=== PATIENT | female | born 1965 | race African-American/Black ===

== ENCOUNTER 2017-07-24 15:13 | Inpatient (IN) | payer MEDICARE, MEDICAID ==
[~2017-07-24] VITALS: Ht 162.6 cm; Wt 81.6 kg
[2017-07-24] MEDS ORDERED: Sodium Chloride 500ML 500 ML IV ONE (16:11)
[2017-07-24 16:48] LABS: APPEARANCE,URINE SLIGHTLY CLOUDY; BILIRUBIN, URINE NEGATIVE (NEGATIVE); COLOR,URINE AMBER; GLUCOSE, URINE (UA) NEGATIVE (NEGATIVE); KETONES,URINE 4+ (NEGATIVE); LEUKOCYTE ESTERASE ,URINE 1+ (NEGATIVE); NITRITE,URINE NEGATIVE (NEGATIVE); PH,URINE 7 (4.5-8.0); PROTEIN,URINE 2+ (NEGATIVE); UROBILINOGEN,URINE 1 MG/DL (0.0-1.0)
[2017-07-24 16:53] LABS: EOSINOPHILS % (AUTO) 1.1 % (0.0-3.0); HEMATOCRIT 47.7 % (37.0-47.0); HEMOGLOBIN 15.3 G/DL (12.0-16.0); LYMPHOCYTES % (AUTO) 8.1 % (20.0-45.0); MEAN CORPUSCULAR VOLUME 81 FL (80-99); MONOCYTES % (AUTO) 6.5 % (1.0-10.0); NEUTROPHILS % (AUTO) 83.3 % (45.0-75.0); PLATELET COUNT 329 K/UL (150-450); RED BLOOD COUNT 5.89 M/UL (4.20-5.40); RED CELL DISTRIBUTION WIDTH 12.5 % (11.6-14.8); WHITE BLOOD COUNT 17.5 K/UL (4.8-10.8)
[2017-07-24 17:00] VITALS: BP 157/98
[2017-07-24 17:13] LABS: ALANINE AMINOTRANSFERASE 21 U/L (12-78); ALBUMIN 3.2 G/DL (3.4-5.0); ALBUMIN/GLOBULIN RATIO 0.7 (1.0-2.7); ALKALINE PHOSPHATASE 105 U/L (46-116); ANION GAP 16 mmol/L (5-15); ASPARTATE AMINO TRANSFERASE 13 U/L (15-37); BILIRUBIN,TOTAL 0.7 MG/DL (0.2-1.0); BLOOD UREA NITROGEN 8 mg/dL (7-18); CALCIUM 9.5 MG/DL (8.5-10.1); CARBON DIOXIDE 24 MMOL/L (21-32); CHLORIDE 98 MMOL/L (98-107); CKMB < 0.5 NG/ML (0.0-3.6); CREATINE KINASE 47 U/L (26-308); CREATININE 0.7 MG/DL (0.55-1.30); SODIUM 138 MMOL/L (136-145)
[2017-07-24 17:16] LABS: POTASSIUM 2.6 MMOL/L (3.5-5.1)
[2017-07-24] MEDS ORDERED: ABILIFY20 MG ORAL (17:26)
[2017-07-24] MEDS ORDERED: LISINOPRIL5 MG ORAL (17:26)
[2017-07-24] MEDS ORDERED: TOPIRAMATE100 MG ORAL (17:26)
[2017-07-24] MEDS ORDERED: VENLAFAXINE HCL25 MG ORAL (17:26)
[2017-07-24] MEDS ORDERED: Potassium Chloride 10 MEQ in NS 110 ML IVPB SCH (17:30)
[2017-07-24] MEDS ORDERED: Isovue-300 100ml vial INJ ONE (17:45)
[2017-07-24] MEDS ORDERED: cefTRIAXone 1 GM in NS 55 ML IVPB ONE (19:15)
--- NOTE | 2017-07-24 19:17 | Emergency Room Report ---
History of Present Illness General Chief Complaint: Syncope Source: Patient Present Illness HPI Patient presents with complaints of diffuse abdominal pain Reports that she has also been constipated for the past several days Patient was in the waiting room when she was reported to have a syncopal episode Denies any headache denies any chest pain or shortness of breath denies any back or flank pain abdominal pain is 7 out of 10 diffuse patient also reports several vomiting episodes Denies any neck pain Denies any recent travel Allergies: Coded Allergies: No Known Allergies (Unverified , 07/24/17) Patient History Past Medical History: see triage record Pertinent Family History: none Reviewed Nursing Documentation: PMH: Agreed; PSxH: Agreed Nursing Documentation-PMH Past Medical History: No History, Except For Hx Hypertension: Yes Review of Systems All Other Systems: negative except mentioned in HPI Physical Exam Vital Signs Date Time Temp Pulse Resp B/P (MAP) Pulse Ox O2 Delivery O2 Flow Rate FiO2 07/24/17 15:55 97.7 92 21 169/91 100 Room Air 97.7 Sp02 EP Interpretation: reviewed, normal General Appearance: mild distress - Histrionic Head: normocephalic, atraumatic Eyes: bilateral eye PERRL, bilateral eye EOMI ENT: hearing grossly normal, normal pharynx, TMs + canals normal, uvula midline Neck: full range of motion, supple, no meningismus, no bony tend Respiratory: lungs clear, normal breath sounds, no rhonchi, no respiratory distress, no retraction, no accessory muscle use Cardiovascular #1: normal peripheral pulses, regular rate, rhythm, no edema, no gallop, no JVD, no murmur Gastrointestinal: normal bowel sounds, soft, no mass, no organomegaly, non- distended, no hernia, no pulsatile mass, no rebound, other - Difficult abnormal exam patient is fairly histrionic, I cannot localize the pain, soft abdomen otherwise Genitourinary: no CVA tenderness Musculoskeletal: normal inspection Neurologic: oriented x3, responsive, geriatrician III-XII nml as tested, motor strength/ tone normal, sensory intact Psychiatric: mood/affect normal Skin: normal color, no rash, warm/dry, palpation normal Lymphatic: normal inspection, no adenopathy Medical Decision Making Diagnostic Impression: Primary Impression: Perforated diverticulum Additional Impression: UTI (urinary tract infection) ER Course Multiple differentials considered Patient presents fairly histrionic in acute discomfort IV hydration and pain medication is provided Patient is complex requiring imaging and blood work CT is showing evidence of possible diverticulitis with perforation and abscess formation Patient's white blood cell count is elevated Multi-antibiotic doses are provided Patient requiring admission for further inpt care Labs Test 07/24/17 16:00 White Blood Count 17.5 K/UL (4.8-10.8) Red Blood Count 5.89 M/UL (4.20-5.40) Hemoglobin 15.3 G/DL (12.0-16.0) Hematocrit 47.7 % (37.0-47.0) Mean Corpuscular Volume 81 FL (80-99) Mean Corpuscular Hemoglobin 25.9 PG (27.0-31.0) Mean Corpuscular Hemoglobin Concent 32.0 G/DL (32.0-36.0) Red Cell Distribution Width 12.5 % (11.6-14.8) Platelet Count 329 K/UL (150-450) Mean Platelet Volume 7.8 FL (6.5-10.1) Neutrophils (%) (Auto) 83.3 % (45.0-75.0) Lymphocytes (%) (Auto) 8.1 % (20.0-45.0) Monocytes (%) (Auto) 6.5 % (1.0-10.0) Eosinophils (%) (Auto) 1.1 % (0.0-3.0) Basophils (%) (Auto) 1.0 % (0.0-2.0) Urine Color Yany Urine Appearance Slightly cloudy Urine pH 7 (4.5-8.0) Urine Specific [place] 1.010 (1.005-1.035) Urine Protein 2+ (NEGATIVE) Urine Glucose (UA) Negative (NEGATIVE) Urine Ketones 4+ (NEGATIVE) Urine Occult Blood 2+ (NEGATIVE) Urine Nitrite Negative (NEGATIVE) Urine Bilirubin Negative (NEGATIVE) Urine Ictotest Negative Urine Urobilinogen 1 MG/DL (0.0-1.0) Urine Leukocyte Esterase 1+ (NEGATIVE) Urine RBC 2-4 /HPF (0 - 2) Urine WBC 5-10 /HPF (0 - 2) Urine Squamous Epithelial Cells Moderate /LPF (NONE/OCC) Urine Bacteria Few /HPF (NONE) Urine Hyaline Casts 0-2 /LPF (NONE) Urine Mucus Few /LPF (NONE/OCC) Sodium Level 138 MMOL/L (136-145) Potassium Level 2.6 MMOL/L (3.5-5.1) Chloride Level 98 MMOL/L (98-107) Carbon Dioxide Level 24 MMOL/L (21-32) Anion Gap 16 mmol/L (5-15) Blood Urea Nitrogen 8 mg/dL (7-18) Creatinine 0.7 MG/DL (0.55-1.30) Estimat Glomerular Filtration Rate > 60 mL/min (>60) Glucose Level 131 MG/DL (74-106) Calcium Level 9.5 MG/DL (8.5-10.1) Total Bilirubin 0.7 MG/DL (0.2-1.0) Aspartate Amino Transf (AST/SGOT) 13 U/L (15-37) Alanine Aminotransferase (ALT/SGPT) 21 U/L (12-78) Alkaline Phosphatase 105 U/L (46-116) Total Creatine Kinase 47 U/L (26-308) Creatine Kinase MB < 0.5 NG/ML (0.0-3.6) Creatine Kinase MB Relative Index 1.0 Troponin I 0.000 ng/mL (0.000-0.056) Total Protein 8.0 G/DL (6.4-8.2) Albumin 3.2 G/DL (3.4-5.0) Globulin 4.8 g/dL Albumin/Globulin Ratio 0.7 (1.0-2.7) Lipase 113 U/L (73-393) Urine Opiates Screen Negative (NEGATIVE) Urine Barbiturates Screen Negative (NEGATIVE) Phencyclidine (PCP) Screen Negative (NEGATIVE) Urine Amphetamines Screen Negative (NEGATIVE) Urine Benzodiazepines Screen Negative (NEGATIVE) Urine Cocaine Screen Positive (NEGATIVE) Urine Marijuana (THC) Screen Positive (NEGATIVE) Chest X-Ray Diagnostic Results Chest X-Ray Diagnostic Results : Chest X-Ray Ordered: Yes # of Views/Limited/Complete: 1 View Indication: Chest Pain EP Interpretation: Yes Interpretation: no consolidation, no effusion, no pneumothorax, other - Cardiomegaly Impression: No acute disease Electronically Signed by: Olga Grubbs, DO CT/MRI/US Diagnostic Results CT/MRI/US Diagnostic Results : Impression CT abdomen pelvis: Colonic diverticulitis there is area 3.6 fluid collection at the sigmoid wall concerning for abscess distended gallbladder wall Last Vital Signs Date Time Temp Pulse Resp B/P (MAP) Pulse Ox O2 Delivery O2 Flow Rate FiO2 07/24/17 15:55 97.7 92 21 169/91 100 Room Air 97.7 Status: improved Disposition: ADMITTED INPATIENT Condition: Serious Referrals: NOT CHOSEN IPA/,REFERRING (PCP) Olga Grubbs DO July 24, 2017 19:17
[2017-07-24] MEDS ORDERED: Morphine Sulfate 4mg/ml Inj IVP ONE (19:45)
[2017-07-24 20:23] VITALS: BP 169/79
[2017-07-24] MEDS ORDERED: Milk of Magnesia 30ml Ud ORAL PRN (21:00)
[2017-07-24 21:31] VITALS: BP 146/76
[2017-07-24] MEDS ORDERED: ARIPiprazole 10mg tab ORAL SCH (22:30)
[2017-07-24] MEDS ORDERED: Topiramate 100mg tab ORAL SCH (22:30)
[2017-07-24] MEDS ORDERED: Lisinopril 10mg tab ORAL SCH (22:30)
[2017-07-24] MEDS ORDERED: Acetaminophen 650 MG SUPP RECTAL PRN (22:45)
[2017-07-24] MEDS ORDERED: Venlafaxine XR 150mg cap ORAL SCH (23:00)
[2017-07-25] VITALS: BP 126/68
[2017-07-25] MEDS: Piperacillin/Tazobactam 3.375 GM in D5W 110 ML IVPB SCH ×4 (00:36→22:42)
[2017-07-25] MEDS: D5 1/2NS w/KCl 20mEq 1,000 ML IV SCH ×3 (00:36→17:54)
--- NOTE | 2017-07-25 03:15 | Consultation ---
DATE OF CONSULTATION: 07/24/2017 CONSULTING PHYSICIAN: Rachid Rodarte M.D. REQUESTING PHYSICIAN: John Trevizo M.D. REASON FOR CONSULTATION: Abdominal pain. HISTORY OF PRESENT ILLNESS: This is a 52-year-old female, who presented to emergency room complaining of abdominal pain for about four days. She stated that the pain is mainly in the lower abdomen, crampy. It might be associated with nausea, but no vomiting. She stated that she was constipated and she has used MiraLAX and Dulcolax. Today, she has been having bowel movement. Apparently, today she had a low-grade fever. She stated that she felt cold and in the hospital, she had a temperature of 101.5. She denies any previous history of similar pain. This pain gets aggravated with walking and bowel movement. She has a history of constipation. PAST MEDICAL HISTORY: She denies allergies, asthma, diabetes, cardiac, or renal diseases. She has a history of hypertension and major depression. PAST SURGICAL HISTORY: Include x1. MEDICATIONS: Please see the medicine reconciliation form. SOCIAL HISTORY: The patient is a 52-year-old female, single, mother of 5 children. Unemployed. In fact, she is on disability due to the depression. She smokes about half-a-pack per day. However, denies drinking. REVIEW OF SYSTEMS: Her other complaint is the depression. PHYSICAL EXAMINATION: GENERAL: The patient appeared to be a well-developed and well-nourished, moderately obese 52-year-old female, lying on the bed, complaining of abdominal pain. HEENT: Head is normocephalic and atraumatic. Eyes, pupils are equal, round, and reactive to light. Mouth is clear. NECK: There is no palpable thyromegaly and adenopathy. CHEST: Clear to auscultation and percussion. HEART: No gallop or murmur. S1 and S2 are within normal limits. ABDOMEN: Obese, but soft. She has severe tenderness at the suprapubic area and mild tenderness at the left lower quadrant. There is no palpable organomegaly. Bowel sounds are present. She has a scar of the transverse suprapubic incision. GENITAL: Deferred. EXTREMITIES: Within normal limits. LABORATORY AND DIAGNOSTIC DATA: CBC has shown a WBC of 17,500 with a left shift. Chemistry has shown potassium of 2.6 and creatinine of 0.7. The rest of the chemistry is within normal limits. The CAT scan of the abdomen has been interpreted as sigmoid diverticulitis with a possible small abscess. ASSESSMENT: Acute diverticulitis. PLAN: At this time, the patient requires IV antibiotic and she requires to be NPO. After the pain improves, she can be started on clear liquid diet and a GI consultation is required. I have taken the liberty of changing some of the orders. Thank you, Dr. Trevizo, for asking me to participate in the management of this patient. Rachid Rodarte M.D. DR: TRINI JOB#: [id number] CC:
[2017-07-25 04:00] VITALS: BP 146/76
[2017-07-25] MEDS ORDERED: Morphine Sulfate 4mg/ml Inj IVP PRN (06:00)
[2017-07-25] MEDS: Morphine Sulfate 4mg/ml Inj IVP PRN ×3 (06:26→17:54)
[2017-07-25 07:31] LABS: BASOPHILS % (AUTO) 0.6 % (0.0-2.0); EOSINOPHILS % (AUTO) 2.5 % (0.0-3.0); HEMATOCRIT 41.9 % (37.0-47.0); HEMOGLOBIN 13.7 G/DL (12.0-16.0); LYMPHOCYTES % (AUTO) 10.8 % (20.0-45.0); MEAN CORPUSCULAR VOLUME 82 FL (80-99); NEUTROPHILS % (AUTO) 77.1 % (45.0-75.0); PLATELET COUNT 300 K/UL (150-450); RED BLOOD COUNT 5.13 M/UL (4.20-5.40); RED CELL DISTRIBUTION WIDTH 12.5 % (11.6-14.8); WHITE BLOOD COUNT 11.3 K/UL (4.8-10.8)
[2017-07-25 07:44] LABS: ANION GAP 10 mmol/L (5-15); BLOOD UREA NITROGEN 7 mg/dL (7-18); CALCIUM 8.4 MG/DL (8.5-10.1); CARBON DIOXIDE 28 MMOL/L (21-32); CHLORIDE 102 MMOL/L (98-107); CREATININE 0.7 MG/DL (0.55-1.30); SODIUM 140 MMOL/L (136-145)
[2017-07-25 07:50] LABS: CHOLESTEROL 145 MG/DL (< 200); HDL CHOLESTEROL 38 MG/DL (40-60); TRIGLYCERIDES 65 MG/DL (30-150)
[2017-07-25 08:00] VITALS: BP 134/76
[2017-07-25 08:06] LABS: POTASSIUM 2.7 MMOL/L (3.5-5.1)
[2017-07-25] MEDS ORDERED: Aspirin Baby 81mg ORAL SCH (09:00)
[2017-07-25] MEDS: Lisinopril 10mg tab ORAL SCH (10:29)
--- NOTE | 2017-07-25 11:20 | Cardiology Report ---
APPROVED REPORT EXAM: Two-dimensional and M-mode echocardiogram with Doppler and color Doppler. INDICATION Syncope M-Mode DIMENSIONS IVSd1.1 (0.7-1.1cm)Left Atrium (MM)3.3 (1.6-4.0cm) LVDd4.6 (3.5-5.6cm)Aortic Root2.9 (2.0-3.7cm) PWd1.1 (0.7-1.1cm)Aortic Cusp Exc.2.0 (1.5-2.0cm) LVDs2.9 (2.5-4.0cm) PWs1.7 cm Normal left ventricular chamber size, systolic function and wall motion. Left ventricular ejection fraction estimated to be 60-65 %. Borderline left ventricular hypertrophy. No evidence of pericardial effusion. Mild left atrial enlargement. Right cardiac chamber sizes are within normal limits. Focal aortic valve sclerosis with adequate cusp excursion. Thickened mitral valve leaflets with normal excursion. Mitral annulus and aortic root calcification. Normal pulmonic valve structure. Normal tricuspid valve structure. IVC dilated at 2.1 with physiological collapse. A color flow and spectral Doppler study was performed and revealed: No aortic insufficiency. No mitral regurgitation. Mitral diastolic velocities suggest mild left ventricular diastolic dysfunction (Grade I). Trace tricuspid regurgitation. Tricuspid systolic velocities suggests peak right ventricular systolic pressure of 18 mmHg. Trace pulmonic regurgitation present.
--- NOTE | 2017-07-25 11:39 | Cardiology Report ---
APPROVED REPORT EKG Measurement Heart [id number] Normal sinus rhythm Possible Left atrial enlargement T wave abnormality, consider lateral ischemia Prolonged QT Abnormal ECG
--- NOTE | 2017-07-25 11:42 | History & Physical ---
History and Physical History & Physicial HP dictated # [id number] VALENTE HAYWARD July 25, 2017 11:42
[2017-07-25 12:00] VITALS: BP 131/76
--- NOTE | 2017-07-25 13:07 | Cardiac Electrophysiology PN ---
Subjective Subjective [id number] Objective Last 24 Hour Vital Signs Date Time Temp Pulse Resp B/P (MAP) Pulse Ox O2 Delivery O2 Flow Rate FiO2 07/25/17 12:00 76 07/25/17 12:00 98.0 69 18 131/76 96 Room Air 98.0 84 07/25/17 10:29 134/76 07/25/17 08:00 98.2 84 18 134/76 94 Room Air 98.2 84 07/25/17 08:00 75 07/25/17 06:56 98.2 07/25/17 06:26 98.2 07/25/17 04:00 98.2 77 20 146/76 96 Room Air 98.2 77 07/25/17 04:00 82 07/25/17 00:00 80 07/25/17 00:00 98.4 86 20 126/68 96 Room Air 98.4 86 07/24/17 22:26 154/87 07/24/17 21:45 101.5 91 23 146/76 98 Room Air 214.7 91 07/24/17 21:33 101.5 07/24/17 21:31 101.5 91 23 146/76 98 Room Air 101.5 91 07/24/17 20:23 98.8 88 21 169/79 96 Room Air 98.8 07/24/17 19:48 97.7 07/24/17 17:00 97.7 94 21 157/98 98 Room Air 97.7 07/24/17 15:55 97.7 92 21 169/91 100 Room Air 97.7 Intake and Output 07/24/17 07/25/17 19:00 07:00 Intake Total 650 ml Balance 650 ml Intake Oral 100 ml Other 550 ml # Voids 3 Laboratory Tests Test 07/24/17 16:00 07/25/17 07:00 White Blood Count 17.5 K/UL (4.8-10.8) H 11.3 K/UL (4.8-10.8) H Red Blood Count 5.89 M/UL (4.20-5.40) H 5.13 M/UL (4.20-5.40) Hemoglobin 15.3 G/DL (12.0-16.0) 13.7 G/DL (12.0-16.0) Hematocrit 47.7 % (37.0-47.0) H 41.9 % (37.0-47.0) Mean Corpuscular Volume 81 FL (80-99) 82 FL (80-99) Mean Corpuscular Hemoglobin 25.9 PG (27.0-31.0) L 26.8 PG (27.0-31.0) L Mean Corpuscular Hemoglobin Concent 32.0 G/DL (32.0-36.0) 32.7 G/DL (32.0-36.0) Red Cell Distribution Width 12.5 % (11.6-14.8) 12.5 % (11.6-14.8) Platelet Count 329 K/UL (150-450) 300 K/UL (150-450) Mean Platelet Volume 7.8 FL (6.5-10.1) 7.9 FL (6.5-10.1) Neutrophils (%) (Auto) 83.3 % (45.0-75.0) H 77.1 % (45.0-75.0) H Lymphocytes (%) (Auto) 8.1 % (20.0-45.0) L 10.8 % (20.0-45.0) L Monocytes (%) (Auto) 6.5 % (1.0-10.0) 9.0 % (1.0-10.0) Eosinophils (%) (Auto) 1.1 % (0.0-3.0) 2.5 % (0.0-3.0) Basophils (%) (Auto) 1.0 % (0.0-2.0) 0.6 % (0.0-2.0) Urine Color Yany Urine Appearance Slightly cloudy Urine pH 7 (4.5-8.0) Urine Specific [place] 1.010 (1.005-1.035) Urine Protein 2+ (NEGATIVE) H Urine Glucose (UA) Negative (NEGATIVE) Urine Ketones 4+ (NEGATIVE) H Urine Occult Blood 2+ (NEGATIVE) H Urine Nitrite Negative (NEGATIVE) Urine Bilirubin Negative (NEGATIVE) Urine Ictotest Negative Urine Urobilinogen 1 MG/DL (0.0-1.0) H Urine Leukocyte Esterase 1+ (NEGATIVE) H Urine RBC 2-4 /HPF (0 - 2) H Urine WBC 5-10 /HPF (0 - 2) H Urine Squamous Epithelial Cells Moderate /LPF (NONE/OCC) H Urine Bacteria Few /HPF (NONE) Urine Hyaline Casts 0-2 /LPF (NONE) H Urine Mucus Few /LPF (NONE/OCC) H Sodium Level 138 MMOL/L (136-145) 140 MMOL/L (136-145) Potassium Level 2.6 MMOL/L (3.5-5.1) *L 2.7 MMOL/L (3.5-5.1) *L Chloride Level 98 MMOL/L (98-107) 102 MMOL/L (98-107) Carbon Dioxide Level 24 MMOL/L (21-32) 28 MMOL/L (21-32) Anion Gap 16 mmol/L (5-15) H 10 mmol/L (5-15) Blood Urea Nitrogen 8 mg/dL (7-18) 7 mg/dL (7-18) Creatinine 0.7 MG/DL (0.55-1.30) 0.7 MG/DL (0.55-1.30) Estimat Glomerular Filtration Rate > 60 mL/min (>60) > 60 mL/min (>60) Glucose Level 131 MG/DL (74-106) H 133 MG/DL (74-106) H Calcium Level 9.5 MG/DL (8.5-10.1) 8.4 MG/DL (8.5-10.1) L Total Bilirubin 0.7 MG/DL (0.2-1.0) Aspartate Amino Transf (AST/SGOT) 13 U/L (15-37) L Alanine Aminotransferase (ALT/SGPT) 21 U/L (12-78) Alkaline Phosphatase 105 U/L (46-116) Total Creatine Kinase 47 U/L (26-308) Creatine Kinase MB < 0.5 NG/ML (0.0-3.6) Creatine Kinase MB Relative Index 1.0 Troponin I 0.000 ng/mL (0.000-0.056) 0.000 ng/mL (0.000-0.056) Total Protein 8.0 G/DL (6.4-8.2) Albumin 3.2 G/DL (3.4-5.0) L Globulin 4.8 g/dL Albumin/Globulin Ratio 0.7 (1.0-2.7) L Lipase 113 U/L (73-393) Urine Opiates Screen Negative (NEGATIVE) Urine Barbiturates Screen Negative (NEGATIVE) Phencyclidine (PCP) Screen Negative (NEGATIVE) Urine Amphetamines Screen Negative (NEGATIVE) Urine Benzodiazepines Screen Negative (NEGATIVE) Urine Cocaine Screen Positive (NEGATIVE) H Urine Marijuana (THC) Screen Positive (NEGATIVE) H Hemoglobin A1c 6.1 % (4.3-6.0) H Triglycerides Level 65 MG/DL (30-150) Cholesterol Level 145 MG/DL (< 200) LDL Cholesterol 95 mg/dL (<100) HDL Cholesterol 38 MG/DL (40-60) L Cholesterol/HDL Ratio 3.8 (3.3-4.4) Ha Thompson MD July 25, 2017 13:07
--- NOTE | 2017-07-25 15:56 | General Surgery Progress Note ---
General Surgery-Progress Note Subjective Symptoms: improved Objective Last 24 Hour Vital Signs Date Time Temp Pulse Resp B/P (MAP) Pulse Ox O2 Delivery O2 Flow Rate FiO2 07/25/17 12:00 76 07/25/17 12:00 98.0 69 18 131/76 96 Room Air 98.0 84 07/25/17 10:29 134/76 07/25/17 08:00 98.2 84 18 134/76 94 Room Air 98.2 84 07/25/17 08:00 75 07/25/17 06:56 98.2 07/25/17 06:26 98.2 07/25/17 04:00 98.2 77 20 146/76 96 Room Air 98.2 77 07/25/17 04:00 82 07/25/17 00:00 80 07/25/17 00:00 98.4 86 20 126/68 96 Room Air 98.4 86 07/24/17 22:26 154/87 07/24/17 21:45 101.5 91 23 146/76 98 Room Air 214.7 91 07/24/17 21:33 101.5 07/24/17 21:31 101.5 91 23 146/76 98 Room Air 101.5 91 07/24/17 20:23 98.8 88 21 169/79 96 Room Air 98.8 07/24/17 19:48 97.7 07/24/17 17:00 97.7 94 21 157/98 98 Room Air 97.7 I&O Intake and Output 07/24/17 07/25/17 19:00 07:00 Intake Total 650 ml Balance 650 ml Intake Oral 100 ml Other 550 ml # Voids 3 Respiratory: clear Abdomen: soft, tenderness, present bowel sounds Extremities: no tenderness Laboratory Tests Test 07/24/17 16:00 07/25/17 07:00 White Blood Count 17.5 K/UL (4.8-10.8) H 11.3 K/UL (4.8-10.8) H Red Blood Count 5.89 M/UL (4.20-5.40) H 5.13 M/UL (4.20-5.40) Hemoglobin 15.3 G/DL (12.0-16.0) 13.7 G/DL (12.0-16.0) Hematocrit 47.7 % (37.0-47.0) H 41.9 % (37.0-47.0) Mean Corpuscular Volume 81 FL (80-99) 82 FL (80-99) Mean Corpuscular Hemoglobin 25.9 PG (27.0-31.0) L 26.8 PG (27.0-31.0) L Mean Corpuscular Hemoglobin Concent 32.0 G/DL (32.0-36.0) 32.7 G/DL (32.0-36.0) Red Cell Distribution Width 12.5 % (11.6-14.8) 12.5 % (11.6-14.8) Platelet Count 329 K/UL (150-450) 300 K/UL (150-450) Mean Platelet Volume 7.8 FL (6.5-10.1) 7.9 FL (6.5-10.1) Neutrophils (%) (Auto) 83.3 % (45.0-75.0) H 77.1 % (45.0-75.0) H Lymphocytes (%) (Auto) 8.1 % (20.0-45.0) L 10.8 % (20.0-45.0) L Monocytes (%) (Auto) 6.5 % (1.0-10.0) 9.0 % (1.0-10.0) Eosinophils (%) (Auto) 1.1 % (0.0-3.0) 2.5 % (0.0-3.0) Basophils (%) (Auto) 1.0 % (0.0-2.0) 0.6 % (0.0-2.0) Urine Color Yany Urine Appearance Slightly cloudy Urine pH 7 (4.5-8.0) Urine Specific [place] 1.010 (1.005-1.035) Urine Protein 2+ (NEGATIVE) H Urine Glucose (UA) Negative (NEGATIVE) Urine Ketones 4+ (NEGATIVE) H Urine Occult Blood 2+ (NEGATIVE) H Urine Nitrite Negative (NEGATIVE) Urine Bilirubin Negative (NEGATIVE) Urine Ictotest Negative Urine Urobilinogen 1 MG/DL (0.0-1.0) H Urine Leukocyte Esterase 1+ (NEGATIVE) H Urine RBC 2-4 /HPF (0 - 2) H Urine WBC 5-10 /HPF (0 - 2) H Urine Squamous Epithelial Cells Moderate /LPF (NONE/OCC) H Urine Bacteria Few /HPF (NONE) Urine Hyaline Casts 0-2 /LPF (NONE) H Urine Mucus Few /LPF (NONE/OCC) H Sodium Level 138 MMOL/L (136-145) 140 MMOL/L (136-145) Potassium Level 2.6 MMOL/L (3.5-5.1) *L 2.7 MMOL/L (3.5-5.1) *L Chloride Level 98 MMOL/L (98-107) 102 MMOL/L (98-107) Carbon Dioxide Level 24 MMOL/L (21-32) 28 MMOL/L (21-32) Anion Gap 16 mmol/L (5-15) H 10 mmol/L (5-15) Blood Urea Nitrogen 8 mg/dL (7-18) 7 mg/dL (7-18) Creatinine 0.7 MG/DL (0.55-1.30) 0.7 MG/DL (0.55-1.30) Estimat Glomerular Filtration Rate > 60 mL/min (>60) > 60 mL/min (>60) Glucose Level 131 MG/DL (74-106) H 133 MG/DL (74-106) H Calcium Level 9.5 MG/DL (8.5-10.1) 8.4 MG/DL (8.5-10.1) L Total Bilirubin 0.7 MG/DL (0.2-1.0) Aspartate Amino Transf (AST/SGOT) 13 U/L (15-37) L Alanine Aminotransferase (ALT/SGPT) 21 U/L (12-78) Alkaline Phosphatase 105 U/L (46-116) Total Creatine Kinase 47 U/L (26-308) Creatine Kinase MB < 0.5 NG/ML (0.0-3.6) Creatine Kinase MB Relative Index 1.0 Troponin I 0.000 ng/mL (0.000-0.056) 0.000 ng/mL (0.000-0.056) Total Protein 8.0 G/DL (6.4-8.2) Albumin 3.2 G/DL (3.4-5.0) L Globulin 4.8 g/dL Albumin/Globulin Ratio 0.7 (1.0-2.7) L Lipase 113 U/L (73-393) Urine Opiates Screen Negative (NEGATIVE) Urine Barbiturates Screen Negative (NEGATIVE) Phencyclidine (PCP) Screen Negative (NEGATIVE) Urine Amphetamines Screen Negative (NEGATIVE) Urine Benzodiazepines Screen Negative (NEGATIVE) Urine Cocaine Screen Positive (NEGATIVE) H Urine Marijuana (THC) Screen Positive (NEGATIVE) H Hemoglobin A1c 6.1 % (4.3-6.0) H Triglycerides Level 65 MG/DL (30-150) Cholesterol Level 145 MG/DL (< 200) LDL Cholesterol 95 mg/dL (<100) HDL Cholesterol 38 MG/DL (40-60) L Cholesterol/HDL Ratio 3.8 (3.3-4.4) Assessment Additional Comments Acute Diverticulitis Plan Additional Comments Continue present treatment RONALD ARZOLA July 25, 2017 15:56
[2017-07-25 16:00] VITALS: BP 133/68
[2017-07-25 20:00] VITALS: BP 131/71
--- NOTE | 2017-07-25 20:00 | History and Physical Report ---
DATE OF ADMISSION: 07/24/2017 CHIEF COMPLAINT: Abdominal pain. HISTORY OF PRESENT ILLNESS: This is a 52-year-old female, who came to the emergency room because of abdominal pain. While waiting in the waiting room, she had also a syncopal episode. The patient said that she was feeling dizzy in the emergency room. The patient was reporting abdominal pain 7/10 with several vomiting episodes. Currently, the patient is feeling better and does not have much pain. The patient was also seen by Dr. Rodarte for surgery and the CT scan also was done. CT of the abdomen showing sigmoid diverticulitis with possible small abscess. PAST MEDICAL HISTORY: History of major depression and hypertension. MEDICATIONS: Reviewed in the EMR. ALLERGIES: No known drug allergies. REVIEW OF SYSTEMS: As above. PHYSICAL EXAMINATION: GENERAL: The patient is a 52-year-old female, in no acute distress. VITAL SIGNS: Blood pressure 146/76, pulse 77, temperature 98.2 degrees, and respiratory rate is 20. HEENT: [place] conjunctivae. Anicteric sclerae. NECK: Supple. LUNGS: Clear to auscultation. HEART: S1 and S2 without murmurs or rubs. ABDOMEN: Soft. There is some mild tenderness in the lower abdomen. EXTREMITIES: No cyanosis or edema. LABORATORY AND DIAGNOSTIC DATA: The CBC shows a WBC of 17.5 on admission and today it is 11.3, hematocrit of 47.7, hemoglobin is 15.3, and platelets 329,000. Chemistry panel shows serum sodium of 140, potassium 2.7, chloride 102, CO2 28, BUN 7, creatinine 0.7, blood sugar is 133, and calcium is 8.4. UA shows 5 to 10 wbcs per high-power field and 2 to 4 rbcs. ASSESSMENT: This is a 52-year-old female, who was admitted with diagnosis of diverticulitis. The patient has also urinary tract infection. She has significant hypokalemia and also an episode of syncope. PLAN: The patient's potassium will be repleted. She was started on IV antibiotics and IV fluids. The patient will be seen by the ID wardrobe image consultant and further based on hospital course and findings, adjustment will be made in the patient's regimen. John Trevizo M.D. DR: DEVANTE JOB#: [id number] CC:
--- NOTE | 2017-07-25 20:45 | Consultation ---
DATE OF CONSULTATION: 07/25/2017 CARDIOLOGY CONSULTATION CONSULTING PHYSICIAN: Ha Thompson M.D. REFERRING PHYSICIAN: John Trevizo M.D. REASON FOR CONSULTATION: Syncope and the patient with hypertension and abnormal electrocardiogram. HISTORY OF PRESENT ILLNESS: The patient is a 52-year-old lady with history of hypertension and major depression, presented to the emergency room with abdominal pain of four days duration. The pain was primarily in the lower abdomen and associated with nausea, but no vomiting. The patient also has been having low-grade fever and went to an emergency room with temperature of 101.5. The patient underwent a CT of the abdomen that showed sigmoid diverticulitis, possible small abscess. The patient was made NPO after was evaluated by Dr. Rodarte from surgical perspective and started on IV antibiotics. Her EKG however showed lateral ischemia, but the patient does not currently have chest pain. Cardiology clearance was requested for further evaluation. REVIEW OF SYSTEMS: Review of systems was performed and was negative other than what was mentioned in the history of present illness. PAST MEDICAL HISTORY: Includes: 1. Hypertension. 2. Major depression. SOCIAL HISTORY: She lives at home. Does not smoke or drink alcohol. FAMILY HISTORY: Noncontributory. PHYSICAL EXAMINATION: VITAL SIGNS: Show blood pressure of 131/76, pulse 84, respirations 18, and she is afebrile. HEAD AND NECK: Shows no JVD or carotid bruits. LUNGS: Clear. CARDIOVASCULAR: Shows regular S1 and S2 with no gallop or murmur. ABDOMEN: Soft. EXTREMITIES: No pitting edema. LABORATORY AND DIAGNOSTIC DATA: Her EKG shows sinus rhythm with left atrial enlargement and T-wave abnormalities suggestive of lateral ischemia. Her labs show white count of 11.2, hemoglobin of 13.7, hematocrit of 41.9, and platelet count of 300. Sodium 140, potassium is 2.7, BUN of 7, creatinine of 0.7, and glucose of 132. Troponin negative x2. ASSESSMENT AND PLAN: 1. Syncope. Etiology is not clear, could be secondary to severe pain, currently remained in sinus rhythm. She will be ruled out for myocardial infarction. She underwent an echocardiogram that showed ejection fraction of 60% to 65% with no pericardial effusion and no aortic stenosis. 2. Lateral ischemia on the EKG. The patient will be ruled out for myocardial infarction. Currently denies any chest pain. At some point, she would need a stress test for further evaluation. 3. Severe hypokalemia. Potassium 2.7, was replaced. 4. Hypertension. The patient is on Zestril 10 mg daily. I will add p.r.n. hydralazine to her medical regimen. 5. Major depression, on Abilify and Effexor. 6. Acute diverticulitis with possible abscess, antibiotic under management of Dr. Rodarte. Thank you very much, Dr. Trevizo, for allowing me to participate in the care of this patient. Please do not hesitate to contact me if you have any questions regarding my evaluation. Ha Thompson M.D. DR: Krishna JOB#: [id number] CC:
[2017-07-25] MEDS: Topiramate 100mg tab ORAL SCH (21:14)
[2017-07-25] MEDS: ARIPiprazole 10mg tab ORAL SCH (21:14)
[2017-07-25] MEDS: Venlafaxine XR 150mg cap ORAL SCH (21:14)
--- NOTE | 2017-07-25 21:30 | Consultation ---
DATE OF CONSULTATION: 07/25/2017 GASTROENTEROLOGY CONSULTATION CONSULTING PHYSICIAN: Román St M.D. CHIEF COMPLAINT: I was asked to see this patient by Dr. John Trevizo for evaluation of diverticulitis. HISTORY OF PRESENT ILLNESS: The patient is a pleasant 52-year-old woman with a four-day history of abdominal pain, which was more in the left lower quadrant. The patient stated there was some nausea, but no vomiting. She tried her laxatives without significant improvement. She came to the hospital where she was found to have diverticulitis and therefore she has been admitted to the hospital. She still complains of some left-sided abdominal pain. She has been kept NPO and she is on broad-spectrum antibiotics. She states she has never had an endoscopy or colonoscopy in the past. Her white count on admission was 17, but this is reduced today to 11. Her hypokalemia is being addressed separately. PAST MEDICAL HISTORY: History of hypertension and history of depression. PAST SURGICAL HISTORY: Status post . ALLERGIES: None. FAMILY HISTORY: Positive for breast cancer in a great aunt. SOCIAL HISTORY: The patient drinks and smokes occasionally. REVIEW OF SYSTEMS: Otherwise negative. PHYSICAL EXAMINATION: GENERAL: Pleasant woman, seen in her room. HEENT: Normocephalic and atraumatic. Sclerae anicteric. Oropharynx clear. NECK: Supple. CHEST: Clear to auscultation. CARDIOVASCULAR: Regular rate. ABDOMEN: Soft and obese with good bowel sounds. There was some left lower quadrant abdominal tenderness with no guarding or rebound. EXTREMITIES: No edema. LABORATORY AND DIAGNOSTIC DATA: Laboratory data were noted. The imaging study final reading is pending at this time. ASSESSMENT: This patient has been admitted with diverticulitis, which has resulted in the left lower quadrant pain and leukocytosis. Her clinical symptoms are improving and her white count is reduced. Her antibiotics will be continued for now. Surgical consultation has been noted and we will follow the patient. In the meantime, the patient should be kept NPO until abdominal exam is significantly improved and then diet can be restarted and gradually advanced. The patient was advised to return to my office at about 6 to 8 weeks for the colonoscopy to evaluate the colonic area, which has been effective during this admission, this is to rule out any other pathology such as malignancy. RECOMMENDATIONS: 1. NPO except medications. 2. IV fluids. 3. Broad-spectrum antibiotics. 4. Follow laboratory parameters and exam. 5. Colonoscopy at a later date. Thank you for asking me to participate in the care of this patient. Román St M.D. DR: ZIA JOB#: [id number] CC:
[2017-07-26] VITALS: BP_SYST 128; BP_SYST 155; BP_DIAS 76; BP_DIAS 88
[2017-07-26] MEDS: Morphine Sulfate 4mg/ml Inj IVP PRN ×2 (03:26→16:43)
[2017-07-26 04:00] VITALS: BP 109/58
[2017-07-26] MEDS: D5 1/2NS w/KCl 20mEq 1,000 ML IV SCH ×2 (05:00→14:45)
[2017-07-26] MEDS: Piperacillin/Tazobactam 3.375 GM in D5W 110 ML IVPB SCH ×3 (06:11→22:52)
[2017-07-26 08:00] VITALS: BP 133/72
[2017-07-26] MEDS: Lisinopril 10mg tab ORAL SCH (09:07)
[2017-07-26 09:52] LABS: EOSINOPHILS % (AUTO) 5.8 % (0.0-3.0); HEMATOCRIT 42.6 % (37.0-47.0); HEMOGLOBIN 13.8 G/DL (12.0-16.0); LYMPHOCYTES % (AUTO) 19.5 % (20.0-45.0); MEAN CORPUSCULAR VOLUME 83 FL (80-99); NEUTROPHILS % (AUTO) 66.7 % (45.0-75.0); PLATELET COUNT 312 K/UL (150-450); RED BLOOD COUNT 5.12 M/UL (4.20-5.40); RED CELL DISTRIBUTION WIDTH 12.8 % (11.6-14.8); WHITE BLOOD COUNT 7.9 K/UL (4.8-10.8)
--- NOTE | 2017-07-26 09:55 | General Surgery Progress Note ---
General Surgery-Progress Note Subjective Symptoms: improved, BM Objective Last 24 Hour Vital Signs Date Time Temp Pulse Resp B/P (MAP) Pulse Ox O2 Delivery O2 Flow Rate FiO2 07/26/17 09:07 133/72 07/26/17 04:00 98.2 71 19 109/58 99 Room Air 98.2 07/26/17 04:00 69 07/26/17 03:56 97.0 07/26/17 03:26 97.0 07/26/17 00:00 98.6 80 16 128/76 98 Room Air 98.6 07/26/17 00:00 76 07/26/17 00:00 97.0 99 16 155/88 97 Room Air 97.0 07/25/17 20:00 74 07/25/17 20:00 97.7 71 21 131/71 93 Room Air 97.7 07/25/17 16:00 76 07/25/17 16:00 98.2 76 18 133/68 97 Room Air 98.2 76 07/25/17 12:00 76 07/25/17 12:00 98.0 69 18 131/76 96 Room Air 98.0 84 07/25/17 10:29 134/76 I&O Intake and Output 07/25/17 07/26/17 19:00 07:00 # Voids 2 3 # Bowel Movements 1 Respiratory: clear Abdomen: soft, tenderness, present bowel sounds Extremities: no tenderness Laboratory Tests Test 07/26/17 08:00 White Blood Count Pending Red Blood Count Pending Hemoglobin Pending Hematocrit Pending Mean Corpuscular Volume Pending Mean Corpuscular Hemoglobin Pending Mean Corpuscular Hemoglobin Concent Pending Red Cell Distribution Width Pending Platelet Count Pending Mean Platelet Volume Pending Neutrophils (%) (Auto) Pending Lymphocytes (%) (Auto) Pending Monocytes (%) (Auto) Pending Eosinophils (%) (Auto) Pending Basophils (%) (Auto) Pending Sodium Level Pending Potassium Level Pending Chloride Level Pending Carbon Dioxide Level Pending Blood Urea Nitrogen Pending Creatinine Pending Estimat Glomerular Filtration Rate Pending Glucose Level Pending Calcium Level Pending Magnesium Level Pending Assessment Additional Comments Acute diverticulitis Plan Additional Comments continue current treatment RONALD ARZOLA July 26, 2017 09:54
[2017-07-26 10:23] LABS: ANION GAP 9 mmol/L (5-15); BLOOD UREA NITROGEN 9 mg/dL (7-18); CALCIUM 9.1 MG/DL (8.5-10.1); CARBON DIOXIDE 24 MMOL/L (21-32); CHLORIDE 106 MMOL/L (98-107); CREATININE 0.9 MG/DL (0.55-1.30); POTASSIUM 3.6 MMOL/L (3.5-5.1); SODIUM 139 MMOL/L (136-145)
--- NOTE | 2017-07-26 14:27 | General Progress Note ---
Assessment/Plan Problem List: (1) Diverticulitis ICD Codes: K57.92 - Diverticulitis of intestine, part unspecified, without perforation or abscess without bleeding SNOMED: 534818563 (2) Syncope and collapse ICD Codes: R55 - Syncope and collapse SNOMED: 033880438 (3) UTI (urinary tract infection) ICD Codes: N39.0 - Urinary tract infection, site not specified SNOMED: 58800607 Assessment/Plan abxs IVF will discuss with Dr Thompson follow labs Subjective Allergies: Coded Allergies: No Known Allergies (Unverified , 07/24/17) Subjective better Objective Last 24 Hour Vital Signs Date Time Temp Pulse Resp B/P (MAP) Pulse Ox O2 Delivery O2 Flow Rate FiO2 07/26/17 09:07 133/72 07/26/17 08:00 79 07/26/17 08:00 98.0 73 20 133/72 93 Room Air 98.0 73 07/26/17 04:00 98.2 71 19 109/58 99 Room Air 98.2 07/26/17 04:00 69 07/26/17 03:56 97.0 07/26/17 03:26 97.0 07/26/17 00:00 98.6 80 16 128/76 98 Room Air 98.6 07/26/17 00:00 76 07/26/17 00:00 97.0 99 16 155/88 97 Room Air 97.0 07/25/17 20:00 74 07/25/17 20:00 97.7 71 21 131/71 93 Room Air 97.7 07/25/17 16:00 76 07/25/17 16:00 98.2 76 18 133/68 97 Room Air 98.2 76 Intake and Output 07/25/17 07/26/17 19:00 07:00 # Voids 2 3 # Bowel Movements 1 Laboratory Tests 07/26/17 08:00: White Blood Count 7.9, Red Blood Count 5.12, Hemoglobin 13.8, Hematocrit 42.6, Mean Corpuscular Volume 83, Mean Corpuscular Hemoglobin 26.9L, Mean Corpuscular Hemoglobin Concent 32.3, Red Cell Distribution Width 12.8, Platelet Count 312, Mean Platelet Volume 7.5, Neutrophils (%) (Auto) 66.7, Lymphocytes (%) (Auto) 19.5L, Monocytes (%) (Auto) 7.0, Eosinophils (%) (Auto) 5.8H, Basophils (%) ( Auto) 1.0, Sodium Level 139, Potassium Level 3.6, Chloride Level 106, Carbon Dioxide Level 24, Anion Gap 9, Blood Urea Nitrogen 9, Creatinine 0.9, Estimat Glomerular Filtration Rate > 60, Glucose Level 159H, Calcium Level 9.1, Magnesium Level 2.1 Height (Feet): 5 Height (Inches): 4.00 Weight (Pounds): 180 Cardiovascular: normal rate Respiratory/Chest: lungs clear Abdomen: soft VALENTE HAYWARD July 26, 2017 14:27
[2017-07-26 16:00] VITALS: BP 168/98
--- NOTE | 2017-07-26 16:24 | Cardiac Electrophysiology PN ---
Assessment/Plan Assessment/Plan 1. Syncope. Etiology is not clear, could be secondary to severe pain, currently remained in sinus rhythm. Ruled out for myocardial infarction. Echocardiogram that showed EF 60% to 65% with no pericardial effusion and no aortic stenosis. 2. Lateral ischemia on the EKG. Ruled out for myocardial infarction. Currently denies any chest pain. Stress test for further evaluation after GI issue resolved. 3. Severe hypokalemia. Potassium 2.7, was replaced. 4. Hypertension. On Zestril 10 mg daily. 5. Major depression, on Abilify and Effexor. 6. Acute diverticulitis with possible abscess, NPO on antibiotic under management of Dr. Rodarte. EDWARD RN Subjective Subjective Comfortable in NAD in SR. No CP or SOB but still has abd pain Objective Last 24 Hour Vital Signs Date Time Temp Pulse Resp B/P (MAP) Pulse Ox O2 Delivery O2 Flow Rate FiO2 07/26/17 12:00 73 07/26/17 09:07 133/72 07/26/17 08:00 79 07/26/17 08:00 98.0 73 20 133/72 93 Room Air 98.0 73 07/26/17 04:00 98.2 71 19 109/58 99 Room Air 98.2 07/26/17 04:00 69 07/26/17 03:56 97.0 07/26/17 03:26 97.0 07/26/17 00:00 98.6 80 16 128/76 98 Room Air 98.6 07/26/17 00:00 76 07/26/17 00:00 97.0 99 16 155/88 97 Room Air 97.0 07/25/17 20:00 74 07/25/17 20:00 97.7 71 21 131/71 93 Room Air 97.7 Intake and Output 07/25/17 07/26/17 19:00 07:00 # Voids 2 3 # Bowel Movements 1 Laboratory Tests Test 07/26/17 08:00 White Blood Count 7.9 K/UL (4.8-10.8) Red Blood Count 5.12 M/UL (4.20-5.40) Hemoglobin 13.8 G/DL (12.0-16.0) Hematocrit 42.6 % (37.0-47.0) Mean Corpuscular Volume 83 FL (80-99) Mean Corpuscular Hemoglobin 26.9 PG (27.0-31.0) L Mean Corpuscular Hemoglobin Concent 32.3 G/DL (32.0-36.0) Red Cell Distribution Width 12.8 % (11.6-14.8) Platelet Count 312 K/UL (150-450) Mean Platelet Volume 7.5 FL (6.5-10.1) Neutrophils (%) (Auto) 66.7 % (45.0-75.0) Lymphocytes (%) (Auto) 19.5 % (20.0-45.0) L Monocytes (%) (Auto) 7.0 % (1.0-10.0) Eosinophils (%) (Auto) 5.8 % (0.0-3.0) H Basophils (%) (Auto) 1.0 % (0.0-2.0) Sodium Level 139 MMOL/L (136-145) Potassium Level 3.6 MMOL/L (3.5-5.1) Chloride Level 106 MMOL/L (98-107) Carbon Dioxide Level 24 MMOL/L (21-32) Anion Gap 9 mmol/L (5-15) Blood Urea Nitrogen 9 mg/dL (7-18) Creatinine 0.9 MG/DL (0.55-1.30) Estimat Glomerular Filtration Rate > 60 mL/min (>60) Glucose Level 159 MG/DL (74-106) H Calcium Level 9.1 MG/DL (8.5-10.1) Magnesium Level 2.1 MG/DL (1.5-2.4) Objective HEAD AND NECK: Shows no JVD or carotid bruits. LUNGS: Clear. CARDIOVASCULAR: Shows regular S1 and S2 with no gallop or murmur. ABDOMEN: Soft. EXTREMITIES: No pitting edema. Ha Thompson MD July 26, 2017 16:24
--- NOTE | 2017-07-26 19:54 | General Progress Note ---
Assessment/Plan Assessment/Plan Assessment - HTN - Depression - Obesity - Diverticulitis - resolved hypkalemia Recommendations - abx - diet per surgery - await CT reading - OOB - outpatient colonoscopy in 6-8 weeks Subjective Allergies: Coded Allergies: No Known Allergies (Unverified , 07/24/17) Subjective Patient feels better Less pain No CT results in the computer called radiology front end loader operator and asked them to upload CT results Objective Last 24 Hour Vital Signs Date Time Temp Pulse Resp B/P (MAP) Pulse Ox O2 Delivery O2 Flow Rate FiO2 07/26/17 16:00 98.9 77 20 168/98 97 Room Air 98.9 07/26/17 16:00 81 07/26/17 12:00 73 07/26/17 09:07 133/72 07/26/17 08:00 79 07/26/17 08:00 98.0 73 20 133/72 93 Room Air 98.0 73 07/26/17 04:00 98.2 71 19 109/58 99 Room Air 98.2 07/26/17 04:00 69 07/26/17 03:56 97.0 07/26/17 03:26 97.0 07/26/17 00:00 98.6 80 16 128/76 98 Room Air 98.6 07/26/17 00:00 76 07/26/17 00:00 97.0 99 16 155/88 97 Room Air 97.0 07/25/17 20:00 74 07/25/17 20:00 97.7 71 21 131/71 93 Room Air 97.7 Intake and Output 07/25/17 07/26/17 19:00 07:00 # Voids 2 3 # Bowel Movements 1 Laboratory Tests 07/26/17 08:00: White Blood Count 7.9, Red Blood Count 5.12, Hemoglobin 13.8, Hematocrit 42.6, Mean Corpuscular Volume 83, Mean Corpuscular Hemoglobin 26.9L, Mean Corpuscular Hemoglobin Concent 32.3, Red Cell Distribution Width 12.8, Platelet Count 312, Mean Platelet Volume 7.5, Neutrophils (%) (Auto) 66.7, Lymphocytes (%) (Auto) 19.5L, Monocytes (%) (Auto) 7.0, Eosinophils (%) (Auto) 5.8H, Basophils (%) ( Auto) 1.0, Sodium Level 139, Potassium Level 3.6, Chloride Level 106, Carbon Dioxide Level 24, Anion Gap 9, Blood Urea Nitrogen 9, Creatinine 0.9, Estimat Glomerular Filtration Rate > 60, Glucose Level 159H, Calcium Level 9.1, Magnesium Level 2.1 Height (Feet): 5 Height (Inches): 4.00 Weight (Pounds): 180 LINCOLN MATA July 26, 2017 19:54
[2017-07-26 20:00] VITALS: BP 127/75
[2017-07-26] MEDS: Venlafaxine XR 150mg cap ORAL SCH (20:50)
[2017-07-26] MEDS: Topiramate 100mg tab ORAL SCH (20:50)
[2017-07-26] MEDS: ARIPiprazole 10mg tab ORAL SCH (20:52)
--- NOTE | 2017-07-26 22:15 | Consultation ---
DATE OF CONSULTATION: 07/26/2017 INFECTIOUS DISEASE CONSULTATION CONSULTING PHYSICIAN: Donte Trevizo M.D. PRIMARY ATTENDING: John Trevizo M.D. REASON FOR CONSULT: Diverticulitis with intra-abdominal abscess. HISTORY OF PRESENT ILLNESS: This is a 52-year-old female admitted on 07/24/2017 complaining of lower abdominal pain. The patient has decreased appetite and abdominal pain for 4 days, fever for 2 days, and constipation, who had vomiting on the day of admission. The patient's temperature on the day of admission was 101.5. During visit in the ER, the patient had a syncopal episode. CT scan of the abdomen and pelvis showed diverticulitis with likely small abscess. PAST MEDICAL HISTORY: Significant for hypertension and depression. MEDICATIONS: Abilify, Topamax, Effexor XR, hydralazine is increased, metronidazole, morphine, Zosyn, Tylenol, and milk of magnesia. ALLERGIES: No known drug allergies. SOCIAL HISTORY: , has 5 children, lives with a boyfriend. Occasional smoking. Social drinking. Denies drug abuse. REVIEW OF SYSTEMS: Doing better today. No fever. No chills. No nausea. No vomiting. Pain is controlled. The patient does not have any difficulty in urination. PHYSICAL EXAMINATION: VITAL SIGNS: Temperature 98.2, pulse 71, and blood pressure 133/72. GENERAL APPEARANCE: Seems to be obese. No acute distress. HEAD AND NECK: Terrell conjunctivae. No oral lesion. HEART: Regular. Normal rate. LUNGS: Clear. ABDOMEN: Obese, soft, and nontender. EXTREMITIES: No edema. LABORATORY AND DIAGNOSTIC DATA: WBC 11.3, coming down from 17.5 at the time of admission, hemoglobin 13.7, hematocrit 41.9, and platelets are 300. Sodium 140, potassium 2.7, chloride 102, bicarb 28, BUN 7, creatinine 0.7, and glucose 133. Hemoglobin A1c is 6.1. Echocardiogram showed ejection fraction of 60 to 65%. UA showed wbc of 5 to 10 and rbc of 2 to 4. Urine toxicology was positive for cocaine and marijuana. IMPRESSION: 1. Acute large intestine diverticulitis, likely with abscess. 2. Syncope. 3. Hypokalemia. 4. Hypertension. 5. Depression. 6. Drug abuse including cocaine and marijuana. 7. Fatty liver on CT scan. RECOMMENDATION: Continue with Zosyn and Flagyl. We will follow up the clinical course. At the end of my exam, I thank Dr. John Trevizo for involving me in the care of this patient. Donte Trevizo M.D. DR: VICTORIANO JOB#: [id number] CC:
[2017-07-27] VITALS (8 sets, daily range): BP systolic 122–200; BP diastolic 67–111
[2017-07-27] MEDS: Morphine Sulfate 4mg/ml Inj IVP PRN (04:05)
[2017-07-27] MEDS: D5 1/2NS w/KCl 20mEq 1,000 ML IV SCH ×3 (04:07→21:24)
[2017-07-27 06:07] LABS: BASOPHILS % (AUTO) 0.8 % (0.0-2.0); EOSINOPHILS % (AUTO) 4.4 % (0.0-3.0); HEMATOCRIT 41.3 % (37.0-47.0); HEMOGLOBIN 14.3 G/DL (12.0-16.0); LYMPHOCYTES % (AUTO) 16.4 % (20.0-45.0); MEAN CORPUSCULAR VOLUME 81 FL (80-99); MONOCYTES % (AUTO) 7.1 % (1.0-10.0); NEUTROPHILS % (AUTO) 71.2 % (45.0-75.0); PLATELET COUNT 365 K/UL (150-450); RED BLOOD COUNT 5.08 M/UL (4.20-5.40); RED CELL DISTRIBUTION WIDTH 12.6 % (11.6-14.8); WHITE BLOOD COUNT 8.5 K/UL (4.8-10.8)
[2017-07-27] MEDS ORDERED: NovoLOG Insulin Flexpen SUBQ SCH (06:30)
[2017-07-27 06:47] LABS: ALANINE AMINOTRANSFERASE 23 U/L (12-78); ALBUMIN 2.9 G/DL (3.4-5.0); ALBUMIN/GLOBULIN RATIO 0.6 (1.0-2.7); ALKALINE PHOSPHATASE 90 U/L (46-116); ANION GAP 13 mmol/L (5-15); ASPARTATE AMINO TRANSFERASE 18 U/L (15-37); BILIRUBIN,TOTAL 0.4 MG/DL (0.2-1.0); BLOOD UREA NITROGEN 6 mg/dL (7-18); CARBON DIOXIDE 22 MMOL/L (21-32); CHLORIDE 103 MMOL/L (98-107); CREATININE 0.7 MG/DL (0.55-1.30); POTASSIUM 3.1 MMOL/L (3.5-5.1); SODIUM 138 MMOL/L (136-145)
[2017-07-27] MEDS: Piperacillin/Tazobactam 3.375 GM in D5W 110 ML IVPB SCH ×3 (07:49→22:46)
[2017-07-27] MEDS: Lisinopril 10mg tab ORAL SCH (09:11)
--- NOTE | 2017-07-27 11:32 | Infectious Diseases Prog Note ---
Assessment/Plan Assessment/Plan A: Diverticulitis with abscess Syncope Hypokalemia HPN Depression Substance abuse P: Continue Zosyn Discontinue Flagyl Subjective ROS Limited/Unobtainable: Yes Allergies: Coded Allergies: No Known Allergies (Unverified , 07/24/17) Objective Vital Signs Last 24 Hour Vital Signs Date Time Temp Pulse Resp B/P (MAP) Pulse Ox O2 Delivery O2 Flow Rate FiO2 07/27/17 09:11 160/93 07/27/17 08:00 98.2 78 20 160/93 97 Room Air 98.2 07/27/17 04:35 97.9 07/27/17 04:03 200/111 07/27/17 04:00 74 07/27/17 04:00 97.9 78 19 154/87 97 Room Air 97.9 07/27/17 01:25 97.8 71 21 165/101 98 Room Air 97.8 07/27/17 00:00 72 07/27/17 00:00 97.8 70 20 200/111 98 Room Air 97.8 07/26/17 20:00 81 07/26/17 20:00 99.0 75 20 127/75 98 Room Air 99.0 07/26/17 16:00 98.9 77 20 168/98 97 Room Air 98.9 07/26/17 16:00 81 07/26/17 12:00 73 Height (Feet): 5 Height (Inches): 4.00 Weight (Pounds): 180 General Appearance: no acute distress HEENT: mucous membranes moist Respiratory/Chest: lungs clear Cardiovascular: normal rate Abdomen: soft, non tender Skin: no rash, no lesions Neurologic/Psychiatric: other - sleeping Laboratory Tests Test 07/27/17 05:20 White Blood Count 8.5 K/UL (4.8-10.8) Red Blood Count 5.08 M/UL (4.20-5.40) Hemoglobin 14.3 G/DL (12.0-16.0) Hematocrit 41.3 % (37.0-47.0) Mean Corpuscular Volume 81 FL (80-99) Mean Corpuscular Hemoglobin 28.2 PG (27.0-31.0) Mean Corpuscular Hemoglobin Concent 34.7 G/DL (32.0-36.0) Red Cell Distribution Width 12.6 % (11.6-14.8) Platelet Count 365 K/UL (150-450) Mean Platelet Volume 7.1 FL (6.5-10.1) Neutrophils (%) (Auto) 71.2 % (45.0-75.0) Lymphocytes (%) (Auto) 16.4 % (20.0-45.0) L Monocytes (%) (Auto) 7.1 % (1.0-10.0) Eosinophils (%) (Auto) 4.4 % (0.0-3.0) H Basophils (%) (Auto) 0.8 % (0.0-2.0) Sodium Level 138 MMOL/L (136-145) Potassium Level 3.1 MMOL/L (3.5-5.1) L Chloride Level 103 MMOL/L (98-107) Carbon Dioxide Level 22 MMOL/L (21-32) Anion Gap 13 mmol/L (5-15) Blood Urea Nitrogen 6 mg/dL (7-18) L Creatinine 0.7 MG/DL (0.55-1.30) Estimat Glomerular Filtration Rate > 60 mL/min (>60) Glucose Level 106 MG/DL (74-106) Calcium Level 9.0 MG/DL (8.5-10.1) Total Bilirubin 0.4 MG/DL (0.2-1.0) Aspartate Amino Transf (AST/SGOT) 18 U/L (15-37) Alanine Aminotransferase (ALT/SGPT) 23 U/L (12-78) Alkaline Phosphatase 90 U/L (46-116) Total Protein 7.4 G/DL (6.4-8.2) Albumin 2.9 G/DL (3.4-5.0) L Globulin 4.5 g/dL Albumin/Globulin Ratio 0.6 (1.0-2.7) L Current Medications Medications (Trade) Dose Ordered Sig/Alfredo Route PRN Reason Start Time Stop Time Status Last Admin Dose Admin Acetaminophen (Tylenol) 650 mg Q4H PRN RECTAL Mild Pain (Pain Scale 1-3) 07/24/17 22:45 08/23/17 22:44 Aripiprazole (Abilify) 20 mg DAILY@2100 ORAL 07/25/17 21:00 08/24/17 20:59 07/26/17 20:52 Dextrose/ Electrolytes 1,000 ml @ 100 mls/hr Q10H IV 07/24/17 22:45 08/23/17 22:44 07/27/17 11:21 Hydralazine HCl (Apresoline) 10 mg Q2H PRN IV SBP > 170mmHg 07/25/17 13:15 08/24/17 13:14 07/27/17 04:03 Lisinopril (Zestril) 10 mg DAILY ORAL 07/25/17 09:00 08/24/17 08:59 07/27/17 09:11 Magnesium Hydroxide (Mom) 30 ml HSPRN PRN ORAL Constipation 07/24/17 21:00 08/23/17 20:59 Metronidazole 100 ml @ 100 mls/hr Q8HR IVPB 07/25/17 06:00 08/01/17 05:59 07/27/17 06:55 Morphine Sulfate (Morphine Sulfate) 4 mg Q4H PRN IVP Moderate Pain (Pain Scale 4-6) 07/25/17 06:00 08/01/17 05:59 07/27/17 04:05 Morphine Sulfate (Morphine Sulfate) 6 mg Q4H PRN IVP Severe Pain (Pain Scale 7-10) 07/25/17 06:00 08/01/17 05:59 Piperacillin Sod/ Tazobactam Sod 3.375 gm/Dextrose 110 ml @ 220 mls/hr Q8H IVPB 07/24/17 23:00 07/31/17 22:59 07/27/17 07:49 Topiramate (Topamax) 100 mg DAILY@2100 ORAL 07/25/17 21:00 08/24/17 20:59 07/26/17 20:50 Venlafaxine HCl (Effexor-XR) 150 mg DAILY@2100 ORAL 07/25/17 21:00 08/24/17 20:59 07/26/17 20:50 TABBY HAYWARD July 27, 2017 11:32
--- NOTE | 2017-07-27 14:36 | General Progress Note ---
Assessment/Plan Problem List: (1) Diverticulitis ICD Codes: K57.92 - Diverticulitis of intestine, part unspecified, without perforation or abscess without bleeding SNOMED: 906415606 (2) Syncope and collapse ICD Codes: R55 - Syncope and collapse SNOMED: 973742796 (3) UTI (urinary tract infection) ICD Codes: N39.0 - Urinary tract infection, site not specified SNOMED: 34293628 Assessment/Plan abxs IVF follow labs Subjective Allergies: Coded Allergies: No Known Allergies (Unverified , 07/24/17) Subjective better Objective Last 24 Hour Vital Signs Date Time Temp Pulse Resp B/P (MAP) Pulse Ox O2 Delivery O2 Flow Rate FiO2 07/27/17 12:00 85 07/27/17 12:00 98.1 97 20 157/98 100 Room Air 98.1 07/27/17 09:11 160/93 07/27/17 08:00 98.2 78 20 160/93 97 Room Air 98.2 07/27/17 08:00 85 07/27/17 04:35 97.9 07/27/17 04:03 200/111 07/27/17 04:00 74 07/27/17 04:00 97.9 78 19 154/87 97 Room Air 97.9 07/27/17 01:25 97.8 71 21 165/101 98 Room Air 97.8 07/27/17 00:00 72 07/27/17 00:00 97.8 70 20 200/111 98 Room Air 97.8 07/26/17 20:00 81 07/26/17 20:00 99.0 75 20 127/75 98 Room Air 99.0 07/26/17 16:00 98.9 77 20 168/98 97 Room Air 98.9 07/26/17 16:00 81 Intake and Output 07/26/17 07/27/17 19:00 07:00 Intake Total 100 ml 710 ml Balance 100 ml 710 ml IV Total 100 ml 710 ml # Voids 2 6 # Bowel Movements 1 3 Laboratory Tests 07/27/17 05:20: White Blood Count 8.5, Red Blood Count 5.08, Hemoglobin 14.3, Hematocrit 41.3, Mean Corpuscular Volume 81, Mean Corpuscular Hemoglobin 28.2, Mean Corpuscular Hemoglobin Concent 34.7, Red Cell Distribution Width 12.6, Platelet Count 365, Mean Platelet Volume 7.1, Neutrophils (%) (Auto) 71.2, Lymphocytes (%) (Auto) 16.4L, Monocytes (%) (Auto) 7.1, Eosinophils (%) (Auto) 4.4H, Basophils (%) ( Auto) 0.8, Sodium Level 138, Potassium Level 3.1L, Chloride Level 103, Carbon Dioxide Level 22, Anion Gap 13, Blood Urea Nitrogen 6L, Creatinine 0.7, Estimat Glomerular Filtration Rate > 60, Glucose Level 106, Calcium Level 9.0, Total Bilirubin 0.4, Aspartate Amino Transf (AST/SGOT) 18, Alanine Aminotransferase ( ALT/SGPT) 23, Alkaline Phosphatase 90, Total Protein 7.4, Albumin 2.9L, Globulin 4.5, Albumin/Globulin Ratio 0.6L Height (Feet): 5 Height (Inches): 4.00 Weight (Pounds): 180 Cardiovascular: normal rate Respiratory/Chest: lungs clear Abdomen: soft VALENTE HAYWARD July 27, 2017 14:36
--- NOTE | 2017-07-27 15:05 | General Progress Note ---
Assessment/Plan Problem List: (1) Diverticulitis ICD Codes: K57.92 - Diverticulitis of intestine, part unspecified, without perforation or abscess without bleeding SNOMED: 420039979 (2) Syncope and collapse ICD Codes: R55 - Syncope and collapse SNOMED: 434349704 (3) UTI (urinary tract infection) ICD Codes: N39.0 - Urinary tract infection, site not specified SNOMED: 00211333 (4) Sepsis ICD Codes: A41.9 - Sepsis, unspecified organism SNOMED: 74762617 Assessment/Plan abxs IVF follow labs Subjective Allergies: Coded Allergies: No Known Allergies (Unverified , 07/24/17) Subjective better Objective Last 24 Hour Vital Signs Date Time Temp Pulse Resp B/P (MAP) Pulse Ox O2 Delivery O2 Flow Rate FiO2 07/27/17 12:00 85 07/27/17 12:00 98.1 97 20 157/98 100 Room Air 98.1 07/27/17 09:11 160/93 07/27/17 08:00 98.2 78 20 160/93 97 Room Air 98.2 07/27/17 08:00 85 07/27/17 04:35 97.9 07/27/17 04:03 200/111 07/27/17 04:00 74 07/27/17 04:00 97.9 78 19 154/87 97 Room Air 97.9 07/27/17 01:25 97.8 71 21 165/101 98 Room Air 97.8 07/27/17 00:00 72 07/27/17 00:00 97.8 70 20 200/111 98 Room Air 97.8 07/26/17 20:00 81 07/26/17 20:00 99.0 75 20 127/75 98 Room Air 99.0 07/26/17 16:00 98.9 77 20 168/98 97 Room Air 98.9 07/26/17 16:00 81 Intake and Output 07/26/17 07/27/17 19:00 07:00 Intake Total 100 ml 710 ml Balance 100 ml 710 ml IV Total 100 ml 710 ml # Voids 2 6 # Bowel Movements 1 3 Laboratory Tests 07/27/17 05:20: White Blood Count 8.5, Red Blood Count 5.08, Hemoglobin 14.3, Hematocrit 41.3, Mean Corpuscular Volume 81, Mean Corpuscular Hemoglobin 28.2, Mean Corpuscular Hemoglobin Concent 34.7, Red Cell Distribution Width 12.6, Platelet Count 365, Mean Platelet Volume 7.1, Neutrophils (%) (Auto) 71.2, Lymphocytes (%) (Auto) 16.4L, Monocytes (%) (Auto) 7.1, Eosinophils (%) (Auto) 4.4H, Basophils (%) ( Auto) 0.8, Sodium Level 138, Potassium Level 3.1L, Chloride Level 103, Carbon Dioxide Level 22, Anion Gap 13, Blood Urea Nitrogen 6L, Creatinine 0.7, Estimat Glomerular Filtration Rate > 60, Glucose Level 106, Calcium Level 9.0, Total Bilirubin 0.4, Aspartate Amino Transf (AST/SGOT) 18, Alanine Aminotransferase ( ALT/SGPT) 23, Alkaline Phosphatase 90, Total Protein 7.4, Albumin 2.9L, Globulin 4.5, Albumin/Globulin Ratio 0.6L Height (Feet): 5 Height (Inches): 4.00 Weight (Pounds): 180 VALENTE HAYWARD July 27, 2017 15:05
--- NOTE | 2017-07-27 16:30 | General Surgery Progress Note ---
General Surgery-Progress Note Subjective Symptoms: improved, BM Objective Last 24 Hour Vital Signs Date Time Temp Pulse Resp B/P (MAP) Pulse Ox O2 Delivery O2 Flow Rate FiO2 07/27/17 12:00 85 07/27/17 12:00 98.1 97 20 157/98 100 Room Air 98.1 07/27/17 09:11 160/93 07/27/17 08:00 98.2 78 20 160/93 97 Room Air 98.2 07/27/17 08:00 85 07/27/17 04:35 97.9 07/27/17 04:03 200/111 07/27/17 04:00 74 07/27/17 04:00 97.9 78 19 154/87 97 Room Air 97.9 07/27/17 01:25 97.8 71 21 165/101 98 Room Air 97.8 07/27/17 00:00 72 07/27/17 00:00 97.8 70 20 200/111 98 Room Air 97.8 07/26/17 20:00 81 07/26/17 20:00 99.0 75 20 127/75 98 Room Air 99.0 I&O Intake and Output 07/26/17 07/27/17 19:00 07:00 Intake Total 100 ml 710 ml Balance 100 ml 710 ml IV Total 100 ml 710 ml # Voids 2 6 # Bowel Movements 1 3 Respiratory: clear Abdomen: soft, flat, non-tender, present bowel sounds Extremities: no edema, no tenderness Laboratory Tests Test 07/27/17 05:20 White Blood Count 8.5 K/UL (4.8-10.8) Red Blood Count 5.08 M/UL (4.20-5.40) Hemoglobin 14.3 G/DL (12.0-16.0) Hematocrit 41.3 % (37.0-47.0) Mean Corpuscular Volume 81 FL (80-99) Mean Corpuscular Hemoglobin 28.2 PG (27.0-31.0) Mean Corpuscular Hemoglobin Concent 34.7 G/DL (32.0-36.0) Red Cell Distribution Width 12.6 % (11.6-14.8) Platelet Count 365 K/UL (150-450) Mean Platelet Volume 7.1 FL (6.5-10.1) Neutrophils (%) (Auto) 71.2 % (45.0-75.0) Lymphocytes (%) (Auto) 16.4 % (20.0-45.0) L Monocytes (%) (Auto) 7.1 % (1.0-10.0) Eosinophils (%) (Auto) 4.4 % (0.0-3.0) H Basophils (%) (Auto) 0.8 % (0.0-2.0) Sodium Level 138 MMOL/L (136-145) Potassium Level 3.1 MMOL/L (3.5-5.1) L Chloride Level 103 MMOL/L (98-107) Carbon Dioxide Level 22 MMOL/L (21-32) Anion Gap 13 mmol/L (5-15) Blood Urea Nitrogen 6 mg/dL (7-18) L Creatinine 0.7 MG/DL (0.55-1.30) Estimat Glomerular Filtration Rate > 60 mL/min (>60) Glucose Level 106 MG/DL (74-106) Calcium Level 9.0 MG/DL (8.5-10.1) Total Bilirubin 0.4 MG/DL (0.2-1.0) Aspartate Amino Transf (AST/SGOT) 18 U/L (15-37) Alanine Aminotransferase (ALT/SGPT) 23 U/L (12-78) Alkaline Phosphatase 90 U/L (46-116) Total Protein 7.4 G/DL (6.4-8.2) Albumin 2.9 G/DL (3.4-5.0) L Globulin 4.5 g/dL Albumin/Globulin Ratio 0.6 (1.0-2.7) L Assessment Additional Comments Acute diverticulitis Plan Additional Comments continue IV Antibiotics, clear liquid diet RONALD ARZOLA July 27, 2017 16:30
--- NOTE | 2017-07-27 18:37 | General Progress Note ---
Assessment/Plan Assessment/Plan Assessment - HTN - Depression - Obesity - Diverticulitis Recommendations - abx - diet per surgery - await CT reading - RN lathing supervisor to expedite - OOB - outpatient colonoscopy in 6-8 weeks Subjective Allergies: Coded Allergies: No Known Allergies (Unverified , 07/24/17) Subjective Patient feels better Less pain on clears now No CT results in the computer Discussed with RN lathing supervisor, Rebeca, to investigate Objective Last 24 Hour Vital Signs Date Time Temp Pulse Resp B/P (MAP) Pulse Ox O2 Delivery O2 Flow Rate FiO2 07/27/17 17:39 98.3 104 20 136/92 94 Room Air 98.3 07/27/17 16:51 175/108 07/27/17 16:00 98.6 102 20 175/108 95 Room Air 98.6 07/27/17 16:00 83 07/27/17 12:00 85 07/27/17 12:00 98.1 97 20 157/98 100 Room Air 98.1 07/27/17 09:11 160/93 07/27/17 08:00 98.2 78 20 160/93 97 Room Air 98.2 07/27/17 08:00 85 07/27/17 04:35 97.9 07/27/17 04:03 200/111 07/27/17 04:00 74 07/27/17 04:00 97.9 78 19 154/87 97 Room Air 97.9 07/27/17 01:25 97.8 71 21 165/101 98 Room Air 97.8 07/27/17 00:00 72 07/27/17 00:00 97.8 70 20 200/111 98 Room Air 97.8 07/26/17 20:00 81 07/26/17 20:00 99.0 75 20 127/75 98 Room Air 99.0 Intake and Output 07/26/17 07/27/17 19:00 07:00 Intake Total 100 ml 710 ml Balance 100 ml 710 ml IV Total 100 ml 710 ml # Voids 2 6 # Bowel Movements 1 3 Laboratory Tests 07/27/17 05:20: White Blood Count 8.5, Red Blood Count 5.08, Hemoglobin 14.3, Hematocrit 41.3, Mean Corpuscular Volume 81, Mean Corpuscular Hemoglobin 28.2, Mean Corpuscular Hemoglobin Concent 34.7, Red Cell Distribution Width 12.6, Platelet Count 365, Mean Platelet Volume 7.1, Neutrophils (%) (Auto) 71.2, Lymphocytes (%) (Auto) 16.4L, Monocytes (%) (Auto) 7.1, Eosinophils (%) (Auto) 4.4H, Basophils (%) ( Auto) 0.8, Sodium Level 138, Potassium Level 3.1L, Chloride Level 103, Carbon Dioxide Level 22, Anion Gap 13, Blood Urea Nitrogen 6L, Creatinine 0.7, Estimat Glomerular Filtration Rate > 60, Glucose Level 106, Calcium Level 9.0, Total Bilirubin 0.4, Aspartate Amino Transf (AST/SGOT) 18, Alanine Aminotransferase ( ALT/SGPT) 23, Alkaline Phosphatase 90, Total Protein 7.4, Albumin 2.9L, Globulin 4.5, Albumin/Globulin Ratio 0.6L Height (Feet): 5 Height (Inches): 4.00 Weight (Pounds): 180 LINCOLN MATA July 27, 2017 18:37
[2017-07-27] MEDS: ARIPiprazole 10mg tab ORAL SCH ×2 (21:00→21:24)
[2017-07-27] MEDS: Topiramate 100mg tab ORAL SCH ×2 (21:00→21:24)
[2017-07-27] MEDS: Venlafaxine XR 150mg cap ORAL SCH ×2 (21:00→21:25)
--- NOTE | 2017-07-27 23:01 | Cardiology Progress Note ---
Assessment/Plan Assessment/Plan 1. Syncope. Etiology is not clear, could be secondary to severe pain, currently remained in sinus rhythm. Ruled out for myocardial infarction. Echocardiogram that showed EF 60% to 65% with no pericardial effusion and no aortic stenosis. 2. Lateral ischemia on the EKG. Ruled out for myocardial infarction. Currently denies any chest pain. Stress test for further evaluation after GI issue is resolved. 3. Severe hypokalemia. Potassium 3.1, replace potassium. 4. Hypertension. On Zestril 10 mg daily. Subjective Subjective Sinus tachycardia at 101. Awake and alert. Objective Last 24 Hour Vital Signs Date Time Temp Pulse Resp B/P (MAP) Pulse Ox O2 Delivery O2 Flow Rate FiO2 07/27/17 20:00 98.4 101 12 122/67 96 Room Air 98.4 07/27/17 19:33 101 07/27/17 17:39 98.3 104 20 136/92 94 Room Air 98.3 07/27/17 16:51 175/108 07/27/17 16:00 98.6 102 20 175/108 95 Room Air 98.6 07/27/17 16:00 83 07/27/17 12:00 85 07/27/17 12:00 98.1 97 20 157/98 100 Room Air 98.1 07/27/17 09:11 160/93 07/27/17 08:00 98.2 78 20 160/93 97 Room Air 98.2 07/27/17 08:00 85 07/27/17 04:35 97.9 07/27/17 04:03 200/111 07/27/17 04:00 74 07/27/17 04:00 97.9 78 19 154/87 97 Room Air 97.9 07/27/17 01:25 97.8 71 21 165/101 98 Room Air 97.8 07/27/17 00:00 72 07/27/17 00:00 97.8 70 20 200/111 98 Room Air 97.8 Intake and Output 07/26/17 07/27/17 19:00 07:00 Intake Total 100 ml 710 ml Balance 100 ml 710 ml IV Total 100 ml 710 ml # Voids 2 6 # Bowel Movements 1 3 2D Echo: EF 65%, Grade I LVDD Laboratory Tests Test 07/27/17 05:20 White Blood Count 8.5 K/UL (4.8-10.8) Red Blood Count 5.08 M/UL (4.20-5.40) Hemoglobin 14.3 G/DL (12.0-16.0) Hematocrit 41.3 % (37.0-47.0) Mean Corpuscular Volume 81 FL (80-99) Mean Corpuscular Hemoglobin 28.2 PG (27.0-31.0) Mean Corpuscular Hemoglobin Concent 34.7 G/DL (32.0-36.0) Red Cell Distribution Width 12.6 % (11.6-14.8) Platelet Count 365 K/UL (150-450) Mean Platelet Volume 7.1 FL (6.5-10.1) Neutrophils (%) (Auto) 71.2 % (45.0-75.0) Lymphocytes (%) (Auto) 16.4 % (20.0-45.0) L Monocytes (%) (Auto) 7.1 % (1.0-10.0) Eosinophils (%) (Auto) 4.4 % (0.0-3.0) H Basophils (%) (Auto) 0.8 % (0.0-2.0) Sodium Level 138 MMOL/L (136-145) Potassium Level 3.1 MMOL/L (3.5-5.1) L Chloride Level 103 MMOL/L (98-107) Carbon Dioxide Level 22 MMOL/L (21-32) Anion Gap 13 mmol/L (5-15) Blood Urea Nitrogen 6 mg/dL (7-18) L Creatinine 0.7 MG/DL (0.55-1.30) Estimat Glomerular Filtration Rate > 60 mL/min (>60) Glucose Level 106 MG/DL (74-106) Calcium Level 9.0 MG/DL (8.5-10.1) Total Bilirubin 0.4 MG/DL (0.2-1.0) Aspartate Amino Transf (AST/SGOT) 18 U/L (15-37) Alanine Aminotransferase (ALT/SGPT) 23 U/L (12-78) Alkaline Phosphatase 90 U/L (46-116) Total Protein 7.4 G/DL (6.4-8.2) Albumin 2.9 G/DL (3.4-5.0) L Globulin 4.5 g/dL Albumin/Globulin Ratio 0.6 (1.0-2.7) L Objective HEAD AND NECK: Shows no JVD or carotid bruits. LUNGS: Clear. CARDIOVASCULAR: Shows regular S1 and S2 with no gallop or murmur. ABDOMEN: Soft. EXTREMITIES: No pitting edema. LALITO WRIGHT July 27, 2017 23:00
[2017-07-28] VITALS (7 sets, daily range): BP systolic 130–177; BP diastolic 68–106
[2017-07-28] MEDS: Morphine Sulfate 4mg/ml Inj IVP PRN (01:49)
[2017-07-28] MEDS: D5 1/2NS w/KCl 20mEq 1,000 ML IV SCH (06:55)
[2017-07-28] MEDS: Piperacillin/Tazobactam 3.375 GM in D5W 110 ML IVPB SCH (06:55)
[2017-07-28 08:31] LABS: BASOPHILS % (AUTO) 1.2 % (0.0-2.0); HEMATOCRIT 46.5 % (37.0-47.0); HEMOGLOBIN 14.9 G/DL (12.0-16.0); LYMPHOCYTES % (AUTO) 13.2 % (20.0-45.0); MEAN CORPUSCULAR VOLUME 81 FL (80-99); MONOCYTES % (AUTO) 7.7 % (1.0-10.0); NEUTROPHILS % (AUTO) 75.9 % (45.0-75.0); PLATELET COUNT 401 K/UL (150-450); RED BLOOD COUNT 5.73 M/UL (4.20-5.40); RED CELL DISTRIBUTION WIDTH 12.5 % (11.6-14.8); WHITE BLOOD COUNT 9.8 K/UL (4.8-10.8)
[2017-07-28] MEDS: Lisinopril 10mg tab ORAL SCH (08:45)
[2017-07-28 08:48] LABS: ANION GAP 9 mmol/L (5-15); BLOOD UREA NITROGEN 8 mg/dL (7-18); CALCIUM 9.4 MG/DL (8.5-10.1); CARBON DIOXIDE 24 MMOL/L (21-32); CHLORIDE 102 MMOL/L (98-107); CREATININE 0.7 MG/DL (0.55-1.30); POTASSIUM 3.2 MMOL/L (3.5-5.1); SODIUM 135 MMOL/L (136-145)
--- NOTE | 2017-07-28 11:51 | Infectious Diseases Prog Note ---
Assessment/Plan Assessment/Plan A: Diverticulitis with abscess Syncope Hypokalemia HPN Depression Substance abuse P: Continue Zosyn Subjective ROS Limited/Unobtainable: No Constitutional: Reports: no symptoms Respiratory: Reports: no symptoms Gastrointestinal/Abdominal: Reports: nausea, vomiting, diarrhea, other - no pain, started on liquid diet Genitourinary: Reports: no symptoms Allergies: Coded Allergies: No Known Allergies (Unverified , 07/24/17) Objective Vital Signs Last 24 Hour Vital Signs Date Time Temp Pulse Resp B/P (MAP) Pulse Ox O2 Delivery O2 Flow Rate FiO2 07/28/17 08:45 130/79 07/28/17 08:00 79 07/28/17 04:12 90 07/28/17 04:00 97.7 96 20 131/79 96 Room Air 97.7 07/28/17 01:41 177/106 07/28/17 00:00 98.5 94 18 177/106 96 Room Air 98.5 07/27/17 23:40 85 07/27/17 20:00 98.4 101 12 122/67 96 Room Air 98.4 07/27/17 19:33 101 07/27/17 17:39 98.3 104 20 136/92 94 Room Air 98.3 07/27/17 16:51 175/108 07/27/17 16:00 98.6 102 20 175/108 95 Room Air 98.6 07/27/17 16:00 83 07/27/17 12:00 85 07/27/17 12:00 98.1 97 20 157/98 100 Room Air 98.1 Height (Feet): 5 Height (Inches): 4.00 Weight (Pounds): 180 General Appearance: no acute distress HEENT: mucous membranes moist Respiratory/Chest: lungs clear Cardiovascular: normal rate Abdomen: soft, non tender, other - obese Extremities: no edema Neurologic/Psychiatric: alert, oriented x 3, responsive Laboratory Tests Test 07/28/17 07:50 White Blood Count 9.8 K/UL (4.8-10.8) Red Blood Count 5.73 M/UL (4.20-5.40) H Hemoglobin 14.9 G/DL (12.0-16.0) Hematocrit 46.5 % (37.0-47.0) Mean Corpuscular Volume 81 FL (80-99) Mean Corpuscular Hemoglobin 26.0 PG (27.0-31.0) L Mean Corpuscular Hemoglobin Concent 32.1 G/DL (32.0-36.0) Red Cell Distribution Width 12.5 % (11.6-14.8) Platelet Count 401 K/UL (150-450) Mean Platelet Volume 7.0 FL (6.5-10.1) Neutrophils (%) (Auto) 75.9 % (45.0-75.0) H Lymphocytes (%) (Auto) 13.2 % (20.0-45.0) L Monocytes (%) (Auto) 7.7 % (1.0-10.0) Eosinophils (%) (Auto) 2.0 % (0.0-3.0) Basophils (%) (Auto) 1.2 % (0.0-2.0) Sodium Level 135 MMOL/L (136-145) L Potassium Level 3.2 MMOL/L (3.5-5.1) L Chloride Level 102 MMOL/L (98-107) Carbon Dioxide Level 24 MMOL/L (21-32) Anion Gap 9 mmol/L (5-15) Blood Urea Nitrogen 8 mg/dL (7-18) Creatinine 0.7 MG/DL (0.55-1.30) Estimat Glomerular Filtration Rate > 60 mL/min (>60) Glucose Level 146 MG/DL (74-106) H Calcium Level 9.4 MG/DL (8.5-10.1) Current Medications Medications (Trade) Dose Ordered Sig/Alfredo Route PRN Reason Start Time Stop Time Status Last Admin Dose Admin Acetaminophen (Tylenol) 650 mg Q4H PRN RECTAL Mild Pain (Pain Scale 1-3) 07/24/17 22:45 08/23/17 22:44 Aripiprazole (Abilify) 20 mg DAILY@2100 ORAL 07/25/17 21:00 08/24/17 20:59 07/26/17 20:52 Dextrose/ Electrolytes 1,000 ml @ 100 mls/hr Q10H IV 07/24/17 22:45 08/23/17 22:44 07/28/17 06:55 Hydralazine HCl (Apresoline) 10 mg Q2H PRN IV SBP > 170mmHg 07/25/17 13:15 08/24/17 13:14 07/28/17 01:41 Lisinopril (Zestril) 10 mg DAILY ORAL 07/25/17 09:00 08/24/17 08:59 07/28/17 08:45 Magnesium Hydroxide (Mom) 30 ml HSPRN PRN ORAL Constipation 07/24/17 21:00 08/23/17 20:59 Morphine Sulfate (Morphine Sulfate) 4 mg Q4H PRN IVP Moderate Pain (Pain Scale 4-6) 07/25/17 06:00 08/01/17 05:59 07/28/17 01:49 Morphine Sulfate (Morphine Sulfate) 6 mg Q4H PRN IVP Severe Pain (Pain Scale 7-10) 07/25/17 06:00 08/01/17 05:59 Piperacillin Sod/ Tazobactam Sod 3.375 gm/Dextrose 110 ml @ 220 mls/hr Q8H IVPB 07/24/17 23:00 07/31/17 22:59 07/28/17 06:55 Topiramate (Topamax) 100 mg DAILY@2100 ORAL 07/25/17 21:00 08/24/17 20:59 07/26/17 20:50 Venlafaxine HCl (Effexor-XR) 150 mg DAILY@2100 ORAL 07/25/17 21:00 08/24/17 20:59 07/26/17 20:50 TABBY HAYWARD July 28, 2017 11:51
--- NOTE | 2017-07-28 11:53 | General Surgery Progress Note ---
General Surgery-Progress Note Subjective Symptoms: improved, BM Objective Last 24 Hour Vital Signs Date Time Temp Pulse Resp B/P (MAP) Pulse Ox O2 Delivery O2 Flow Rate FiO2 07/28/17 08:45 130/79 07/28/17 08:00 79 07/28/17 04:12 90 07/28/17 04:00 97.7 96 20 131/79 96 Room Air 97.7 07/28/17 01:41 177/106 07/28/17 00:00 98.5 94 18 177/106 96 Room Air 98.5 07/27/17 23:40 85 07/27/17 20:00 98.4 101 12 122/67 96 Room Air 98.4 07/27/17 19:33 101 07/27/17 17:39 98.3 104 20 136/92 94 Room Air 98.3 07/27/17 16:51 175/108 07/27/17 16:00 98.6 102 20 175/108 95 Room Air 98.6 07/27/17 16:00 83 07/27/17 12:00 85 07/27/17 12:00 98.1 97 20 157/98 100 Room Air 98.1 I&O Intake and Output 07/27/17 07/28/17 19:00 07:00 Intake Total 1873 ml 1170.12 ml Output Total 1 ml Balance 1872 ml 1170.12 ml Intake Oral 320 ml IV Total 1353 ml 1170.12 ml Other 200 ml Output Stool Total 1 ml # Voids 4 2 Respiratory: clear Abdomen: soft, non-tender, present bowel sounds Extremities: no tenderness Laboratory Tests Test 07/28/17 07:50 White Blood Count 9.8 K/UL (4.8-10.8) Red Blood Count 5.73 M/UL (4.20-5.40) H Hemoglobin 14.9 G/DL (12.0-16.0) Hematocrit 46.5 % (37.0-47.0) Mean Corpuscular Volume 81 FL (80-99) Mean Corpuscular Hemoglobin 26.0 PG (27.0-31.0) L Mean Corpuscular Hemoglobin Concent 32.1 G/DL (32.0-36.0) Red Cell Distribution Width 12.5 % (11.6-14.8) Platelet Count 401 K/UL (150-450) Mean Platelet Volume 7.0 FL (6.5-10.1) Neutrophils (%) (Auto) 75.9 % (45.0-75.0) H Lymphocytes (%) (Auto) 13.2 % (20.0-45.0) L Monocytes (%) (Auto) 7.7 % (1.0-10.0) Eosinophils (%) (Auto) 2.0 % (0.0-3.0) Basophils (%) (Auto) 1.2 % (0.0-2.0) Sodium Level 135 MMOL/L (136-145) L Potassium Level 3.2 MMOL/L (3.5-5.1) L Chloride Level 102 MMOL/L (98-107) Carbon Dioxide Level 24 MMOL/L (21-32) Anion Gap 9 mmol/L (5-15) Blood Urea Nitrogen 8 mg/dL (7-18) Creatinine 0.7 MG/DL (0.55-1.30) Estimat Glomerular Filtration Rate > 60 mL/min (>60) Glucose Level 146 MG/DL (74-106) H Calcium Level 9.4 MG/DL (8.5-10.1) Assessment Additional Comments acute diverticulitis Plan Additional Comments continue antibiotics RONALD ARZOLA July 28, 2017 11:53
--- NOTE | 2017-07-28 14:51 | General Progress Note ---
Assessment/Plan Problem List: (1) Diverticulitis ICD Codes: K57.92 - Diverticulitis of intestine, part unspecified, without perforation or abscess without bleeding SNOMED: 319270336 (2) Syncope and collapse ICD Codes: R55 - Syncope and collapse SNOMED: 278018711 (3) UTI (urinary tract infection) ICD Codes: N39.0 - Urinary tract infection, site not specified SNOMED: 12303268 (4) Sepsis ICD Codes: A41.9 - Sepsis, unspecified organism SNOMED: 26536761 Assessment/Plan switch to ceftriaxone and Flagyl Discussed with ID DC IVF follow labs Subjective Allergies: Coded Allergies: No Known Allergies (Unverified , 07/24/17) Subjective better Objective Last 24 Hour Vital Signs Date Time Temp Pulse Resp B/P (MAP) Pulse Ox O2 Delivery O2 Flow Rate FiO2 07/28/17 12:00 97.8 88 18 131/72 97 Room Air 97.8 07/28/17 08:45 130/79 07/28/17 08:00 79 07/28/17 08:00 97.6 80 18 130/79 96 Room Air 97.6 07/28/17 04:12 90 07/28/17 04:00 97.7 96 20 131/79 96 Room Air 97.7 07/28/17 01:41 177/106 07/28/17 00:00 98.5 94 18 177/106 96 Room Air 98.5 07/27/17 23:40 85 07/27/17 20:00 98.4 101 12 122/67 96 Room Air 98.4 07/27/17 19:33 101 07/27/17 17:39 98.3 104 20 136/92 94 Room Air 98.3 07/27/17 16:51 175/108 07/27/17 16:00 98.6 102 20 175/108 95 Room Air 98.6 07/27/17 16:00 83 Intake and Output 07/27/17 07/28/17 19:00 07:00 Intake Total 1873 ml 1170.12 ml Output Total 1 ml Balance 1872 ml 1170.12 ml Intake Oral 320 ml IV Total 1353 ml 1170.12 ml Other 200 ml Output Stool Total 1 ml # Voids 4 2 Laboratory Tests 07/28/17 07:50: White Blood Count 9.8, Red Blood Count 5.73H, Hemoglobin 14.9, Hematocrit 46.5, Mean Corpuscular Volume 81, Mean Corpuscular Hemoglobin 26.0L, Mean Corpuscular Hemoglobin Concent 32.1, Red Cell Distribution Width 12.5, Platelet Count 401, Mean Platelet Volume 7.0, Neutrophils (%) (Auto) 75.9H, Lymphocytes (%) (Auto) 13.2L, Monocytes (%) (Auto) 7.7, Eosinophils (%) (Auto) 2.0, Basophils (%) (Auto ) 1.2, Sodium Level 135L, Potassium Level 3.2L, Chloride Level 102, Carbon Dioxide Level 24, Anion Gap 9, Blood Urea Nitrogen 8, Creatinine 0.7, Estimat Glomerular Filtration Rate > 60, Glucose Level 146H, Calcium Level 9.4 Height (Feet): 5 Height (Inches): 4.00 Weight (Pounds): 180 Cardiovascular: normal rate Respiratory/Chest: lungs clear Abdomen: non tender VALENTE HAYWARD July 28, 2017 14:51
[2017-07-28] MEDS ORDERED: cefTRIAXone 1 GM in D5W 55 ML IVPB SCH (16:00)
[2017-07-28] MEDS ORDERED: Acetaminophen 650 MG SUPP RECTAL PRN (18:45)
[2017-07-28] MEDS ORDERED: Milk of Magnesia 30ml Ud ORAL PRN (21:00)
[2017-07-28] MEDS: Topiramate 100mg tab ORAL SCH (21:00)
[2017-07-28] MEDS: ARIPiprazole 10mg tab ORAL SCH (21:00)
[2017-07-28] MEDS: Venlafaxine XR 150mg cap ORAL SCH (21:00)
[2017-07-28] MEDS ORDERED: Morphine Sulfate 4mg/ml Inj IVP PRN ×2 (22:00)
--- NOTE | 2017-07-28 22:23 | General Progress Note ---
Assessment/Plan Assessment/Plan Assessment - HTN - Depression - Obesity - Diverticulitis Recommendations - abx - diet per surgery - OOB - rec repeat CT to document abscess resolution - outpatient colonoscopy in 6-8 weeks Subjective Allergies: Coded Allergies: No Known Allergies (Unverified , 07/24/17) Subjective Patient feels better Less pain CT noted (+) BM Objective Last 24 Hour Vital Signs Date Time Temp Pulse Resp B/P (MAP) Pulse Ox O2 Delivery O2 Flow Rate FiO2 07/28/17 20:00 98.6 87 18 139/68 98 98.6 07/28/17 16:00 98.0 95 18 146/82 98 Room Air 98.0 07/28/17 12:00 97.8 88 18 131/72 97 Room Air 97.8 07/28/17 08:45 130/79 07/28/17 08:00 79 07/28/17 08:00 97.6 80 18 130/79 96 Room Air 97.6 07/28/17 04:12 90 07/28/17 04:00 97.7 96 20 131/79 96 Room Air 97.7 07/28/17 01:41 177/106 07/28/17 00:00 98.5 94 18 177/106 96 Room Air 98.5 07/27/17 23:40 85 Intake and Output 07/27/17 07/28/17 19:00 07:00 Intake Total 1873 ml 1170.12 ml Output Total 1 ml Balance 1872 ml 1170.12 ml Intake Oral 320 ml IV Total 1353 ml 1170.12 ml Other 200 ml Output Stool Total 1 ml # Voids 4 2 Laboratory Tests 07/28/17 07:50: White Blood Count 9.8, Red Blood Count 5.73H, Hemoglobin 14.9, Hematocrit 46.5, Mean Corpuscular Volume 81, Mean Corpuscular Hemoglobin 26.0L, Mean Corpuscular Hemoglobin Concent 32.1, Red Cell Distribution Width 12.5, Platelet Count 401, Mean Platelet Volume 7.0, Neutrophils (%) (Auto) 75.9H, Lymphocytes (%) (Auto) 13.2L, Monocytes (%) (Auto) 7.7, Eosinophils (%) (Auto) 2.0, Basophils (%) (Auto ) 1.2, Sodium Level 135L, Potassium Level 3.2L, Chloride Level 102, Carbon Dioxide Level 24, Anion Gap 9, Blood Urea Nitrogen 8, Creatinine 0.7, Estimat Glomerular Filtration Rate > 60, Glucose Level 146H, Calcium Level 9.4 Height (Feet): 5 Height (Inches): 4.00 Weight (Pounds): 180 LINCOLN MATA July 28, 2017 22:23
--- NOTE | 2017-07-28 23:45 | Cardiology Progress Note ---
Assessment/Plan Assessment/Plan 1. Syncope, in sinus rhythm, EF 60% to 65%, Ruled out for myocardial infarction. 2. Lateral ischemia on the EKG. Currently denies any chest pain. Stress test for further evaluation after GI issue is resolved. 3. Mild hypokalemia, replace potassium. 4. Hypertension. Continue Zestril. Subjective Subjective Sinus rhythm at 87. Awake and alert. Objective Last 24 Hour Vital Signs Date Time Temp Pulse Resp B/P (MAP) Pulse Ox O2 Delivery O2 Flow Rate FiO2 07/28/17 20:00 98.6 87 18 139/68 98 98.6 07/28/17 16:00 98.0 95 18 146/82 98 Room Air 98.0 07/28/17 12:00 97.8 88 18 131/72 97 Room Air 97.8 07/28/17 08:45 130/79 07/28/17 08:00 79 07/28/17 08:00 97.6 80 18 130/79 96 Room Air 97.6 07/28/17 04:12 90 07/28/17 04:00 97.7 96 20 131/79 96 Room Air 97.7 07/28/17 01:41 177/106 07/28/17 00:00 98.5 94 18 177/106 96 Room Air 98.5 Intake and Output 07/27/17 07/28/17 19:00 07:00 Intake Total 1873 ml 1170.12 ml Output Total 1 ml Balance 1872 ml 1170.12 ml Intake Oral 320 ml IV Total 1353 ml 1170.12 ml Other 200 ml Output Stool Total 1 ml # Voids 4 2 2D Echo: EF 65%, Grade I LVDD Laboratory Tests Test 07/28/17 07:50 White Blood Count 9.8 K/UL (4.8-10.8) Red Blood Count 5.73 M/UL (4.20-5.40) H Hemoglobin 14.9 G/DL (12.0-16.0) Hematocrit 46.5 % (37.0-47.0) Mean Corpuscular Volume 81 FL (80-99) Mean Corpuscular Hemoglobin 26.0 PG (27.0-31.0) L Mean Corpuscular Hemoglobin Concent 32.1 G/DL (32.0-36.0) Red Cell Distribution Width 12.5 % (11.6-14.8) Platelet Count 401 K/UL (150-450) Mean Platelet Volume 7.0 FL (6.5-10.1) Neutrophils (%) (Auto) 75.9 % (45.0-75.0) H Lymphocytes (%) (Auto) 13.2 % (20.0-45.0) L Monocytes (%) (Auto) 7.7 % (1.0-10.0) Eosinophils (%) (Auto) 2.0 % (0.0-3.0) Basophils (%) (Auto) 1.2 % (0.0-2.0) Sodium Level 135 MMOL/L (136-145) L Potassium Level 3.2 MMOL/L (3.5-5.1) L Chloride Level 102 MMOL/L (98-107) Carbon Dioxide Level 24 MMOL/L (21-32) Anion Gap 9 mmol/L (5-15) Blood Urea Nitrogen 8 mg/dL (7-18) Creatinine 0.7 MG/DL (0.55-1.30) Estimat Glomerular Filtration Rate > 60 mL/min (>60) Glucose Level 146 MG/DL (74-106) H Calcium Level 9.4 MG/DL (8.5-10.1) Objective HEAD AND NECK: Shows no JVD or carotid bruits. LUNGS: Clear. CARDIOVASCULAR: Shows regular S1 and S2 with no gallop or murmur. ABDOMEN: Soft. EXTREMITIES: No pitting edema. LALITO WRIGHT July 28, 2017 23:45
[2017-07-29 04:00] VITALS: BP 143/73
[2017-07-29 08:04] LABS: ANION GAP 11 mmol/L (5-15); BLOOD UREA NITROGEN 11 mg/dL (7-18); CALCIUM 9.4 MG/DL (8.5-10.1); CARBON DIOXIDE 22 MMOL/L (21-32); CHLORIDE 105 MMOL/L (98-107); CREATININE 0.8 MG/DL (0.55-1.30); POTASSIUM 3.2 MMOL/L (3.5-5.1); SODIUM 138 MMOL/L (136-145)
--- NOTE | 2017-07-29 10:03 | General Progress Note ---
Assessment/Plan Problem List: (1) Diverticulitis ICD Codes: K57.92 - Diverticulitis of intestine, part unspecified, without perforation or abscess without bleeding SNOMED: 662816148 (2) Syncope and collapse ICD Codes: R55 - Syncope and collapse SNOMED: 564383482 (3) UTI (urinary tract infection) ICD Codes: N39.0 - Urinary tract infection, site not specified SNOMED: 11536375 (4) Sepsis ICD Codes: A41.9 - Sepsis, unspecified organism SNOMED: 90575919 Assessment/Plan cont ceftriaxone and Flagyl Discussed with ID picc line today Subjective Allergies: Coded Allergies: No Known Allergies (Unverified , 07/24/17) Subjective still with nausea Objective Last 24 Hour Vital Signs Date Time Temp Pulse Resp B/P (MAP) Pulse Ox O2 Delivery O2 Flow Rate FiO2 07/29/17 08:00 98.0 80 20 97 98.0 07/29/17 04:17 Room Air 07/29/17 04:00 97.8 80 18 143/73 98 97.8 07/29/17 00:14 Room Air 07/28/17 23:57 98.7 95 18 133/79 99 98.7 07/28/17 20:00 98.6 87 18 139/68 98 98.6 07/28/17 16:00 98.0 95 18 146/82 98 Room Air 98.0 07/28/17 12:00 97.8 88 18 131/72 97 Room Air 97.8 Intake and Output 07/28/17 07/29/17 19:00 07:00 Intake Total 415 ml 360 ml Balance 415 ml 360 ml Intake Oral 360 ml 360 ml IV Total 55 ml # Voids 3 3 # Bowel Movements 2 Laboratory Tests 07/29/17 05:25: Sodium Level 138, Potassium Level 3.2L, Chloride Level 105, Carbon Dioxide Level 22, Anion Gap 11, Blood Urea Nitrogen 11, Creatinine 0.8, Estimat Glomerular Filtration Rate > 60, Glucose Level 95, Calcium Level 9.4 Height (Feet): 5 Height (Inches): 4.00 Weight (Pounds): 180 Cardiovascular: normal rate Respiratory/Chest: lungs clear Abdomen: soft oJhn Trevizo MD July 29, 2017 10:03
[2017-07-29 10:04] VITALS: BP 121/71
[2017-07-29] MEDS: Lisinopril 10mg tab ORAL SCH (10:05)
--- NOTE | 2017-07-29 10:52 | General Progress Note ---
Assessment/Plan Assessment/Plan Assessment - HTN - Depression - Obesity - Diverticulitis Recommendations - abx - diet per surgery - OOB - rec repeat CT 7-10 days after initial (? Mon) - outpatient colonoscopy in 6-8 weeks Subjective Allergies: Coded Allergies: No Known Allergies (Unverified , 07/24/17) Subjective Patient feels better Less pain to get PICC line today Objective Last 24 Hour Vital Signs Date Time Temp Pulse Resp B/P (MAP) Pulse Ox O2 Delivery O2 Flow Rate FiO2 07/29/17 10:05 121/71 07/29/17 10:04 80 121/71 07/29/17 08:00 98.0 80 20 97 98.0 07/29/17 04:17 Room Air 07/29/17 04:00 97.8 80 18 143/73 98 97.8 07/29/17 00:14 Room Air 07/28/17 23:57 98.7 95 18 133/79 99 98.7 07/28/17 20:00 98.6 87 18 139/68 98 98.6 07/28/17 16:00 98.0 95 18 146/82 98 Room Air 98.0 07/28/17 12:00 97.8 88 18 131/72 97 Room Air 97.8 Intake and Output 07/28/17 07/29/17 19:00 07:00 Intake Total 415 ml 360 ml Balance 415 ml 360 ml Intake Oral 360 ml 360 ml IV Total 55 ml # Voids 3 3 # Bowel Movements 2 Laboratory Tests 07/29/17 05:25: Sodium Level 138, Potassium Level 3.2L, Chloride Level 105, Carbon Dioxide Level 22, Anion Gap 11, Blood Urea Nitrogen 11, Creatinine 0.8, Estimat Glomerular Filtration Rate > 60, Glucose Level 95, Calcium Level 9.4 Height (Feet): 5 Height (Inches): 4.00 Weight (Pounds): 180 Objective Obese AA woman NCAT Supple CTA RRR abd soft ND, minimal TTP LLQ no edema Non focal Román St MD July 29, 2017 10:52
[2017-07-29] MEDS ORDERED: Heparin 2000 units/Ns 1000ml INJ SCH (11:00)
[2017-07-29] MEDS ORDERED: Lidocaine 1% Plain 30 ml INJ SCH (11:00)
--- NOTE | 2017-07-29 11:57 | Diagnostic Imaging Report ---
EXAM: XR Chest, 1 View CLINICAL HISTORY: SOB TECHNIQUE: Frontal view of the chest. COMPARISON: No relevant prior studies available. FINDINGS: Lungs: Hypoventilatory lungs. Bibasilar lung atelectasis/airspace disease. Pleural space: Unremarkable. No pneumothorax. Heart: Cardiomegaly. Mediastinum: Unremarkable. Bones/joints: Unremarkable. Other findings: IMPRESSION: 1. Hypoventilatory lungs. Bibasilar lung atelectasis/airspace disease. 2. Cardiomegaly.
--- NOTE | 2017-07-29 11:57 | Diagnostic Imaging Report ---
EXAM: CT Abdomen and Pelvis With Intravenous Contrast CLINICAL HISTORY: PAIN TECHNIQUE: Axial computed tomography images of the abdomen and pelvis with intravenous contrast. CTDI is 19.51 mGy and DLP is 1127 mGy-cm. One or more of the following dose reduction techniques were used: automated exposure control, adjustment of the mA and/or kV according to patient size, use of iterative reconstruction technique. COMPARISON: No relevant prior studies available. FINDINGS: Lung bases: Unremarkable. No mass. No consolidation. Mediastinum: Small hiatal hernia. ABDOMEN: Liver: Mild fatty liver. Gallbladder and bile ducts: Distended gallbladder with stones in the gallbladder neck. No ductal dilation. Pancreas: Unremarkable. No mass. No ductal dilation. Spleen: Unremarkable. No splenomegaly. Adrenals: 2 cm right adrenal nodule. Kidneys and ureters: Small 1.4 cm right renal cyst. No hydronephrosis. Stomach and bowel: Colonic diverticulosis thickening and inflammatory changes of sigmoid colon consistent with acute diverticulitis. 3.6 cm fluid collection at the sigmoid wall worrisome for abscess. Trace free fluid. No obstruction. PELVIS: Appendix: Normal appendix. Bladder: Unremarkable. No mass. Reproductive: Slightly prominent uterus with a 4.2 cm left uterine fibroid and a 4.6 cm right uterine fundal fibroid. 2.3 cm right ovarian cyst or follicle. ABDOMEN and PELVIS: Intraperitoneal space: See above. Bones/joints: No acute fracture. No dislocation. Soft tissues: Unremarkable. Vasculature: Unremarkable. No abdominal aortic aneurysm. Lymph nodes: Unremarkable. No enlarged lymph nodes. IMPRESSION: 1. Colonic diverticulosis thickening and inflammatory changes of sigmoid colon consistent with acute diverticulitis. 3.6 cm fluid collection at the sigmoid wall worrisome for abscess. Trace free fluid. No free air. 2. Fibroid prominent uterus with a 4.2 cm left uterine fibroid and a 4.6 cm right uterine fundal fibroid. 3. Distended gallbladder with stones in the gallbladder neck. 4. 2 cm right adrenal nodule. Consider nonemergent adrenal protocol CT or MRI.
[2017-07-29 12:00] VITALS: BP 129/90
--- NOTE | 2017-07-29 13:49 | Infectious Diseases Prog Note ---
Assessment/Plan Assessment/Plan A: Diverticulitis with abscess Syncope Hypokalemia HPN Depression Substance abuse P: Continue Rocephin, add PO Flagyl repeat CT scan of abdomen & Pelvis in one week Subjective ROS Limited/Unobtainable: No Constitutional: Reports: no symptoms Respiratory: Reports: no symptoms Gastrointestinal/Abdominal: Reports: nausea, diarrhea, bloating Genitourinary: Reports: no symptoms Allergies: Coded Allergies: No Known Allergies (Unverified , 07/24/17) Objective Vital Signs Last 24 Hour Vital Signs Date Time Temp Pulse Resp B/P (MAP) Pulse Ox O2 Delivery O2 Flow Rate FiO2 07/29/17 12:00 98.0 79 20 129/90 98 98.0 07/29/17 10:05 121/71 07/29/17 10:04 80 121/71 07/29/17 08:00 98.0 80 20 97 98.0 07/29/17 04:17 Room Air 07/29/17 04:00 97.8 80 18 143/73 98 97.8 07/29/17 00:14 Room Air 07/28/17 23:57 98.7 95 18 133/79 99 98.7 07/28/17 20:00 98.6 87 18 139/68 98 98.6 07/28/17 16:00 98.0 95 18 146/82 98 Room Air 98.0 Height (Feet): 5 Height (Inches): 4.00 Weight (Pounds): 180 General Appearance: no acute distress HEENT: mucous membranes moist Respiratory/Chest: lungs clear Cardiovascular: normal rate Abdomen: soft, non tender Extremities: no edema Neurologic/Psychiatric: alert, oriented x 3, responsive Laboratory Tests Test 07/29/17 05:25 Sodium Level 138 MMOL/L (136-145) Potassium Level 3.2 MMOL/L (3.5-5.1) L Chloride Level 105 MMOL/L (98-107) Carbon Dioxide Level 22 MMOL/L (21-32) Anion Gap 11 mmol/L (5-15) Blood Urea Nitrogen 11 mg/dL (7-18) Creatinine 0.8 MG/DL (0.55-1.30) Estimat Glomerular Filtration Rate > 60 mL/min (>60) Glucose Level 95 MG/DL (74-106) Calcium Level 9.4 MG/DL (8.5-10.1) Current Medications Medications (Trade) Dose Ordered Sig/Alfredo Route PRN Reason Start Time Stop Time Status Last Admin Dose Admin Acetaminophen (Tylenol) 650 mg Q4H PRN RECTAL Mild Pain (Pain Scale 1-3) 07/28/17 18:45 08/23/17 22:44 Aripiprazole (Abilify) 20 mg DAILY@2100 ORAL 07/28/17 21:00 08/24/17 20:59 Ceftriaxone Sodium 1 gm/ Dextrose 55 ml @ 110 mls/hr Q24H IVPB 07/29/17 16:00 08/04/17 15:59 Chlorhexidine Gluconate (Destiny-Hex 2%) 1 applic DAILY@2000 TOPIC 07/29/17 20:00 08/28/17 19:59 Hydralazine HCl (Apresoline) 10 mg Q2H PRN IV SBP > 170mmHg 07/28/17 19:15 08/24/17 13:14 Lisinopril (Zestril) 10 mg DAILY ORAL 07/29/17 09:00 08/24/17 08:59 Magnesium Hydroxide (Mom) 30 ml HSPRN PRN ORAL Constipation 07/28/17 21:00 08/23/17 20:59 Morphine Sulfate (Morphine Sulfate) 4 mg Q4H PRN IVP Moderate Pain (Pain Scale 4-6) 07/28/17 22:00 08/01/17 05:59 07/29/17 08:52 Morphine Sulfate (Morphine Sulfate) 6 mg Q4H PRN IVP Severe Pain (Pain Scale 7-10) 07/28/17 22:00 08/01/17 05:59 Ondansetron HCl (Zofran) 4 mg Q4H PRN IVP Nausea & Vomiting 07/29/17 10:30 08/28/17 10:29 Topiramate (Topamax) 100 mg DAILY@2100 ORAL 07/28/17 21:00 08/24/17 20:59 Venlafaxine HCl (Effexor-XR) 150 mg DAILY@2100 ORAL 07/28/17 21:00 08/24/17 20:59 TABBY HAYWARD July 29, 2017 13:49
[2017-07-29] MEDS: metroNIDAZOLE 500mg tab ORAL SCH ×2 (15:29→21:55)
[2017-07-29] MEDS: cefTRIAXone 1 GM in D5W 55 ML IVPB SCH (15:29)
--- NOTE | 2017-07-29 15:58 | Diagnostic Imaging Report ---
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 The left upper extremity was prepped with alcohol. All elements of maximal sterile barrier technique were followed including usage of a cap, mask, sterile gown, sterile gloves, hand hygiene and a large sterile sheet. Sonographic evaluation of the upper extremity was performed demonstrating a patent and compressible basilic vein. Access was obtained under real-time ultrasound guidance (with utilization of sterile gel and sterile probe cover) and digital image was saved and archived. An .018 wire was introduced. Needle exchanged for a 5 Ukrainian peel-away sheath. Measurements were obtained. A 5 Ukrainian dual-lumen Power PICC line catheter was cut to 48 cm and introduced over the wire. Peel-away sheath and wire were removed.Catheter was secured to the skin using 2-0 Prolene suture. Both ports aspirate and flush easily. Fluoroscopic images show distal tip in the superior vena cava. Total fluoroscopic time 0.7 minutes Impression: Successful placement of an upper extremity PICC line catheter
[2017-07-29 16:00] VITALS: BP 141/71
--- NOTE | 2017-07-29 16:26 | Cardiac Electrophysiology PN ---
Assessment/Plan Assessment/Plan 1. Syncope. Etiology is not clear, could be secondary to severe pain, Remained in sinus rhythm while on tele. Ruled out for myocardial infarction. Echocardiogram that showed EF 60% to 65% with no pericardial effusion and no aortic stenosis. 2. Lateral ischemia on the EKG. Ruled out for myocardial infarction. Currently denies any chest pain. Stress test after diverticulitis is resolved 3.Hypokalemia. Still 3.2 today. Replaced 4. Hypertension. On Zestril 10 mg daily. 5. Major depression, on Abilify and Effexor. 6. Acute diverticulitis with possible abscess, On antibiotic under management of Dr. Rodarte. EDWARD RN Subjective Subjective Comfortable in NAD in SR. No CP or SOB. Had PICC line placement Objective Last 24 Hour Vital Signs Date Time Temp Pulse Resp B/P (MAP) Pulse Ox O2 Delivery O2 Flow Rate FiO2 07/29/17 12:01 Room Air 07/29/17 12:00 98.0 79 20 129/90 98 98.0 07/29/17 10:05 121/71 07/29/17 10:04 80 121/71 07/29/17 08:00 98.0 80 20 97 98.0 07/29/17 04:17 Room Air 07/29/17 04:00 97.8 80 18 143/73 98 97.8 07/29/17 00:14 Room Air 07/28/17 23:57 98.7 95 18 133/79 99 98.7 07/28/17 20:00 98.6 87 18 139/68 98 98.6 Intake and Output 07/28/17 07/29/17 19:00 07:00 Intake Total 415 ml 360 ml Balance 415 ml 360 ml Intake Oral 360 ml 360 ml IV Total 55 ml # Voids 3 3 # Bowel Movements 2 Laboratory Tests Test 07/29/17 05:25 Sodium Level 138 MMOL/L (136-145) Potassium Level 3.2 MMOL/L (3.5-5.1) L Chloride Level 105 MMOL/L (98-107) Carbon Dioxide Level 22 MMOL/L (21-32) Anion Gap 11 mmol/L (5-15) Blood Urea Nitrogen 11 mg/dL (7-18) Creatinine 0.8 MG/DL (0.55-1.30) Estimat Glomerular Filtration Rate > 60 mL/min (>60) Glucose Level 95 MG/DL (74-106) Calcium Level 9.4 MG/DL (8.5-10.1) Objective HEAD AND NECK: Shows no JVD LUNGS: Clear. CARDIOVASCULAR: Regular S1 and S2 with no gallop or murmur. ABDOMEN: Soft. EXTREMITIES: No pitting edema. Ha Thompson MD July 29, 2017 16:26
--- NOTE | 2017-07-29 17:10 | General Surgery Progress Note ---
General Surgery-Progress Note Subjective Symptoms: improved, BM Objective Last 24 Hour Vital Signs Date Time Temp Pulse Resp B/P (MAP) Pulse Ox O2 Delivery O2 Flow Rate FiO2 07/29/17 16:01 Room Air 07/29/17 16:00 98.0 73 22 141/71 97 98.0 07/29/17 12:01 Room Air 07/29/17 12:00 98.0 79 20 129/90 98 98.0 07/29/17 10:05 121/71 07/29/17 10:04 80 121/71 07/29/17 08:00 98.0 80 20 97 98.0 07/29/17 04:17 Room Air 07/29/17 04:00 97.8 80 18 143/73 98 97.8 07/29/17 00:14 Room Air 07/28/17 23:57 98.7 95 18 133/79 99 98.7 07/28/17 20:00 98.6 87 18 139/68 98 98.6 I&O Intake and Output 07/28/17 07/29/17 19:00 07:00 Intake Total 415 ml 360 ml Balance 415 ml 360 ml Intake Oral 360 ml 360 ml IV Total 55 ml # Voids 3 3 # Bowel Movements 2 Respiratory: clear Abdomen: soft, flat, present bowel sounds Extremities: no tenderness Laboratory Tests Test 07/29/17 05:25 Sodium Level 138 MMOL/L (136-145) Potassium Level 3.2 MMOL/L (3.5-5.1) L Chloride Level 105 MMOL/L (98-107) Carbon Dioxide Level 22 MMOL/L (21-32) Anion Gap 11 mmol/L (5-15) Blood Urea Nitrogen 11 mg/dL (7-18) Creatinine 0.8 MG/DL (0.55-1.30) Estimat Glomerular Filtration Rate > 60 mL/min (>60) Glucose Level 95 MG/DL (74-106) Calcium Level 9.4 MG/DL (8.5-10.1) Assessment Additional Comments Acute Diverticulitis Plan Additional Comments continue clear liquid diet and antibiotics Rachid Rodarte MD July 29, 2017 17:10
[2017-07-29 19:43] VITALS: BP 128/77
[2017-07-29] MEDS ORDERED: Dyna-Hex 2% Top Sol 2oz TOPIC SCH (20:00)
[2017-07-29] MEDS: ARIPiprazole 10mg tab ORAL SCH (21:00)
[2017-07-29] MEDS: Venlafaxine XR 150mg cap ORAL SCH (21:00)
[2017-07-29] MEDS: Topiramate 100mg tab ORAL SCH (21:00)
[2017-07-29 23:56] VITALS: BP 99/60
[2017-07-30 04:43] VITALS: BP 111/48
[2017-07-30] MEDS: metroNIDAZOLE 500mg tab ORAL SCH ×2 (06:22→14:08)
[2017-07-30 07:24] LABS: BASOPHILS % (AUTO) 0.9 % (0.0-2.0); EOSINOPHILS % (AUTO) 3.2 % (0.0-3.0); HEMATOCRIT 44.6 % (37.0-47.0); HEMOGLOBIN 14.6 G/DL (12.0-16.0); LYMPHOCYTES % (AUTO) 19.3 % (20.0-45.0); MEAN CORPUSCULAR VOLUME 82 FL (80-99); MONOCYTES % (AUTO) 7.5 % (1.0-10.0); NEUTROPHILS % (AUTO) 69.1 % (45.0-75.0); PLATELET COUNT 383 K/UL (150-450); RED BLOOD COUNT 5.47 M/UL (4.20-5.40); RED CELL DISTRIBUTION WIDTH 12.7 % (11.6-14.8); WHITE BLOOD COUNT 9.2 K/UL (4.8-10.8)
[2017-07-30 08:25] VITALS: BP 140/77
[2017-07-30 09:21] VITALS: BP 139/82
[2017-07-30] MEDS: Lisinopril 10mg tab ORAL SCH (09:28)
--- NOTE | 2017-07-30 11:46 | Infectious Diseases Prog Note ---
Assessment/Plan Assessment/Plan A: Diverticulitis with abscess Syncope Hypokalemia HPN Depression Substance abuse P: Continue Rocephin, and PO Flagyl repeat CT scan of abdomen & Pelvis in one week Subjective ROS Limited/Unobtainable: No Constitutional: Reports: no symptoms Respiratory: Reports: no symptoms Gastrointestinal/Abdominal: Reports: no symptoms Genitourinary: Reports: no symptoms Allergies: Coded Allergies: No Known Allergies (Unverified , 07/24/17) Objective Vital Signs Last 24 Hour Vital Signs Date Time Temp Pulse Resp B/P (MAP) Pulse Ox O2 Delivery O2 Flow Rate FiO2 07/30/17 09:28 139/82 07/30/17 09:21 83 139/82 07/30/17 08:25 99.7 81 20 140/77 99 99.7 07/30/17 08:25 Room Air 07/30/17 04:43 97.3 77 20 111/48 98 97.3 07/30/17 00:00 Room Air 07/29/17 23:56 97.9 77 20 99/60 99 Room Air 97.9 07/29/17 20:00 Room Air 07/29/17 19:43 97.3 80 20 128/77 98 Room Air 97.3 07/29/17 16:01 Room Air 07/29/17 16:00 98.0 73 22 141/71 97 98.0 07/29/17 12:01 Room Air 07/29/17 12:00 98.0 79 20 129/90 98 98.0 Height (Feet): 5 Height (Inches): 4.00 Weight (Pounds): 180 General Appearance: no acute distress HEENT: mucous membranes moist Respiratory/Chest: lungs clear Cardiovascular: normal rate, other - left arm PICC line Abdomen: soft, non tender Extremities: no edema Laboratory Tests Test 07/30/17 05:30 White Blood Count 9.2 K/UL (4.8-10.8) Red Blood Count 5.47 M/UL (4.20-5.40) H Hemoglobin 14.6 G/DL (12.0-16.0) Hematocrit 44.6 % (37.0-47.0) Mean Corpuscular Volume 82 FL (80-99) Mean Corpuscular Hemoglobin 26.6 PG (27.0-31.0) L Mean Corpuscular Hemoglobin Concent 32.6 G/DL (32.0-36.0) Red Cell Distribution Width 12.7 % (11.6-14.8) Platelet Count 383 K/UL (150-450) Mean Platelet Volume 7.3 FL (6.5-10.1) Neutrophils (%) (Auto) 69.1 % (45.0-75.0) Lymphocytes (%) (Auto) 19.3 % (20.0-45.0) L Monocytes (%) (Auto) 7.5 % (1.0-10.0) Eosinophils (%) (Auto) 3.2 % (0.0-3.0) H Basophils (%) (Auto) 0.9 % (0.0-2.0) Current Medications Medications (Trade) Dose Ordered Sig/Alfredo Route PRN Reason Start Time Stop Time Status Last Admin Dose Admin Acetaminophen (Tylenol) 650 mg Q4H PRN RECTAL Mild Pain (Pain Scale 1-3) 07/28/17 18:45 08/23/17 22:44 Aripiprazole (Abilify) 20 mg DAILY@2100 ORAL 07/28/17 21:00 08/24/17 20:59 Ceftriaxone Sodium 1 gm/ Dextrose 55 ml @ 110 mls/hr Q24H IVPB 07/29/17 16:00 08/04/17 15:59 07/29/17 15:29 Chlorhexidine Gluconate (Destiny-Hex 2%) 1 applic DAILY@2000 TOPIC 07/29/17 20:00 08/28/17 19:59 07/29/17 21:55 Hydralazine HCl (Apresoline) 10 mg Q2H PRN IV SBP > 170mmHg 07/28/17 19:15 08/24/17 13:14 Lisinopril (Zestril) 10 mg DAILY ORAL 07/29/17 09:00 08/24/17 08:59 07/30/17 09:28 Magnesium Hydroxide (Mom) 30 ml HSPRN PRN ORAL Constipation 07/28/17 21:00 08/23/17 20:59 Metronidazole (Flagyl) 500 mg Q8HR ORAL 07/29/17 14:00 08/05/17 13:59 07/30/17 06:22 Morphine Sulfate (Morphine Sulfate) 4 mg Q4H PRN IVP Moderate Pain (Pain Scale 4-6) 07/28/17 22:00 08/01/17 05:59 07/29/17 08:52 Morphine Sulfate (Morphine Sulfate) 6 mg Q4H PRN IVP Severe Pain (Pain Scale 7-10) 07/28/17 22:00 08/01/17 05:59 Ondansetron HCl (Zofran) 4 mg Q4H PRN IVP Nausea & Vomiting 07/29/17 10:30 08/28/17 10:29 Topiramate (Topamax) 100 mg DAILY@2100 ORAL 07/28/17 21:00 08/24/17 20:59 Venlafaxine HCl (Effexor-XR) 150 mg DAILY@2100 ORAL 07/28/17 21:00 08/24/17 20:59 TABBY HAYWARD July 30, 2017 11:46
[2017-07-30] MEDS ORDERED: METRONIDAZOLE500 MG ORAL (12:07)
[2017-07-30] MEDS ORDERED: CEFTRIAXONE1 G2 IV (12:07)
[2017-07-30 12:50] VITALS: BP 140/83
--- NOTE | 2017-07-30 14:14 | General Surgery Progress Note ---
General Surgery-Progress Note Subjective Symptoms: improved, BM Objective Last 24 Hour Vital Signs Date Time Temp Pulse Resp B/P (MAP) Pulse Ox O2 Delivery O2 Flow Rate FiO2 07/30/17 12:50 98.1 87 18 140/83 Room Air 98.1 07/30/17 09:28 139/82 07/30/17 09:21 83 139/82 07/30/17 08:25 99.7 81 20 140/77 99 99.7 07/30/17 08:25 Room Air 07/30/17 04:43 97.3 77 20 111/48 98 97.3 07/30/17 00:00 Room Air 07/29/17 23:56 97.9 77 20 99/60 99 Room Air 97.9 07/29/17 20:00 Room Air 07/29/17 19:43 97.3 80 20 128/77 98 Room Air 97.3 07/29/17 16:01 Room Air 07/29/17 16:00 98.0 73 22 141/71 97 98.0 I&O Intake and Output 07/29/17 07/30/17 19:00 07:00 Intake Total 355 ml 360 ml Balance 355 ml 360 ml Intake Oral 300 ml 360 ml IV Total 55 ml # Voids 2 3 # Bowel Movements 1 Respiratory: clear Abdomen: soft, flat, non-tender, present bowel sounds Extremities: no tenderness Laboratory Tests Test 07/30/17 05:30 White Blood Count 9.2 K/UL (4.8-10.8) Red Blood Count 5.47 M/UL (4.20-5.40) H Hemoglobin 14.6 G/DL (12.0-16.0) Hematocrit 44.6 % (37.0-47.0) Mean Corpuscular Volume 82 FL (80-99) Mean Corpuscular Hemoglobin 26.6 PG (27.0-31.0) L Mean Corpuscular Hemoglobin Concent 32.6 G/DL (32.0-36.0) Red Cell Distribution Width 12.7 % (11.6-14.8) Platelet Count 383 K/UL (150-450) Mean Platelet Volume 7.3 FL (6.5-10.1) Neutrophils (%) (Auto) 69.1 % (45.0-75.0) Lymphocytes (%) (Auto) 19.3 % (20.0-45.0) L Monocytes (%) (Auto) 7.5 % (1.0-10.0) Eosinophils (%) (Auto) 3.2 % (0.0-3.0) H Basophils (%) (Auto) 0.9 % (0.0-2.0) Assessment Additional Comments S/P Acute Diverticulitis Plan Additional Comments can be discharged Rachid Rodarte MD July 30, 2017 14:14
[2017-07-30] MEDS: cefTRIAXone 1 GM in D5W 55 ML IVPB SCH (15:02)
--- NOTE | 2017-07-30 15:33 | Cardiac Electrophysiology PN ---
Assessment/Plan Assessment/Plan 1. Syncope. Etiology is not clear, could be secondary to severe pain, Remained in sinus rhythm while on tele. Ruled out for myocardial infarction. Echocardiogram that showed EF 60% to 65% with no pericardial effusion and no aortic stenosis. 2. Lateral ischemia on the EKG. Ruled out for myocardial infarction. Currently denies any chest pain. Stress test after diverticulitis is completely resolved as out patient 3.Hypokalemia. Still 3.2 today. Replaced 4. Hypertension. On Zestril 10 mg daily. 5. Major depression, on Abilify and Effexor. 6. Acute diverticulitis with possible abscess, On antibiotic under management of Dr. Rodarte. EDWARD RN OK to DC Subjective Subjective Comfortable in NAD No CP or SOB. Awaiting DC Objective Last 24 Hour Vital Signs Date Time Temp Pulse Resp B/P (MAP) Pulse Ox O2 Delivery O2 Flow Rate FiO2 07/30/17 12:50 98.1 87 18 140/83 Room Air 98.1 07/30/17 09:28 139/82 07/30/17 09:21 83 139/82 07/30/17 08:25 99.7 81 20 140/77 99 99.7 07/30/17 08:25 Room Air 07/30/17 04:43 97.3 77 20 111/48 98 97.3 07/30/17 00:00 Room Air 07/29/17 23:56 97.9 77 20 99/60 99 Room Air 97.9 07/29/17 20:00 Room Air 07/29/17 19:43 97.3 80 20 128/77 98 Room Air 97.3 07/29/17 16:01 Room Air 07/29/17 16:00 98.0 73 22 141/71 97 98.0 Intake and Output 07/29/17 07/30/17 19:00 07:00 Intake Total 355 ml 360 ml Balance 355 ml 360 ml Intake Oral 300 ml 360 ml IV Total 55 ml # Voids 2 3 # Bowel Movements 1 Laboratory Tests Test 07/30/17 05:30 White Blood Count 9.2 K/UL (4.8-10.8) Red Blood Count 5.47 M/UL (4.20-5.40) H Hemoglobin 14.6 G/DL (12.0-16.0) Hematocrit 44.6 % (37.0-47.0) Mean Corpuscular Volume 82 FL (80-99) Mean Corpuscular Hemoglobin 26.6 PG (27.0-31.0) L Mean Corpuscular Hemoglobin Concent 32.6 G/DL (32.0-36.0) Red Cell Distribution Width 12.7 % (11.6-14.8) Platelet Count 383 K/UL (150-450) Mean Platelet Volume 7.3 FL (6.5-10.1) Neutrophils (%) (Auto) 69.1 % (45.0-75.0) Lymphocytes (%) (Auto) 19.3 % (20.0-45.0) L Monocytes (%) (Auto) 7.5 % (1.0-10.0) Eosinophils (%) (Auto) 3.2 % (0.0-3.0) H Basophils (%) (Auto) 0.9 % (0.0-2.0) Objective HEAD AND NECK: No JVD LUNGS: Clear. CARDIOVASCULAR: Regular S1 and S2 with no gallop or murmur. ABDOMEN: Soft. EXTREMITIES: No pitting edema. Ha Thompson MD July 30, 2017 15:33
[2017-07-30] MEDS ORDERED: D5W 275ml ONE (16:38)
--- NOTE | 2017-07-30 21:49 | General Progress Note ---
Assessment/Plan Assessment/Plan Assessment - HTN - Depression - Obesity - Diverticulitis Recommendations - abx - diet per surgery - OOB - rec repeat CT 7-10 days after initial - can do early next week - outpatient colonoscopy in 6-8 weeks Subjective Allergies: Coded Allergies: No Known Allergies (Unverified , 07/24/17) Subjective Patient feels better Less pain d/w patient re outpatient f/u needed Objective Last 24 Hour Vital Signs Date Time Temp Pulse Resp B/P (MAP) Pulse Ox O2 Delivery O2 Flow Rate FiO2 07/30/17 12:50 98.1 87 18 140/83 Room Air 98.1 07/30/17 09:28 139/82 07/30/17 09:21 83 139/82 07/30/17 08:25 99.7 81 20 140/77 99 99.7 07/30/17 08:25 Room Air 07/30/17 04:43 97.3 77 20 111/48 98 97.3 07/30/17 00:00 Room Air 07/29/17 23:56 97.9 77 20 99/60 99 Room Air 97.9 Intake and Output 07/29/17 07/30/17 19:00 07:00 Intake Total 355 ml 360 ml Balance 355 ml 360 ml Intake Oral 300 ml 360 ml IV Total 55 ml # Voids 2 3 # Bowel Movements 1 Laboratory Tests 07/30/17 05:30: White Blood Count 9.2, Red Blood Count 5.47H, Hemoglobin 14.6, Hematocrit 44.6, Mean Corpuscular Volume 82, Mean Corpuscular Hemoglobin 26.6L, Mean Corpuscular Hemoglobin Concent 32.6, Red Cell Distribution Width 12.7, Platelet Count 383, Mean Platelet Volume 7.3, Neutrophils (%) (Auto) 69.1, Lymphocytes (%) (Auto) 19.3L, Monocytes (%) (Auto) 7.5, Eosinophils (%) (Auto) 3.2H, Basophils (%) ( Auto) 0.9 Height (Feet): 5 Height (Inches): 4.00 Weight (Pounds): 180 Objective Obese AA woman NCAT Supple CTA RRR abd soft ND, minimal TTP LLQ no edema Non focal Román St MD July 30, 2017 21:49
--- NOTE | 2017-08-02 13:58 | Discharge Summary ---
Discharge Summary Discharge Summary Discharge Summary DATE OF ADMISSION: 07/24/2017 DATE OF DISCHARGE: 07/30/2017 REASON FOR ADMISSION: 62 years old female with history of hypertension and depression presented with diffuse abdominal pain , rated as 7 out of 10 on a scale 1-10. She reported several vomiting episodes, but no hematemesis. She also reported being constipated for few days. While in the waiting area, she reported to have a syncopal episode. No fever or chills, no chest pain ,no shortness of breath. No dizziness, no palpitations, no neck pain, no recent travel. Blood pressure elevated 169/91 ,otherwise vital signs stable. Leukocytosis with WBC of 17.5. Urinalysis with +4 ketones, +2 occult blood , +2 protein. +1 leukocyte esterase and few bacteria . Hemoglobin and hematocrit stable, potassium 2.6. Lipase, LFT, renal parameters all within normal limits . Troponin negative. Urine toxicology screen was positive for cocaine and marijuana. Chest x-ray revealed no acute cardiopulmonary pathology. CT of the abdomen and pelvic revealed colonic diverticulosis, thickening and inflammatory changes of sigmoid colon consistent with acute diverticulitis. 3.6 cm fluid collection at the sigmoid wall worrisome for abscess. No free air. Trace free fluid. Liver showed evidence of mild fatty changes. Distended gallbladder with the stones in the gallbladder neck, no dilatation. Patient was started on the IV fluids. Pain management was addressed. Patient was admitted to medical surgical floor with diagnosis of acute diverticulitis with possible abscess, syncopal episode , acute hypokalemia CONSULTANTS: crimp setter Dr. Thompson ID specialist Dr. Donte Trevizo GI specialist Dr. [facility] COURSE: L Patient admitted and started on the IV fluids and broad-spectrum antibiotic per infectious disease specialist recommendations. Patient initially kept nothing by mouth. Leukocytosis resolved, no fever. Upon discharge continue antibiotics for duration as recommended by ID specialist. Repeat CT of the scan in 7 to [address] scan was done. GI closely followed. Patient was slowly started on clear liquid diet and advanced as tolerated to low residue diet. Pain management was addressed. Pain was controlled. Patient was able to tolerate diet . Antiemetics provided as needed. GI recommended outpatient colonoscopy in 6-8 weeks . Outboard Motorboat Operator closely followed. Troponin 2 were negative, lipid panel was within normal limits. Patient was ruled out for acute MA. Echocardiogram revealed preserved ejection fraction of 60-65%, right ventricular systolic pressure of 18. No evidence of pericardial effusion. Borderline left ventricular hypertrophy. Per crimp setter, syncope etiology was not clear, but could be secondary to severe pain the patient experienced initially while in emergency department. No evidence of arrhythmia on telemetry. Patient was ruled out for acute MA. Echocardiogram with preserved ejection fraction. Patient denied any chest pain. Outboard Motorboat Operator recommended stress test as outpatient when diverticulitis completely resolved. Renal parameters, electrolytes were closely monitored; electrolytes, specifically potassium, was replaced as needed. Potassium stable prior to discharge. Patient was counseled on abstinence from street drugs. Abilify and Effexor were continued. DVT prophylaxis provided. Blood pressure was managed with MIMI inhibitor and hydralazine was added as needed . when Blood sugar was managed with a sliding scale insulin. Patient was subsequently improved and was stable for discharge home with home health services FINAL DIAGNOSES: Acute diverticulitis with possible abscess Syncopal episode, likely secondary to severe pain due to the acute diverticulitis Hypertension Acute hypokalemia Drug abuse: cocaine, marijuana Depression Fatty Lever Obesity DISCHARGE MEDICATIONS: See Medication Reconciliation list. DISCHARGE INSTRUCTIONS: Patient was discharged home with home health services to follow to complete the course of IV antibiotics as recommended by ID specialist. Patient to repeat CT of the abdomen in 7 to [address] scan was done. Outpatient colonoscopy in 6-8 weeks when diverticulitis completely resolved and patient stable. I have been assigned to dictate discharge summary for this account. I was not involved in the patient's management. Ciara Medrano NP August 02, 2017 13:58
== END 2017-07-30 16:39 | disposition home health service (06) | DRG 392 ==
LOC: EMR 15:59 → 2E 18:02 → EDBEDREQ 18:44 → 4W 07-28 17:31
PROC: 02HV33Z Insertion of Infusion Device into Superior Vena Cava, Percutaneous Approach (ICD-10-PCS; principal; 2017-07-29)
DX: K57.20 Diverticulitis of large intestine with perforation and abscess without bleeding (principal); N39.0 Urinary tract infection, site not specified; E87.6 Hypokalemia; R55 Syncope and collapse; I10 Essential (primary) hypertension; F14.10 Cocaine abuse, uncomplicated; F12.10 Cannabis abuse, uncomplicated; F32.9 Major depressive disorder, single episode, unspecified; K76.0 Fatty (change of) liver, not elsewhere classified; E66.9 Obesity, unspecified; F17.200 Nicotine dependence, unspecified, uncomplicated
CPT/HCPCS: 36415; 36569; 71045; 74177; 76937; 80048; 80053; 80061; 80307; 81003; 82550; 82553; 83036; 83690; 83735; 84484; 85025; 93005; 93306; 99285; J1815; J2405; J8499

== ENCOUNTER 2018-10-14 08:54 | Emergency (ER) | payer MEDICARE, MEDICAID ==
[~2018-10-14] VITALS: Ht 167.6 cm; Wt 108.9 kg
[~2018-10-14 08:54] MED LIST: ABILIFY20 MG ORAL; CEFTRIAXONE1 G2 IV; LISINOPRIL5 MG ORAL; METRONIDAZOLE500 MG ORAL; TOPIRAMATE100 MG ORAL; VENLAFAXINE HCL25 MG ORAL
--- NOTE | 2018-10-14 09:09 | NUR ---
ED Nurse Note: pt walked in c/o right knee pain x 3 days no injury. ERMD at bedside awaiting orders.
--- NOTE | 2018-10-14 09:14 | NUR ---
ED Nurse Note: pt on cell speaking in clear sentences no distress will monitor.
[2018-10-14] MEDS ORDERED: NORCO 5-325 TA1 EACH ORAL (09:39)
--- NOTE | 2018-10-14 09:39 | Emergency Room Report ---
History of Present Illness General Chief Complaint: Lower Extremity Injury Source: Patient Present Illness HPI 53-year-old female presents with right knee pain, aggravated with movement alleviated with rest, she endorses as an achy pain, she is a user of narcotics, no fever no chills, no chest pain, no shortness of breath, patient presents for pain medication. Allergies: Coded Allergies: No Known Allergies (Unverified , 07/24/17) Patient History Past Medical History: see triage record Last Menstrual Period: na Now: No Reviewed Nursing Documentation: PMH: Agreed; PSxH: Agreed Nursing Documentation-PMH Past Medical History: No History, Except For Hx Cardiac Problems: Yes Hx Hypertension: Yes Hx Cancer: No Hx Gastrointestinal Problems: No Hx Neurological Problems: No Review of Systems All Other Systems: negative except mentioned in HPI Physical Exam Vital Signs Date Time Temp Pulse Resp B/P (MAP) Pulse Ox O2 Delivery O2 Flow Rate FiO2 10/14/18 09:00 98.4 82 20 180/91 (120) 98 Room Air Sp02 EP Interpretation: reviewed, normal General Appearance: well appearing, no apparent distress, alert Head: normocephalic, atraumatic Eyes: bilateral eye PERRL, bilateral eye EOMI ENT: uvula midline, moist mucus membranes Neck: supple, thyroid normal, supple/symm/no masses Respiratory: lungs clear, no respiratory distress, no retraction, no accessory muscle use Cardiovascular #1: normal peripheral pulses, regular rate, rhythm, no edema, no gallop, no murmur Gastrointestinal: non tender, soft, no guarding, no rebound Musculoskeletal: normal inspection, other - Right knee: Anterior posterior drawer negative, no effusion, no ballottement, no valgus varus stress, 2+ pedal pulses, patient is able to ambulate without issues, patient when distracted has no pain. Neurologic: alert, oriented x3 Psychiatric: mood/affect normal Skin: no rash, warm/dry Medical Decision Making Diagnostic Impression: Primary Impression: Right knee pain ER Course Pt right knee pain, patient is a heavy narcotic user, low suspicion for emergent processes, however patient may have overly sensitized nerve secondary to chronic narcotic use, will provide patient with a short-term prescription of [place] half dose, patient counseled to follow-up with a primary care doctor as well as a pain management doctor, cures report ran Last Vital Signs Date Time Temp Pulse Resp B/P (MAP) Pulse Ox O2 Delivery O2 Flow Rate FiO2 10/14/18 09:00 98.4 82 20 180/91 (120) 98 Room Air Disposition: HOME, SELF-CARE Condition: Stable Scripts Hydrocodone Bit/Acetaminophen 5-325* ([place] 5-325*) 1 Each Tablet 1 TAB ORAL Q6H PRN for For Pain, #12 TAB 0 Refills Prov: Rony Crawford MD 10/14/18 Referrals: Kory Berkowitz MD (PCP) [facility] Patient Instructions: Knee Sprain Additional Instructions: The patient was provided with discharge instructions, notified to follow-up with a primary care doctor and or specialist in the next 24-48 hours, and to return to the ED if they have worsening of their symptoms. Please note that this report is being documented using [employer] technology. This can lead to erroneous entry secondary to incorrect interpretation by the dictating instrument. Rony Crawford MD Oct 14, 2018 09:39
[2018-10-14 09:48] VITALS: BP 180/91
--- NOTE | 2018-10-14 09:49 | NUR ---
ED Nurse Note: Pt cleared by health care Provider for discharge. DC instructions/prescription was given and explained to pt and verbalized understanding of teachings. All medical deviecs such as ID band removed. Pt is AAO x4, ambulatory and left with all personal belongings.
== END 2018-10-14 09:50 | disposition home or self-care (01) ==
LOC: EMR 09:30
DX: M25.561 Pain in right knee (principal); I10 Essential (primary) hypertension
CPT/HCPCS: 99282

== ENCOUNTER 2018-12-12 11:26 | Inpatient (IN) | payer MEDICARE, MEDICAID ==
[~2018-12-12] VITALS: Ht 162.6 cm; Wt 111.7 kg
[~2018-12-12 11:26] MED LIST changes: +NORCO 5-325 TA1 EACH ORAL
[2018-12-12 11:45] VITALS: BP 126/84
[2018-12-12] MEDS ORDERED: HYDROmorphone 1mg/ml Carpuject IVP ONE (11:45)
[2018-12-12] MEDS ORDERED: Omnipaque-300 100ml vial INJ PRN (11:45)
--- NOTE | 2018-12-12 11:45 | NUR ---
ED Nurse Note: pt brought in to ER by family member from home due to severe abdominal pain 12/29. pt is crying for severe pain and restless. per pt, it started from Rt side of back pain last night and now it radiated to Rt side of abdominal and pain in unbearable. skin clean and intact. pt aao x4. no other acute distress noted at this moment. N/V noted. pt is in gown and on exploration driller.
[2018-12-12 12:22] LABS: HEMATOCRIT 48.4 % (37.0-47.0); HEMOGLOBIN 15.5 G/DL (12.0-16.0); MEAN CORPUSCULAR VOLUME 83 FL (80-99); PLATELET COUNT 204 K/UL (150-450); RED CELL DISTRIBUTION WIDTH 13.3 % (11.6-14.8); WHITE BLOOD COUNT 20.1 K/UL (4.8-10.8)
[2018-12-12 12:33] LABS: ANION GAP 12 mmol/L (5-15); BLOOD UREA NITROGEN 34 mg/dL (7-18); CALCIUM 8.9 MG/DL (8.5-10.1); CARBON DIOXIDE 24 MMOL/L (21-32); CHLORIDE 98 MMOL/L (98-107); CREATININE 1.6 MG/DL (0.55-1.30); POTASSIUM 3.1 MMOL/L (3.5-5.1); SODIUM 134 MMOL/L (136-145)
[2018-12-12 12:37] LABS: ALANINE AMINOTRANSFERASE 17 U/L (12-78); ALBUMIN 2.8 G/DL (3.4-5.0); ALBUMIN/GLOBULIN RATIO 0.6 (1.0-2.7); ALKALINE PHOSPHATASE 159 U/L (46-116); ASPARTATE AMINO TRANSFERASE 16 U/L (15-37)
[2018-12-12] MEDS ORDERED: Piperacillin/Tazobactam 3.375 GM in NS 110 ML IVPB ONE (12:45)
[2018-12-12 12:49] LABS: INR 1.1 (0.9-1.1)
[2018-12-12 13:15] LABS: APPEARANCE,URINE SLIGHTLY CLOUDY; BILIRUBIN, URINE 2+ (NEGATIVE); COLOR,URINE BROWN; GLUCOSE, URINE (UA) NEGATIVE (NEGATIVE); KETONES,URINE 1+ (NEGATIVE); LEUKOCYTE ESTERASE ,URINE 2+ (NEGATIVE); NITRITE,URINE POSITIVE (NEGATIVE); PH,URINE 5 (4.5-8.0); PROTEIN,URINE 3+ (NEGATIVE); UROBILINOGEN,URINE 8 MG/DL (0.0-1.0)
[2018-12-12] MEDS ORDERED: NKM (13:44)
[2018-12-12] MEDS ORDERED: Morphine Sulfate 4mg/ml Inj (IV USE ONLY) IVP ONE (14:15)
--- NOTE | 2018-12-12 14:15 | NUR ---
ED Nurse Note: pt reported her pain is getting worse again. ERMD made aware.
[2018-12-12] MEDS ORDERED: LORazepam 1mg tab ORAL PRN (15:00)
[2018-12-12] MEDS ORDERED: Morphine Sulfate 2mg/ml Inj(IV/IM USE ONLY) IVP PRN (15:00)
[2018-12-12] MEDS ORDERED: Mylanta II UD 30ml ORAL PRN (15:00)
--- NOTE | 2018-12-12 15:01 | Diagnostic Imaging Report ---
Indication: Abdominal pain Technique: Continuous helical transaxial imaging of the abdomen and pelvis was obtained from the lung bases to the pubic symphysis during intravenous contrast administration. Coronal 2-D reformats were also obtained. Study obtained in a Siemens sensation [address] Automatic Exposure Control was utilized. Total Dose length Product (DLP): 1729.[address] Dose Index Volume (CTDIvol): 28 mGy Comparison: 07/24/2017 CT abdomen pelvis Findings: In the right aspect of the mesentery, there is an area of ill-defined inflammation characterized by linear reticular areas of soft tissue stranding of the mesenteric fat. This is not associated with the appendix which appears to be normal in caliber with intraluminal air, no wall thickening. There are small retroperitoneal nodes and mesenteric nodes. The inflammation is not associated with either the colon or terminal ileum, which appear normal. There is no abscess. There is questionable ill-definition and thickening of the third portion of the duodenum which is at the upper extent of the inflammation. At the lower or posterior extent of the inflammation there is a cystic lesion which is associated with the broad ligament and likely an ovarian cyst injury about 5.6 x 4.8 cm. There is no free air. The area of the pylorus and duodenal bulb appear grossly normal. The pancreas is grossly normal. There are diverticula within the sigmoid colon. No evidence of acute diverticulitis. Both kidneys enhance normally. There is a right renal cyst. There is no hydronephrosis. Gallstones are present without definite inflammation identified. The liver and spleen are unremarkable. The uterus is heterogeneous lobulated due to presence of fibroids the left ovary is notable for a 2 cm cyst. The bladder is nondistended. IMPRESSION: Central to right lower quadrant mesenteric and retroperitoneal soft tissue stranding likely due to inflammation or blood. Etiology is not certain but suspect this is associated with a 5 cm right ovarian cyst possibly hemorrhagic cyst or infection i.e. tubo-ovarian abscess. Differential diagnosis includes omental infarct, duodenitis/peptic ulcer disease. The appendix is normal. Diverticulosis of the sigmoid colon. No definite diverticulitis. Gallstones. Low density right adrenal mass 2.4 cm probably adenoma. 2 cm left ovarian cyst. Multiple uterine fibroids. Findings discussed via telephone with the emergency room physician Dr. Jackson @ 2:45 pm, 12/12/[address] scanner at [facility] is accredited by the [employer] and the scans are performed using dose optimization techniques as appropriate to a performed exam including Automatic Exposure control.
--- NOTE | 2018-12-12 15:06 | Consultation ---
History of Present Illness General Date patient seen: Dec 12, 2018 Reason for Hospitalization: Abdominal Pain Present Illness HPI This is a pleasant 53-year-old female with multiple medical comorbidities who presented to the emergency department [facility] complaining of worsening right-sided abdominal pain. Patient states pain began approximately 2 days ago earlier on Wednesday and was a sharp right sided abdominal pain mainly in the lower and mid abdomen. States that it began a little bit more laterally and at the flank area but now is in the right lower to mid quadrant. No associated emesis but did have some intermittent nausea. Pain is currently 10 out of 10 and since did not improve decided to come in for evaluation. Has not had similar pains in the past. States she is passing gas and had flatus as early as yesterday morning. Flatus and bowel movement were otherwise normal. Denies any painful urination. Noted to have a leukocytosis and right lower quadrant tenderness on examination. Surgery called to evaluate. Patient seen in the emergency department chart reviewed patient examined. Allergies: Coded Allergies: No Known Allergies (Unverified , 07/24/17) Medication History Scheduled Aripiprazole* (Abilify*), 20 MG ORAL DAILY, (Reported) Ceftriaxone Sodium (Ceftriaxone), 1 GM IV DAILY, (Reported) Lisinopril (Lisinopril*), 10 MG ORAL DAILY, (Reported) Metronidazole* (Flagyl*), 500 MG ORAL EVERY 8 HOURS, (Reported) No Known Medications* (NKM - No Known Medications*), 0 ., (Reported) Topiramate* (Topamax*), 100 MG ORAL DAILY, (Reported) Venlafaxine Hcl* (Effexor*), 75 MG ORAL DAILY, (Reported) Scheduled PRN Hydrocodone Bit/Acetaminophen 5-325* ([place] 5-325*), 1 TAB ORAL Q6H PRN for For Pain Patient History History Provided By: Patient, Medical Record, PMD Healthcare decision maker Resuscitation status Advanced Directive on File Past Medical/Surgical History Past Medical/Surgical History: (1) Diverticulitis (2) Syncope and collapse (3) Sepsis (4) Abdominal pain Review of Systems Review of Symptoms General ROS: no weight loss or fever Psychological ROS: no depression or mood changes, no memory loss Ophthalmic ROS: no visual changes or eye irritation ENT ROS: no nasal congestion, hearing loss, dizziness Allergy and Immunology ROS: no allergic symptoms or urticaria Hematological and Lymphatic ROS: no swollen glands, unusual bleeding or bruising Endocrine ROS: no polyuria, polydipsia, weight changes, temperature intolerance Respiratory ROS: no cough, shortness of breath, or wheezing Cardiovascular ROS: no chest pain or dyspnea on exertion Gastrointestinal ROS: abdominal pain, no bright red blood in stool. Musculoskeletal ROS: no myalgias or arthralgias Neurological ROS: no TIA or stroke symptoms Dermatological ROS: no new or changing skin lesions, rashes or pruritis Physical Exam Physical Exam General appearance: alert, cooperative, no distress, appears stated age Head: Normocephalic, without obvious abnormality, atraumatic Eyes: conjunctivae/corneas clear. PERRL, EOM's intact. Fundi benign Throat: Lips, mucosa, and tongue normal. Teeth and gums normal Neck: supple, symmetrical, trachea midline, no adenopathy, thyroid: not enlarged, symmetric, no tenderness/mass/nodules, no carotid bruit and no JVD Lungs: clear to auscultation bilaterally Heart: regular rate and rhythm, S1, S2 normal, no murmur, click, rub or gallop Abdomen: soft, right sided-tender. Bowel sounds normal. No masses, no organomegaly Extremities: extremities normal, atraumatic, no cyanosis or edema Pulses: 2+ and symmetric Skin: Skin color, texture, turgor normal. No rashes or lesions Neurologic: Grossly normal Last 24 Hour Vital Signs Date Time Temp Pulse Resp B/P (MAP) Pulse Ox O2 Delivery O2 Flow Rate FiO2 12/12/18 12:31 98.0 12/12/18 11:45 104 18 Room Air 12/12/18 11:45 98.1 104 18 126/84 98 Room Air 12/12/18 11:35 98.1 98 18 131/68 (89) 95 Room Air Laboratory Tests Test 12/12/18 11:50 12/12/18 13:00 White Blood Count 20.1 K/UL (4.8-10.8) H Red Blood Count 5.80 M/UL (4.20-5.40) H Hemoglobin 15.5 G/DL (12.0-16.0) Hematocrit 48.4 % (37.0-47.0) H Mean Corpuscular Volume 83 FL (80-99) Mean Corpuscular Hemoglobin 26.7 PG (27.0-31.0) L Mean Corpuscular Hemoglobin Concent 32.0 G/DL (32.0-36.0) Red Cell Distribution Width 13.3 % (11.6-14.8) Platelet Count 204 K/UL (150-450) Mean Platelet Volume 8.2 FL (6.5-10.1) Neutrophils (%) (Auto) % (45.0-75.0) Lymphocytes (%) (Auto) % (20.0-45.0) Monocytes (%) (Auto) % (1.0-10.0) Eosinophils (%) (Auto) % (0.0-3.0) Basophils (%) (Auto) % (0.0-2.0) Differential Total Cells Counted 100 Neutrophils % (Manual) 80 % (45-75) H Lymphocytes % (Manual) 6 % (20-45) L Monocytes % (Manual) 4 % (1-10) Eosinophils % (Manual) 0 % (0-3) Basophils % (Manual) 0 % (0-2) Band Neutrophils 10 % (0-8) H Platelet Estimate Adequate Platelet Morphology Normal Red Blood Cell Morphology Normal Prothrombin Time 12.0 SEC (9.30-11.50) H Prothromb Time International Ratio 1.1 (0.9-1.1) Activated Partial Thromboplast Time 37 SEC (23-33) H Sodium Level 134 MMOL/L (136-145) L Potassium Level 3.1 MMOL/L (3.5-5.1) L Chloride Level 98 MMOL/L (98-107) Carbon Dioxide Level 24 MMOL/L (21-32) Anion Gap 12 mmol/L (5-15) Blood Urea Nitrogen 34 mg/dL (7-18) H Creatinine 1.6 MG/DL (0.55-1.30) H Estimat Glomerular Filtration Rate 40.6 mL/min (>60) Glucose Level 136 MG/DL (74-106) H Calcium Level 8.9 MG/DL (8.5-10.1) Total Bilirubin 1.0 MG/DL (0.2-1.0) Aspartate Amino Transf (AST/SGOT) 16 U/L (15-37) Alanine Aminotransferase (ALT/SGPT) 17 U/L (12-78) Alkaline Phosphatase 159 U/L (46-116) H Total Protein 7.2 G/DL (6.4-8.2) Albumin 2.8 G/DL (3.4-5.0) L Globulin 4.4 g/dL Albumin/Globulin Ratio 0.6 (1.0-2.7) L Lipase 50 U/L (73-393) L Urine Color Brown Urine Appearance Slightly cloudy Urine pH 5 (4.5-8.0) Urine Specific [place] 1.020 (1.005-1.035) Urine Protein 3+ (NEGATIVE) H Urine Glucose (UA) Negative (NEGATIVE) Urine Ketones 1+ (NEGATIVE) H Urine Blood 1+ (NEGATIVE) H Urine Nitrite Positive (NEGATIVE) H Urine Bilirubin 2+ (NEGATIVE) H Urine Ictotest Positive (NEGATIVE) Urine Urobilinogen 8 MG/DL (0.0-1.0) H Urine Leukocyte Esterase 2+ (NEGATIVE) H Urine RBC 0-2 /HPF (0 - 2) Urine WBC 5-10 /HPF (0 - 2) H Urine Squamous Epithelial Cells Few /LPF (NONE/OCC) Urine Bacteria Moderate /HPF (NONE) H Height (Feet): 5 Height (Inches): 4.00 Weight (Pounds): 249 Medications Current Medications Medications (Trade) Dose Ordered Sig/Alfredo Route PRN Reason Start Time Stop Time Status Last Admin Dose Admin Iohexol (OMNIPAQUE-300 100ml) 100 ml NOW PRN INJ Radiology Procedure 12/12/18 11:45 12/14/18 11:45 Assessment/Plan Problem List: (1) Abdominal pain Assessment & Plan: 53-year-old female with abdominal pain for the past 2 days worsening started his right flank now on her right mid abdomen and lower quadrant. Afebrile, hemodynamically stable, leukocytosis 20,000. Labs otherwise normal. Right-sided abdominal tenderness on examination with voluntary guarding but no rebound CT reviewed with radiologist and as noted in his dictation. Possible tubo-ovarian site abscess, hemorrhagic ovarian cyst, mesenteric infarct, enteritis. At this time needs further work-up and management. Recommend admission to medical service for IV antibiotics and work-up. Recommend ultrasound pelvis and transvaginal. A.m. labs. Infectious disease consultation. Thank you for this consultation we will follow with recommendations and serial exams. ICD Codes: R10.9 - Unspecified abdominal pain SNOMED: [id number] Qualifiers: Qualified Codes: R10.31 - Right lower quadrant pain Ganga Mancuso Dec 12, 2018 15:06
--- NOTE | 2018-12-12 15:15 | Emergency Room Report ---
History of Present Illness General Chief Complaint: Abdominal Pain Source: Patient, Medical Record, PMD Present Illness HPI 53-year-old female presents ED for evaluation. Patient complaining of abdominal pain which started this morning. Pain is right-sided, sharp, 10 out of 10, nonradiating. Denies nausea or vomiting. Denies fevers or chills. Denies diarrhea. No other aggravating relieving factors. Denies any other associated symptoms Allergies: Coded Allergies: No Known Allergies (Unverified , 07/24/17) Patient History Past Medical History: HTN Past Surgical History: none Pertinent Family History: none Social History: Denies: smoking, alcohol use, drug use Last Menstrual Period: n/a Now: No Immunizations: UTD Reviewed Nursing Documentation: PMH: Agreed; PSxH: Agreed Nursing Documentation-PMH Past Medical History: No History, Except For Hx Cardiac Problems: Yes Hx Hypertension: Yes Hx Cancer: No Hx Gastrointestinal Problems: No Hx Neurological Problems: No Review of Systems All Other Systems: negative except mentioned in HPI Physical Exam Vital Signs Date Time Temp Pulse Resp B/P (MAP) Pulse Ox O2 Delivery O2 Flow Rate FiO2 12/12/18 11:35 98.1 98 18 131/68 (89) 95 Room Air Sp02 EP Interpretation: reviewed, normal General Appearance: alert, GCS 15, non-toxic, mild distress, obese Head: normocephalic, atraumatic Eyes: bilateral eye normal inspection, bilateral eye PERRL ENT: hearing grossly normal, normal pharynx, no angioedema, normal voice Neck: full range of motion, supple/symm/no masses Respiratory: chest non-tender, lungs clear, normal breath sounds, speaking full sentences Cardiovascular #1: regular rate, rhythm, no edema Cardiovascular #2: 2+ carotid (R), 2+ carotid (L), 2+ radial (R), 2+ radial (L) , 2+ dorsalis pedis (R), 2+ dorsalis pedis (L) Gastrointestinal: normal bowel sounds, guarding, rebound, tenderness Rectal: deferred Genitourinary: normal inspection, no CVA tenderness Musculoskeletal: back normal, gait/station normal, normal range of motion, non- tender Neurologic: alert, oriented x3, responsive, motor strength/tone normal, sensory intact, speech normal Psychiatric: judgement/insight normal, memory normal, mood/affect normal, no suicidal/homicidal ideation Reflexes: 3+ bicep (R), 3+ bicep (L), 3+ tricep (R), 3+ tricep (L), 3+ knee (R) , 3+ knee (L) Lymphatic: no adenopathy Procedures Critical Care Time Critical Care Time i. I feel this is a highly complex case requiring extensive working including EKG/Rhythm strip, Xray/CT/US, Blood/urine lab work, repeat exams while in ED, and administration of strong opiates/narcotics for pain control, admission to hospital or close patient follow up. Total time: 30 min bedside evaluation and treatment excludes procedures (EKG). Reason for critical care: abdominal pain, leukocytosis Possible complications: hypotension, hypertension, [place], shock, arrhythmias, metabolic acidosis, end organ damage, respiratory failure. Interventions: Labs, meds, CT, surgical consultation, broad-spectrum antibiotics Course: Is ending with abdominal pain. Guarding and rigid. Labs show significant leukocytosis. CT shows inflammation/stranding of the right lower quadrant mesenteric and soft tissue. Possible right ovarian cyst with possible tubo-ovarian abscess. Evaluated by surgery with guarding noted. Zosyn given. Consultations: nursing staff, EMS, family Performed by: Dr Jackson Tolerated well condition = serious j. because of unstable vital signs this patient had a condition that could potentially threaten life or limb. I feel this is a critical patient who required my full attention while patient was considered critical. Total Critical Care Time excluding procedures was greater than 35 minutes Medical Decision Making Diagnostic Impression: Primary Impression: Abdominal pain Qualified Codes: R10.31 - Right lower quadrant pain ER Course Hospital Course 53 yo F presents with abd pain Differential diagnoses include: BPH, cystitis, pyelonephritis, kidney stone Clinical course Patient placed on stretcher. radiation monitor. After initial history and physical I ordered labs, IV fluids, UA, pain medication and CT scan Labs - marked leukocytosis, Hb/Hct stable, electrolytes ok evaluated by surgery at bedside. Concerned about acute abdomen and CT abdomen and pelvis - stranding/inflammation of mesentery lower abdomen. ? TOA broad spectrum abx given. Case discussed with Dr. Berkowitz and he agreed to accept the patient to his service for further care and support I feel this is a highly complex case requiring extensive working including EKG/ Rhythm strip, Xray/CT/US, Blood/urine lab work, repeat exams while in ED, and administration of strong opiates/narcotics for pain control, admission to hospital or close patient follow up. Diagnosis - abdominal pain Patient admitted to floor in serious condition Labs Test 12/12/18 11:50 12/12/18 13:00 White Blood Count 20.1 K/UL (4.8-10.8) Red Blood Count 5.80 M/UL (4.20-5.40) Hemoglobin 15.5 G/DL (12.0-16.0) Hematocrit 48.4 % (37.0-47.0) Mean Corpuscular Volume 83 FL (80-99) Mean Corpuscular Hemoglobin 26.7 PG (27.0-31.0) Mean Corpuscular Hemoglobin Concent 32.0 G/DL (32.0-36.0) Red Cell Distribution Width 13.3 % (11.6-14.8) Platelet Count 204 K/UL (150-450) Mean Platelet Volume 8.2 FL (6.5-10.1) Neutrophils (%) (Auto) % (45.0-75.0) Lymphocytes (%) (Auto) % (20.0-45.0) Monocytes (%) (Auto) % (1.0-10.0) Eosinophils (%) (Auto) % (0.0-3.0) Basophils (%) (Auto) % (0.0-2.0) Differential Total Cells Counted 100 Neutrophils % (Manual) 80 % (45-75) Lymphocytes % (Manual) 6 % (20-45) Monocytes % (Manual) 4 % (1-10) Eosinophils % (Manual) 0 % (0-3) Basophils % (Manual) 0 % (0-2) Band Neutrophils 10 % (0-8) Platelet Estimate Adequate Platelet Morphology Normal Red Blood Cell Morphology Normal Prothrombin Time 12.0 SEC (9.30-11.50) Prothromb Time International Ratio 1.1 (0.9-1.1) Activated Partial Thromboplast Time 37 SEC (23-33) Sodium Level 134 MMOL/L (136-145) Potassium Level 3.1 MMOL/L (3.5-5.1) Chloride Level 98 MMOL/L (98-107) Carbon Dioxide Level 24 MMOL/L (21-32) Anion Gap 12 mmol/L (5-15) Blood Urea Nitrogen 34 mg/dL (7-18) Creatinine 1.6 MG/DL (0.55-1.30) Estimat Glomerular Filtration Rate 40.6 mL/min (>60) Glucose Level 136 MG/DL (74-106) Calcium Level 8.9 MG/DL (8.5-10.1) Total Bilirubin 1.0 MG/DL (0.2-1.0) Aspartate Amino Transf (AST/SGOT) 16 U/L (15-37) Alanine Aminotransferase (ALT/SGPT) 17 U/L (12-78) Alkaline Phosphatase 159 U/L (46-116) Total Protein 7.2 G/DL (6.4-8.2) Albumin 2.8 G/DL (3.4-5.0) Globulin 4.4 g/dL Albumin/Globulin Ratio 0.6 (1.0-2.7) Lipase 50 U/L (73-393) Urine Color Brown Urine Appearance Slightly cloudy Urine pH 5 (4.5-8.0) Urine Specific [place] 1.020 (1.005-1.035) Urine Protein 3+ (NEGATIVE) Urine Glucose (UA) Negative (NEGATIVE) Urine Ketones 1+ (NEGATIVE) Urine Blood 1+ (NEGATIVE) Urine Nitrite Positive (NEGATIVE) Urine Bilirubin 2+ (NEGATIVE) Urine Ictotest Positive (NEGATIVE) Urine Urobilinogen 8 MG/DL (0.0-1.0) Urine Leukocyte Esterase 2+ (NEGATIVE) Urine RBC 0-2 /HPF (0 - 2) Urine WBC 5-10 /HPF (0 - 2) Urine Squamous Epithelial Cells Few /LPF (NONE/OCC) Urine Bacteria Moderate /HPF (NONE) CT/MRI/US Diagnostic Results CT/MRI/US Diagnostic Results : Imaging Test Ordered: CT A/P Impression Central to right lower quadrant mesenteric and retroperitoneal soft tissue stranding likely due to inflammation or blood. Etiology is not certain but suspect this is associated with a 5 cm right ovarian cyst possibly hemorrhagic cyst or infection i.e. tubo-ovarian abscess. Differential diagnosis includes omental infarct, duodenitis/peptic ulcer disease. The appendix is normal. Diverticulosis of the sigmoid colon. No definite diverticulitis. Gallstones. Low density right adrenal mass 2.4 cm probably adenoma. 2 cm left ovarian cyst. Multiple uterine fibroids. Last Vital Signs Date Time Temp Pulse Resp B/P (MAP) Pulse Ox O2 Delivery O2 Flow Rate FiO2 12/12/18 14:51 98.0 12/12/18 11:45 104 18 Room Air 12/12/18 11:45 126/84 98 Status: improved Disposition: ADMITTED INPATIENT Condition: Serious Referrals: Kory Berkowitz MD (PCP) Jv Jackson MD Dec 12, 2018 15:15
--- NOTE | 2018-12-12 15:21 | NUR ---
NURSE NOTES: Received phone report from CONSTANZA Robison RN.
--- NOTE | 2018-12-12 15:21 | NUR ---
ED Nurse Note: report given to HENOK Hooks
--- NOTE | 2018-12-12 15:39 | NUR ---
ED Nurse Note: pt left unit with 1 peripheral vascular tech in stable condition.
[2018-12-12 15:45] VITALS: BP 127/75
--- NOTE | 2018-12-12 15:45 | NUR ---
NURSE NOTES: Patient came to the unit via isr[place]rney. Pt a/o x 4. Denies pain at this time. Unit orientation was given. Bed in lowest position, call light within reach. Will continue to monitor.
--- NOTE | 2018-12-12 15:55 | NUR ---
NURSE NOTES: Pt's temperature 102.6 and no prn meds. Called Dr. Berkowitz and left the message.
--- NOTE | 2018-12-12 16:33 | NUR ---
NURSE NOTES: Dr. Mancuso ordered Tylenol 650mg q6 prn for high fever and SCD. Noted and carried out.
--- NOTE | 2018-12-12 16:35 | NUR ---
NURSE NOTES: Received Tylenol and SCD order from Dr. Mancuso. Called and left the meaage to Dr. Berkowitz regarding reconcile home meds.
--- NOTE | 2018-12-12 16:43 | Diagnostic Imaging Report ---
Indication: Abdominal pain Technique: Grayscale and duplex Doppler imaging of the abdomen performed. Comparison: None Findings: The liver is enlarged measuring 19 cm. Doppler interrogation of the main portal vein shows patency with hepatopedal, monophasic flow. There is no biliary ductal dilatation identified. Gallbladder is notable for multiple stones. Spleen is enlarged measuring 13 to 14 cm. There demonstrated part of the pancreas, aorta and IVC show no definite abnormalities. However much of the structures in the retroperitoneum are obscured by bowel gas and body habitus related issues. Both kidneys appear unremarkable. There is no hydronephrosis. IMPRESSION: Hepatosplenomegaly. Cholelithiasis
--- NOTE | 2018-12-12 16:45 | Diagnostic Imaging Report ---
Indication:Lower abdominal and pelvic pain. Abnormal CT Technique: Grayscale and duplex Doppler imaging of the pelvis performed utilizing a transabdominal scan. Comparison: None Findings: The study was incomplete as the patient was not able to continue due to pelvic pain. Transvaginal exam could not be performed. The limited images show heterogeneous appearing uterus measures 7.7 x 4 6.8 cm. IMPRESSION: Incomplete exam.
--- NOTE | 2018-12-12 16:50 | NUR ---
NURSE NOTES: Dr. Berkowitz called back and reconcile all home meds. ordered continue all home meds. Noted and carried out.
[2018-12-12] MEDS: NS w/KCl 20mEq 1000ml 1,000 ML IV SCH (16:55)
[2018-12-12] MEDS ORDERED: HYDROcodone/Acetamin 5/325 tab ORAL PRN (17:30)
--- NOTE | 2018-12-12 17:30 | NUR ---
NURSE NOTES: Called Dr. Aguero, Dr. Martel and left the message regarding consult.
--- NOTE | 2018-12-12 18:14 | NUR ---
NURSE NOTES: Pt's tem still 102.2 after 1 hour Tylenol 640mg was given. Dr. Berkowitz is aware.
[2018-12-12] MEDS: Morphine Sulfate 2mg/ml Inj(IV/IM USE ONLY) IVP PRN (18:34)
--- NOTE | 2018-12-12 19:20 | NUR ---
NURSE NOTES: Report taken from HENOK Hooks. Patient is awake and in bed, A&Ox4. No signs of distress on room air. Having moderate amount of pain in RUQ, primarily when she exerts herself and with palpation, 6/10. RN endorsed that patient has had a fever through her shift, MD aware, will continue to monitor. IV sire c/d/i and patent running NS+20KCl at 75mls/hr. Skin is intact. Bed in lowest position, call light within reach.
--- NOTE | 2018-12-12 19:41 | NUR ---
HAND-OFF: Report given to HENOK Linda.
[2018-12-12 20:00] VITALS: BP 112/74
[2018-12-12] MEDS: Piperacillin/Tazobactam 3.375 GM in NS 110 ML IVPB SCH (21:27)
[2018-12-12] MEDS: metroNIDAZOLE 500mg tab ORAL SCH (21:31)
[2018-12-13] VITALS (9 sets, daily range): BP systolic 116–149; BP diastolic 71–84
[2018-12-13] MEDS: Morphine Sulfate 2mg/ml Inj(IV/IM USE ONLY) IVP PRN (05:02)
[2018-12-13] MEDS: metroNIDAZOLE 500mg tab ORAL SCH ×2 (05:07→21:00)
[2018-12-13] MEDS: Piperacillin/Tazobactam 3.375 GM in NS 110 ML IVPB SCH (05:08)
[2018-12-13] MEDS: NS w/KCl 20mEq 1000ml 1,000 ML IV SCH ×2 (05:15→18:00)
[2018-12-13 06:31] LABS: HEMATOCRIT 44.5 % (37.0-47.0); HEMOGLOBIN 14.1 G/DL (12.0-16.0); MEAN CORPUSCULAR VOLUME 84 FL (80-99); PLATELET COUNT 207 K/UL (150-450); RED CELL DISTRIBUTION WIDTH 13.7 % (11.6-14.8); WHITE BLOOD COUNT 19.8 K/UL (4.8-10.8)
[2018-12-13 06:43] LABS: INR 1.1 (0.9-1.1)
[2018-12-13 07:04] LABS: ALANINE AMINOTRANSFERASE 16 U/L (12-78); ALBUMIN 2.3 G/DL (3.4-5.0); ALBUMIN/GLOBULIN RATIO 0.5 (1.0-2.7); ALKALINE PHOSPHATASE 137 U/L (46-116); ANION GAP 13 mmol/L (5-15); ASPARTATE AMINO TRANSFERASE 12 U/L (15-37); BLOOD UREA NITROGEN 36 mg/dL (7-18); CALCIUM 8.5 MG/DL (8.5-10.1); CARBON DIOXIDE 23 MMOL/L (21-32); CHLORIDE 101 MMOL/L (98-107); CHOLESTEROL 92 MG/DL (< 200); CREATININE 1.5 MG/DL (0.55-1.30); HDL CHOLESTEROL 10 MG/DL (40-60); POTASSIUM 3.4 MMOL/L (3.5-5.1); SODIUM 137 MMOL/L (136-145); TRIGLYCERIDES 134 MG/DL (30-150)
--- NOTE | 2018-12-13 07:30 | NUR ---
NURSE NOTES: Received report from Alexei WHITING. Patient is asleep during rounds, no acute distress noted, RR even and unlabored. Zosyn running per order. SCD's on. Side rails upx2, bed low and locked, call light in reach. Will continue to monitor.
--- NOTE | 2018-12-13 07:35 | NUR ---
HAND-OFF: Report given to HENOK Johns. Patient is asleep and stable.
--- NOTE | 2018-12-13 08:34 | NUR ---
NURSE NOTES: Received order from Dr. Berkowitz to d/c patient's 2mg morphine IVP, MD would like patient to get 1mg IVP. MD also ordered to consult Dr. Salas, orders entered. Informed MD of patient's WBC of 19.8 this morning, no further orders received at this time.
[2018-12-13] MEDS ORDERED: Venlafaxine XR 75mg cap ORAL SCH (09:00)
[2018-12-13] MEDS ORDERED: Lisinopril 10mg tab ORAL SCH (09:00)
[2018-12-13] MEDS ORDERED: Topiramate 100mg tab ORAL SCH (09:00)
[2018-12-13] MEDS ORDERED: ARIPiprazole 10mg tab ORAL SCH (09:00)
--- NOTE | 2018-12-13 10:56 | NUR ---
NURSE NOTES: Called the office of Dr. Salas to inform of consult order. Reached manager business process Negar who stated she will inform Dr. Salas of consult.
--- NOTE | 2018-12-13 11:19 | GI Initial Consult Note ---
History of Present Illness General Date patient seen: Dec 13, 2018 Time patient seen: 11:12 Reason for Hospitalization: Abdominal Pain Referring physician: MINNA SUMMERS Reason for Consultation: ABDOMINAL PAIN Present Illness HPI 53-year-old female presents ED for evaluation. Patient complaining of abdominal pain which started this morning. Pain is right-sided, sharp, 10 out of 10, nonradiating. Denies nausea or vomiting. Denies fevers or chills. Denies diarrhea. No other aggravating relieving factors. Denies any other associated symptoms GI consulted for abdominal pain. Initial HPI as noted above. Patient seen, awake alert oriented x4 has complaint of severe right-sided abdominal pain for approximately 3 days. Abdomen is soft, nondistended, severe tenderness to the right lower and upper quadrant. Abdominal pelvis CT was performed noted that the patient had possible inflammation in the right lower quadrant mesenteric and retroperitoneal soft tissue stranding. In addition was noted that the patient had a right ovarian cyst which was possibly hemorrhagic or infectious. Imaging study also showed the presence of diverticulosis in sigmoid colon without any definite evidence of diverticulitis, cholelithiasis and multiple uterine fibroids. The patient has no history of endoscopic or colonoscopy. At the time of evaluation, the patient denied any nausea vomiting constipation or diarrhea. Home Meds Active Scripts Hydrocodone Bit/Acetaminophen 5-325* (NORCO 5-325*) 1 Each Tablet, 1 TAB ORAL Q6H PRN for For Pain, #12 TAB 0 Refills Prov:Rony Crawford MD 10/14/18 Reported Medications No Known Medications* (NKM - No Known Medications*) ., 0 ., 0 Refills 12/12/18 Metronidazole* (FLAGYL*) 500 Mg Tablet, 500 MG ORAL EVERY 8 HOURS for 14 Days, TAB 07/30/17 Ceftriaxone Sodium (CEFTRIAXONE) 1 Gm Vial.port, 1 GM IV DAILY for 14 Days, VIAL 07/30/17 Topiramate* (TOPAMAX*) 100 Mg Tablet, 100 MG ORAL DAILY, #60 TAB 0 Refills 07/24/17 Venlafaxine Hcl* (EFFEXOR*) 25 Mg Tablet, 75 MG ORAL DAILY, TAB 07/24/17 Aripiprazole* (ABILIFY*) 20 Mg Tablet, 20 MG ORAL DAILY, TAB 07/24/17 Lisinopril (LISINOPRIL*) 5 Mg Tablet, 10 MG ORAL DAILY, TAB 07/24/17 Med list reviewed/reconciled: Yes Allergies: Coded Allergies: No Known Allergies (Unverified , 07/24/17) Patient History History Provided By: Patient, Medical Record PM Narrative Past Medical History: HTN Past Surgical History: none Pertinent Family History: none Social History: Denies: smoking, alcohol use, drug use Last Menstrual Period: n/a Now: No Immunizations: UTD Reviewed Nursing Documentation: PMH: Agreed; PSxH: Agreed Nursing Documentation-PMH Past Medical History: No History, Except For Hx Cardiac Problems: Yes Hx Hypertension: Yes Hx Cancer: No Hx Gastrointestinal Problems: No Hx Neurological Problems: No Social History: Denies: smoking, alcohol use, drug use, other Review of Systems All Other Systems: negative except mentioned in HPI Physical Exam Vital Signs Date Time Temp Pulse Resp B/P (MAP) Pulse Ox O2 Delivery O2 Flow Rate FiO2 12/12/18 11:35 98.1 98 18 131/68 (89) 95 Room Air Sp02 EP Interpretation: reviewed, normal Labs Laboratory Tests Test 12/12/18 11:50 12/12/18 13:00 12/13/18 05:15 White Blood Count 20.1 K/UL (4.8-10.8) H 19.8 K/UL (4.8-10.8) H Red Blood Count 5.80 M/UL (4.20-5.40) H 5.30 M/UL (4.20-5.40) Hemoglobin 15.5 G/DL (12.0-16.0) 14.1 G/DL (12.0-16.0) Hematocrit 48.4 % (37.0-47.0) H 44.5 % (37.0-47.0) Mean Corpuscular Volume 83 FL (80-99) 84 FL (80-99) Mean Corpuscular Hemoglobin 26.7 PG (27.0-31.0) L 26.5 PG (27.0-31.0) L Mean Corpuscular Hemoglobin Concent 32.0 G/DL (32.0-36.0) 31.7 G/DL (32.0-36.0) L Red Cell Distribution Width 13.3 % (11.6-14.8) 13.7 % (11.6-14.8) Platelet Count 204 K/UL (150-450) 207 K/UL (150-450) Mean Platelet Volume 8.2 FL (6.5-10.1) 7.8 FL (6.5-10.1) Neutrophils (%) (Auto) % (45.0-75.0) % (45.0-75.0) Lymphocytes (%) (Auto) % (20.0-45.0) % (20.0-45.0) Monocytes (%) (Auto) % (1.0-10.0) % (1.0-10.0) Eosinophils (%) (Auto) % (0.0-3.0) % (0.0-3.0) Basophils (%) (Auto) % (0.0-2.0) % (0.0-2.0) Differential Total Cells Counted 100 100 Neutrophils % (Manual) 80 % (45-75) H 95 % (45-75) H Lymphocytes % (Manual) 6 % (20-45) L 2 % (20-45) L Monocytes % (Manual) 4 % (1-10) 3 % (1-10) Eosinophils % (Manual) 0 % (0-3) 0 % (0-3) Basophils % (Manual) 0 % (0-2) 0 % (0-2) Band Neutrophils 10 % (0-8) H 0 % (0-8) Platelet Estimate Adequate Adequate Platelet Morphology Normal Normal Red Blood Cell Morphology Normal Prothrombin Time 12.0 SEC (9.30-11.50) H 12.1 SEC (9.30-11.50) H Prothromb Time International Ratio 1.1 (0.9-1.1) 1.1 (0.9-1.1) Activated Partial Thromboplast Time 37 SEC (23-33) H 38 SEC (23-33) H Sodium Level 134 MMOL/L (136-145) L 137 MMOL/L (136-145) Potassium Level 3.1 MMOL/L (3.5-5.1) L 3.4 MMOL/L (3.5-5.1) L Chloride Level 98 MMOL/L (98-107) 101 MMOL/L (98-107) Carbon Dioxide Level 24 MMOL/L (21-32) 23 MMOL/L (21-32) Anion Gap 12 mmol/L (5-15) 13 mmol/L (5-15) Blood Urea Nitrogen 34 mg/dL (7-18) H 36 mg/dL (7-18) H Creatinine 1.6 MG/DL (0.55-1.30) H 1.5 MG/DL (0.55-1.30) H Estimat Glomerular Filtration Rate 40.6 mL/min (>60) 43.8 mL/min (>60) Glucose Level 136 MG/DL (74-106) H 125 MG/DL (74-106) H Calcium Level 8.9 MG/DL (8.5-10.1) 8.5 MG/DL (8.5-10.1) Total Bilirubin 1.0 MG/DL (0.2-1.0) 1.0 MG/DL (0.2-1.0) Aspartate Amino Transf (AST/SGOT) 16 U/L (15-37) 12 U/L (15-37) L Alanine Aminotransferase (ALT/SGPT) 17 U/L (12-78) 16 U/L (12-78) Alkaline Phosphatase 159 U/L (46-116) H 137 U/L (46-116) H Total Protein 7.2 G/DL (6.4-8.2) 6.5 G/DL (6.4-8.2) Albumin 2.8 G/DL (3.4-5.0) L 2.3 G/DL (3.4-5.0) L Globulin 4.4 g/dL 4.2 g/dL Albumin/Globulin Ratio 0.6 (1.0-2.7) L 0.5 (1.0-2.7) L Lipase 50 U/L (73-393) L Urine Color Brown Urine Appearance Slightly cloudy Urine pH 5 (4.5-8.0) Urine Specific [place] 1.020 (1.005-1.035) Urine Protein 3+ (NEGATIVE) H Urine Glucose (UA) Negative (NEGATIVE) Urine Ketones 1+ (NEGATIVE) H Urine Blood 1+ (NEGATIVE) H Urine Nitrite Positive (NEGATIVE) H Urine Bilirubin 2+ (NEGATIVE) H Urine Ictotest Positive (NEGATIVE) Urine Urobilinogen 8 MG/DL (0.0-1.0) H Urine Leukocyte Esterase 2+ (NEGATIVE) H Urine RBC 0-2 /HPF (0 - 2) Urine WBC 5-10 /HPF (0 - 2) H Urine Squamous Epithelial Cells Few /LPF (NONE/OCC) Urine Bacteria Moderate /HPF (NONE) H Hemoglobin A1c 6.3 % (4.3-6.0) H Lactic Acid Level 1.40 mmol/L (0.4-2.0) Triglycerides Level 134 MG/DL (30-150) Cholesterol Level 92 MG/DL (< 200) LDL Cholesterol 40 mg/dL (<100) HDL Cholesterol 10 MG/DL (40-60) L Cholesterol/HDL Ratio 9.2 (3.3-4.4) H General Appearance: well appearing, no apparent distress, alert Head: normocephalic EENT: PERRL/EOMI, normal ENT inspection Neck: supple Respiratory: normal breath sounds, no respiratory distress Cardiovascular: normal rate Gastrointestinal: normal inspection, non tender, soft, normal bowel sounds, non -distended Rectal: deferred Genitourinary: no CVA tenderness Musculoskeletal: normal inspection, back normal Neurologic: normal inspection, alert, oriented x3, responsive Psychiatric: normal inspection, judgement/insight normal, memory normal Skin: normal inspection, normal color, no rash, warm/dry, palpation normal, well hydrated Lymphatic: normal inspection, no adenopathy Current Medications Current Medications Medications (Trade) Dose Ordered Sig/Alfredo Route PRN Reason Start Time Stop Time Status Last Admin Dose Admin Acetaminophen (Tylenol) 650 mg Q6H PRN ORAL Mild Pain/Temp > 100.5 12/12/18 16:45 01/11/19 16:44 12/13/18 00:18 Acetaminophen/ Hydrocodone Bitart ([place] 5/325) 1 tab Q6H PRN ORAL For Pain 12/12/18 17:30 12/19/18 17:29 Al Hydroxide/Mg Hydroxide (Mylanta II) 30 ml Q6H PRN ORAL dyspepsia 12/12/18 15:00 01/11/19 14:59 Aripiprazole (Abilify) 20 mg DAILY ORAL 12/13/18 09:00 01/12/19 08:59 12/13/18 09:25 Dextrose (Dextrose 50%) 25 ml Q30M PRN IV Hypoglycemia 12/12/18 15:00 01/11/19 14:59 Dextrose (Dextrose 50%) 50 ml Q30M PRN IV Hypoglycemia 12/12/18 15:00 01/11/19 14:59 Diphenhydramine HCl (Benadryl) 25 mg Q6H PRN ORAL Itching/Pruritis 12/12/18 15:00 01/11/19 14:59 Famotidine (Pepcid I.v.) 20 mg Q12HR IVP 12/12/18 21:00 01/11/19 20:59 12/13/18 09:25 Iohexol (OMNIPAQUE-300 100ml) 100 ml NOW PRN INJ Radiology Procedure 12/12/18 11:45 12/14/18 11:45 Lisinopril (Zestril) 10 mg DAILY ORAL 12/13/18 09:00 01/12/19 08:59 12/13/18 09:25 Lorazepam (Ativan) 1 mg Q4H PRN ORAL For Anxiety 12/12/18 15:00 12/19/18 14:59 Morphine Sulfate (Morphine Sulfate) 1 mg Q4H PRN IVP For Pain 12/12/18 15:00 12/19/18 14:59 12/13/18 09:26 Ondansetron HCl (Zofran) 4 mg Q6H PRN IVP Nausea & Vomiting 12/12/18 15:00 01/11/19 14:59 Piperacillin Sod/ Tazobactam Sod 3.375 gm/Sodium Chloride 110 ml @ 27.5 mls/hr EVERY 8 HOURS IVPB 12/12/18 22:00 12/19/18 21:59 12/13/18 05:08 Potassium Chloride/Sodium Chloride 1,000 ml @ 75 mls/hr [id number] IV 12/12/18 15:55 01/11/19 15:54 12/12/18 16:55 Temazepam (Restoril) 15 mg HSPRN PRN ORAL Insomnia 12/12/18 15:00 12/19/18 14:59 Topiramate (Topamax) 100 mg DAILY ORAL 12/13/18 09:00 01/12/19 08:59 12/13/18 09:25 Venlafaxine HCl (Effexor-XR) 75 mg DAILY ORAL 12/13/18 09:00 01/12/19 08:59 12/13/18 09:25 GI: Plan Problems: (1) Uterine fibroid (2) Adrenal mass (3) Abdominal pain Plan This is a 53-year-old female patient who presented with right-sided abdominal pain most likely secondary to infectious versus hemorrhagic right ovarian cyst. No plans for any GI procedures at this time Patient will benefit from an infectious disease consultation Continue Zosyn Symptomatic treatment Pain management Zofran as needed Follow labs Outpatient GI procedures Discussed with Dr. Aguero. Thank you for this patient referral, we will follow. The patient was seen and examined at bedside and all new and available data was reviewed in the patients chart. I agree with the above findings, impression and plan. (Patient seen earlier today. Signature stamp does not reflect patient encounter time.). - MD Evette PeaceMy-Maged RITA Dec 13, 2018 11:19
--- NOTE | 2018-12-13 12:56 | NUR ---
NURSE NOTES: Called Dr. Rowland and left voicemail for MD regarding recommendations for IV antibiotics from Dr. Salas. Awaiting callback from MD with further orders.
--- NOTE | 2018-12-13 13:02 | NUR ---
NURSE NOTES: Received callback from Dr. Rowland. ordered to d/c Evelinn and change IV antibiotics to doxycycline 100mg IV bid and cefoxitin 2gm IV q6hrs. Orders read back, entered, will carry out.
[2018-12-13] MEDS ORDERED: cefOXitin Sod 2 GM in D5W 110 ML IVPB SCH ×4 (14:00)
--- NOTE | 2018-12-13 14:06 | Consultation ---
Consult Note Consult Note GYNECOLOGY CONSULTATION REPORT CC: Pelvic pain, pelvic mass HPI: Patient is a 53yo who was admitted for abdominal pain and fevers. She reports that on Wednesday she awoke with RLQ and flank pain that gradually worsened. She also endorsed fever and chills. She tried OTC analgesics without significant relief, prompting her to come to the ER for evaluation. She has a history of diverticulitis, however her imaging studies reveal an ovarian mass with surrounding fat stranding concerning for tubo- ovarian abscess. She currently is endorsing some fevers and abdominal pain, and states that her symptoms are only mildly improved. She is having difficulty staying awake during our interview and has a history of depression/anxiety for which she is on several Psych meds (which she reports make her very sleepy). No nausea/emesis currently, however reports throwing up once during her admission. No chest pain or shortness of breath. ROS: Pertinent positives and negatives as per HPI PMH: Depression, Anxiety, HTN, Asthma PSH: x 1 Meds: See med rec Allergies: NKDA OBHx: - x 4, x 1, SAb x 3, TAb x 3. Children ages 19, 20, 24, 32, 34 GYNHx: LMP 12/10/18, still having monthly menses, somewhat heavy per patient. Last Pap 2016, no hx abnl Pap, +fibroids, no known hx of cysts of STI SocHx: Lives with , reports some Psych issues that prevent her from working FamHx: Non-contributory Vitals: BP 134/74, Tlast 98.0, P 109, RR 20, O2 98% RA Exam: Gen: Appears uncomfortable and sleepy but in NAD HEENT: OP clear, MM somewhat dry Neck: No obvious thyromegaly CV: Mild tachycardia after ambulating Pulm: No increased work of breathing Abd: Somewhat rigid, obese, TTP on right side - moderate to severe TTP in RLQ, mild to moderate TTP in RUQ Pelvic: NEFG, patient lightly bleeding. Abnormal malodorous discharge noted with exam. +CMT, +TTP in R adnexal region, mass palpated in right adnexa Ext: SCDs in place, no calf TTP Labs: Test 12/12/18 11:50 12/12/18 13:00 9/24/19 05:15 White Blood Count 20.1 K/UL (4.8-10.8) 19.8 K/UL (4.8-10.8) Red Blood Count 5.80 M/UL (4.20-5.40) 5.30 M/UL (4.20-5.40) Hemoglobin 15.5 G/DL (12.0-16.0) 14.1 G/DL (12.0-16.0) Hematocrit 48.4 % (37.0-47.0) 44.5 % (37.0-47.0) Mean Corpuscular Volume 83 FL (80-99) 84 FL (80-99) Mean Corpuscular Hemoglobin 26.7 PG (27.0-31.0) 26.5 PG (27.0-31.0) Mean Corpuscular Hemoglobin Concent 32.0 G/DL (32.0-36.0) 31.7 G/DL (32.0-36.0) Red Cell Distribution Width 13.3 % (11.6-14.8) 13.7 % (11.6-14.8) Platelet Count 204 K/UL (150-450) 207 K/UL (150-450) Mean Platelet Volume 8.2 FL (6.5-10.1) 7.8 FL (6.5-10.1) Neutrophils (%) (Auto) % (45.0-75.0) % (45.0-75.0) Lymphocytes (%) (Auto) % (20.0-45.0) % (20.0-45.0) Monocytes (%) (Auto) % (1.0-10.0) % (1.0-10.0) Eosinophils (%) (Auto) % (0.0-3.0) % (0.0-3.0) Basophils (%) (Auto) % (0.0-2.0) % (0.0-2.0) Differential Total Cells Counted 100 100 Neutrophils % (Manual) 80 % (45-75) 95 % (45-75) Lymphocytes % (Manual) 6 % (20-45) 2 % (20-45) Monocytes % (Manual) 4 % (1-10) 3 % (1-10) Eosinophils % (Manual) 0 % (0-3) 0 % (0-3) Basophils % (Manual) 0 % (0-2) 0 % (0-2) Band Neutrophils 10 % (0-8) 0 % (0-8) Platelet Estimate Adequate Adequate Platelet Morphology Normal Normal Red Blood Cell Morphology Normal Prothrombin Time 12.0 SEC (9.30-11.50) 12.1 SEC (9.30-11.50) Prothromb Time International Ratio 1.1 (0.9-1.1) 1.1 (0.9-1.1) Activated Partial Thromboplast Time 37 SEC (23-33) 38 SEC (23-33) Sodium Level 134 MMOL/L (136-145) 137 MMOL/L (136-145) Potassium Level 3.1 MMOL/L (3.5-5.1) 3.4 MMOL/L (3.5-5.1) Chloride Level 98 MMOL/L (98-107) 101 MMOL/L (98-107) Carbon Dioxide Level 24 MMOL/L (21-32) 23 MMOL/L (21-32) Anion Gap 12 mmol/L (5-15) 13 mmol/L (5-15) Blood Urea Nitrogen 34 mg/dL (7-18) 36 mg/dL (7-18) Creatinine 1.6 MG/DL (0.55-1.30) 1.5 MG/DL (0.55-1.30) Estimat Glomerular Filtration Rate 40.6 mL/min (>60) 43.8 mL/min (>60) Glucose Level 136 MG/DL (74-106) 125 MG/DL (74-106) Calcium Level 8.9 MG/DL (8.5-10.1) 8.5 MG/DL (8.5-10.1) Total Bilirubin 1.0 MG/DL (0.2-1.0) 1.0 MG/DL (0.2-1.0) Aspartate Amino Transf (AST/SGOT) 16 U/L (15-37) 12 U/L (15-37) Alanine Aminotransferase (ALT/SGPT) 17 U/L (12-78) 16 U/L (12-78) Alkaline Phosphatase 159 U/L (46-116) 137 U/L (46-116) Total Protein 7.2 G/DL (6.4-8.2) 6.5 G/DL (6.4-8.2) Albumin 2.8 G/DL (3.4-5.0) 2.3 G/DL (3.4-5.0) Globulin 4.4 g/dL 4.2 g/dL Albumin/Globulin Ratio 0.6 (1.0-2.7) 0.5 (1.0-2.7) Lipase 50 U/L (73-393) Urine Color Brown Urine Appearance Slightly cloudy Urine pH 5 (4.5-8.0) Urine Specific [place] 1.020 (1.005-1.035) Urine Protein 3+ (NEGATIVE) Urine Glucose (UA) Negative (NEGATIVE) Urine Ketones 1+ (NEGATIVE) Urine Blood 1+ (NEGATIVE) Urine Nitrite Positive (NEGATIVE) Urine Bilirubin 2+ (NEGATIVE) Urine Ictotest Positive (NEGATIVE) Urine Urobilinogen 8 MG/DL (0.0-1.0) Urine Leukocyte Esterase 2+ (NEGATIVE) Urine RBC 0-2 /HPF (0 - 2) Urine WBC 5-10 /HPF (0 - 2) Urine Squamous Epithelial Cells Few /LPF (NONE/OCC) Urine Bacteria Moderate /HPF (NONE) Hemoglobin A1c 6.3 % (4.3-6.0) Lactic Acid Level 1.40 mmol/L (0.4-2.0) Triglycerides Level 134 MG/DL (30-150) Cholesterol Level 92 MG/DL (< 200) LDL Cholesterol 40 mg/dL (<100) HDL Cholesterol 10 MG/DL (40-60) Cholesterol/HDL Ratio 9.2 (3.3-4.4) Imaging: Findings: In the right aspect of the mesentery, there is an area of ill-defined inflammation characterized by linear reticular areas of soft tissue stranding of the mesenteric fat. This is not associated with the appendix which appears to be normal in caliber with intraluminal air, no wall thickening. There are small retroperitoneal nodes and mesenteric nodes. The inflammation is not associated with either the colon or terminal ileum, which appear normal. There is no abscess. There is questionable ill-definition and thickening of the third portion of the duodenum which is at the upper extent of the inflammation. At the lower or posterior extent of the inflammation there is a cystic lesion which is associated with the broad ligament and likely an ovarian cyst injury about 5.6 x 4.8 cm. There is no free air. The area of the pylorus and duodenal bulb appear grossly normal. The pancreas is grossly normal. There are diverticula within the sigmoid colon. No evidence of acute diverticulitis. Both kidneys enhance normally. There is a right renal cyst. There is no hydronephrosis. Gallstones are present without definite inflammation identified. The liver and spleen are unremarkable. The uterus is heterogeneous lobulated due to presence of fibroids the left ovary is notable for a 2 cm cyst. The bladder is nondistended. IMPRESSION: Central to right lower quadrant mesenteric and retroperitoneal soft tissue stranding likely due to inflammation or blood. Etiology is not certain but suspect this is associated with a 5 cm right ovarian cyst possibly hemorrhagic cyst or infection i.e. tubo-ovarian abscess. Differential diagnosis includes omental infarct, duodenitis/peptic ulcer disease. The appendix is normal. Diverticulosis of the sigmoid colon. No definite diverticulitis. Gallstones. Low density right adrenal mass 2.4 cm probably adenoma. 2 cm left ovarian cyst. Multiple uterine fibroids. Assessment/Plan 53yo admitted with pelvic pain and fevers, clinical picture concerning for tubo-ovarian abscess. - Repeat labs now due to mental status - patient is lethargic and drowsy - Cefoxitin 2g IV q6h + Doxycycline 100mg IV q12h + Flagyl 500mg PO q12h for empiric treatment of TOA/PID - OK to renally dose medications given her medical comorbidities - Appreciate ID and GI recs to rule out any other cause of fever or pain given CT findings - Continue inpatient IV treatment until patient clinically improves (resolved leukocytosis, significant improvement of pain, and afebrile x 48h) - Patient will need to continue PO treatment as an outpatient once her clinical condition improves and patient should be discharged home with PO Doxycycline 100mg + PO Flagyl 500mg BID for total treatment time of 14d - Recommend outpatient follow up with her Land Surveyor - patient reports having a DIGITAL MARKETING PROJECT MANAGER that she has seen regularly in the past - If her clinical condition fails to improve after 24-48h of management with IV antibiotics, consider IR-guided drainage of her pelvic mass, however given that the size of her ovarian mass is <8cm, I anticipate she will improve with the aforementioned treatment protocol - Feel free to contact me for any additional treatment recommendations Thank you for this interesting consult. Signed: Rama Salas MD [phone] Rama Salas M.D. Dec 13, 2018 14:06
--- NOTE | 2018-12-13 14:35 | NUR ---
NURSE NOTES: Patient seen by Dr. Salas. ordered to get a STAT CBC, BMP, and lactic acid due to increasing drowsiness. Patient is arousable, able to answer questions, but appears drowsier than earlier in day. Called lab to have tech come up to draw patient.
--- NOTE | 2018-12-13 14:46 | Surgery Progress Note ---
Surgery Progress Note Subjective Additional Comments Patient seen and examined bedside. No acute events. Still with leukocytosis. Bandemia resolved. Abdominal ultrasound otherwise on eventful. Unable to tolerate transvaginal ultrasound. Still complaining of abdominal pain but tolerating diet and passing flatus. No nausea vomiting and fever curve improved Objective Last 24 Hour Vital Signs Date Time Temp Pulse Resp B/P (MAP) Pulse Ox O2 Delivery O2 Flow Rate FiO2 12/13/18 12:00 98.0 109 20 134/74 (94) 98 12/13/18 09:25 121/72 12/13/18 09:00 Room Air 12/13/18 08:00 98.7 94 20 121/72 (88) 98 12/13/18 04:00 100.7 98 19 130/72 (91) 95 12/13/18 00:48 100.7 12/13/18 00:00 100.7 95 19 116/76 (89) 94 12/12/18 21:00 Room Air 12/12/18 20:00 101.9 100 19 112/74 (87) 94 12/12/18 18:00 102.2 12/12/18 15:48 Room Air 12/12/18 15:45 102.6 100 17 127/75 (92) 92 12/12/18 15:37 98.0 81 18 124/77 98 Room Air 12/12/18 14:51 98.0 I&O Intake and Output 12/12/18 12/13/18 19:00 07:00 Intake Total 1960 ml 75 ml Balance 1960 ml 75 ml Intake Oral 200 ml IV Total 1760 ml 75 ml Cardiovascular: RSR Respiratory: clear Abdomen: soft, tenderness, present bowel sounds, non-distended Extremities: no edema, no tenderness, no cyanosis Laboratory Tests Test 12/13/18 05:15 White Blood Count 19.8 K/UL (4.8-10.8) H Red Blood Count 5.30 M/UL (4.20-5.40) Hemoglobin 14.1 G/DL (12.0-16.0) Hematocrit 44.5 % (37.0-47.0) Mean Corpuscular Volume 84 FL (80-99) Mean Corpuscular Hemoglobin 26.5 PG (27.0-31.0) L Mean Corpuscular Hemoglobin Concent 31.7 G/DL (32.0-36.0) L Red Cell Distribution Width 13.7 % (11.6-14.8) Platelet Count 207 K/UL (150-450) Mean Platelet Volume 7.8 FL (6.5-10.1) Neutrophils (%) (Auto) % (45.0-75.0) Lymphocytes (%) (Auto) % (20.0-45.0) Monocytes (%) (Auto) % (1.0-10.0) Eosinophils (%) (Auto) % (0.0-3.0) Basophils (%) (Auto) % (0.0-2.0) Differential Total Cells Counted 100 Neutrophils % (Manual) 95 % (45-75) H Lymphocytes % (Manual) 2 % (20-45) L Monocytes % (Manual) 3 % (1-10) Eosinophils % (Manual) 0 % (0-3) Basophils % (Manual) 0 % (0-2) Band Neutrophils 0 % (0-8) Platelet Estimate Adequate Platelet Morphology Normal Prothrombin Time 12.1 SEC (9.30-11.50) H Prothromb Time International Ratio 1.1 (0.9-1.1) Activated Partial Thromboplast Time 38 SEC (23-33) H Sodium Level 137 MMOL/L (136-145) Potassium Level 3.4 MMOL/L (3.5-5.1) L Chloride Level 101 MMOL/L (98-107) Carbon Dioxide Level 23 MMOL/L (21-32) Anion Gap 13 mmol/L (5-15) Blood Urea Nitrogen 36 mg/dL (7-18) H Creatinine 1.5 MG/DL (0.55-1.30) H Estimat Glomerular Filtration Rate 43.8 mL/min (>60) Glucose Level 125 MG/DL (74-106) H Hemoglobin A1c 6.3 % (4.3-6.0) H Lactic Acid Level 1.40 mmol/L (0.4-2.0) Calcium Level 8.5 MG/DL (8.5-10.1) Total Bilirubin 1.0 MG/DL (0.2-1.0) Aspartate Amino Transf (AST/SGOT) 12 U/L (15-37) L Alanine Aminotransferase (ALT/SGPT) 16 U/L (12-78) Alkaline Phosphatase 137 U/L (46-116) H Total Protein 6.5 G/DL (6.4-8.2) Albumin 2.3 G/DL (3.4-5.0) L Globulin 4.2 g/dL Albumin/Globulin Ratio 0.5 (1.0-2.7) L Triglycerides Level 134 MG/DL (30-150) Cholesterol Level 92 MG/DL (< 200) LDL Cholesterol 40 mg/dL (<100) HDL Cholesterol 10 MG/DL (40-60) L Cholesterol/HDL Ratio 9.2 (3.3-4.4) H Plan Problems: (1) Abdominal pain Assessment & Plan: 53-year-old female with abdominal pain for the past 2 days worsening started his right flank now on her right mid abdomen and lower quadrant. Afebrile, hemodynamically stable, leukocytosis 20,000. Labs otherwise normal. Right-sided abdominal tenderness on examination with voluntary guarding but no rebound CT reviewed with radiologist and as noted in his dictation. Possible tubo-ovarian site abscess, hemorrhagic ovarian cyst, mesenteric infarct, enteritis. At this time needs further work-up and management. A.m. labs. Infectious disease consultation. appreciate LIGHTING ENGINEERING TECHNICIAN consult okay for diet Abx UTI will follow Thank you for this consultation we will follow with recommendations and serial exams. Ganga Mancuso Dec 13, 2018 14:46
--- NOTE | 2018-12-13 14:57 | NUR ---
NURSE NOTES: New orders received from Dr. Salas for Flagyl 500mg PO bid. ordered to call her if the patient's WBC is increased or lactic acid is increased. Will follow through as ordered. Addendum: 12/13/18 at 1524 by Nat Galindo RN Add: VS were also assessed at 1500. temp 98.8, BP 149/83, HR 106. Reported to Dr. aSlas. Addendum: 12/13/18 at 1751 by Nat Galindo RN Add: Edit- Dr. Salas ordered to call her if WBC significantly increased or lactic acid increased. Add: Still awaiting callback from Dr. Berkowitz regarding other abnormal labs.
--- NOTE | 2018-12-13 15:52 | NUR ---
NURSE NOTES: Lab at bedside drawing STAT labs.
[2018-12-13 16:04] LABS: HEMATOCRIT 43.3 % (37.0-47.0); MEAN CORPUSCULAR VOLUME 84 FL (80-99); PLATELET COUNT 206 K/UL (150-450); RED BLOOD COUNT 5.19 M/UL (4.20-5.40); RED CELL DISTRIBUTION WIDTH 12.4 % (11.6-14.8); WHITE BLOOD COUNT 20.4 K/UL (4.8-10.8)
[2018-12-13 16:15] LABS: ANION GAP 13 mmol/L (5-15); BLOOD UREA NITROGEN 36 mg/dL (7-18); CALCIUM 8.5 MG/DL (8.5-10.1); CARBON DIOXIDE 21 MMOL/L (21-32); CHLORIDE 104 MMOL/L (98-107); CREATININE 1.6 MG/DL (0.55-1.30); POTASSIUM 3.2 MMOL/L (3.5-5.1); SODIUM 138 MMOL/L (136-145)
--- NOTE | 2018-12-13 17:08 | NUR ---
NURSE NOTES: Called Dr. Berkowitz's exchange to report potassium 3.2 and increasing WBC. Also patient states she has not been taking Effexor at home due to it making her very drowsy, patient states she thinks she is feeling more drowsy due to taking Effexor in the hospital, will inform MD and inquire if he would like to d/c.
--- NOTE | 2018-12-13 17:15 | Consultation ---
DATE OF CONSULTATION: 12/13/2018 INFECTIOUS DISEASES CONSULTATION CONSULTING PHYSICIAN: Davin Rowland M.D. REFERRING PHYSICIAN: Kory Berkowitz M.D. REASON FOR CONSULTATION: Leukocytosis. HISTORY OF PRESENTING ILLNESS: This is a 53-year-old lady with history of hypertension, who comes in with abdominal pain, without nausea or vomiting. She was found to have leukocytosis and an Infectious Diseases consultation has been obtained for antibiotics. PAST MEDICAL HISTORY: History of hypertension. SOCIAL HISTORY: She does not smoke, drink, or use drugs. FAMILY HISTORY: Noncontributory. REVIEW OF SYSTEMS: RESPIRATORY: No fever, chills, cough, shortness of breath, or chest pain. CARDIAC: No chest pain. No palpitation. No dizziness. No syncope. GASTROINTESTINAL: No nausea, no vomiting. She does have abdominal pain. No diarrhea. MEDICATIONS: As an inpatient, she is on Abilify, lisinopril, Topamax, venlafaxine, Zosyn, Flagyl, famotidine, [place], Tylenol, potassium, morphine, Zofran, lorazepam, Restoril, Benadryl, and Mylanta. ALLERGIES: No known drug allergies. PHYSICAL EXAMINATION: VITAL SIGNS: Temperature of 98.7, T-max of 102.6, pulse of 94, respiratory rate 20, blood pressure 121/72, and O2 saturation of 98%. HEENT: Pupils equally reactive to light and accommodation. Mouth appears clean without thrush. NECK: Supple. No adenopathy. No JVD. CARDIOVASCULAR: Regular rate and rhythm. No murmurs. LUNGS: Clear to auscultation bilaterally. No crackles. No wheezes. ABDOMEN: Soft and nontender. No organomegaly. EXTREMITIES: No cyanosis, no clubbing, no edema. LABORATORY AND DIAGNOSTIC DATA: White count 19.8, hemoglobin 14.1, hematocrit 44.5, MCV 84, platelet count of 207. Sodium 137, potassium 3.4, chloride 101, bicarb 23, BUN 36, creatinine 1.5, glucose 125, calcium 8.5. Total bilirubin 1. AST 12, ALT 16, and alkaline phosphatase 137. Total protein 6.5, albumin 2.3, cholesterol of 92. UA showing 5 to 10 white cells. Urine culture is growing gram-negative rods, 80 to 90,000 colonies. Abdominal ultrasound showing hepatosplenomegaly, cholelithiasis noted. Abdominal, pelvic, vaginal ultrasound was incomplete. CT abdomen and pelvis showing central to right lower quadrant mesenteric and retroperitoneal soft tissue stranding likely due to inflammation might be an ovarian cyst. This concerned for tubo-ovarian abscess. Diverticulosis noted. Gallstones noted. Uterine fibroids noted. ASSESSMENT: This is a 53-year-old lady with history of hypertension, who comes in with abdominal pain and was found to have: 1. Gram-negative urinary tract infection. 2. There also might be an ovarian cyst with tubo-ovarian abscess. 3. Hypertension. 4. Leukocytosis. 5. Gram-negative urinary tract infection. PLAN: 1. Continue Zosyn. 2. Discontinue Flagyl. 3. We will follow up the patient clinically. I would like to thank, Dr. Berkowitz, for this consultation. Davin Rowalnd M.D. DR: TERRA JOB#: [id number] CC: Kory Berkowitz M.D.; Fax#: [phone]
--- NOTE | 2018-12-13 18:25 | NUR ---
NURSE NOTES: Patient still drowsy, exhibiting increasing drowsiness. Moved to room closer to nurses station for closer monitoring. Patient is oriented x4, attempted to stand but became light headed and was seated back in bed by RN and charge nurse. VS assessed: BP 134/77, temp 100.8, saturation 94%, RR 30 at rest. Placed on 2L NC.
--- NOTE | 2018-12-13 18:37 | NUR ---
NURSE NOTES: Called Dr. Berkowitz's exchange for second time to report patient's change in condition, patient RR still 30 at rest. Spoke with Tameka who stated Dr. Berkowitz will be paged for second time.
--- NOTE | 2018-12-13 18:40 | NUR ---
NURSE NOTES: Kiln Labourer notified of patient's condition, informed that Dr. Berkowitz has not called back yet. Charge nurse also aware.
--- NOTE | 2018-12-13 18:52 | NUR ---
NURSE NOTES: Received callback from Dr. Berkowitz. MD informed of patient's change of condition, informed MD of rising WBC and current lactic acid. Informed MD patient is increasingly drowsy and RR and HR increasing. Also informed MD of patient's home medications that were ordered that patient states she has not been taking for over a month. MD gave orders for STAT ABG, o2 therapy, to d/c home medications patient no longer takes, and transfer patient to tele. Charge nurse Toya notified.
--- NOTE | 2018-12-13 19:08 | NUR ---
NURSE NOTES: Respiratory therapy negro ABG, received tele bed assignment from telephone order supervisor, patient to be transferred to 203, will transfer patient and give report.
--- NOTE | 2018-12-13 19:35 | NUR ---
CASE MANAGEMENT: REVIEW 53Y/FEMALE PRESENTED TO ED FROM HOME CC: LOWER RIGHT ABD PAIN SI: DIVERTICULITIS . SEPSIS . SYNCOPE T 102.6 HR 100 RR 17 BP 127/75 SAT 92% ROOM AIR WBC 20.1 NA 134 BUN 34 CR 1.6 IS: NS IVF BOLUS X1 DILAUDID IV X1 ZOSYN IV X1 MORPHINE IV X1 K-DUR 60MEQ PO X1 PATIENT ADMITTED TO MED/SURG UNIT 12/12/2018 DCP: PATIENT IS FROM HOME PLAN: US ABD / PELVIS
--- NOTE | 2018-12-13 19:40 | NUR ---
HAND-OFF: Report given to Charles RN in tele. Patient transferred to tele bed 203 per MD order. All belongings and antibiotics/IV fluids given to Charles RN.
--- NOTE | 2018-12-13 19:45 | NUR ---
NURSE NOTES: Received report from Olga Lidia Galindo RN. Patient in bed AAO X2-3 and appears to be sleepy, with no S/S of acute pain or distress at this time. Kept clean, dry, and comfortable in bed. Patient kept on bedrest for TREVON and safety, IV line intact and patent; on continuous cardiac monitoring per protocol. Safety precaution in place; siderails X3 up, call light within reach, bed in lowest position, brakes and alarm on at all times. Needs and wants anticipated and attended. Will continue to monitor for any changes noted.
[2018-12-13] MEDS ORDERED: Doxycycline Hyclate 100 MG in D5W 110 ML IV SCH (21:00)
[2018-12-13] MEDS ORDERED: HYDROcodone/Acetamin 5/325 tab ORAL PRN (21:00)
[2018-12-13] MEDS ORDERED: Mylanta II UD 30ml ORAL PRN (21:00)
[2018-12-13] MEDS ORDERED: metroNIDAZOLE 500mg tab ORAL SCH (21:00)
[2018-12-13] MEDS ORDERED: Morphine Sulfate 2mg/ml Inj(IV/IM USE ONLY) IVP PRN (21:00)
[2018-12-13] MEDS ORDERED: NS w/KCl 20mEq 1000ml 1,000 ML IV SCH (21:00)
[2018-12-13] MEDS ORDERED: LORazepam 1mg tab ORAL PRN (21:00)
[2018-12-13] MEDS: Doxycycline Hyclate 100 MG in D5W 110 ML IV SCH (21:28)
--- NOTE | 2018-12-13 21:30 | NUR ---
NURSE NOTES: Patient too sleepy to swallow, held PO med. Will continue to monitor
--- NOTE | 2018-12-13 22:45 | NUR ---
NURSE NOTES: Noted PSVT, 5 beats for 2secs. MD made aware. Ordered MD consult. Will continue to monitor.
[2018-12-13] MEDS: cefOXitin Sod 2 GM in D5W 110 ML IVPB SCH (23:33)
[2018-12-14] VITALS (23 sets, daily range): BP systolic 121–161; BP diastolic 53–111
--- NOTE | 2018-12-14 02:53 | NUR ---
NURSE NOTES: Patient in bed asleep with no S/S of distress at this time. Will continue to monitor.
--- NOTE | 2018-12-14 03:30 | History and Physical Report ---
DATE OF ADMISSION: 12/12/2018 NOTE: POOR AUDIO HISTORY OF PRESENT ILLNESS: This is a 53-year-old female who came to the emergency room for having recurrent abdominal pain, nausea, vomiting about couple days prior to admission. The patient was found to have ruptured possible acute diverticulitis or ruptured ovarian cysts. CT scan obtained this morning was showing ruptured ovarian cyst. CELL LINER consult was obtained. Surgery is already . The patient on IV antibiotics. The patient complaining pain as 09/28. PAST MEDICAL HISTORY: Significant for , hypertension, depression, comorbid obesity. MEDICATIONS: See the list. ALLERGIES: NKA. FAMILY HISTORY: Noncontributory. SOCIAL HISTORY: Lives at . REVIEW OF SYSTEMS: Generalized weakness, tired, depression. PHYSICAL EXAMINATION: VITAL SIGNS: Blood pressure is 130/70, pulse 60, respirations 18, no fever. HEENT: AT/NC. EOMI. PERRLA. NECK: Supple. No JVD. CHEST: Bilaterally clear. CARDIOVASCULAR: Regular rhythm. No gallop. No murmur. ABDOMEN: Soft. Right lower quadrant tenderness. No rebound. No . GENITOURINARY: Deferred. LABORATORY DATA: White counts are 19,000 this morning. ASSESSMENT: 1. Acute abdomen. 2. Possible ruptured ovarian cyst. 3. Acute diverticulitis. 4. . 5. Hypertension. 6. Comorbid obesity. PLAN: 1. We will currently keep her NPO. 2. IV fluids. 3. IV Zofran. 4. Morphine for severe pain. 5. Consider CELL LINER consult. 6. Discussed with the charge nurse. Fabiano Berkowitz M.D. DR: Noa JOB#: [id number] CC:
[2018-12-14] MEDS: cefOXitin Sod 2 GM in D5W 110 ML IVPB SCH ×3 (05:42→21:53)
[2018-12-14 06:30] LABS: HEMATOCRIT 41.9 % (37.0-47.0); HEMOGLOBIN 13.5 G/DL (12.0-16.0); MEAN CORPUSCULAR VOLUME 83 FL (80-99); PLATELET COUNT 236 K/UL (150-450); RED BLOOD COUNT 5.04 M/UL (4.20-5.40); RED CELL DISTRIBUTION WIDTH 13.6 % (11.6-14.8); WHITE BLOOD COUNT 20.2 K/UL (4.8-10.8)
--- NOTE | 2018-12-14 06:55 | CDS Physician Query ---
SIRS Clarification is required for compliance, coding accuracy, and to reflect severity of illness for this patient Dear Dr. Davin Rowland M.D Date: 2018 CDS: Noé Carr According to the clinical indications above, please indicate below the condition Pt has: Gram-negative urinary tract infection, tubo-ovarian abscess, Leukocytosis Labs: WBC: 20.1--->19.8 Tx: IV PIPERACILLIN/TAZOBACTAM, IV CEFOXITIM PHYSICIAN RESPONSE: Sepsis SIRS SIRS with organ dysfunction Septic Shock Not applicable Other: Present on Admission: Yes No Clinically Undetermined Physician signature Date Please also document in your Progress Notes and/or Discharge Summary and indicate if the condition was present on admission. MTDD
[2018-12-14 07:07] LABS: ALANINE AMINOTRANSFERASE 12 U/L (12-78); ALBUMIN 1.9 G/DL (3.4-5.0); ALBUMIN/GLOBULIN RATIO 0.5 (1.0-2.7); ALKALINE PHOSPHATASE 144 U/L (46-116); ANION GAP 9 mmol/L (5-15); ASPARTATE AMINO TRANSFERASE 17 U/L (15-37); BILIRUBIN,TOTAL 1.4 MG/DL (0.2-1.0); BLOOD UREA NITROGEN 28 mg/dL (7-18); CALCIUM 8.4 MG/DL (8.5-10.1); CARBON DIOXIDE 22 MMOL/L (21-32); CHLORIDE 103 MMOL/L (98-107); SODIUM 134 MMOL/L (136-145)
--- NOTE | 2018-12-14 07:28 | NUR ---
HAND-OFF: Report given to Manuel Santamaria RN. Patient in bed asleep with no S/S of distress. Endorsed plan of care.
--- NOTE | 2018-12-14 07:30 | NUR ---
NURSE NOTES: Received report and patient from Charles WHITING in bed resting, denies any pain, no s/s of respiratory distress noted. IV's intact and patent and NS w/2meq KCL running at 75cc/hr. Bed is on lowest position, brakes engaged for safety, call light is within reach. Will continue with the plan of care.
[2018-12-14] MEDS: metroNIDAZOLE 500mg tab ORAL SCH ×3 (08:25→21:53)
[2018-12-14] MEDS ORDERED: Lisinopril 10mg tab ORAL SCH (09:00)
[2018-12-14] MEDS: Doxycycline Hyclate 100 MG in D5W 110 ML IV SCH (09:00)
--- NOTE | 2018-12-14 10:50 | NUR ---
NURSE NOTES: HR 160, notified Dr. Berkowitz, vs stable T 98.9. BP 140/86, R 19. Awaiting call back
--- NOTE | 2018-12-14 11:15 | NUR ---
NURSE NOTES: Patient was transferred to ICU per Dr. Berkowitz's order due to HR of 166 w/AVR. ordered Digoxin 0.25mg IVP, order carried out and implemented. Patient was then transferred to [facility] in ICU. Report given to HENOK Trivedi. Patient is in stable condition.
[2018-12-14] MEDS ORDERED: Digoxin 0.5mg/2ml Inj IVP SCH ×2 (11:35→13:40)
[2018-12-14] MEDS ORDERED: Omnipaque-300 100ml vial INJ PRN (11:45)
--- NOTE | 2018-12-14 11:54 | GI Progress Note ---
Assessment/Plan Status: unchanged Status Narrative Discussed with Dr. Aguero. Assessment/Plan This is a 53-year-old female patient who presented with right-sided abdominal pain most likely secondary to infectious versus hemorrhagic right ovarian cyst. transfer to ICU for tachycardia No plans for any GI procedures at this time follow up [facility] recs Continue Zosyn Symptomatic treatment Pain management Zofran as needed Follow labs Outpatient GI procedures The patient was seen and examined at bedside and all new and available data was reviewed in the patients chart. I agree with the above findings, impression and plan. (Patient seen earlier today. Signature stamp does not reflect patient encounter time.). - Alan Aguero MD Subjective Gastrointestinal/Abdominal: Reports: no symptoms Objective Last 24 Hour Vital Signs Date Time Temp Pulse Resp B/P (MAP) Pulse Ox O2 Delivery O2 Flow Rate FiO2 12/14/18 11:40 166 12/14/18 09:04 98.9 12/14/18 09:00 Room Air 12/14/18 08:29 157/79 12/14/18 08:00 111 12/14/18 08:00 2.0 12/14/18 08:00 98.3 98 18 144/61 (88) 97 12/14/18 04:00 111 12/14/18 04:00 98.3 98 18 144/61 (88) 97 12/14/18 04:00 2.0 12/14/18 00:00 111 12/14/18 00:00 98.8 104 18 149/81 (103) 98 12/13/18 21:30 115 12/13/18 21:00 Room Air 12/13/18 20:00 99.5 95 24 119/84 (96) 95 12/13/18 20:00 2.0 12/13/18 18:25 100.8 110 30 134/77 (96) 94 12/13/18 16:00 98.0 96 20 132/71 (91) 98 12/13/18 15:00 98.8 106 149/83 (105) 12/13/18 12:00 98.0 109 20 134/74 (94) 98 Intake and Output 12/13/18 12/14/18 19:00 07:00 Intake Total 1192.5 ml Balance 1192.5 ml Intake Oral 250 ml IV Total 942.5 ml # Voids 2 # Bowel Movements 1 Laboratory Tests Test 12/13/18 15:30 12/13/18 18:58 12/14/18 05:25 White Blood Count 20.4 K/UL (4.8-10.8) H 20.2 K/UL (4.8-10.8) H Red Blood Count 5.19 M/UL (4.20-5.40) 5.04 M/UL (4.20-5.40) Hemoglobin 14.0 G/DL (12.0-16.0) 13.5 G/DL (12.0-16.0) Hematocrit 43.3 % (37.0-47.0) 41.9 % (37.0-47.0) Mean Corpuscular Volume 84 FL (80-99) 83 FL (80-99) Mean Corpuscular Hemoglobin 26.9 PG (27.0-31.0) L 26.7 PG (27.0-31.0) L Mean Corpuscular Hemoglobin Concent 32.2 G/DL (32.0-36.0) 32.1 G/DL (32.0-36.0) Red Cell Distribution Width 12.4 % (11.6-14.8) 13.6 % (11.6-14.8) Platelet Count 206 K/UL (150-450) 236 K/UL (150-450) Mean Platelet Volume 7.2 FL (6.5-10.1) 7.2 FL (6.5-10.1) Neutrophils (%) (Auto) % (45.0-75.0) % (45.0-75.0) Lymphocytes (%) (Auto) % (20.0-45.0) % (20.0-45.0) Monocytes (%) (Auto) % (1.0-10.0) % (1.0-10.0) Eosinophils (%) (Auto) % (0.0-3.0) % (0.0-3.0) Basophils (%) (Auto) % (0.0-2.0) % (0.0-2.0) Differential Total Cells Counted 100 100 Neutrophils % (Manual) 82 % (45-75) H 93 % (45-75) H Lymphocytes % (Manual) 3 % (20-45) L 5 % (20-45) L Monocytes % (Manual) 4 % (1-10) 2 % (1-10) Eosinophils % (Manual) 0 % (0-3) 0 % (0-3) Basophils % (Manual) 0 % (0-2) 0 % (0-2) Band Neutrophils 11 % (0-8) H 0 % (0-8) Platelet Estimate Adequate Adequate Platelet Morphology Normal Normal Red Blood Cell Morphology Normal Sodium Level 138 MMOL/L (136-145) 134 MMOL/L (136-145) L Potassium Level 3.2 MMOL/L (3.5-5.1) L 3.0 MMOL/L (3.5-5.1) L Chloride Level 104 MMOL/L (98-107) 103 MMOL/L (98-107) Carbon Dioxide Level 21 MMOL/L (21-32) 22 MMOL/L (21-32) Anion Gap 13 mmol/L (5-15) 9 mmol/L (5-15) Blood Urea Nitrogen 36 mg/dL (7-18) H 28 mg/dL (7-18) H Creatinine 1.6 MG/DL (0.55-1.30) H 1.0 MG/DL (0.55-1.30) Estimat Glomerular Filtration Rate 40.6 mL/min (>60) > 60 mL/min (>60) Glucose Level 161 MG/DL (74-106) H 149 MG/DL (74-106) H Lactic Acid Level 1.20 mmol/L (0.4-2.0) Calcium Level 8.5 MG/DL (8.5-10.1) 8.4 MG/DL (8.5-10.1) L Arterial Blood pH 7.417 (7.350-7.450) Arterial Blood Partial Pressure CO2 31.8 mmHg (35.0-45.0) L Arterial Blood Partial Pressure O2 83.8 mmHg (75.0-100.0) Arterial Blood HCO3 20.0 mmol/L (22.0-26.0) L Arterial Blood Oxygen Saturation 96.7 % (95-100) Arterial Blood Base Excess -3.5 (-2-2) L Surjit Test Positive Erythrocyte Sedimentation Rate 50 MM/HR (0-30) H Total Bilirubin 1.4 MG/DL (0.2-1.0) H Direct Bilirubin 1.0 MG/DL (0.0-0.3) H Aspartate Amino Transf (AST/SGOT) 17 U/L (15-37) Alanine Aminotransferase (ALT/SGPT) 12 U/L (12-78) Alkaline Phosphatase 144 U/L (46-116) H C-Reactive Protein, Quantitative > 70.0 mg/dL (0.00-0.90) H Total Protein 6.1 G/DL (6.4-8.2) L Albumin 1.9 G/DL (3.4-5.0) L Globulin 4.2 g/dL Albumin/Globulin Ratio 0.5 (1.0-2.7) L Height (Feet): 5 Height (Inches): 4.00 Weight (Pounds): 231 General Appearance: WD/WN, no apparent distress, alert Cardiovascular: normal rate Respiratory/Chest: normal breath sounds, no respiratory distress Abdominal Exam: normal bowel sounds, non tender, soft Extremities: normal range of motion, non-tender Ana Alas NP Dec 14, 2018 11:54
--- NOTE | 2018-12-14 12:00 | NUR ---
NURSE NOTES: Received admission transferred from [facility] via hospital bed to ICU. Report was received from Jorge WHITING and belonging's list was checked and signed with the transferring nurse in front of the pt. library monitor was placed on pt, displays AFib with heart rate fluctuating in the 160's to 170's with bounding peripheral pulses. Pt is awake, alert, oriented x3 with delayed verbal response, fatigued and anxious. Pt is on 2L of oxygen via nasal cannula with O2sat at 97% and bilateral diminished lung sounds. Abdomen is large, round, soft, tender to touch with hyperactive bowel sounds. Skin is intact. Pt has two peripheral IV access, right hand #22G and right FA #24G, both saline locks, patent/intact. Bed is locked with three side rails up, in lowest position, call light within easy reach. Pt's mother in law is at bedside. Will contact MD to further ICU transfer orders.
[2018-12-14] MEDS ORDERED: Digoxin 0.5mg/2ml Inj IVP ONE (12:45)
[2018-12-14] MEDS ORDERED: LORazepam 1mg tab ORAL PRN (13:00)
--- NOTE | 2018-12-14 13:30 | NUR ---
NURSE NOTES: Pt was seen by Dr Thompson. Order was received, processed and pt administered Digoxin 0.5mg IVP x1 and started on Cardizem drip with starting dose of 10mg/hr per Dr Thompson.
--- NOTE | 2018-12-14 13:31 | Cardiac Electrophysiology PN ---
Subjective Subjective [id number] Objective Last 24 Hour Vital Signs Date Time Temp Pulse Resp B/P (MAP) Pulse Ox O2 Delivery O2 Flow Rate FiO2 12/14/18 11:40 166 12/14/18 09:04 98.9 12/14/18 09:00 Room Air 12/14/18 08:29 157/79 12/14/18 08:00 111 12/14/18 08:00 2.0 12/14/18 08:00 98.3 98 18 144/61 (88) 97 12/14/18 04:00 111 12/14/18 04:00 98.3 98 18 144/61 (88) 97 12/14/18 04:00 2.0 12/14/18 00:00 111 12/14/18 00:00 98.8 104 18 149/81 (103) 98 12/13/18 21:30 115 12/13/18 21:00 Room Air 12/13/18 20:00 99.5 95 24 119/84 (96) 95 12/13/18 20:00 2.0 12/13/18 18:25 100.8 110 30 134/77 (96) 94 12/13/18 16:00 98.0 96 20 132/71 (91) 98 12/13/18 15:00 98.8 106 149/83 (105) Intake and Output 12/13/18 12/14/18 19:00 07:00 Intake Total 1192.5 ml Balance 1192.5 ml Intake Oral 250 ml IV Total 942.5 ml # Voids 2 # Bowel Movements 1 Laboratory Tests Test 12/13/18 15:30 12/13/18 18:58 12/14/18 05:25 White Blood Count 20.4 K/UL (4.8-10.8) H 20.2 K/UL (4.8-10.8) H Red Blood Count 5.19 M/UL (4.20-5.40) 5.04 M/UL (4.20-5.40) Hemoglobin 14.0 G/DL (12.0-16.0) 13.5 G/DL (12.0-16.0) Hematocrit 43.3 % (37.0-47.0) 41.9 % (37.0-47.0) Mean Corpuscular Volume 84 FL (80-99) 83 FL (80-99) Mean Corpuscular Hemoglobin 26.9 PG (27.0-31.0) L 26.7 PG (27.0-31.0) L Mean Corpuscular Hemoglobin Concent 32.2 G/DL (32.0-36.0) 32.1 G/DL (32.0-36.0) Red Cell Distribution Width 12.4 % (11.6-14.8) 13.6 % (11.6-14.8) Platelet Count 206 K/UL (150-450) 236 K/UL (150-450) Mean Platelet Volume 7.2 FL (6.5-10.1) 7.2 FL (6.5-10.1) Neutrophils (%) (Auto) % (45.0-75.0) % (45.0-75.0) Lymphocytes (%) (Auto) % (20.0-45.0) % (20.0-45.0) Monocytes (%) (Auto) % (1.0-10.0) % (1.0-10.0) Eosinophils (%) (Auto) % (0.0-3.0) % (0.0-3.0) Basophils (%) (Auto) % (0.0-2.0) % (0.0-2.0) Differential Total Cells Counted 100 100 Neutrophils % (Manual) 82 % (45-75) H 93 % (45-75) H Lymphocytes % (Manual) 3 % (20-45) L 5 % (20-45) L Monocytes % (Manual) 4 % (1-10) 2 % (1-10) Eosinophils % (Manual) 0 % (0-3) 0 % (0-3) Basophils % (Manual) 0 % (0-2) 0 % (0-2) Band Neutrophils 11 % (0-8) H 0 % (0-8) Platelet Estimate Adequate Adequate Platelet Morphology Normal Normal Red Blood Cell Morphology Normal Sodium Level 138 MMOL/L (136-145) 134 MMOL/L (136-145) L Potassium Level 3.2 MMOL/L (3.5-5.1) L 3.0 MMOL/L (3.5-5.1) L Chloride Level 104 MMOL/L (98-107) 103 MMOL/L (98-107) Carbon Dioxide Level 21 MMOL/L (21-32) 22 MMOL/L (21-32) Anion Gap 13 mmol/L (5-15) 9 mmol/L (5-15) Blood Urea Nitrogen 36 mg/dL (7-18) H 28 mg/dL (7-18) H Creatinine 1.6 MG/DL (0.55-1.30) H 1.0 MG/DL (0.55-1.30) Estimat Glomerular Filtration Rate 40.6 mL/min (>60) > 60 mL/min (>60) Glucose Level 161 MG/DL (74-106) H 149 MG/DL (74-106) H Lactic Acid Level 1.20 mmol/L (0.4-2.0) Calcium Level 8.5 MG/DL (8.5-10.1) 8.4 MG/DL (8.5-10.1) L Arterial Blood pH 7.417 (7.350-7.450) Arterial Blood Partial Pressure CO2 31.8 mmHg (35.0-45.0) L Arterial Blood Partial Pressure O2 83.8 mmHg (75.0-100.0) Arterial Blood HCO3 20.0 mmol/L (22.0-26.0) L Arterial Blood Oxygen Saturation 96.7 % (95-100) Arterial Blood Base Excess -3.5 (-2-2) L Surjit Test Positive Erythrocyte Sedimentation Rate 50 MM/HR (0-30) H Total Bilirubin 1.4 MG/DL (0.2-1.0) H Direct Bilirubin 1.0 MG/DL (0.0-0.3) H Aspartate Amino Transf (AST/SGOT) 17 U/L (15-37) Alanine Aminotransferase (ALT/SGPT) 12 U/L (12-78) Alkaline Phosphatase 144 U/L (46-116) H C-Reactive Protein, Quantitative > 70.0 mg/dL (0.00-0.90) H Total Protein 6.1 G/DL (6.4-8.2) L Albumin 1.9 G/DL (3.4-5.0) L Globulin 4.2 g/dL Albumin/Globulin Ratio 0.5 (1.0-2.7) L Microbiology Date/Time Source Procedure Growth Status 12/12/18 13:00 Urine,Clean Catch Urine Culture - Preliminary Gram Negative Lopez Mixed Urogenital Contaminants Resulted Ha Thompson MD Dec 14, 2018 13:31
[2018-12-14] MEDS: NS w/KCl 20mEq 1000ml 1,000 ML IV SCH (13:47)
[2018-12-14] MEDS ORDERED: Mylanta II UD 30ml ORAL PRN (14:00)
--- NOTE | 2018-12-14 14:00 | NUR ---
NURSE NOTES: Pt had x1 episode of bowel movement, soft/formed/brown. Pt was incontinent of BM and urine. Pt was cleaned, gown, bed linens were changed. Pt is able to self reposition. Family at bedside.
--- NOTE | 2018-12-14 14:33 | Cardiology Report ---
APPROVED REPORT EXAM: Two-dimensional and M-mode echocardiogram with Doppler and color Doppler. INDICATION Atrial Fibrillation M-Mode DIMENSIONS IVSd1.3 (0.7-1.1cm)Left Atrium (MM)3.1 (1.6-4.0cm) LVDd5.2 (3.5-5.6cm)Aortic Root2.7 (2.0-3.7cm) PWd1.0 (0.7-1.1cm)Aortic Cusp Exc.2.0 (1.5-2.0cm) IVSs1.7 cm LVDs3.1 (2.5-4.0cm) PWs1.5 cm Normal left ventricular chamber size, systolic function and wall motion. Left ventricular ejection fraction estimated to be 60-65%. Mild left ventricular hypertrophy by 2-D. Left atrial size at upper limits of normal. Right cardiac chamber sizes are within normal limits. Focal aortic valve sclerosis with adequate cusp excursion. Thickened mitral valve leaflets with normal excursion. Mitral annulus and aortic root calcification. Pulmonic valve not well visualized. Normal tricuspid valve structure. IVC at normal size with physiologic collapse. A color flow and spectral Doppler study was performed and revealed: No aortic regurgitation. Trace mitral regurgitation. LV diastolic velocities are non-diagnostic due to A-Fib. Trace tricuspid regurgitation. Tricuspid systolic velocities suggests peak right ventricular systolic pressure of 26 mmHg. Trace pulmonic regurgitation present.
--- NOTE | 2018-12-14 15:00 | NUR ---
NURSE NOTES: Cardizem drip has been titrated up, current dose of 15mg/hr. SBP still fluctuating in the 140's and slowing decreasing down.
[2018-12-14] MEDS ORDERED: metroNIDAZOLE 500mg tab ORAL SCH (16:00)
--- NOTE | 2018-12-14 17:00 | NUR ---
NURSE NOTES: Pt was seen by Dr Berkowitz. Per , PRODUCE SORTER consult in in place for Dr Salas for right lower abdominal pain. Pt was also seen by Dr Mancuso. No new orders at this time. Diltiazem drip is maintained at 15mg/hr. IV fluid is also infusing NS with KCL 20meq at 75ml/hour. Addendum: 12/14/18 at 1750 by LB BROCK RN Pt states abdominal pain is mild and refuses pain meds at this time.
--- NOTE | 2018-12-14 18:00 | NUR ---
NURSE NOTES: Pt had another episode of BM, brown, soft/formed and urine incontinent. Pt was cleaned. VS stable while pt is maintained on Cardizem drip at 15mg/hr.
--- NOTE | 2018-12-14 19:07 | NUR ---
CASE MANAGEMENT: REVIEW SI: DIVERTICULITIS . SEPSIS . SYNCOPE T 98.4 HR 166 RR 28 BP 159/91 SAT 97% 2L/NC WBC 20.2 NA 134 ALK PHOS 144 C-REACTIVE PROT >70.0 IS: CARDIZEM GTT NS w/KCl 20MEQ @ 75ML/HR FLAGYL PO Q8HR DOXYCYCLINE IV Q12HR LISINOPRIL PO QD CEFOXITIN IV Q8HR TYLENOL PO Q6HR PRN ICU STATUS DCP: PATIENT IS FROM HOME PLAN: 2D ECHO
--- NOTE | 2018-12-14 19:30 | NUR ---
NURSE NOTES: Received report from Shikha WHITING. patient in bed drowsy, resting able to verbalize needs known to staff. patient alert oriented x3, on 2 Liters oxygen via NC 96%. HOB elevated. Patient currently on Cardizem drip at 15mg/hr for AFIB RVR, patient sinus rhythm at this time HR 96, also on NS with KCL 20 mEq at 75cc/hr. Temp 100 axillary will apply cooling measure. Encouraged patient to use call light for assistance. Bed alarm on bed lock and in low position. Will continue plan of care.
--- NOTE | 2018-12-14 19:48 | NUR ---
HAND-OFF: Report given to Emmanuelle WHITING. VS stable. Endorsed plan of care.
[2018-12-14] MEDS: HYDROcodone/Acetamin 5/325 tab ORAL PRN (20:25)
[2018-12-14] MEDS ORDERED: Doxycycline Hyclate 100 MG in D5W 110 ML IV SCH (21:00)
--- NOTE | 2018-12-14 21:00 | NUR ---
NURSE NOTES: Patient incontinent of urine kept clean and dry. Complained of 5/10 right abdominal pain repositioned in bed, talk therapy provided not effective. Senatobia 5/325mg 1 tab PO given effective. patient able to swallow pills with apple sauce. will continue to monitor patient.
--- NOTE | 2018-12-14 21:15 | Consultation ---
DATE OF CONSULTATION: 12/14/2018 CARDIOLOGY CONSULTATION CONSULTING PHYSICIAN: Ha Thompson M.D. REFERRING PHYSICIAN: Kory Berkowitz M.D. REASON FOR CONSULTATION: Atrial fibrillation with rapid ventricular response. HISTORY OF PRESENT ILLNESS: The patient is a 53-year-old lady with history of hypertension, who presented to the emergency room for abdominal pain, which was right-sided, was sharp, 10/10, and was nonradiating. The patient was evaluated by the ed educational aide and the surgeon as well. Abdominal and pelvis CT scan, had possible inflammation in the right lower quadrant, retroperitoneal soft tissue strand. The patient subsequently developed atrial fibrillation with rapid ventricular response with heart rate in the 170s and was transferred to intensive care unit. The imaging study also showed the presence of diverticulosis in the sigmoid colon with diverticulitis. At the time of my evaluation, the patient is still tachycardic with heart rate in the 170s in the intensive care unit. REVIEW OF SYSTEMS: Review of systems was negative other than what was mentioned in the history of present illness. PAST MEDICAL HISTORY: Includes hypertension, but denies any prior myocardial infarction or coronary artery disease or congestive heart failure. PHYSICAL EXAMINATION: VITAL SIGNS: Show blood pressure of 157/79, pulse is 170, respirations 18, and temperature 98.9. HEAD AND NECK: Showed no JVD. HEART: Tachycardic. S1 and S2 with no gallop. ABDOMEN: Obese. EXTREMITIES: No pitting edema. DIAGNOSTIC DATA: EKG showed atrial fibrillation with rapid ventricular response with heart rate of 170s. LABORATORY DATA: Labs show white count of 20,000, hemoglobin 13.5, hematocrit of 42, and platelet count is 236,000. Sodium is 134, potassium is 3.0, BUN of 28, creatinine 1.1, and glucose of 149. Alkaline phosphatase is 144. INR is 1.1. Urinalysis shows 5 to 10 wbc, positive nitrites, 1+ ketone, and 3+ protein. ASSESSMENT AND PLAN: 1. Atrial fibrillation with rapid ventricular response. I will start the patient on Cardizem drip and discontinue lisinopril to allow higher dose of beta-raul to control the ventricular response. I also gave the patient a dose of digoxin and in the morning to try to control the heart rate. The stat echocardiogram at bedside showed normal left ventricular systolic function with ejection fraction of around 65%. We will check a thyroid function test to completely rule out DE protocol. 2. History of hypertension. Continue Cardizem. Discontinue lisinopril. 3. Right-sided abdominal pain likely secondary to infectious plus hemorrhagic right ovarian cyst. Follow up by GI and Surgery. Follow up with ID and INFORMATION DIRECTOR recommendation. 4. Sepsis with white count of more than 20,000. The patient will be on IV antibiotic per ID. Thank you very much, Dr. Berkowitz, for allowing me to participate in the care of this patient. Please do not hesitate to contact for any questions regarding my evaluation. The case was discussed with the ICU nurse and Dr. Berkowitz. Ha Thompson M.D. DR: TRIP JOB#: [id number] CC:
--- NOTE | 2018-12-14 22:06 | Surgery Progress Note ---
Surgery Progress Note Subjective Additional Comments low grade fevers leukocytosis a fib with rvr in icu ob input appreciated Objective Last 24 Hour Vital Signs Date Time Temp Pulse Resp B/P (MAP) Pulse Ox O2 Delivery O2 Flow Rate FiO2 12/14/18 21:00 97 29 157/74 (101) 99 12/14/18 20:55 100.0 12/14/18 20:30 96 28 133/67 (89) 98 12/14/18 20:24 94 143/71 12/14/18 20:00 100.0 92 31 143/71 (95) 96 12/14/18 20:00 Nasal Cannula 2.0 12/14/18 20:00 4.0 12/14/18 19:30 95 33 132/67 (88) 99 12/14/18 19:00 95 31 129/69 (89) 96 12/14/18 18:00 97 24 150/69 (96) 99 12/14/18 17:30 101 27 157/72 (100) 99 12/14/18 17:00 98.4 101 29 139/74 (95) 98 12/14/18 16:01 136 29 159/91 (113) 97 12/14/18 16:00 Nasal Cannula 2.0 12/14/18 16:00 149 12/14/18 16:00 2.0 12/14/18 15:30 150 28 149/83 (105) 97 12/14/18 15:00 157 34 121/70 (87) 97 12/14/18 14:00 161 35 153/111 (125) 99 12/14/18 13:47 170 12/14/18 13:47 166 157/79 12/14/18 13:00 161 26 134/91 (105) 99 12/14/18 12:45 159 31 130/82 (98) 99 12/14/18 12:00 Nasal Cannula 2.0 12/14/18 12:00 2.0 12/14/18 12:00 98.0 161 32 136/96 (109) 99 12/14/18 12:00 166 12/14/18 11:40 166 12/14/18 09:04 98.9 12/14/18 09:00 Room Air 12/14/18 08:29 157/79 12/14/18 08:00 111 12/14/18 08:00 2.0 12/14/18 08:00 98.3 98 18 144/61 (88) 97 12/14/18 04:00 111 12/14/18 04:00 98.3 98 18 144/61 (88) 97 12/14/18 04:00 2.0 12/14/18 00:00 111 12/14/18 00:00 98.8 104 18 149/81 (103) 98 I&O Intake and Output 12/13/18 12/14/18 19:00 07:00 Intake Total 1192.5 ml Balance 1192.5 ml Intake Oral 250 ml IV Total 942.5 ml # Voids 2 # Bowel Movements 1 Drains: none Cardiovascular: RSR, murmurs, other Respiratory: decreased breath sounds Abdomen: soft, tenderness, present bowel sounds, non-distended Extremities: no edema, no tenderness, no cyanosis Laboratory Tests Test 12/14/18 05:25 White Blood Count 20.2 K/UL (4.8-10.8) H Red Blood Count 5.04 M/UL (4.20-5.40) Hemoglobin 13.5 G/DL (12.0-16.0) Hematocrit 41.9 % (37.0-47.0) Mean Corpuscular Volume 83 FL (80-99) Mean Corpuscular Hemoglobin 26.7 PG (27.0-31.0) L Mean Corpuscular Hemoglobin Concent 32.1 G/DL (32.0-36.0) Red Cell Distribution Width 13.6 % (11.6-14.8) Platelet Count 236 K/UL (150-450) Mean Platelet Volume 7.2 FL (6.5-10.1) Neutrophils (%) (Auto) % (45.0-75.0) Lymphocytes (%) (Auto) % (20.0-45.0) Monocytes (%) (Auto) % (1.0-10.0) Eosinophils (%) (Auto) % (0.0-3.0) Basophils (%) (Auto) % (0.0-2.0) Differential Total Cells Counted 100 Neutrophils % (Manual) 93 % (45-75) H Lymphocytes % (Manual) 5 % (20-45) L Monocytes % (Manual) 2 % (1-10) Eosinophils % (Manual) 0 % (0-3) Basophils % (Manual) 0 % (0-2) Band Neutrophils 0 % (0-8) Platelet Estimate Adequate Platelet Morphology Normal Erythrocyte Sedimentation Rate 50 MM/HR (0-30) H Sodium Level 134 MMOL/L (136-145) L Potassium Level 3.0 MMOL/L (3.5-5.1) L Chloride Level 103 MMOL/L (98-107) Carbon Dioxide Level 22 MMOL/L (21-32) Anion Gap 9 mmol/L (5-15) Blood Urea Nitrogen 28 mg/dL (7-18) H Creatinine 1.0 MG/DL (0.55-1.30) Estimat Glomerular Filtration Rate > 60 mL/min (>60) Glucose Level 149 MG/DL (74-106) H Calcium Level 8.4 MG/DL (8.5-10.1) L Total Bilirubin 1.4 MG/DL (0.2-1.0) H Direct Bilirubin 1.0 MG/DL (0.0-0.3) H Aspartate Amino Transf (AST/SGOT) 17 U/L (15-37) Alanine Aminotransferase (ALT/SGPT) 12 U/L (12-78) Alkaline Phosphatase 144 U/L (46-116) H C-Reactive Protein, Quantitative > 70.0 mg/dL (0.00-0.90) H Total Protein 6.1 G/DL (6.4-8.2) L Albumin 1.9 G/DL (3.4-5.0) L Globulin 4.2 g/dL Albumin/Globulin Ratio 0.5 (1.0-2.7) L Plan Problems: (1) Abdominal pain Assessment & Plan: 53-year-old female with abdominal pain for the past 2 days worsening started his right flank now on her right mid abdomen and lower quadrant. Afebrile, hemodynamically stable, leukocytosis 20,000. Labs otherwise normal. Right-sided abdominal tenderness on examination with voluntary guarding but no rebound CT reviewed with radiologist and as noted in his dictation. Possible tubo-ovarian site abscess, hemorrhagic ovarian cyst, mesenteric infarct, enteritis. At this time needs further work-up and management. A.m. labs. Infectious disease input GI input noted in ICU for a fib. cardiology input noted appreciate ACCESS COORDINATOR input cont abx okay for diet Abx UTI will follow Thank you for this consultation we will follow with recommendations and serial exams. Ganga Mancuso Dec 14, 2018 22:06
--- NOTE | 2018-12-14 23:00 | NUR ---
NURSE NOTES: patient in bed sleeping comfortably. on 4 Liters oxygen via NC 96%. HOB elevated. Patient currently on Cardizem drip at 10mg/hr for AFIB RVR, patient sinus rhythm at this time HR 95, also on NS with KCL 20 mEq at 75cc/hr. Temp 98.6 axillary. Encouraged patient to use call light for assistance. Bed alarm on bed lock and in low position. Will continue plan of care.
[2018-12-15] VITALS (37 sets, daily range): BP systolic 130–176; BP diastolic 52–83
--- NOTE | 2018-12-15 00:15 | Progress Note ---
DATE: 12/14/2018 SUBJECTIVE: This is a 53-year-old female, came with abdominal pain. She was found to have a ruptured ovarian cyst and possible diverticulitis. The patient had episode of AFib with rapid ventricular rate where her heart rate went under 60s and the patient was kind of drowsy and confused. She has no fever, chills plus she was transferred in the ICU. The patient was given a dose of digoxin as well as placed on Cardizem drip. Now, she is doing better. OBJECTIVE: VITAL SIGNS: Her heart rate varies about 101, blood pressure 153/72, respiration is 32, temperature 98. SKIN: Good skin turgor. HEENT: AT/NC. EOMI. PERRLA. NECK: Supple. No JVD. CHEST: Bilateral decreased breath sounds. CARDIOVASCULAR: Irregular rhythm. ABDOMEN: Distended. Right lower quadrant tenderness. GENITOURINARY: Deferred. ASSESSMENT: 1. Atrial fibrillation with rapid ventricular rate. 2. Possible ruptured ovarian cyst. 3. Possible acute diverticulitis. 4. Hypertension. 5. Comorbid obesity. 6. Depression. PLAN: We will currently continue Cardizem drip and soft diet. Continue pain medicine, antibiotics. Surgery. MANAGER SEARCH ENGINE consult. Surgery already on the case. Fabiano Berkowitz M.D. DR: BASIA JOB#: [id number] CC:
--- NOTE | 2018-12-15 01:00 | NUR ---
NURSE NOTES: patient in bed sleeping comfortably. on 2 Liters oxygen via NC 96%. HOB elevated. Patient currently on Cardizem drip at 10mg/hr for AFIB RVR, patient sinus rhythm at this time HR 95, also on NS with KCL 20 mEq at 75cc/hr. Ice chips given. drank 120cc apple juice tolerated well. no coughing. Encouraged patient to use call light for assistance. Bed alarm on bed lock and in low position. Will continue plan of care.
[2018-12-15] MEDS: NS w/KCl 20mEq 1000ml 1,000 ML IV SCH ×2 (01:37→17:19)
--- NOTE | 2018-12-15 03:00 | NUR ---
NURSE NOTES: Bed bath given. patient with x1 diarrhea.kept clean and dry. frequent visual checks continued. no s/s of acute distress noted.
[2018-12-15] MEDS: cefOXitin Sod 2 GM in D5W 110 ML IVPB SCH (05:09)
[2018-12-15] MEDS: HYDROcodone/Acetamin 5/325 tab ORAL PRN (05:10)
--- NOTE | 2018-12-15 05:10 | NUR ---
NURSE NOTES: patient complained of 7/10 abdominal pain, repositioned patient pain 6/10 offered Morphine pain meds per patient Morphine is too strong for her she prefer Alton. Alton 5/325mg 1 tab PO given able to swallow without difficulty. apple juice given per patient request. Temp 99.0 axillary. cooling measure provided. Patient able to use call light. Frequent visual checks continued.
[2018-12-15] MEDS: metroNIDAZOLE 500mg tab ORAL SCH (05:11)
[2018-12-15 05:12] LABS: HEMATOCRIT 42.9 % (37.0-47.0); HEMOGLOBIN 13.7 G/DL (12.0-16.0); MEAN CORPUSCULAR VOLUME 84 FL (80-99); PLATELET COUNT 227 K/UL (150-450); RED BLOOD COUNT 5.13 M/UL (4.20-5.40); RED CELL DISTRIBUTION WIDTH 13.6 % (11.6-14.8); WHITE BLOOD COUNT 20.1 K/UL (4.8-10.8)
[2018-12-15 05:13] LABS: INR 1.1 (0.9-1.1)
--- NOTE | 2018-12-15 05:40 | NUR ---
NURSE NOTES: patient in bed sleeping comfortably. no moaning no facial grimaces. will continue plan of care.
[2018-12-15 05:45] LABS: ALANINE AMINOTRANSFERASE 11 U/L (12-78); ALBUMIN 1.7 G/DL (3.4-5.0); ALBUMIN/GLOBULIN RATIO 0.4 (1.0-2.7); ALKALINE PHOSPHATASE 148 U/L (46-116); ANION GAP 12 mmol/L (5-15); ASPARTATE AMINO TRANSFERASE 15 U/L (15-37); BILIRUBIN,TOTAL 1.6 MG/DL (0.2-1.0); BLOOD UREA NITROGEN 19 mg/dL (7-18); CALCIUM 8.5 MG/DL (8.5-10.1); CARBON DIOXIDE 22 MMOL/L (21-32); CHLORIDE 104 MMOL/L (98-107); CREATININE 0.8 MG/DL (0.55-1.30); PHOSPHORUS 2.4 MG/DL (2.5-4.9); SODIUM 138 MMOL/L (136-145)
[2018-12-15 05:49] LABS: BILIRUBIN,DIRECT 1.2 MG/DL (0.0-0.3)
--- NOTE | 2018-12-15 07:31 | NUR ---
HAND-OFF: Report given to Shikha WHITING
--- NOTE | 2018-12-15 08:00 | NUR ---
NURSE NOTES: Received change of shift report from Emmanuelle WHITING. Pt is asleep, awakens to voice, oriented to name/place/purpose, pt is drowsy and fatigued, currently on 2L of oxygen via nasal cannula with 96% O2sat and diminished lung sounds. hospital monitor displays NSR with heart rate in the upper 80's to 90's with bounding peripheral pulses. Abdomen is large, round, soft, tender to touch with active bowel sounds. Pt has two peripheral IV access in place, right hand #22G and right FA #24G. IV fluid NS with 20meq KCL is infusing at 75ml/hour. Head of bed is at semi-gordon's, bed locked, in lowest position, three side rails up, and call light within reach. Will continue to monitor pt and follow plan of care per MD orders and protocol.
--- NOTE | 2018-12-15 08:22 | Infectious Diseases Prog Note ---
Assessment/Plan Assessment/Plan A; 1. Klebsiella urinary tract infection. 2. There also might be an ovarian cyst with tubo-ovarian abscess. 3. Hypertension. 4. Sepsis 5. Atrial fibrillation 6. Hepato-splenomegaly P: 1. Continue Zosyn 2. check chlamydia & Gonorrhea Subjective ROS Limited/Unobtainable: No Constitutional: Reports: no symptoms Cardiovascular: Reports: no symptoms Gastrointestinal/Abdominal: Reports: other - pain in right lowerabdomen Genitourinary: Reports: no symptoms Allergies: Coded Allergies: No Known Allergies (Unverified , 07/24/17) Objective Vital Signs Last 24 Hour Vital Signs Date Time Temp Pulse Resp B/P (MAP) Pulse Ox O2 Delivery O2 Flow Rate FiO2 12/15/18 07:08 97 162/65 12/15/18 07:00 99.7 96 26 169/74 (105) 96 12/15/18 06:00 97 29 162/65 (97) 97 12/15/18 05:40 99.7 12/15/18 05:30 97 29 156/59 (91) 98 12/15/18 05:00 96 28 151/61 (91) 98 12/15/18 04:30 92 29 152/76 (101) 99 12/15/18 04:00 2.0 12/15/18 04:00 92 12/15/18 04:00 99.0 93 30 156/57 (90) 97 12/15/18 04:00 Nasal Cannula 2.0 12/15/18 03:30 93 30 148/57 (87) 97 12/15/18 03:00 92 28 135/77 (96) 97 12/15/18 02:30 93 29 146/72 (96) 94 12/15/18 02:02 92 27 146/72 (96) 97 12/15/18 02:00 92 28 98 12/15/18 01:30 93 30 161/76 (104) 99 12/15/18 01:00 92 25 163/73 (103) 98 12/15/18 00:00 98.6 93 29 135/56 (82) 99 12/15/18 00:00 Nasal Cannula 4.0 12/15/18 00:00 96 12/14/18 23:30 95 31 154/75 (101) 99 12/14/18 23:00 98.7 94 28 145/55 (85) 99 12/14/18 22:30 94 29 142/53 (82) 99 12/14/18 22:00 99.6 93 30 161/71 (101) 99 12/14/18 21:30 94 31 158/75 (102) 99 12/14/18 21:00 97 29 157/74 (101) 99 12/14/18 20:30 96 28 133/67 (89) 98 12/14/18 20:24 94 143/71 12/14/18 20:00 100.0 92 31 143/71 (95) 96 12/14/18 20:00 Nasal Cannula 2.0 12/14/18 20:00 4.0 12/14/18 19:30 95 33 132/67 (88) 99 12/14/18 19:00 95 31 129/69 (89) 96 12/14/18 18:00 97 24 150/69 (96) 99 12/14/18 17:30 101 27 157/72 (100) 99 12/14/18 17:00 98.4 101 29 139/74 (95) 98 12/14/18 16:01 136 29 159/91 (113) 97 12/14/18 16:00 Nasal Cannula 2.0 12/14/18 16:00 149 12/14/18 16:00 2.0 12/14/18 15:30 150 28 149/83 (105) 97 12/14/18 15:00 157 34 121/70 (87) 97 12/14/18 14:00 161 35 153/111 (125) 99 12/14/18 13:47 170 12/14/18 13:47 166 157/79 12/14/18 13:00 161 26 134/91 (105) 99 12/14/18 12:45 159 31 130/82 (98) 99 12/14/18 12:00 Nasal Cannula 2.0 12/14/18 12:00 2.0 12/14/18 12:00 98.0 161 32 136/96 (109) 99 12/14/18 12:00 166 12/14/18 11:40 166 12/14/18 09:04 98.9 12/14/18 09:00 Room Air 12/14/18 08:29 157/79 Height (Feet): 5 Height (Inches): 4.00 Weight (Pounds): 235 General Appearance: no acute distress HEENT: mucous membranes moist Respiratory/Chest: normal breath sounds Cardiovascular: normal rate Abdomen: tender, other - soft , obese Extremities: no edema Neurologic/Psychiatric: alert, oriented x 3, responsive Microbiology Date/Time Source Procedure Growth Status 12/12/18 13:00 Urine,Clean Catch Urine Culture - Final Klebsiella Oxytoca Mixed Urogenital Contaminants Complete Laboratory Tests Test 12/15/18 04:00 White Blood Count 20.1 K/UL (4.8-10.8) H Red Blood Count 5.13 M/UL (4.20-5.40) Hemoglobin 13.7 G/DL (12.0-16.0) Hematocrit 42.9 % (37.0-47.0) Mean Corpuscular Volume 84 FL (80-99) Mean Corpuscular Hemoglobin 26.6 PG (27.0-31.0) L Mean Corpuscular Hemoglobin Concent 31.8 G/DL (32.0-36.0) L Red Cell Distribution Width 13.6 % (11.6-14.8) Platelet Count 227 K/UL (150-450) Mean Platelet Volume 6.7 FL (6.5-10.1) Neutrophils (%) (Auto) % (45.0-75.0) Lymphocytes (%) (Auto) % (20.0-45.0) Monocytes (%) (Auto) % (1.0-10.0) Eosinophils (%) (Auto) % (0.0-3.0) Basophils (%) (Auto) % (0.0-2.0) Differential Total Cells Counted 100 Neutrophils % (Manual) 85 % (45-75) H Lymphocytes % (Manual) 5 % (20-45) L Monocytes % (Manual) 10 % (1-10) Eosinophils % (Manual) 0 % (0-3) Basophils % (Manual) 0 % (0-2) Band Neutrophils 0 % (0-8) Platelet Estimate Adequate Platelet Morphology Normal Red Blood Cell Morphology Normal Prothrombin Time 11.3 SEC (9.30-11.50) Prothromb Time International Ratio 1.1 (0.9-1.1) Activated Partial Thromboplast Time 36 SEC (23-33) H Sodium Level 138 MMOL/L (136-145) Potassium Level 3.0 MMOL/L (3.5-5.1) L Chloride Level 104 MMOL/L (98-107) Carbon Dioxide Level 22 MMOL/L (21-32) Anion Gap 12 mmol/L (5-15) Blood Urea Nitrogen 19 mg/dL (7-18) H Creatinine 0.8 MG/DL (0.55-1.30) Estimat Glomerular Filtration Rate > 60 mL/min (>60) Glucose Level 121 MG/DL (74-106) H Calcium Level 8.5 MG/DL (8.5-10.1) Phosphorus Level 2.4 MG/DL (2.5-4.9) L Magnesium Level 2.1 MG/DL (1.8-2.4) Total Bilirubin 1.6 MG/DL (0.2-1.0) H Direct Bilirubin 1.2 MG/DL (0.0-0.3) H Aspartate Amino Transf (AST/SGOT) 15 U/L (15-37) Alanine Aminotransferase (ALT/SGPT) 11 U/L (12-78) L Alkaline Phosphatase 148 U/L (46-116) H Troponin I 0.000 ng/mL (0.000-0.056) Pro-B-Type Natriuretic Peptide 1262 pg/mL (0-125) H Total Protein 6.0 G/DL (6.4-8.2) L Albumin 1.7 G/DL (3.4-5.0) L Globulin 4.3 g/dL Albumin/Globulin Ratio 0.4 (1.0-2.7) L Thyroid Stimulating Hormone (TSH) 0.143 uiU/mL (0.358-3.740) Free Thyroxine 1.56 NG/DL (0.76-1.46) H Digoxin Level 0.6 NG/ML (0.9-2.0) L Current Medications Medications (Trade) Dose Ordered Sig/Alfredo Route PRN Reason Start Time Stop Time Status Last Admin Dose Admin Acetaminophen (Tylenol) 650 mg Q6H PRN ORAL Mild Pain/Temp > 100.5 12/14/18 14:00 01/11/19 13:59 Acetaminophen/ Hydrocodone Bitart ([place]ola 5/325) 1 tab Q6H PRN ORAL Moderate Pain (Pain Scale 4-6) 12/14/18 14:00 12/19/18 13:59 12/15/18 05:10 Al Hydroxide/Mg Hydroxide (Mylanta II) 30 ml Q6H PRN ORAL dyspepsia 12/14/18 14:00 01/11/19 13:59 Cefoxitin Sodium 2 gm/Dextrose 110 ml @ 220 mls/hr Q8HR IVPB 12/14/18 14:00 12/20/18 13:59 12/15/18 05:09 Dextrose (Dextrose 50%) 25 ml Q30M PRN IV Hypoglycemia 12/14/18 14:00 01/11/19 13:59 Dextrose (Dextrose 50%) 50 ml Q30M PRN IV Hypoglycemia 12/14/18 14:00 01/11/19 13:59 Diltiazem HCl 125 mg/Dextrose 125 ml @ 0 mls/hr Q24H IV 12/14/18 13:30 12/15/18 13:29 12/15/18 07:08 Diphenhydramine HCl (Benadryl) 25 mg Q6H PRN ORAL Itching/Pruritis 12/14/18 14:00 01/11/19 13:59 Doxycycline Hyclate 100 mg/ Dextrose 110 ml @ 110 mls/hr Q12HR IV 12/14/18 21:00 12/20/18 20:59 12/14/18 21:52 Famotidine (Pepcid I.v.) 20 mg Q12HR IVP 12/14/18 21:00 01/11/19 20:59 12/14/18 20:23 Iohexol (OMNIPAQUE-300 100ml) 100 ml NOW PRN INJ Radiology Procedure 12/15/18 11:45 12/16/18 23:59 Lisinopril (Zestril) 10 mg DAILY ORAL 12/15/18 09:00 01/12/19 08:59 Lorazepam (Ativan) 1 mg Q4H PRN ORAL For Anxiety 12/14/18 13:00 12/19/18 20:59 Metronidazole (Flagyl) 500 mg Q8HR ORAL 12/14/18 16:00 12/21/18 15:59 12/15/18 05:11 Morphine Sulfate (Morphine Sulfate) 1 mg Q4H PRN IVP Severe Pain (Pain Scale 7-10) 12/14/18 14:00 12/19/18 13:59 Ondansetron HCl (Zofran) 4 mg Q6H PRN IVP Nausea & Vomiting 12/14/18 14:00 01/11/19 13:59 Potassium Chloride/Sodium Chloride 1,000 ml @ 75 mls/hr [id number] IV 12/14/18 13:30 01/11/19 13:29 12/15/18 01:37 Temazepam (Restoril) 15 mg HSPRN PRN ORAL Insomnia 12/14/18 21:00 12/20/18 20:59 Donte Trevizo MD Dec 15, 2018 08:22
[2018-12-15] MEDS ORDERED: Lisinopril 10mg tab ORAL SCH (09:00)
[2018-12-15] MEDS: Morphine Sulfate 2mg/ml Inj(IV/IM USE ONLY) IVP PRN ×2 (09:33→14:27)
[2018-12-15] MEDS: Doxycycline Monohydrate 100mg ORAL SCH ×2 (09:33→21:25)
[2018-12-15] MEDS: Zoysn 3.37gm in NS 100ML IVPB SCH ×2 (09:34→17:20)
[2018-12-15] MEDS ORDERED: HydrALAZINE 10mg Tab ORAL PRN (09:45)
[2018-12-15] MEDS ORDERED: Enoxaparin 120 mg inj SUBQ SCH (09:45)
--- NOTE | 2018-12-15 09:45 | NUR ---
NURSE NOTES: Pt was seen by Dr Thompson. Cardizem drip was stopped per MD order.
--- NOTE | 2018-12-15 09:56 | Cardiac Electrophysiology PN ---
Assessment/Plan Assessment/Plan 1. Atrial fibrillation with rapid ventricular response. DC Cardizem drip and change to Cardizem 90 q6 and add Digoxin 0.25 daily. The stat echocardiogram at bedside showed normal left ventricular systolic function with ejection fraction of around 65%. Add Lovenox 1mg/kg sq bid. 2. History of hypertension. Continue Cardizem and Lisinopril. 3. Right-sided abdominal pain likely secondary to infectious plus hemorrhagic right ovarian cyst. Follow up by GI and Surgery. Follow up with ID and MANAGER PARKING recommendation. 4. Sepsis with white count of more than 20,000. On IV antibiotic per ID. Subjective Subjective Converted to SR. Objective Last 24 Hour Vital Signs Date Time Temp Pulse Resp B/P (MAP) Pulse Ox O2 Delivery O2 Flow Rate FiO2 12/15/18 09:33 162/65 12/15/18 07:08 97 162/65 12/15/18 07:00 99.7 96 26 169/74 (105) 96 12/15/18 06:00 97 29 162/65 (97) 97 12/15/18 05:40 99.7 12/15/18 05:30 97 29 156/59 (91) 98 12/15/18 05:00 96 28 151/61 (91) 98 12/15/18 04:30 92 29 152/76 (101) 99 12/15/18 04:00 2.0 12/15/18 04:00 92 12/15/18 04:00 99.0 93 30 156/57 (90) 97 12/15/18 04:00 Nasal Cannula 2.0 12/15/18 03:30 93 30 148/57 (87) 97 12/15/18 03:00 92 28 135/77 (96) 97 12/15/18 02:30 93 29 146/72 (96) 94 12/15/18 02:02 92 27 146/72 (96) 97 12/15/18 02:00 92 28 98 12/15/18 01:30 93 30 161/76 (104) 99 12/15/18 01:00 92 25 163/73 (103) 98 12/15/18 00:00 98.6 93 29 135/56 (82) 99 12/15/18 00:00 Nasal Cannula 4.0 12/15/18 00:00 96 12/14/18 23:30 95 31 154/75 (101) 99 12/14/18 23:00 98.7 94 28 145/55 (85) 99 12/14/18 22:30 94 29 142/53 (82) 99 12/14/18 22:00 99.6 93 30 161/71 (101) 99 12/14/18 21:30 94 31 158/75 (102) 99 12/14/18 21:00 97 29 157/74 (101) 99 12/14/18 20:30 96 28 133/67 (89) 98 12/14/18 20:24 94 143/71 12/14/18 20:00 100.0 92 31 143/71 (95) 96 12/14/18 20:00 Nasal Cannula 2.0 12/14/18 20:00 4.0 12/14/18 19:30 95 33 132/67 (88) 99 12/14/18 19:00 95 31 129/69 (89) 96 12/14/18 18:00 97 24 150/69 (96) 99 12/14/18 17:30 101 27 157/72 (100) 99 12/14/18 17:00 98.4 101 29 139/74 (95) 98 12/14/18 16:01 136 29 159/91 (113) 97 12/14/18 16:00 Nasal Cannula 2.0 12/14/18 16:00 149 12/14/18 16:00 2.0 12/14/18 15:30 150 28 149/83 (105) 97 12/14/18 15:00 157 34 121/70 (87) 97 12/14/18 14:00 161 35 153/111 (125) 99 12/14/18 13:47 170 12/14/18 13:47 166 157/79 12/14/18 13:00 161 26 134/91 (105) 99 12/14/18 12:45 159 31 130/82 (98) 99 12/14/18 12:00 Nasal Cannula 2.0 12/14/18 12:00 2.0 12/14/18 12:00 98.0 161 32 136/96 (109) 99 12/14/18 12:00 166 12/14/18 11:40 166 Intake and Output 12/14/18 12/15/18 19:00 07:00 Intake Total 1540 ml 1770.75 ml Output Total 100 ml Balance 1540 ml 1670.75 ml Intake Oral 380 ml 400 ml IV Total 1160 ml 1370.75 ml Output Urine Total 100 ml # Voids 5 3 # Bowel Movements 4 4 Laboratory Tests Test 12/15/18 04:00 White Blood Count 20.1 K/UL (4.8-10.8) H Red Blood Count 5.13 M/UL (4.20-5.40) Hemoglobin 13.7 G/DL (12.0-16.0) Hematocrit 42.9 % (37.0-47.0) Mean Corpuscular Volume 84 FL (80-99) Mean Corpuscular Hemoglobin 26.6 PG (27.0-31.0) L Mean Corpuscular Hemoglobin Concent 31.8 G/DL (32.0-36.0) L Red Cell Distribution Width 13.6 % (11.6-14.8) Platelet Count 227 K/UL (150-450) Mean Platelet Volume 6.7 FL (6.5-10.1) Neutrophils (%) (Auto) % (45.0-75.0) Lymphocytes (%) (Auto) % (20.0-45.0) Monocytes (%) (Auto) % (1.0-10.0) Eosinophils (%) (Auto) % (0.0-3.0) Basophils (%) (Auto) % (0.0-2.0) Differential Total Cells Counted 100 Neutrophils % (Manual) 85 % (45-75) H Lymphocytes % (Manual) 5 % (20-45) L Monocytes % (Manual) 10 % (1-10) Eosinophils % (Manual) 0 % (0-3) Basophils % (Manual) 0 % (0-2) Band Neutrophils 0 % (0-8) Platelet Estimate Adequate Platelet Morphology Normal Red Blood Cell Morphology Normal Prothrombin Time 11.3 SEC (9.30-11.50) Prothromb Time International Ratio 1.1 (0.9-1.1) Activated Partial Thromboplast Time 36 SEC (23-33) H Sodium Level 138 MMOL/L (136-145) Potassium Level 3.0 MMOL/L (3.5-5.1) L Chloride Level 104 MMOL/L (98-107) Carbon Dioxide Level 22 MMOL/L (21-32) Anion Gap 12 mmol/L (5-15) Blood Urea Nitrogen 19 mg/dL (7-18) H Creatinine 0.8 MG/DL (0.55-1.30) Estimat Glomerular Filtration Rate > 60 mL/min (>60) Glucose Level 121 MG/DL (74-106) H Calcium Level 8.5 MG/DL (8.5-10.1) Phosphorus Level 2.4 MG/DL (2.5-4.9) L Magnesium Level 2.1 MG/DL (1.8-2.4) Total Bilirubin 1.6 MG/DL (0.2-1.0) H Direct Bilirubin 1.2 MG/DL (0.0-0.3) H Aspartate Amino Transf (AST/SGOT) 15 U/L (15-37) Alanine Aminotransferase (ALT/SGPT) 11 U/L (12-78) L Alkaline Phosphatase 148 U/L (46-116) H Troponin I 0.000 ng/mL (0.000-0.056) Pro-B-Type Natriuretic Peptide 1262 pg/mL (0-125) H Total Protein 6.0 G/DL (6.4-8.2) L Albumin 1.7 G/DL (3.4-5.0) L Globulin 4.3 g/dL Albumin/Globulin Ratio 0.4 (1.0-2.7) L Thyroid Stimulating Hormone (TSH) 0.143 uiU/mL (0.358-3.740) Free Thyroxine 1.56 NG/DL (0.76-1.46) H Digoxin Level 0.6 NG/ML (0.9-2.0) L Microbiology Date/Time Source Procedure Growth Status 12/12/18 13:00 Urine,Clean Catch Urine Culture - Final Klebsiella Oxytoca Mixed Urogenital Contaminants Complete Objective HEAD AND NECK: No JVD. HEART: Tachycardic. S1 and S2 with no gallop, murmur. LUNGS: CTA ABDOMEN: Obese. EXTREMITIES: No pitting edema. Ha Thompson MD Dec 15, 2018 09:56
--- NOTE | 2018-12-15 10:00 | NUR ---
NURSE NOTES: Pt was administered Morphine 1mg IVP per PRN order for reported severe abdominal pain at 0933, pt still has pain, however states it is slowly subsiding. Pt was seen by Dr Aguero, diet advanced to full liquid for lunch per MD order.
--- NOTE | 2018-12-15 10:15 | NUR ---
RD ASSESSMENT & RECOMMENDATIONS SEE CARE ACTIVITY FOR COMPLETE ASSESSMENT DAILY ESTIMATED NEEDS: Needs based on Obese, cardiac/ 67.6kg abw 20-25 kcals/kg 5398-5341 total kcals 1-1.2 g protein/kg 68-81 g total protein 25-30 mL/kg 2287-3613 total fluid mLs NUTRITION DIAGNOSIS: *Altered nutrition related lab values R/T clinical condition as evidenced by low K(3.0), critically elev WBC (20.1), elev CRP (>70), elev BNP. CURRENT DIET:CLD PO DIET RECOMMENDATIONS: Advance diet per MD -> CCHO LOW/ SOFT/ BLAND ADDITIONAL RECOMMENDATIONS: * Ensure Clear TID w/ CLD * Standing wt as able for accurate CBW * Monitor tolerance and acceptance to diet * Monitor lytes, replete as needed (low K) * Accuchecks + ssi
--- NOTE | 2018-12-15 10:24 | NUR ---
NURSE NOTES: Pt was administered Tylenol per PRN dose/order for Temp 100.5F oral. Pt was seen by ID/Dr Trevizo at bedside.
[2018-12-15] MEDS: Enoxaparin 30mg Inj SUBQ SCH ×2 (10:26→21:26)
--- NOTE | 2018-12-15 10:51 | General Progress Note ---
Assessment/Plan Problem List: (1) Ovarian cyst ICD Codes: N83.209 - Unspecified ovarian cyst, unspecified side SNOMED: 40695346 (2) Hepatomegaly ICD Codes: R16.0 - Hepatomegaly, not elsewhere classified SNOMED: 63657502 (3) Cholelithiasis ICD Codes: K80.20 - Calculus of gallbladder without cholecystitis without obstruction SNOMED: 262982240 (4) Elevated LFTs ICD Codes: R94.5 - Abnormal results of liver function studies SNOMED: 876279811, 816647706 (5) A-fib ICD Codes: I48.91 - Unspecified atrial fibrillation SNOMED: 99453864 (6) RI (7) Hypoalbuminemia ICD Codes: E88.09 - Other disorders of plasma-protein metabolism, not elsewhere classified SNOMED: 773802476 (8) Adrenal mass ICD Codes: E27.8 - Other specified disorders of adrenal gland SNOMED: 246520457 (9) Abdominal pain ICD Codes: R10.9 - Unspecified abdominal pain SNOMED: 48781650 Qualifiers: Qualified Codes: R10.31 - Right lower quadrant pain (10) Uterine fibroid ICD Codes: D25.9 - Leiomyoma of uterus, unspecified SNOMED: 72134448 Status: unchanged Assessment/Plan: HIDA scan ABC per ID fu cardiology repeat labs advance diet to full liquid drug screen fu MEDICAL INSURANCE CODING SPECIALIST Subjective ROS Limited/Unobtainable: No Allergies: Coded Allergies: No Known Allergies (Unverified , 07/24/17) Objective Last 24 Hour Vital Signs Date Time Temp Pulse Resp B/P (MAP) Pulse Ox O2 Delivery O2 Flow Rate FiO2 12/15/18 10:25 97 12/15/18 10:03 100.5 12/15/18 09:33 162/65 12/15/18 07:08 97 162/65 12/15/18 07:00 99.7 96 26 169/74 (105) 96 12/15/18 06:00 97 29 162/65 (97) 97 12/15/18 05:40 99.7 12/15/18 05:30 97 29 156/59 (91) 98 12/15/18 05:00 96 28 151/61 (91) 98 12/15/18 04:30 92 29 152/76 (101) 99 12/15/18 04:00 2.0 12/15/18 04:00 92 12/15/18 04:00 99.0 93 30 156/57 (90) 97 12/15/18 04:00 Nasal Cannula 2.0 12/15/18 03:30 93 30 148/57 (87) 97 12/15/18 03:00 92 28 135/77 (96) 97 12/15/18 02:30 93 29 146/72 (96) 94 12/15/18 02:02 92 27 146/72 (96) 97 12/15/18 02:00 92 28 98 12/15/18 01:30 93 30 161/76 (104) 99 12/15/18 01:00 92 25 163/73 (103) 98 12/15/18 00:00 98.6 93 29 135/56 (82) 99 12/15/18 00:00 Nasal Cannula 4.0 12/15/18 00:00 96 12/14/18 23:30 95 31 154/75 (101) 99 12/14/18 23:00 98.7 94 28 145/55 (85) 99 12/14/18 22:30 94 29 142/53 (82) 99 12/14/18 22:00 99.6 93 30 161/71 (101) 99 12/14/18 21:30 94 31 158/75 (102) 99 12/14/18 21:00 97 29 157/74 (101) 99 12/14/18 20:30 96 28 133/67 (89) 98 12/14/18 20:24 94 143/71 12/14/18 20:00 100.0 92 31 143/71 (95) 96 12/14/18 20:00 Nasal Cannula 2.0 12/14/18 20:00 4.0 12/14/18 19:30 95 33 132/67 (88) 99 12/14/18 19:00 95 31 129/69 (89) 96 12/14/18 18:00 97 24 150/69 (96) 99 12/14/18 17:30 101 27 157/72 (100) 99 12/14/18 17:00 98.4 101 29 139/74 (95) 98 12/14/18 16:01 136 29 159/91 (113) 97 12/14/18 16:00 Nasal Cannula 2.0 12/14/18 16:00 149 12/14/18 16:00 2.0 12/14/18 15:30 150 28 149/83 (105) 97 12/14/18 15:00 157 34 121/70 (87) 97 12/14/18 14:00 161 35 153/111 (125) 99 12/14/18 13:47 170 12/14/18 13:47 166 157/79 12/14/18 13:00 161 26 134/91 (105) 99 12/14/18 12:45 159 31 130/82 (98) 99 12/14/18 12:00 Nasal Cannula 2.0 12/14/18 12:00 2.0 12/14/18 12:00 98.0 161 32 136/96 (109) 99 12/14/18 12:00 166 12/14/18 11:40 166 Intake and Output 12/14/18 12/15/18 19:00 07:00 Intake Total 1540 ml 1770.75 ml Output Total 100 ml Balance 1540 ml 1670.75 ml Intake Oral 380 ml 400 ml IV Total 1160 ml 1370.75 ml Output Urine Total 100 ml # Voids 5 3 # Bowel Movements 4 4 Laboratory Tests 12/15/18 04:00: White Blood Count 20.1H, Red Blood Count 5.13, Hemoglobin 13.7, Hematocrit 42.9 , Mean Corpuscular Volume 84, Mean Corpuscular Hemoglobin 26.6L, Mean Corpuscular Hemoglobin Concent 31.8L, Red Cell Distribution Width 13.6, Platelet Count 227, Mean Platelet Volume 6.7, Neutrophils (%) (Auto) , Lymphocytes (%) (Auto) , Monocytes (%) (Auto) , Eosinophils (%) (Auto) , Basophils (%) (Auto) , Differential Total Cells Counted 100, Neutrophils % ( Manual) 85H, Lymphocytes % (Manual) 5L, Monocytes % (Manual) 10, Eosinophils % ( Manual) 0, Basophils % (Manual) 0, Band Neutrophils 0, Platelet Estimate Adequate, Platelet Morphology Normal, Red Blood Cell Morphology Normal, Prothrombin Time 11.3, Prothromb Time International Ratio 1.1, Activated Partial Thromboplast Time 36H, Sodium Level 138, Potassium Level 3.0L, Chloride Level 104, Carbon Dioxide Level 22, Anion Gap 12, Blood Urea Nitrogen 19H, Creatinine 0.8, Estimat Glomerular Filtration Rate > 60, Glucose Level 121H, Calcium Level 8.5, Phosphorus Level 2.4L, Magnesium Level 2.1, Total Bilirubin 1.6H, Direct Bilirubin 1.2H, Aspartate Amino Transf (AST/SGOT) 15, Alanine Aminotransferase (ALT/SGPT) 11L, Alkaline Phosphatase 148H, Troponin I 0.000, Pro-B-Type Natriuretic Peptide 1262H, Total Protein 6.0L, Albumin 1.7L, Globulin 4.3, Albumin/Globulin Ratio 0.4L, Thyroid Stimulating Hormone (TSH) 0.143L, Free Thyroxine 1.56H, Digoxin Level 0.6L Height (Feet): 5 Height (Inches): 4.00 Weight (Pounds): 235 General Appearance: lethargic EENT: normal ENT inspection Neck: supple Cardiovascular: tachycardia, arrhythmia Respiratory/Chest: lungs clear Abdomen: soft, hypoactive bowel sounds, tender Extremities: non-tender Alan Aguero MD Dec 15, 2018 10:51
[2018-12-15] MEDS: Enoxaparin 80mg Inj SUBQ SCH ×2 (11:40→21:27)
[2018-12-15] MEDS ORDERED: Omnipaque-300 100ml vial INJ PRN (11:45)
--- NOTE | 2018-12-15 12:00 | NUR ---
NURSE NOTES: Pt is asleep, remains on 2L of oxygen via nasal cannula with 96% O2sat. environmental monitoring technician displays NSR with heart rate in the 80's. Temp is now 99.2F oral. Pt refused breakfast, and lunch is currently on hold for Hida-scan procedure per Dr Aguero's order. IV fluid is still infusing NS with 20meq KCL at 75ml/hour. Pt had x1 episode of BM, soft/brown/formed, incontinent of urine and BM. Pt was cleaned and assisted with repositioning.
[2018-12-15] MEDS: dilTIAZem HCl 90mg tab ORAL SCH ×3 (12:29→23:51)
[2018-12-15] MEDS ORDERED: NS 275ml ONE (14:29)
--- NOTE | 2018-12-15 14:33 | NUR ---
NURSE NOTES: Pt was administered Morphine 1mg IVP per PRN order for reported severe abdominal pain. VS stable.
[2018-12-15] MEDS ORDERED: Morphine Sulfate 2mg/ml Inj(IV/IM USE ONLY) IVP PRN (15:07)
--- NOTE | 2018-12-15 15:10 | NUR ---
NURSE NOTES: Pt was taken to nuclear medicine for Hida scan per Dr Aguero's order. Pt was transferred with portable [employer] technical lead senior developer on pt, displays NSR with heart rate in the 70's; and portable O2tank with 2L of oxygen, 02 Sat at 98%. Pt reports relief from pain after Morphine administration in the last hour. Addendum: 12/15/18 at 1934 by LB BROCK RN Pt tolerated the Hida scan procedure well and was transferred back to ICU. VS stable.
--- NOTE | 2018-12-15 16:35 | NUR ---
NURSE NOTES: Contacted Dr Salas' office per Dr Berkowitz's request for OB consult. Spoke with Negar, a detailed message for left for MD regarding the new consult request for OB. Per Negar, Dr Salas will be paged to see the pt.
--- NOTE | 2018-12-15 16:49 | NUR ---
NM Hepatobiliary (HIDA) scan complete.
--- NOTE | 2018-12-15 18:00 | NUR ---
NURSE NOTES: Urine has been collected and will be taken to the lab for processing. Pt was cleaned, gown and bed linens were changed. VS stable.
--- NOTE | 2018-12-15 18:30 | NUR ---
NURSE NOTES: Spoke with Dr Berkowitz. Order was received for transvaginal ultrasound. Order was processed. Per Dr Berkowitz, pt is to remain in ICU for now due to shortness of breath.
--- NOTE | 2018-12-15 19:30 | NUR ---
NURSE NOTES: Received pt appeared fatigue , but awake,and appropriate, followed simple commands,SR on the monitor, Bp stable. Afebrile, on 02 at 2l/nc 02 sat >95%. Pt tachypneic at times but no, cough and no resp. distress noted. IVF NS+ 20meqkcl, infusing well per RT arm. site atraumatic. Incontinent of urine, placed purewick but refused. Tolerating lots of PO fluids. Monitor I and O. Monitor lytes. Relatives at bedside- updated with pts condition as well as hosp. protocol and set up- verbalized understanding. Will continue to monitor.
--- NOTE | 2018-12-15 19:31 | NUR ---
HAND-OFF: Report given to Norma WHITING. Endorsed plan of care. VS stable.
[2018-12-15] MEDS: Lisinopril 10mg tab ORAL SCH (21:26)
--- NOTE | 2018-12-15 21:30 | NUR ---
NURSE NOTES: Incontinent of urine- partial bath was given.
--- NOTE | 2018-12-15 22:52 | Surgery Progress Note ---
Surgery Progress Note Subjective Additional Comments still with pain leukocytosis labs noted exam unchanged discussed with [employer] possible OR Objective Last 24 Hour Vital Signs Date Time Temp Pulse Resp B/P (MAP) Pulse Ox O2 Delivery O2 Flow Rate FiO2 12/15/18 21:26 143/74 12/15/18 20:32 98 Nasal Cannula 2.0 12/15/18 19:00 90 31 159/75 (103) 98 12/15/18 18:00 90 31 160/80 (106) 99 12/15/18 17:30 85 27 160/78 (105) 98 12/15/18 17:20 87 152/78 12/15/18 17:00 83 24 147/70 (95) 97 12/15/18 16:00 69 12/15/18 16:00 98.2 70 25 152/78 (102) 100 12/15/18 16:00 Nasal Cannula 2.0 12/15/18 15:00 84 25 133/73 (93) 99 12/15/18 14:57 98.8 12/15/18 14:00 85 27 137/61 (86) 98 12/15/18 13:30 87 24 146/77 (100) 98 12/15/18 13:00 88 23 151/72 (98) 98 12/15/18 12:30 90 24 142/79 (100) 98 12/15/18 12:29 94 161/78 12/15/18 12:00 94 12/15/18 12:00 98.8 90 25 156/78 (104) 96 12/15/18 12:00 Nasal Cannula 2.0 12/15/18 11:00 94 24 161/78 (105) 98 12/15/18 10:54 99.0 12/15/18 10:30 100.5 94 26 173/82 (112) 98 12/15/18 10:25 97 12/15/18 10:00 93 29 143/76 (98) 98 12/15/18 09:33 162/65 12/15/18 09:30 95 33 176/83 (114) 98 12/15/18 09:00 96 31 160/83 (108) 94 12/15/18 08:30 97 29 152/79 (103) 94 12/15/18 08:00 Nasal Cannula 2.0 12/15/18 08:00 96 12/15/18 08:00 99.2 96 30 165/68 (100) 95 12/15/18 07:08 97 162/65 12/15/18 07:00 99.7 96 26 169/74 (105) 96 12/15/18 06:00 97 29 162/65 (97) 97 12/15/18 05:40 99.7 12/15/18 05:30 97 29 156/59 (91) 98 12/15/18 05:00 96 28 151/61 (91) 98 12/15/18 04:30 92 29 152/76 (101) 99 12/15/18 04:00 2.0 12/15/18 04:00 92 12/15/18 04:00 99.0 93 30 156/57 (90) 97 12/15/18 04:00 Nasal Cannula 2.0 12/15/18 03:30 93 30 148/57 (87) 97 12/15/18 03:00 92 28 135/77 (96) 97 12/15/18 02:30 93 29 146/72 (96) 94 12/15/18 02:02 92 27 146/72 (96) 97 12/15/18 02:00 92 28 98 12/15/18 01:30 93 30 161/76 (104) 99 12/15/18 01:00 92 25 163/73 (103) 98 12/15/18 00:00 98.6 93 29 135/56 (82) 99 12/15/18 00:00 Nasal Cannula 4.0 12/15/18 00:00 96 12/14/18 23:30 95 31 154/75 (101) 99 12/14/18 23:00 98.7 94 28 145/55 (85) 99 I&O Intake and Output 12/14/18 12/15/18 19:00 07:00 Intake Total 1540 ml 1845.75 ml Output Total 100 ml Balance 1540 ml 1745.75 ml Intake Oral 380 ml 400 ml IV Total 1160 ml 1445.75 ml Output Urine Total 100 ml # Voids 5 3 # Bowel Movements 4 4 Cardiovascular: RSR Respiratory: clear Abdomen: soft, tenderness, present bowel sounds Extremities: no edema, no tenderness, no cyanosis Laboratory Tests Test 12/15/18 04:00 12/15/18 17:45 White Blood Count 20.1 K/UL (4.8-10.8) H Red Blood Count 5.13 M/UL (4.20-5.40) Hemoglobin 13.7 G/DL (12.0-16.0) Hematocrit 42.9 % (37.0-47.0) Mean Corpuscular Volume 84 FL (80-99) Mean Corpuscular Hemoglobin 26.6 PG (27.0-31.0) L Mean Corpuscular Hemoglobin Concent 31.8 G/DL (32.0-36.0) L Red Cell Distribution Width 13.6 % (11.6-14.8) Platelet Count 227 K/UL (150-450) Mean Platelet Volume 6.7 FL (6.5-10.1) Neutrophils (%) (Auto) % (45.0-75.0) Lymphocytes (%) (Auto) % (20.0-45.0) Monocytes (%) (Auto) % (1.0-10.0) Eosinophils (%) (Auto) % (0.0-3.0) Basophils (%) (Auto) % (0.0-2.0) Differential Total Cells Counted 100 Neutrophils % (Manual) 85 % (45-75) H Lymphocytes % (Manual) 5 % (20-45) L Monocytes % (Manual) 10 % (1-10) Eosinophils % (Manual) 0 % (0-3) Basophils % (Manual) 0 % (0-2) Band Neutrophils 0 % (0-8) Platelet Estimate Adequate Platelet Morphology Normal Red Blood Cell Morphology Normal Prothrombin Time 11.3 SEC (9.30-11.50) Prothromb Time International Ratio 1.1 (0.9-1.1) Activated Partial Thromboplast Time 36 SEC (23-33) H Sodium Level 138 MMOL/L (136-145) Potassium Level 3.0 MMOL/L (3.5-5.1) L Chloride Level 104 MMOL/L (98-107) Carbon Dioxide Level 22 MMOL/L (21-32) Anion Gap 12 mmol/L (5-15) Blood Urea Nitrogen 19 mg/dL (7-18) H Creatinine 0.8 MG/DL (0.55-1.30) Estimat Glomerular Filtration Rate > 60 mL/min (>60) Glucose Level 121 MG/DL (74-106) H Calcium Level 8.5 MG/DL (8.5-10.1) Phosphorus Level 2.4 MG/DL (2.5-4.9) L Magnesium Level 2.1 MG/DL (1.8-2.4) Total Bilirubin 1.6 MG/DL (0.2-1.0) H Direct Bilirubin 1.2 MG/DL (0.0-0.3) H Aspartate Amino Transf (AST/SGOT) 15 U/L (15-37) Alanine Aminotransferase (ALT/SGPT) 11 U/L (12-78) L Alkaline Phosphatase 148 U/L (46-116) H Troponin I 0.000 ng/mL (0.000-0.056) Pro-B-Type Natriuretic Peptide 1262 pg/mL (0-125) H Total Protein 6.0 G/DL (6.4-8.2) L Albumin 1.7 G/DL (3.4-5.0) L Globulin 4.3 g/dL Albumin/Globulin Ratio 0.4 (1.0-2.7) L Thyroid Stimulating Hormone (TSH) 0.143 uiU/mL (0.358-3.740) Free Thyroxine 1.56 NG/DL (0.76-1.46) H Digoxin Level 0.6 NG/ML (0.9-2.0) L Urine Opiates Screen Positive (NEGATIVE) H Urine Barbiturates Screen Negative (NEGATIVE) Phencyclidine (PCP) Screen Negative (NEGATIVE) Urine Amphetamines Screen Negative (NEGATIVE) Urine Benzodiazepines Screen Negative (NEGATIVE) Urine Cocaine Screen Positive (NEGATIVE) H Urine Marijuana (THC) Screen Negative (NEGATIVE) Neisseria gonorrhoeae RNA Pending Plan Problems: (1) Abdominal pain Assessment & Plan: 53-year-old female with abdominal pain for the past 2 days worsening started his right flank now on her right mid abdomen and lower quadrant. Afebrile, hemodynamically stable, leukocytosis 20,000. Labs otherwise normal. Right-sided abdominal tenderness on examination with voluntary guarding but no rebound CT reviewed with radiologist and as noted in his dictation. Possible tubo-ovarian site abscess, hemorrhagic ovarian cyst, mesenteric infarct, enteritis. At this time needs further work-up and management. A.m. labs. Infectious disease input GI input noted in ICU for a fib. 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 Ganga Mancuso Dec 15, 2018 22:52
--- NOTE | 2018-12-15 23:00 | NUR ---
NURSE NOTES: and niece came , updated with pts condition-Verbalized understanding.
[2018-12-16] VITALS (35 sets, daily range): BP systolic 108–154; BP diastolic 47–88
--- NOTE | 2018-12-16 01:19 | NUR ---
NURSE NOTES: Rt arm IV was bent and cause some non patency of the IV. Dcd RT arm IV and started new angio G 20 to pts left forearm with good blood return.. IVF transferred to left arm.
[2018-12-16] MEDS: Zoysn 3.37gm in NS 100ML IVPB SCH ×3 (01:41→17:54)
--- NOTE | 2018-12-16 03:00 | NUR ---
NURSE NOTES: Resting well at this time. No resp. distress noted, 02 sat >95%.
--- NOTE | 2018-12-16 04:57 | NUR ---
NURSE NOTES: Complete bath with complete bed changed done.
[2018-12-16 05:22] LABS: HEMATOCRIT 42.9 % (37.0-47.0); HEMOGLOBIN 13.7 G/DL (12.0-16.0); MEAN CORPUSCULAR VOLUME 84 FL (80-99); PLATELET COUNT 250 K/UL (150-450); RED BLOOD COUNT 5.12 M/UL (4.20-5.40); RED CELL DISTRIBUTION WIDTH 13.8 % (11.6-14.8); WHITE BLOOD COUNT 18.3 K/UL (4.8-10.8)
[2018-12-16 05:30] LABS: INR 1.1 (0.9-1.1)
[2018-12-16 05:38] LABS: ALANINE AMINOTRANSFERASE 11 U/L (12-78); ALBUMIN 1.5 G/DL (3.4-5.0); ALBUMIN/GLOBULIN RATIO 0.4 (1.0-2.7); ALKALINE PHOSPHATASE 155 U/L (46-116); ANION GAP 10 mmol/L (5-15); ASPARTATE AMINO TRANSFERASE 17 U/L (15-37); BILIRUBIN,TOTAL 2.3 MG/DL (0.2-1.0); BLOOD UREA NITROGEN 18 mg/dL (7-18); CALCIUM 8.1 MG/DL (8.5-10.1); CARBON DIOXIDE 24 MMOL/L (21-32); CHLORIDE 106 MMOL/L (98-107); CREATININE 0.7 MG/DL (0.55-1.30); POTASSIUM 3.1 MMOL/L (3.5-5.1); SODIUM 140 MMOL/L (136-145)
[2018-12-16 05:45] LABS: BILIRUBIN,DIRECT 1.8 MG/DL (0.0-0.3)
--- NOTE | 2018-12-16 06:00 | NUR ---
NURSE NOTES: More awake at this time. No resp. distress noted.
[2018-12-16] MEDS: dilTIAZem HCl 90mg tab ORAL SCH ×4 (06:25→23:48)
[2018-12-16] MEDS: NS w/KCl 20mEq 1000ml 1,000 ML IV SCH ×2 (06:32→17:45)
--- NOTE | 2018-12-16 07:40 | NUR ---
HAND-OFF: Report given to Lyndsay WHITING.
--- NOTE | 2018-12-16 08:00 | NUR ---
NURSE NOTES: PT REPORT RECEIVED FROM HENOK CHICAS. AOX4 , AFEBRILE AT THIS TIME AND NO APPARENT S/S ACUTE DISTRESS. NOTED TO REMOVED OXYGEN, PT REEDUCATE AND VERBALIZE UNDERSTANDING.SEEN BY DR ASNCHEZ, WILL FOLLOW UP WITH NEW ORDERS. ABDOMEN DISTENDED, C/O PAIN , WILL FOLLOW UP WITH MEDICATION.LFA 20G RUNNING NS W/20KCL. POTASSIUM 3.1 COVERED , WILL GIVE 40 MEQ.PT KEPT ON CLOSE MONITORING
--- NOTE | 2018-12-16 08:08 | General Progress Note ---
Progress Note Progress Note GYNECOLOGY PROGRESS NOTE Contacted by Dr. Jeffries last night regarding patient condition. Concern for lack of improvement despite >24h of IV antibiotics. Persistent leukocytosis and per RN last night patient received IV Morphin ATC. This AM, the patient remains in ICU since last night due to SOB. She is doing well at this time, NSR and resting comfortably. Patient reports that her pain is improved. She did not receive morphine overnight per RN. Vitals reviewed, patient afebrile and no tachycardia Exam: Gen: NAD, resting comfortably Abd: Soft, tenderness in RLQ improved from previous Laboratory Tests Test 12/15/18 17:45 12/16/18 04:26 Urine Opiates Screen Positive (NEGATIVE) H Urine Barbiturates Screen Negative (NEGATIVE) Phencyclidine (PCP) Screen Negative (NEGATIVE) Urine Amphetamines Screen Negative (NEGATIVE) Urine Benzodiazepines Screen Negative (NEGATIVE) Urine Cocaine Screen Positive (NEGATIVE) H Urine Marijuana (THC) Screen Negative (NEGATIVE) Neisseria gonorrhoeae RNA Pending White Blood Count 18.3 K/UL (4.8-10.8) H Red Blood Count 5.12 M/UL (4.20-5.40) Hemoglobin 13.7 G/DL (12.0-16.0) Hematocrit 42.9 % (37.0-47.0) Mean Corpuscular Volume 84 FL (80-99) Mean Corpuscular Hemoglobin 26.7 PG (27.0-31.0) L Mean Corpuscular Hemoglobin Concent 31.8 G/DL (32.0-36.0) L Red Cell Distribution Width 13.8 % (11.6-14.8) Platelet Count 250 K/UL (150-450) Mean Platelet Volume 7.0 FL (6.5-10.1) Neutrophils (%) (Auto) % (45.0-75.0) Lymphocytes (%) (Auto) % (20.0-45.0) Monocytes (%) (Auto) % (1.0-10.0) Eosinophils (%) (Auto) % (0.0-3.0) Basophils (%) (Auto) % (0.0-2.0) Neutrophils % (Manual) Pending Lymphocytes % (Manual) Pending Platelet Estimate Pending Platelet Morphology Pending Prothrombin Time 11.8 SEC (9.30-11.50) H Prothromb Time International Ratio 1.1 (0.9-1.1) Activated Partial Thromboplast Time 37 SEC (23-33) H Sodium Level 140 MMOL/L (136-145) Potassium Level 3.1 MMOL/L (3.5-5.1) L Chloride Level 106 MMOL/L (98-107) Carbon Dioxide Level 24 MMOL/L (21-32) Anion Gap 10 mmol/L (5-15) Blood Urea Nitrogen 18 mg/dL (7-18) Creatinine 0.7 MG/DL (0.55-1.30) Estimat Glomerular Filtration Rate > 60 mL/min (>60) Glucose Level 112 MG/DL (74-106) H Calcium Level 8.1 MG/DL (8.5-10.1) L Phosphorus Level Pending Magnesium Level Pending Total Bilirubin 2.3 MG/DL (0.2-1.0) H Direct Bilirubin 1.8 MG/DL (0.0-0.3) H Aspartate Amino Transf (AST/SGOT) 17 U/L (15-37) Alanine Aminotransferase (ALT/SGPT) 11 U/L (12-78) L Alkaline Phosphatase 155 U/L (46-116) H Total Protein 5.5 G/DL (6.4-8.2) L Albumin 1.5 G/DL (3.4-5.0) L Globulin 4.0 g/dL Albumin/Globulin Ratio 0.4 (1.0-2.7) L Assessment/Plan: 53yo with TOA, AFib/RVR now resolved, +cocaine, awaiting transfer back to floor, clinical condition improving, however may still benefit from drainage of mass - Discussed patient case with IR and will attempt drainage today - Patient will need to be consented - NPO until procedure - Plan to continue Cefoxy/Doxy/Flagyl for another 48h and monitor CBCs daily to monitor leukocytosis - If patient fails to improve clinically after drainage of TOA, she would likely need surgical intervention Signed: MD Maritza Valero Carla M.D. Dec 16, 2018 08:08
[2018-12-16 08:18] LABS: PHOSPHORUS 3.1 MG/DL (2.5-4.9)
[2018-12-16] MEDS ORDERED: Lidocaine 1% Plain 30 ml INJ ONE (09:00)
[2018-12-16] MEDS: Enoxaparin 30mg Inj SUBQ SCH ×3 (09:00→21:38)
[2018-12-16] MEDS: Enoxaparin 80mg Inj SUBQ SCH ×3 (09:00→21:39)
--- NOTE | 2018-12-16 09:50 | General Progress Note ---
Assessment/Plan Problem List: (1) Ovarian cyst ICD Codes: N83.209 - Unspecified ovarian cyst, unspecified side SNOMED: 84891197 (2) Hepatomegaly ICD Codes: R16.0 - Hepatomegaly, not elsewhere classified SNOMED: 11722782 (3) Cholelithiasis ICD Codes: K80.20 - Calculus of gallbladder without cholecystitis without obstruction SNOMED: 652886222 (4) Elevated LFTs ICD Codes: R94.5 - Abnormal results of liver function studies SNOMED: 086493053, 338770466 (5) A-fib ICD Codes: I48.91 - Unspecified atrial fibrillation SNOMED: 13619263 (6) RI (7) Hypoalbuminemia ICD Codes: E88.09 - Other disorders of plasma-protein metabolism, not elsewhere classified SNOMED: 940576816 (8) Adrenal mass ICD Codes: E27.8 - Other specified disorders of adrenal gland SNOMED: 788132262 (9) Abdominal pain ICD Codes: R10.9 - Unspecified abdominal pain SNOMED: 76965132 Qualifiers: Qualified Codes: R10.31 - Right lower quadrant pain (10) Uterine fibroid ICD Codes: D25.9 - Leiomyoma of uterus, unspecified SNOMED: 94356671 (11) Cocaine abuse ICD Codes: F14.10 - Cocaine abuse, uncomplicated SNOMED: 85996948 Status: unchanged Assessment/Plan: HIDA scan>> pending ABx per ID fu cardiology repeat labs full liquid drug screen>>. positive for cocaine fu [employer] Subjective ROS Limited/Unobtainable: Yes Allergies: Coded Allergies: No Known Allergies (Unverified , 07/24/17) Subjective abd pain Objective Last 24 Hour Vital Signs Date Time Temp Pulse Resp B/P (MAP) Pulse Ox O2 Delivery O2 Flow Rate FiO2 12/16/18 07:00 86 22 142/71 (94) 100 12/16/18 06:25 88 137/64 12/16/18 06:00 87 22 137/64 (88) 100 12/16/18 05:00 80 22 130/88 (102) 100 12/16/18 04:00 99.0 84 22 108/88 (95) 100 12/16/18 04:00 81 12/16/18 04:00 Nasal Cannula 2.0 12/16/18 03:00 82 23 119/62 (81) 100 12/16/18 02:00 87 27 136/72 (93) 97 12/16/18 01:00 89 23 142/68 (92) 96 12/16/18 00:57 88 25 144/74 (97) 96 12/16/18 00:00 89 12/16/18 00:00 Nasal Cannula 2.0 12/16/18 00:00 99.8 92 35 140/47 (78) 100 12/15/18 23:51 94 135/56 12/15/18 23:47 98.0 12/15/18 23:30 90 26 130/52 (78) 97 12/15/18 23:00 100.5 91 28 135/56 (82) 97 12/15/18 22:00 90 28 144/70 (94) 97 12/15/18 21:26 143/74 12/15/18 21:00 97 27 148/74 (98) 97 12/15/18 20:32 98 Nasal Cannula 2.0 12/15/18 20:00 Nasal Cannula 2.0 12/15/18 20:00 98.3 92 27 153/73 (99) 96 12/15/18 19:00 90 31 159/75 (103) 98 12/15/18 18:00 90 31 160/80 (106) 99 12/15/18 17:30 85 27 160/78 (105) 98 12/15/18 17:20 87 152/78 12/15/18 17:00 83 24 147/70 (95) 97 12/15/18 16:00 69 12/15/18 16:00 98.2 70 25 152/78 (102) 100 12/15/18 16:00 Nasal Cannula 2.0 12/15/18 15:00 84 25 133/73 (93) 99 12/15/18 14:57 98.8 12/15/18 14:00 85 27 137/61 (86) 98 12/15/18 13:30 87 24 146/77 (100) 98 12/15/18 13:00 88 23 151/72 (98) 98 12/15/18 12:30 90 24 142/79 (100) 98 12/15/18 12:29 94 161/78 12/15/18 12:00 94 12/15/18 12:00 98.8 90 25 156/78 (104) 96 12/15/18 12:00 Nasal Cannula 2.0 12/15/18 11:00 94 24 161/78 (105) 98 12/15/18 10:30 100.5 94 26 173/82 (112) 98 12/15/18 10:25 97 12/15/18 10:00 93 29 143/76 (98) 98 Intake and Output 12/15/18 12/16/18 18:59 06:59 Intake Total 1028.5 ml 1497.5 ml Output Total 500 ml Balance 1028.5 ml 997.5 ml Intake Oral 100 ml 590 ml IV Total 928.5 ml 907.5 ml Output Urine Total 500 ml # Voids 4 6 # Bowel Movements 3 1 Laboratory Tests 12/15/18 17:45: Urine Opiates Screen PositiveH, Urine Barbiturates Screen Negative, Phencyclidine (PCP) Screen Negative, Urine Amphetamines Screen Negative, Urine Benzodiazepines Screen Negative, Urine Cocaine Screen PositiveH, Urine Marijuana (THC) Screen Negative, Neisseria gonorrhoeae RNA [Pending] 12/16/18 04:26: White Blood Count 18.3H, Red Blood Count 5.12, Hemoglobin 13.7, Hematocrit 42.9 , Mean Corpuscular Volume 84, Mean Corpuscular Hemoglobin 26.7L, Mean Corpuscular Hemoglobin Concent 31.8L, Red Cell Distribution Width 13.8, Platelet Count 250, Mean Platelet Volume 7.0, Neutrophils (%) (Auto) , Lymphocytes (%) (Auto) , Monocytes (%) (Auto) , Eosinophils (%) (Auto) , Basophils (%) (Auto) , Differential Total Cells Counted 100, Neutrophils % ( Manual) 87H, Lymphocytes % (Manual) 5L, Monocytes % (Manual) 6, Eosinophils % ( Manual) 0, Basophils % (Manual) 0, Band Neutrophils 2, Platelet Estimate Adequate, Platelet Morphology Normal, Hypochromasia 1+, Prothrombin Time 11.8H, Prothromb Time International Ratio 1.1, Activated Partial Thromboplast Time 37H , Sodium Level 140, Potassium Level 3.1L, Chloride Level 106, Carbon Dioxide Level 24, Anion Gap 10, Blood Urea Nitrogen 18, Creatinine 0.7, Estimat Glomerular Filtration Rate > 60, Glucose Level 112H, Calcium Level 8.1L, Phosphorus Level 3.1, Magnesium Level 2.0, Total Bilirubin 2.3H, Direct Bilirubin 1.8H, Aspartate Amino Transf (AST/SGOT) 17, Alanine Aminotransferase ( ALT/SGPT) 11L, Alkaline Phosphatase 155H, Total Protein 5.5L, Albumin 1.5L, Globulin 4.0, Albumin/Globulin Ratio 0.4L Height (Feet): 5 Height (Inches): 4.00 Weight (Pounds): 238 General Appearance: alert EENT: normal ENT inspection Neck: supple Cardiovascular: tachycardia Respiratory/Chest: decreased breath sounds Abdomen: soft, decreased bowel sounds, tender Extremities: non-tender Alan Aguero MD Dec 16, 2018 09:50
[2018-12-16] MEDS: Doxycycline Monohydrate 100mg ORAL SCH ×2 (10:11→21:36)
[2018-12-16] MEDS: Lisinopril 10mg tab ORAL SCH ×2 (10:14→21:37)
--- NOTE | 2018-12-16 10:15 | NUR ---
NURSE NOTES: ORDER RECEIVED FROM DR SANCHEZ FOR CT GUIDED DRAINAGE ABDOMINAL ABSCESS.CALLED SISTER GRETEL FOR CONSENT BUT CONSENT NOT GIVEN AT THIS TIME BECAUSE SHE NEEDS MORE CLARIFICATION ON THE PROCEDURE.DR SANCHEZ PAGED AND MADE AWARE.
[2018-12-16] MEDS: Morphine Sulfate 2mg/ml Inj(IV/IM USE ONLY) IVP PRN ×2 (10:22→17:54)
--- NOTE | 2018-12-16 11:15 | NUR ---
NURSE NOTES: CALLED RECEIVED FROM DR SANCHEZ AND STATED SHE ALREADY DISCUSS WITH THE FAMILY.CALL BACK SISTER GRETEL AND CONSENT RECEIVED,
--- NOTE | 2018-12-16 11:15 | Infectious Diseases Prog Note ---
Assessment/Plan Assessment/Plan antibiotics : zosyn, doxycycline A 1. tubo ovarian abscess 2. leucocytosis improving 3. klebsiella UTI 4. atrial fibrillation P 1. continue zosyn, doxycycline 2. will follow up cultures Subjective Constitutional: Denies: fever, chills Respiratory: Denies: shortness of breath, dry cough Gastrointestinal/Abdominal: Denies: nausea, vomiting, diarrhea Musculoskeletal: Reports: pain - abdominal Allergies: Coded Allergies: No Known Allergies (Unverified , 07/24/17) Objective Vital Signs Last 24 Hour Vital Signs Date Time Temp Pulse Resp B/P (MAP) Pulse Ox O2 Delivery O2 Flow Rate FiO2 12/16/18 10:14 151/77 12/16/18 10:14 95 12/16/18 07:00 86 22 142/71 (94) 100 12/16/18 06:25 88 137/64 12/16/18 06:00 87 22 137/64 (88) 100 12/16/18 05:00 80 22 130/88 (102) 100 12/16/18 04:00 99.0 84 22 108/88 (95) 100 12/16/18 04:00 81 12/16/18 04:00 Nasal Cannula 2.0 12/16/18 03:00 82 23 119/62 (81) 100 12/16/18 02:00 87 27 136/72 (93) 97 12/16/18 01:00 89 23 142/68 (92) 96 12/16/18 00:57 88 25 144/74 (97) 96 12/16/18 00:00 89 12/16/18 00:00 Nasal Cannula 2.0 12/16/18 00:00 99.8 92 35 140/47 (78) 100 12/15/18 23:51 94 135/56 12/15/18 23:47 98.0 12/15/18 23:30 90 26 130/52 (78) 97 12/15/18 23:00 100.5 91 28 135/56 (82) 97 12/15/18 22:00 90 28 144/70 (94) 97 12/15/18 21:26 143/74 12/15/18 21:00 97 27 148/74 (98) 97 12/15/18 20:32 98 Nasal Cannula 2.0 12/15/18 20:00 Nasal Cannula 2.0 12/15/18 20:00 98.3 92 27 153/73 (99) 96 12/15/18 19:00 90 31 159/75 (103) 98 12/15/18 18:00 90 31 160/80 (106) 99 12/15/18 17:30 85 27 160/78 (105) 98 12/15/18 17:20 87 152/78 12/15/18 17:00 83 24 147/70 (95) 97 12/15/18 16:00 69 12/15/18 16:00 98.2 70 25 152/78 (102) 100 12/15/18 16:00 Nasal Cannula 2.0 12/15/18 15:00 84 25 133/73 (93) 99 12/15/18 14:57 98.8 12/15/18 14:00 85 27 137/61 (86) 98 12/15/18 13:30 87 24 146/77 (100) 98 12/15/18 13:00 88 23 151/72 (98) 98 12/15/18 12:30 90 24 142/79 (100) 98 12/15/18 12:29 94 161/78 12/15/18 12:00 94 12/15/18 12:00 98.8 90 25 156/78 (104) 96 12/15/18 12:00 Nasal Cannula 2.0 Height (Feet): 5 Height (Inches): 4.00 Weight (Pounds): 238 Respiratory/Chest: lungs clear Cardiovascular: normal rate, regular rhythm, no gallop/murmur Abdomen: tender - RLQ Extremities: no edema Laboratory Tests Test 12/15/18 17:45 12/16/18 04:26 Urine Opiates Screen Positive (NEGATIVE) H Urine Barbiturates Screen Negative (NEGATIVE) Phencyclidine (PCP) Screen Negative (NEGATIVE) Urine Amphetamines Screen Negative (NEGATIVE) Urine Benzodiazepines Screen Negative (NEGATIVE) Urine Cocaine Screen Positive (NEGATIVE) H Urine Marijuana (THC) Screen Negative (NEGATIVE) Neisseria gonorrhoeae RNA Pending White Blood Count 18.3 K/UL (4.8-10.8) H Red Blood Count 5.12 M/UL (4.20-5.40) Hemoglobin 13.7 G/DL (12.0-16.0) Hematocrit 42.9 % (37.0-47.0) Mean Corpuscular Volume 84 FL (80-99) Mean Corpuscular Hemoglobin 26.7 PG (27.0-31.0) L Mean Corpuscular Hemoglobin Concent 31.8 G/DL (32.0-36.0) L Red Cell Distribution Width 13.8 % (11.6-14.8) Platelet Count 250 K/UL (150-450) Mean Platelet Volume 7.0 FL (6.5-10.1) Neutrophils (%) (Auto) % (45.0-75.0) Lymphocytes (%) (Auto) % (20.0-45.0) Monocytes (%) (Auto) % (1.0-10.0) Eosinophils (%) (Auto) % (0.0-3.0) Basophils (%) (Auto) % (0.0-2.0) Differential Total Cells Counted 100 Neutrophils % (Manual) 87 % (45-75) H Lymphocytes % (Manual) 5 % (20-45) L Monocytes % (Manual) 6 % (1-10) Eosinophils % (Manual) 0 % (0-3) Basophils % (Manual) 0 % (0-2) Band Neutrophils 2 % (0-8) Platelet Estimate Adequate Platelet Morphology Normal Hypochromasia 1+ Prothrombin Time 11.8 SEC (9.30-11.50) H Prothromb Time International Ratio 1.1 (0.9-1.1) Activated Partial Thromboplast Time 37 SEC (23-33) H Sodium Level 140 MMOL/L (136-145) Potassium Level 3.1 MMOL/L (3.5-5.1) L Chloride Level 106 MMOL/L (98-107) Carbon Dioxide Level 24 MMOL/L (21-32) Anion Gap 10 mmol/L (5-15) Blood Urea Nitrogen 18 mg/dL (7-18) Creatinine 0.7 MG/DL (0.55-1.30) Estimat Glomerular Filtration Rate > 60 mL/min (>60) Glucose Level 112 MG/DL (74-106) H Calcium Level 8.1 MG/DL (8.5-10.1) L Phosphorus Level 3.1 MG/DL (2.5-4.9) Magnesium Level 2.0 MG/DL (1.8-2.4) Total Bilirubin 2.3 MG/DL (0.2-1.0) H Direct Bilirubin 1.8 MG/DL (0.0-0.3) H Aspartate Amino Transf (AST/SGOT) 17 U/L (15-37) Alanine Aminotransferase (ALT/SGPT) 11 U/L (12-78) L Alkaline Phosphatase 155 U/L (46-116) H Total Protein 5.5 G/DL (6.4-8.2) L Albumin 1.5 G/DL (3.4-5.0) L Globulin 4.0 g/dL Albumin/Globulin Ratio 0.4 (1.0-2.7) L Current Medications Medications (Trade) Dose Ordered Sig/Alfredo Route PRN Reason Start Time Stop Time Status Last Admin Dose Admin Acetaminophen (Tylenol) 650 mg Q6H PRN ORAL Mild Pain/Temp > 100.5 12/14/18 14:00 01/11/19 13:59 12/15/18 23:17 Acetaminophen/ Hydrocodone Bitart (Marshall 5/325) 1 tab Q6H PRN ORAL Moderate Pain (Pain Scale 4-6) 12/14/18 14:00 12/19/18 13:59 12/15/18 05:10 Al Hydroxide/Mg Hydroxide (Mylanta II) 30 ml Q6H PRN ORAL dyspepsia 12/14/18 14:00 01/11/19 13:59 Dextrose (Dextrose 50%) 25 ml Q30M PRN IV Hypoglycemia 12/14/18 14:00 01/11/19 13:59 Dextrose (Dextrose 50%) 50 ml Q30M PRN IV Hypoglycemia 12/14/18 14:00 01/11/19 13:59 Digoxin (Lanoxin) 0.25 mg DAILY ORAL 12/15/18 10:00 01/14/19 09:59 12/16/18 10:14 Diltiazem HCl (Cardizem) 90 mg EVERY 6 HOURS ORAL 12/15/18 12:00 01/14/19 11:59 12/16/18 06:25 Diphenhydramine HCl (Benadryl) 25 mg Q6H PRN ORAL Itching/Pruritis 12/14/18 14:00 01/11/19 13:59 Doxycycline Monohydrate (Doxycycline Monohydrate) 100 mg EVERY 12 HOURS ORAL 12/15/18 09:30 12/22/18 09:29 12/16/18 10:11 Enoxaparin Sodium (Lovenox) 30 mg Q12HR SUBQ 12/15/18 11:00 01/14/19 10:59 12/16/18 10:12 Enoxaparin Sodium (Lovenox) 80 mg Q12HR SUBQ 12/15/18 11:00 01/14/19 10:59 12/16/18 10:13 Famotidine (Pepcid I.v.) 20 mg Q12HR IVP 12/14/18 21:00 01/11/19 20:59 12/16/18 10:15 Hydralazine HCl (Apresoline) 10 mg Q2H PRN ORAL HYPERTENSION 12/15/18 09:45 01/14/19 09:44 Iohexol (OMNIPAQUE-300 100ml) 100 ml NOW PRN INJ Radiology Procedure 12/15/18 11:45 12/16/18 23:59 Lisinopril (Zestril) 10 mg Q12HR ORAL 12/15/18 21:00 01/14/19 20:59 12/16/18 10:14 Lorazepam (Ativan) 1 mg Q4H PRN ORAL For Anxiety 12/14/18 13:00 12/19/18 20:59 Morphine Sulfate (Morphine Sulfate) 1 mg Q4H PRN IVP Severe Pain (Pain Scale 7-10) 12/14/18 14:00 12/19/18 13:59 12/16/18 10:22 Ondansetron HCl (Zofran) 4 mg Q6H PRN IVP Nausea & Vomiting 12/14/18 14:00 01/11/19 13:59 Piperacillin Sod/ Tazobactam Sod 3.375 gm/Sodium Chloride 110 ml @ 27.5 mls/hr Q8H IVPB 12/15/18 10:00 12/22/18 09:59 12/16/18 10:14 Potassium Chloride/Sodium Chloride 1,000 ml @ 75 mls/hr [id number] IV 12/14/18 13:30 01/11/19 13:29 12/16/18 06:32 Potassium Chloride 100 ml @ 100 mls/hr Q1HR IVPB 12/16/18 09:00 12/16/18 12:59 12/16/18 10:10 Temazepam (Restoril) 15 mg HSPRN PRN ORAL Insomnia 12/14/18 21:00 12/20/18 20:59 Davin Rowland MD Dec 16, 2018 11:15
--- NOTE | 2018-12-16 11:45 | NUR ---
NURSE NOTES: Dr Thompson paged and waiting for call back for cardiac clearance of CT Guided Drainage of abdominal abscess
--- NOTE | 2018-12-16 11:59 | Diagnostic Imaging Report ---
Indication: Abdominal Pain Technique: 5.5 mCi of technetium 99 m-Choletec was injected intravenously. Planar imaging of the abdomen was then performed every 5 minutes up to 30 minutes and every 10 minutes up to one hour. Oblique views were also obtained. Findings: There is prompt uptake within the liver with good washout of radiotracer from the liver on subsequent imaging. There is excretion into the biliary ducts. Gallbladder activity is present in a timely fashion indicating patency of the cystic duct. Bowel activity is demonstrated in a timely fashion indicating patency of the common bile duct. Impression: Normal HIDA scan
--- NOTE | 2018-12-16 12:19 | NUR ---
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 98.5 HR 95 RR 22 B/P 151/77 WBC 18.3 K 3.1 IS: ZOSYN IV IVF NS KCL@ 75ML/HR KCL IV ICU STATUS
--- NOTE | 2018-12-16 12:54 | NUR ---
NURSE NOTES: Pt can not go for CT guided drainage abdomen abscess because there is no cardiac clearance yet. Dr Salas, radilogy and sister Sage Gonsalez made aware. Still waiting Dr Donna navas
--- NOTE | 2018-12-16 13:00 | Progress Note ---
DATE: 12/15/2018 SUBJECTIVE: . The patient is still complaining of abdominal pain. Pain is slightly better, but is still having abdominal pain, which is controlled with medication. The patient is currently in the ICU, going to be . The patient earlier had seen SLEEVE WHEEL MAKER vaginal ultrasound was discussed with the patient. The patient agreed at this time. We are going to do the transvaginal ultrasound and probably having a drainage for ovarian cyst. The patient is going to continue IV antibiotics. Continue digoxin. Continue Cardizem. Cardiology, SLEEVE WHEEL MAKER, and Surgery are on the case. Discussed with the charge nurse. Fabiano Berkowitz M.D. DR: Noa JOB#: [id number] CC:
--- NOTE | 2018-12-16 13:27 | Cardiac Electrophysiology PN ---
Assessment/Plan Assessment/Plan 1. Atrial fibrillation with rapid ventricular response. Off Cardizem drip and on Cardizem 90 q6 and Digoxin 0.25 daily. Echo showed normal left ventricular systolic function with ejection fraction of around 65%. on Lovenox 1mg/kg sq bid. Last dose last night. 2. Hypertension. Continue Cardizem and Lisinopril. 3. Right-sided abdominal pain likely secondary to infectious plus hemorrhagic right ovarian cyst. Follow up by GI and Surgery. Follow up with ID and PLATFORM STAPLER recommendation. OK to proceed with CT Guided aspiration of the abdominal abscess 4. Sepsis with white count of more than 20,000. On IV antibiotic per ID. EDWARD RN and Dr Rama Salas, the financial aid coordinator on the case Subjective Subjective Remained in SR. NPO except meds for CT guided drainage of pelvic abscess Objective Last 24 Hour Vital Signs Date Time Temp Pulse Resp B/P (MAP) Pulse Ox O2 Delivery O2 Flow Rate FiO2 12/16/18 10:52 98.5 12/16/18 10:14 151/77 12/16/18 10:14 95 12/16/18 07:00 86 22 142/71 (94) 100 12/16/18 06:25 88 137/64 12/16/18 06:00 87 22 137/64 (88) 100 12/16/18 05:00 80 22 130/88 (102) 100 12/16/18 04:00 99.0 84 22 108/88 (95) 100 12/16/18 04:00 81 12/16/18 04:00 Nasal Cannula 2.0 12/16/18 03:00 82 23 119/62 (81) 100 12/16/18 02:00 87 27 136/72 (93) 97 12/16/18 01:00 89 23 142/68 (92) 96 12/16/18 00:57 88 25 144/74 (97) 96 12/16/18 00:00 89 12/16/18 00:00 Nasal Cannula 2.0 12/16/18 00:00 99.8 92 35 140/47 (78) 100 12/15/18 23:51 94 135/56 12/15/18 23:47 98.0 12/15/18 23:30 90 26 130/52 (78) 97 12/15/18 23:00 100.5 91 28 135/56 (82) 97 12/15/18 22:00 90 28 144/70 (94) 97 12/15/18 21:26 143/74 12/15/18 21:00 97 27 148/74 (98) 97 12/15/18 20:32 98 Nasal Cannula 2.0 12/15/18 20:00 Nasal Cannula 2.0 12/15/18 20:00 98.3 92 27 153/73 (99) 96 12/15/18 19:00 90 31 159/75 (103) 98 12/15/18 18:00 90 31 160/80 (106) 99 12/15/18 17:30 85 27 160/78 (105) 98 12/15/18 17:20 87 152/78 12/15/18 17:00 83 24 147/70 (95) 97 12/15/18 16:00 69 12/15/18 16:00 98.2 70 25 152/78 (102) 100 12/15/18 16:00 Nasal Cannula 2.0 12/15/18 15:00 84 25 133/73 (93) 99 12/15/18 14:00 85 27 137/61 (86) 98 12/15/18 13:30 87 24 146/77 (100) 98 Intake and Output 12/15/18 12/16/18 19:00 07:00 Intake Total 971.0 ml 1395.0 ml Output Total 500 ml Balance 971.0 ml 895.0 ml Intake Oral 100 ml 590 ml IV Total 871.0 ml 805.0 ml Output Urine Total 500 ml # Voids 5 5 # Bowel Movements 3 1 Laboratory Tests Test 12/15/18 17:45 12/16/18 04:26 Urine Opiates Screen Positive (NEGATIVE) H Urine Barbiturates Screen Negative (NEGATIVE) Phencyclidine (PCP) Screen Negative (NEGATIVE) Urine Amphetamines Screen Negative (NEGATIVE) Urine Benzodiazepines Screen Negative (NEGATIVE) Urine Cocaine Screen Positive (NEGATIVE) H Urine Marijuana (THC) Screen Negative (NEGATIVE) Neisseria gonorrhoeae RNA Pending White Blood Count 18.3 K/UL (4.8-10.8) H Red Blood Count 5.12 M/UL (4.20-5.40) Hemoglobin 13.7 G/DL (12.0-16.0) Hematocrit 42.9 % (37.0-47.0) Mean Corpuscular Volume 84 FL (80-99) Mean Corpuscular Hemoglobin 26.7 PG (27.0-31.0) L Mean Corpuscular Hemoglobin Concent 31.8 G/DL (32.0-36.0) L Red Cell Distribution Width 13.8 % (11.6-14.8) Platelet Count 250 K/UL (150-450) Mean Platelet Volume 7.0 FL (6.5-10.1) Neutrophils (%) (Auto) % (45.0-75.0) Lymphocytes (%) (Auto) % (20.0-45.0) Monocytes (%) (Auto) % (1.0-10.0) Eosinophils (%) (Auto) % (0.0-3.0) Basophils (%) (Auto) % (0.0-2.0) Differential Total Cells Counted 100 Neutrophils % (Manual) 87 % (45-75) H Lymphocytes % (Manual) 5 % (20-45) L Monocytes % (Manual) 6 % (1-10) Eosinophils % (Manual) 0 % (0-3) Basophils % (Manual) 0 % (0-2) Band Neutrophils 2 % (0-8) Platelet Estimate Adequate Platelet Morphology Normal Hypochromasia 1+ Prothrombin Time 11.8 SEC (9.30-11.50) H Prothromb Time International Ratio 1.1 (0.9-1.1) Activated Partial Thromboplast Time 37 SEC (23-33) H Sodium Level 140 MMOL/L (136-145) Potassium Level 3.1 MMOL/L (3.5-5.1) L Chloride Level 106 MMOL/L (98-107) Carbon Dioxide Level 24 MMOL/L (21-32) Anion Gap 10 mmol/L (5-15) Blood Urea Nitrogen 18 mg/dL (7-18) Creatinine 0.7 MG/DL (0.55-1.30) Estimat Glomerular Filtration Rate > 60 mL/min (>60) Glucose Level 112 MG/DL (74-106) H Calcium Level 8.1 MG/DL (8.5-10.1) L Phosphorus Level 3.1 MG/DL (2.5-4.9) Magnesium Level 2.0 MG/DL (1.8-2.4) Total Bilirubin 2.3 MG/DL (0.2-1.0) H Direct Bilirubin 1.8 MG/DL (0.0-0.3) H Aspartate Amino Transf (AST/SGOT) 17 U/L (15-37) Alanine Aminotransferase (ALT/SGPT) 11 U/L (12-78) L Alkaline Phosphatase 155 U/L (46-116) H Total Protein 5.5 G/DL (6.4-8.2) L Albumin 1.5 G/DL (3.4-5.0) L Globulin 4.0 g/dL Albumin/Globulin Ratio 0.4 (1.0-2.7) L Objective HEAD AND NECK: No JVD. HEART: Regular S1 and S2 with no gallop, murmur. LUNGS: CTA ABDOMEN: Obese. EXTREMITIES: No pitting edema. Ha Thompson MD Dec 16, 2018 13:27
--- NOTE | 2018-12-16 14:00 | NUR ---
NURSE NOTES: PATIENT CLEAR BY DR MARTINEZ COMMERCIAL REVIEW APPRAISER FOR CT GUIDED ABDOMINAL ABSCESS DRAINAGE. UNABLE TO REACH SISTER GRETEL.DR SANCHEZ MADE AWARE
--- NOTE | 2018-12-16 14:46 | Diagnostic Imaging Report ---
Indication: Right Lower abdominal and pelvic pain. Leukocytosis Technique: Grayscale and duplex Doppler imaging of the pelvis performed utilizing a transabdominal and endovaginal scan. Comparison: Ultrasound 12/12/2018, CT abdomen pelvis 12/12/2018 Findings: The size, contour, and configuration of the uterus is within normal limits. The endometrium is uniformly echogenic and normal in thickness measuring 5 mm. There is a nabothian cysts within the cervix measuring about 7 mm. The ovaries are not seen. There is a mild amount of free fluid within the cul-de-sac. IMPRESSION: Nonvisualization of the ovaries. Mild free fluid.
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
--- NOTE | 2018-12-16 15:13 | NUR ---
NURSE NOTES: PT TAKEN DOWN FOR CT UNABLE TO REACH SISTER GRETEL FOR UPDATE
--- NOTE | 2018-12-16 15:52 | Surgery Progress Note ---
Surgery Progress Note Subjective Additional Comments leukocytosis 18k exam stable pain somewhati mproved planned for IR drainage today discussed with BAKER TEST Objective Last 24 Hour Vital Signs Date Time Temp Pulse Resp B/P (MAP) Pulse Ox O2 Delivery O2 Flow Rate FiO2 12/16/18 15:25 85 18 12/16/18 15:00 89 26 136/79 (98) 100 12/16/18 14:02 87 118/78 12/16/18 14:00 87 37 131/66 (87) 100 12/16/18 13:00 86 24 118/78 (91) 99 12/16/18 12:00 Nasal Cannula 2.0 12/16/18 12:00 98.4 86 24 141/70 (93) 99 12/16/18 12:00 86 12/16/18 11:00 88 26 154/80 (104) 100 12/16/18 10:52 98.5 12/16/18 10:14 151/77 12/16/18 10:14 95 12/16/18 10:00 88 30 152/77 (102) 97 12/16/18 09:00 87 27 142/74 (96) 96 12/16/18 08:00 87 12/16/18 08:00 98.5 87 30 145/71 (95) 98 12/16/18 08:00 Nasal Cannula 2.0 12/16/18 07:00 86 22 142/71 (94) 100 12/16/18 06:25 88 137/64 12/16/18 06:00 87 22 137/64 (88) 100 12/16/18 05:00 80 22 130/88 (102) 100 12/16/18 04:00 99.0 84 22 108/88 (95) 100 12/16/18 04:00 81 12/16/18 04:00 Nasal Cannula 2.0 12/16/18 03:00 82 23 119/62 (81) 100 12/16/18 02:00 87 27 136/72 (93) 97 12/16/18 01:00 89 23 142/68 (92) 96 12/16/18 00:57 88 25 144/74 (97) 96 12/16/18 00:00 89 12/16/18 00:00 Nasal Cannula 2.0 12/16/18 00:00 99.8 92 35 140/47 (78) 100 12/15/18 23:51 94 135/56 12/15/18 23:47 98.0 12/15/18 23:30 90 26 130/52 (78) 97 12/15/18 23:00 100.5 91 28 135/56 (82) 97 12/15/18 22:00 90 28 144/70 (94) 97 12/15/18 21:26 143/74 12/15/18 21:00 97 27 148/74 (98) 97 12/15/18 20:32 98 Nasal Cannula 2.0 12/15/18 20:00 Nasal Cannula 2.0 12/15/18 20:00 98.3 92 27 153/73 (99) 96 12/15/18 19:00 90 31 159/75 (103) 98 12/15/18 18:00 90 31 160/80 (106) 99 12/15/18 17:30 85 27 160/78 (105) 98 12/15/18 17:20 87 152/78 12/15/18 17:00 83 24 147/70 (95) 97 12/15/18 16:00 69 12/15/18 16:00 98.2 70 25 152/78 (102) 100 12/15/18 16:00 Nasal Cannula 2.0 I&O Intake and Output 12/15/18 12/16/18 19:00 07:00 Intake Total 971.0 ml 1430.0 ml Output Total 500 ml Balance 971.0 ml 930.0 ml Intake Oral 100 ml 590 ml IV Total 871.0 ml 840.0 ml Output Urine Total 500 ml # Voids 5 5 # Bowel Movements 3 1 Cardiovascular: RSR Respiratory: clear Abdomen: soft, tenderness, present bowel sounds, non-distended Extremities: no tenderness, no cyanosis Laboratory Tests Test 12/15/18 17:45 12/16/18 04:26 Urine Opiates Screen Positive (NEGATIVE) H Urine Barbiturates Screen Negative (NEGATIVE) Phencyclidine (PCP) Screen Negative (NEGATIVE) Urine Amphetamines Screen Negative (NEGATIVE) Urine Benzodiazepines Screen Negative (NEGATIVE) Urine Cocaine Screen Positive (NEGATIVE) H Urine Marijuana (THC) Screen Negative (NEGATIVE) Neisseria gonorrhoeae RNA Pending White Blood Count 18.3 K/UL (4.8-10.8) H Red Blood Count 5.12 M/UL (4.20-5.40) Hemoglobin 13.7 G/DL (12.0-16.0) Hematocrit 42.9 % (37.0-47.0) Mean Corpuscular Volume 84 FL (80-99) Mean Corpuscular Hemoglobin 26.7 PG (27.0-31.0) L Mean Corpuscular Hemoglobin Concent 31.8 G/DL (32.0-36.0) L Red Cell Distribution Width 13.8 % (11.6-14.8) Platelet Count 250 K/UL (150-450) Mean Platelet Volume 7.0 FL (6.5-10.1) Neutrophils (%) (Auto) % (45.0-75.0) Lymphocytes (%) (Auto) % (20.0-45.0) Monocytes (%) (Auto) % (1.0-10.0) Eosinophils (%) (Auto) % (0.0-3.0) Basophils (%) (Auto) % (0.0-2.0) Differential Total Cells Counted 100 Neutrophils % (Manual) 87 % (45-75) H Lymphocytes % (Manual) 5 % (20-45) L Monocytes % (Manual) 6 % (1-10) Eosinophils % (Manual) 0 % (0-3) Basophils % (Manual) 0 % (0-2) Band Neutrophils 2 % (0-8) Platelet Estimate Adequate Platelet Morphology Normal Hypochromasia 1+ Prothrombin Time 11.8 SEC (9.30-11.50) H Prothromb Time International Ratio 1.1 (0.9-1.1) Activated Partial Thromboplast Time 37 SEC (23-33) H Sodium Level 140 MMOL/L (136-145) Potassium Level 3.1 MMOL/L (3.5-5.1) L Chloride Level 106 MMOL/L (98-107) Carbon Dioxide Level 24 MMOL/L (21-32) Anion Gap 10 mmol/L (5-15) Blood Urea Nitrogen 18 mg/dL (7-18) Creatinine 0.7 MG/DL (0.55-1.30) Estimat Glomerular Filtration Rate > 60 mL/min (>60) Glucose Level 112 MG/DL (74-106) H Calcium Level 8.1 MG/DL (8.5-10.1) L Phosphorus Level 3.1 MG/DL (2.5-4.9) Magnesium Level 2.0 MG/DL (1.8-2.4) Total Bilirubin 2.3 MG/DL (0.2-1.0) H Direct Bilirubin 1.8 MG/DL (0.0-0.3) H Aspartate Amino Transf (AST/SGOT) 17 U/L (15-37) Alanine Aminotransferase (ALT/SGPT) 11 U/L (12-78) L Alkaline Phosphatase 155 U/L (46-116) H Total Protein 5.5 G/DL (6.4-8.2) L Albumin 1.5 G/DL (3.4-5.0) L Globulin 4.0 g/dL Albumin/Globulin Ratio 0.4 (1.0-2.7) L Plan Problems: (1) Abdominal pain Assessment & Plan: 53-year-old female with abdominal pain for the past 2 days worsening started his right flank now on her right mid abdomen and lower quadrant. Afebrile, hemodynamically stable, leukocytosis 20,000. Labs otherwise normal. Right-sided abdominal tenderness on examination with voluntary guarding but no rebound CT reviewed with radiologist and as noted in his dictation. Possible tubo-ovarian site abscess, hemorrhagic ovarian cyst, mesenteric infarct, enteritis. At this time needs further work-up and management. A.m. labs. Infectious disease input GI input noted in ICU for a fib. cardiology input noted appreciate MARKET EDITOR input discussed with cash management specialist - possible OR plan for IR drainage today cont abx okay for diet Abx UTI will follow Thank you for this consultation we will follow with recommendations and serial exams. Ganga Mancuso Dec 16, 2018 15:52
--- NOTE | 2018-12-16 16:06 | General Progress Note ---
Progress Note Progress Note Radiology note: s/p CT guided aspiration and drainage of a right Adnexal cystic lesion. Aspirated several CCs of purulent appearing, tannish fluid. Sent for C&S, g.stain, anerobes. Placed 8.5 fr pigtail within the collection. No complications. Patient tolerated procedure well. Angel Michelle MD Dec 16, 2018 16:06
--- NOTE | 2018-12-16 16:15 | NUR ---
NURSE NOTES: S/p CT guided aspiration and drainage of a right Adnexal cystic lesion with 50cc purulent drainage removed . Patient tolerated procedure well. Drainage sent for C&S, gram stain, anaerobes.Patient on 8.5 fr pigtail collection drainage bag right lower abdomen noted with small amount purulent drainage.Sister Sage made aware.
--- NOTE | 2018-12-16 18:02 | NUR ---
NURSE NOTES: PT HELP IN TURNING REPOSITIONING.MORPHINE GIVEN FOR PAIN 09/28. NO APPARENT ACUTE DISTRESS. HOB ELEVATED TO PREVENT ASPIRATION.WILL CONTINUE MONITOR
--- NOTE | 2018-12-16 18:20 | NUR ---
NURSE NOTES: PER DR SUMMERS, RESUME PREVIOUS DIET , CBC,BMP ,PT/OT TOMORROW.ORDER NOTED AND CARRIED OUT
--- NOTE | 2018-12-16 19:45 | NUR ---
HAND-OFF: Report given to HENOK Alcala.
--- NOTE | 2018-12-16 19:50 | NUR ---
NURSE NOTES: Recvd.quiet in bed AAO S/P CT-drainage of Abd'l Abcess,post-op site clean and dry.Drainage tube to bag compressed with minimal serous drain.Denies pain.BS active.Full liq.diet Milla.See V/S Scope SR.No CP.Sat.99-100% on RA.
--- NOTE | 2018-12-16 21:45 | Progress Note ---
DATE: 12/16/2018 SUBJECTIVE: This is a 63-year-old female who is admitted for possible abscess, diverticulitis, abscess and ovarian cyst. The patient has intractable pain and unable to eat any diet. LABORATORY DATA: White counts are high. The patient this morning underwent a CT-guided drainage. The patient has drained about 50 mL of purulent fluid. The patient is currently sleeping, feeling better, , but improving. OBJECTIVE: VITAL SIGNS: Blood pressure is 140/90, pulse 60, respirations 18 to 24, and temperature, no fever. CHEST: Bilaterally clear. CARDIOVASCULAR: Regular rhythm. ABDOMEN: Soft. Positive bowel sounds. Right lower upper quadrant tenderness. EXTREMITIES: CCE. ASSESSMENT: 1. Ovarian abscess. 2. Perforated ovarian abscess. 3. Hypertension. 4. Depression. 5. Obesity. PLAN: Diet, currently continue soft diet. Continue antibiotics. Continue ID consult and discuss with LOUNGE CAR ATTENDANT as well as ID. Fabiano Berkowitz M.D. DR: OSMAN JOB#: [id number] CC:
--- NOTE | 2018-12-16 22:30 | NUR ---
NURSE NOTES: HS care prov.Due meds Admin.Cont. IV Thera.Voided Freely.No Resp.distress.Family vis.
[2018-12-17] VITALS (24 sets, daily range): BP systolic 126–165; BP diastolic 50–88
--- NOTE | 2018-12-17 00:10 | NUR ---
NURSE NOTES: Sound asleep.Resp.unlabored.P.Ox.99-100% on RA.IV Hydration in progress.No deistress.Cont.plan of care.
[2018-12-17] MEDS: Zoysn 3.37gm in NS 100ML IVPB SCH ×3 (01:55→17:33)
--- NOTE | 2018-12-17 02:00 | NUR ---
NURSE NOTES: Sound asleep,Resp.unlabored.P.Ox.-100%.Desat when off O2 inh.Closely monitored.
[2018-12-17] MEDS: NS w/KCl 20mEq 1000ml 1,000 ML IV SCH ×2 (02:35→20:55)
--- NOTE | 2018-12-17 04:25 | NUR ---
NURSE NOTES: Asleep.Resp.unlabored.Sat.99-100% on 2L/NC inh.Status same.Remain with occ.bearable post-op pain.Drsng dry and intact.Blood drawn for cbc/cmp spec.to lab.Cont.Plan of care.
[2018-12-17] MEDS: dilTIAZem HCl 90mg tab ORAL SCH ×3 (06:23→17:33)
[2018-12-17 06:33] LABS: HEMATOCRIT 43.3 % (37.0-47.0); HEMOGLOBIN 13.5 G/DL (12.0-16.0); MEAN CORPUSCULAR VOLUME 84 FL (80-99); PLATELET COUNT 275 K/UL (150-450); RED BLOOD COUNT 5.15 M/UL (4.20-5.40); RED CELL DISTRIBUTION WIDTH 13.9 % (11.6-14.8); WHITE BLOOD COUNT 20.2 K/UL (4.8-10.8)
[2018-12-17 06:53] LABS: ALANINE AMINOTRANSFERASE 13 U/L (12-78); ALBUMIN 1.5 G/DL (3.4-5.0); ALBUMIN/GLOBULIN RATIO 0.4 (1.0-2.7); ALKALINE PHOSPHATASE 187 U/L (46-116); ANION GAP 10 mmol/L (5-15); ASPARTATE AMINO TRANSFERASE 19 U/L (15-37); BLOOD UREA NITROGEN 15 mg/dL (7-18); CALCIUM 7.9 MG/DL (8.5-10.1); CARBON DIOXIDE 24 MMOL/L (21-32); CHLORIDE 106 MMOL/L (98-107); CREATININE 0.6 MG/DL (0.55-1.30); POTASSIUM 3.6 MMOL/L (3.5-5.1); SODIUM 140 MMOL/L (136-145)
[2018-12-17 06:57] LABS: BILIRUBIN,DIRECT 1.3 MG/DL (0.0-0.3)
--- NOTE | 2018-12-17 07:33 | NUR ---
HAND-OFF: Report given to HENOK DOYLE.
--- NOTE | 2018-12-17 07:34 | NUR ---
NURSE NOTES: Received patient in bed. Asleep, easy to arouse. Verbal, able to make some needs known. With ongoing IVF per MD's order. Call light within reach. Bilateral SCD's inplace. Bed in lowest position, bed alarm on. Will continue plan of care.
[2018-12-17] MEDS: Doxycycline Monohydrate 100mg ORAL SCH ×2 (09:29→20:49)
[2018-12-17] MEDS: Lisinopril 10mg tab ORAL SCH ×2 (09:29→20:49)
[2018-12-17] MEDS: Enoxaparin 80mg Inj SUBQ SCH ×2 (09:48→20:50)
[2018-12-17] MEDS: Enoxaparin 30mg Inj SUBQ SCH ×2 (09:49→20:50)
--- NOTE | 2018-12-17 10:40 | NUR ---
NURSE NOTES: Physical Therapist at bedside.
--- NOTE | 2018-12-17 11:29 | NUR ---
PT Note PT kaleb completed, treatment initiated. Patient was able to sit at the EOB but c/o increased abdominal pain while sitting. Also noted patient to have constant thrashing movements in her UE. Patient will benefit from physical therapy to increase her muscle strength and balance to improve her functional mobility to PLF. Addendum: 12/17/18 at 1130 by ZAINA DE PT Amended: Links added.
--- NOTE | 2018-12-17 12:41 | Surgery Progress Note ---
Surgery Progress Note Subjective Additional Comments Low-grade fevers, leukocytosis, had IR drainage yesterday. Drain with minimal output at this time. Objective Last 24 Hour Vital Signs Date Time Temp Pulse Resp B/P (MAP) Pulse Ox O2 Delivery O2 Flow Rate FiO2 12/17/18 12:00 99.1 85 28 141/75 (97) 100 12/17/18 11:00 85 20 139/54 (82) 100 12/17/18 10:00 86 26 134/66 (88) 99 12/17/18 09:29 141/60 12/17/18 09:29 87 12/17/18 09:00 87 26 141/60 (87) 97 12/17/18 08:13 83 12/17/18 08:00 Nasal Cannula 2.0 12/17/18 08:00 84 24 130/76 (94) 100 12/17/18 07:00 82 21 139/66 (90) 99 12/17/18 06:23 82 129/66 12/17/18 06:00 82 23 129/66 (87) 99 12/17/18 05:00 85 24 132/70 (90) 98 12/17/18 04:00 84 12/17/18 04:00 Nasal Cannula 2.0 12/17/18 04:00 98.8 85 27 136/74 (94) 99 12/17/18 03:00 85 24 132/67 (88) 100 12/17/18 02:00 85 29 129/72 (91) 100 12/17/18 01:00 85 24 137/68 (91) 98 12/17/18 00:00 88 12/17/18 00:00 Nasal Cannula 2.0 12/17/18 00:00 98.9 88 26 141/66 (91) 99 12/16/18 23:48 84 140/73 12/16/18 23:00 87 23 140/73 (95) 100 12/16/18 22:00 88 24 137/69 (91) 98 12/16/18 21:37 144/65 12/16/18 21:00 93 30 144/65 (91) 98 12/16/18 20:00 99 Nasal Cannula 2.0 12/16/18 20:00 92 12/16/18 20:00 99.7 92 27 146/67 (93) 97 12/16/18 20:00 Nasal Cannula 2.0 12/16/18 19:00 91 25 135/66 (89) 98 12/16/18 18:24 99.8 12/16/18 18:00 92 19 133/75 (94) 98 12/16/18 17:55 93 133/74 12/16/18 17:00 99.8 93 19 133/75 (94) 98 12/16/18 16:05 81 19 138/80 (99) 98 12/16/18 16:00 85 20 146/78 (100) 99 12/16/18 16:00 Nasal Cannula 2.0 12/16/18 16:00 71 12/16/18 15:55 83 19 152/77 (102) 100 12/16/18 15:50 85 20 142/70 (94) 99 12/16/18 15:45 82 20 137/72 (93) 100 12/16/18 15:40 89 22 140/68 (92) 100 12/16/18 15:35 88 20 139/74 (95) 98 12/16/18 15:30 80 20 140/76 (97) 100 12/16/18 15:25 82 18 138/71 (93) 99 12/16/18 15:25 85 18 4.0 12/16/18 15:20 85 18 140/72 (94) 98 12/16/18 15:15 81 18 135/77 (96) 100 12/16/18 15:00 89 26 136/79 (98) 100 12/16/18 14:02 87 118/78 12/16/18 14:00 87 37 131/66 (87) 100 12/16/18 13:00 86 24 118/78 (91) 99 I&O Intake and Output 12/16/18 12/17/18 18:59 06:59 Intake Total 1410.0 ml 2060.0 ml Output Total 50 ml 1000 ml Balance 1360.0 ml 1060.0 ml Intake Oral 140 ml 1050 ml IV Total 1270.0 ml 1010.0 ml Output Urine Total 1000 ml Other 50 ml # Voids 3 4 # Bowel Movements 5 3 Drains: other Cardiovascular: RSR Respiratory: decreased breath sounds Abdomen: soft, tenderness, present bowel sounds, non-distended Extremities: no edema, no tenderness, no cyanosis Laboratory Tests Test 12/17/18 05:00 White Blood Count 20.2 K/UL (4.8-10.8) H Red Blood Count 5.15 M/UL (4.20-5.40) Hemoglobin 13.5 G/DL (12.0-16.0) Hematocrit 43.3 % (37.0-47.0) Mean Corpuscular Volume 84 FL (80-99) Mean Corpuscular Hemoglobin 26.3 PG (27.0-31.0) L Mean Corpuscular Hemoglobin Concent 31.2 G/DL (32.0-36.0) L Red Cell Distribution Width 13.9 % (11.6-14.8) Platelet Count 275 K/UL (150-450) Mean Platelet Volume 6.4 FL (6.5-10.1) L Neutrophils (%) (Auto) % (45.0-75.0) Lymphocytes (%) (Auto) % (20.0-45.0) Monocytes (%) (Auto) % (1.0-10.0) Eosinophils (%) (Auto) % (0.0-3.0) Basophils (%) (Auto) % (0.0-2.0) Differential Total Cells Counted 100 Neutrophils % (Manual) 88 % (45-75) H Lymphocytes % (Manual) 5 % (20-45) L Monocytes % (Manual) 6 % (1-10) Eosinophils % (Manual) 1 % (0-3) Basophils % (Manual) 0 % (0-2) Band Neutrophils 0 % (0-8) Platelet Estimate Adequate Platelet Morphology Normal Red Blood Cell Morphology Normal Sodium Level 140 MMOL/L (136-145) Potassium Level 3.6 MMOL/L (3.5-5.1) Chloride Level 106 MMOL/L (98-107) Carbon Dioxide Level 24 MMOL/L (21-32) Anion Gap 10 mmol/L (5-15) Blood Urea Nitrogen 15 mg/dL (7-18) Creatinine 0.6 MG/DL (0.55-1.30) Estimat Glomerular Filtration Rate > 60 mL/min (>60) Glucose Level 123 MG/DL (74-106) H Calcium Level 7.9 MG/DL (8.5-10.1) L Total Bilirubin 2.0 MG/DL (0.2-1.0) H Direct Bilirubin 1.3 MG/DL (0.0-0.3) H Aspartate Amino Transf (AST/SGOT) 19 U/L (15-37) Alanine Aminotransferase (ALT/SGPT) 13 U/L (12-78) Alkaline Phosphatase 187 U/L (46-116) H Total Protein 5.4 G/DL (6.4-8.2) L Albumin 1.5 G/DL (3.4-5.0) L Globulin 3.9 g/dL Albumin/Globulin Ratio 0.4 (1.0-2.7) L Plan Problems: (1) Abdominal pain Assessment & Plan: 53-year-old female with abdominal pain for the past 2 days worsening started his right flank now on her right mid abdomen and lower quadrant. Afebrile, hemodynamically stable, leukocytosis 20,000. Labs otherwise normal. Right-sided abdominal tenderness on examination with voluntary guarding but no rebound CT reviewed with radiologist and as noted in his dictation. Possible tubo-ovarian site abscess, hemorrhagic ovarian cyst, mesenteric infarct, enteritis. At this time needs further work-up and management. A.m. labs. Infectious disease input GI input noted in ICU for a fib. cardiology input noted appreciate MESH MAN input discussed with newspaper peddler - possible OR Status post IR drainage pending microbiology cont abx okay for diet Abx UTI will follow Thank you for this consultation we will follow with recommendations and serial exams. Ganga Mancuso Dec 17, 2018 12:41
--- NOTE | 2018-12-17 13:05 | General Progress Note ---
Assessment/Plan Problem List: (1) Ovarian cyst ICD Codes: N83.209 - Unspecified ovarian cyst, unspecified side SNOMED: 86973029 (2) Hepatomegaly ICD Codes: R16.0 - Hepatomegaly, not elsewhere classified SNOMED: 38911171 (3) Cholelithiasis ICD Codes: K80.20 - Calculus of gallbladder without cholecystitis without obstruction SNOMED: 438748290 (4) Elevated LFTs ICD Codes: R94.5 - Abnormal results of liver function studies SNOMED: 443095069, 472397115 (5) A-fib ICD Codes: I48.91 - Unspecified atrial fibrillation SNOMED: 17253781 (6) RI (7) Hypoalbuminemia ICD Codes: E88.09 - Other disorders of plasma-protein metabolism, not elsewhere classified SNOMED: 613733425 (8) Adrenal mass ICD Codes: E27.8 - Other specified disorders of adrenal gland SNOMED: 006793912 (9) Abdominal pain ICD Codes: R10.9 - Unspecified abdominal pain SNOMED: 96801172 Qualifiers: Qualified Codes: R10.31 - Right lower quadrant pain (10) Uterine fibroid ICD Codes: D25.9 - Leiomyoma of uterus, unspecified SNOMED: 18844620 (11) Cocaine abuse ICD Codes: F14.10 - Cocaine abuse, uncomplicated SNOMED: 38050422 Status: unchanged Assessment/Plan: HIDA scan>> neg ABx per ID fu cardiology repeat labs full liquid>>> will advance drug screen>>. 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 Subjective ROS Limited/Unobtainable: Yes Allergies: Coded Allergies: No Known Allergies (Unverified , 07/24/17) Subjective abd pain Objective Last 24 Hour Vital Signs Date Time Temp Pulse Resp B/P (MAP) Pulse Ox O2 Delivery O2 Flow Rate FiO2 12/17/18 12:47 85 141/75 12/17/18 12:00 99.1 85 28 141/75 (97) 100 12/17/18 12:00 Nasal Cannula 2.0 12/17/18 11:00 85 20 139/54 (82) 100 12/17/18 10:00 86 26 134/66 (88) 99 12/17/18 09:29 141/60 12/17/18 09:29 87 12/17/18 09:00 87 26 141/60 (87) 97 12/17/18 08:13 83 12/17/18 08:00 Nasal Cannula 2.0 12/17/18 08:00 84 24 130/76 (94) 100 12/17/18 07:00 82 21 139/66 (90) 99 12/17/18 06:23 82 129/66 12/17/18 06:00 82 23 129/66 (87) 99 12/17/18 05:00 85 24 132/70 (90) 98 12/17/18 04:00 84 12/17/18 04:00 Nasal Cannula 2.0 12/17/18 04:00 98.8 85 27 136/74 (94) 99 12/17/18 03:00 85 24 132/67 (88) 100 12/17/18 02:00 85 29 129/72 (91) 100 12/17/18 01:00 85 24 137/68 (91) 98 12/17/18 00:00 88 12/17/18 00:00 Nasal Cannula 2.0 12/17/18 00:00 98.9 88 26 141/66 (91) 99 12/16/18 23:48 84 140/73 12/16/18 23:00 87 23 140/73 (95) 100 12/16/18 22:00 88 24 137/69 (91) 98 12/16/18 21:37 144/65 12/16/18 21:00 93 30 144/65 (91) 98 12/16/18 20:00 99 Nasal Cannula 2.0 12/16/18 20:00 92 12/16/18 20:00 99.7 92 27 146/67 (93) 97 12/16/18 20:00 Nasal Cannula 2.0 12/16/18 19:00 91 25 135/66 (89) 98 12/16/18 18:24 99.8 12/16/18 18:00 92 19 133/75 (94) 98 12/16/18 17:55 93 133/74 12/16/18 17:00 99.8 93 19 133/75 (94) 98 12/16/18 16:05 81 19 138/80 (99) 98 12/16/18 16:00 85 20 146/78 (100) 99 12/16/18 16:00 Nasal Cannula 2.0 12/16/18 16:00 71 12/16/18 15:55 83 19 152/77 (102) 100 12/16/18 15:50 85 20 142/70 (94) 99 12/16/18 15:45 82 20 137/72 (93) 100 12/16/18 15:40 89 22 140/68 (92) 100 12/16/18 15:35 88 20 139/74 (95) 98 12/16/18 15:30 80 20 140/76 (97) 100 12/16/18 15:25 82 18 138/71 (93) 99 12/16/18 15:25 85 18 4.0 12/16/18 15:20 85 18 140/72 (94) 98 12/16/18 15:15 81 18 135/77 (96) 100 12/16/18 15:00 89 26 136/79 (98) 100 12/16/18 14:02 87 118/78 12/16/18 14:00 87 37 131/66 (87) 100 Intake and Output 12/16/18 12/17/18 18:59 06:59 Intake Total 1410.0 ml 2060.0 ml Output Total 50 ml 1000 ml Balance 1360.0 ml 1060.0 ml Intake Oral 140 ml 1050 ml IV Total 1270.0 ml 1010.0 ml Output Urine Total 1000 ml Other 50 ml # Voids 3 4 # Bowel Movements 5 3 Laboratory Tests 12/17/18 05:00: White Blood Count 20.2H, Red Blood Count 5.15, Hemoglobin 13.5, Hematocrit 43.3 , Mean Corpuscular Volume 84, Mean Corpuscular Hemoglobin 26.3L, Mean Corpuscular Hemoglobin Concent 31.2L, Red Cell Distribution Width 13.9, Platelet Count 275, Mean Platelet Volume 6.4L, Neutrophils (%) (Auto) , Lymphocytes (%) (Auto) , Monocytes (%) (Auto) , Eosinophils (%) (Auto) , Basophils (%) (Auto) , Differential Total Cells Counted 100, Neutrophils % ( Manual) 88H, Lymphocytes % (Manual) 5L, Monocytes % (Manual) 6, Eosinophils % ( Manual) 1, Basophils % (Manual) 0, Band Neutrophils 0, Platelet Estimate Adequate, Platelet Morphology Normal, Red Blood Cell Morphology Normal, Sodium Level 140, Potassium Level 3.6, Chloride Level 106, Carbon Dioxide Level 24, Anion Gap 10, Blood Urea Nitrogen 15, Creatinine 0.6, Estimat Glomerular Filtration Rate > 60, Glucose Level 123H, Calcium Level 7.9L, Total Bilirubin 2.0H, Direct Bilirubin 1.3H, Aspartate Amino Transf (AST/SGOT) 19, Alanine Aminotransferase (ALT/SGPT) 13, Alkaline Phosphatase 187H, Total Protein 5.4L, Albumin 1.5L, Globulin 3.9, Albumin/Globulin Ratio 0.4L Height (Feet): 5 Height (Inches): 4.00 Weight (Pounds): 237 General Appearance: alert EENT: normal ENT inspection Neck: supple Cardiovascular: normal rate Respiratory/Chest: decreased breath sounds Abdomen: soft, hypoactive bowel sounds, tender Extremities: non-tender Alan Aguero MD Dec 17, 2018 13:05
--- NOTE | 2018-12-17 13:14 | Infectious Diseases Prog Note ---
Assessment/Plan Assessment/Plan A; 1. Klebsiella urinary tract infection. 2. There also might be an ovarian cyst with tubo-ovarian abscess. 3. Hypertension. 4. Sepsis 5. Atrial fibrillation 6. Hepato-splenomegaly P: 1. Continue Zosyn & Doxycycline 2. will check chlamydia & Gonorrhea Subjective ROS Limited/Unobtainable: No Respiratory: Reports: no symptoms Cardiovascular: Reports: no symptoms Genitourinary: Reports: no symptoms, other - had CT guided drainage of right andenxal lesion Allergies: Coded Allergies: No Known Allergies (Unverified , 07/24/17) Objective Vital Signs Last 24 Hour Vital Signs Date Time Temp Pulse Resp B/P (MAP) Pulse Ox O2 Delivery O2 Flow Rate FiO2 12/17/18 12:47 85 141/75 12/17/18 12:00 99.1 85 28 141/75 (97) 100 12/17/18 12:00 Nasal Cannula 2.0 12/17/18 11:00 85 20 139/54 (82) 100 12/17/18 10:00 86 26 134/66 (88) 99 12/17/18 09:29 141/60 12/17/18 09:29 87 12/17/18 09:00 87 26 141/60 (87) 97 12/17/18 08:13 83 12/17/18 08:00 Nasal Cannula 2.0 12/17/18 08:00 84 24 130/76 (94) 100 12/17/18 07:00 82 21 139/66 (90) 99 12/17/18 06:23 82 129/66 12/17/18 06:00 82 23 129/66 (87) 99 12/17/18 05:00 85 24 132/70 (90) 98 12/17/18 04:00 84 12/17/18 04:00 Nasal Cannula 2.0 12/17/18 04:00 98.8 85 27 136/74 (94) 99 12/17/18 03:00 85 24 132/67 (88) 100 12/17/18 02:00 85 29 129/72 (91) 100 12/17/18 01:00 85 24 137/68 (91) 98 12/17/18 00:00 88 12/17/18 00:00 Nasal Cannula 2.0 12/17/18 00:00 98.9 88 26 141/66 (91) 99 12/16/18 23:48 84 140/73 12/16/18 23:00 87 23 140/73 (95) 100 12/16/18 22:00 88 24 137/69 (91) 98 12/16/18 21:37 144/65 12/16/18 21:00 93 30 144/65 (91) 98 12/16/18 20:00 99 Nasal Cannula 2.0 12/16/18 20:00 92 12/16/18 20:00 99.7 92 27 146/67 (93) 97 12/16/18 20:00 Nasal Cannula 2.0 12/16/18 19:00 91 25 135/66 (89) 98 12/16/18 18:24 99.8 12/16/18 18:00 92 19 133/75 (94) 98 12/16/18 17:55 93 133/74 12/16/18 17:00 99.8 93 19 133/75 (94) 98 12/16/18 16:05 81 19 138/80 (99) 98 12/16/18 16:00 85 20 146/78 (100) 99 12/16/18 16:00 Nasal Cannula 2.0 12/16/18 16:00 71 12/16/18 15:55 83 19 152/77 (102) 100 12/16/18 15:50 85 20 142/70 (94) 99 12/16/18 15:45 82 20 137/72 (93) 100 12/16/18 15:40 89 22 140/68 (92) 100 12/16/18 15:35 88 20 139/74 (95) 98 12/16/18 15:30 80 20 140/76 (97) 100 12/16/18 15:25 82 18 138/71 (93) 99 12/16/18 15:25 85 18 4.0 12/16/18 15:20 85 18 140/72 (94) 98 12/16/18 15:15 81 18 135/77 (96) 100 12/16/18 15:00 89 26 136/79 (98) 100 12/16/18 14:02 87 118/78 12/16/18 14:00 87 37 131/66 (87) 100 Height (Feet): 5 Height (Inches): 4.00 Weight (Pounds): 237 General Appearance: no acute distress HEENT: mucous membranes moist Respiratory/Chest: lungs clear Cardiovascular: normal rate Abdomen: soft, non tender, other - RLQ drain Extremities: no edema Neurologic/Psychiatric: alert, oriented x 3, responsive Microbiology Date/Time Source Procedure Growth Status 12/16/18 14:00 Body Fluid Abdominal Anaerobic Culture - Preliminary Resulted 12/16/18 14:00 Abdominal Fluid Gram Stain - Final Resulted 12/16/18 14:00 Abdominal Fluid Body Fluid Culture - Preliminary Resulted Laboratory Tests Test 12/17/18 05:00 White Blood Count 20.2 K/UL (4.8-10.8) H Red Blood Count 5.15 M/UL (4.20-5.40) Hemoglobin 13.5 G/DL (12.0-16.0) Hematocrit 43.3 % (37.0-47.0) Mean Corpuscular Volume 84 FL (80-99) Mean Corpuscular Hemoglobin 26.3 PG (27.0-31.0) L Mean Corpuscular Hemoglobin Concent 31.2 G/DL (32.0-36.0) L Red Cell Distribution Width 13.9 % (11.6-14.8) Platelet Count 275 K/UL (150-450) Mean Platelet Volume 6.4 FL (6.5-10.1) L Neutrophils (%) (Auto) % (45.0-75.0) Lymphocytes (%) (Auto) % (20.0-45.0) Monocytes (%) (Auto) % (1.0-10.0) Eosinophils (%) (Auto) % (0.0-3.0) Basophils (%) (Auto) % (0.0-2.0) Differential Total Cells Counted 100 Neutrophils % (Manual) 88 % (45-75) H Lymphocytes % (Manual) 5 % (20-45) L Monocytes % (Manual) 6 % (1-10) Eosinophils % (Manual) 1 % (0-3) Basophils % (Manual) 0 % (0-2) Band Neutrophils 0 % (0-8) Platelet Estimate Adequate Platelet Morphology Normal Red Blood Cell Morphology Normal Sodium Level 140 MMOL/L (136-145) Potassium Level 3.6 MMOL/L (3.5-5.1) Chloride Level 106 MMOL/L (98-107) Carbon Dioxide Level 24 MMOL/L (21-32) Anion Gap 10 mmol/L (5-15) Blood Urea Nitrogen 15 mg/dL (7-18) Creatinine 0.6 MG/DL (0.55-1.30) Estimat Glomerular Filtration Rate > 60 mL/min (>60) Glucose Level 123 MG/DL (74-106) H Calcium Level 7.9 MG/DL (8.5-10.1) L Total Bilirubin 2.0 MG/DL (0.2-1.0) H Direct Bilirubin 1.3 MG/DL (0.0-0.3) H Aspartate Amino Transf (AST/SGOT) 19 U/L (15-37) Alanine Aminotransferase (ALT/SGPT) 13 U/L (12-78) Alkaline Phosphatase 187 U/L (46-116) H Total Protein 5.4 G/DL (6.4-8.2) L Albumin 1.5 G/DL (3.4-5.0) L Globulin 3.9 g/dL Albumin/Globulin Ratio 0.4 (1.0-2.7) L Current Medications Medications (Trade) Dose Ordered Sig/Alfredo Route PRN Reason Start Time Stop Time Status Last Admin Dose Admin Acetaminophen (Tylenol) 650 mg Q6H PRN ORAL Mild Pain/Temp > 100.5 12/14/18 14:00 01/11/19 13:59 12/15/18 23:17 Acetaminophen/ Hydrocodone Bitart ([place] 5/325) 1 tab Q6H PRN ORAL Moderate Pain (Pain Scale 4-6) 12/14/18 14:00 12/19/18 13:59 12/15/18 05:10 Al Hydroxide/Mg Hydroxide (Mylanta II) 30 ml Q6H PRN ORAL dyspepsia 12/14/18 14:00 01/11/19 13:59 Dextrose (Dextrose 50%) 25 ml Q30M PRN IV Hypoglycemia 12/14/18 14:00 01/11/19 13:59 Dextrose (Dextrose 50%) 50 ml Q30M PRN IV Hypoglycemia 12/14/18 14:00 01/11/19 13:59 Digoxin (Lanoxin) 0.25 mg DAILY ORAL 12/15/18 10:00 01/14/19 09:59 12/17/18 09:29 Diltiazem HCl (Cardizem) 90 mg EVERY 6 HOURS ORAL 12/15/18 12:00 01/14/19 11:59 12/17/18 12:47 Diphenhydramine HCl (Benadryl) 25 mg Q6H PRN ORAL Itching/Pruritis 12/14/18 14:00 01/11/19 13:59 Doxycycline Monohydrate (Doxycycline Monohydrate) 100 mg EVERY 12 HOURS ORAL 12/15/18 09:30 12/22/18 09:29 12/17/18 09:29 Enoxaparin Sodium (Lovenox) 30 mg Q12HR SUBQ 12/15/18 11:00 01/14/19 10:59 12/17/18 09:49 Enoxaparin Sodium (Lovenox) 80 mg Q12HR SUBQ 12/15/18 11:00 01/14/19 10:59 12/17/18 09:48 Famotidine (Pepcid I.v.) 20 mg Q12HR IVP 12/14/18 21:00 01/11/19 20:59 12/17/18 09:29 Hydralazine HCl (Apresoline) 10 mg Q2H PRN ORAL HYPERTENSION 12/15/18 09:45 01/14/19 09:44 Lisinopril (Zestril) 10 mg Q12HR ORAL 12/15/18 21:00 01/14/19 20:59 12/17/18 09:29 Lorazepam (Ativan) 1 mg Q4H PRN ORAL For Anxiety 12/14/18 13:00 12/19/18 20:59 Morphine Sulfate (Morphine Sulfate) 1 mg Q4H PRN IVP Severe Pain (Pain Scale 7-10) 12/14/18 14:00 12/19/18 13:59 12/16/18 17:54 Ondansetron HCl (Zofran) 4 mg Q6H PRN IVP Nausea & Vomiting 12/14/18 14:00 01/11/19 13:59 Piperacillin Sod/ Tazobactam Sod 3.375 gm/Sodium Chloride 110 ml @ 27.5 mls/hr Q8H IVPB 12/15/18 10:00 12/22/18 09:59 12/17/18 11:13 Potassium Chloride/Sodium Chloride 1,000 ml @ 75 mls/hr [id number] IV 12/14/18 13:30 01/11/19 13:29 12/17/18 02:35 Temazepam (Restoril) 15 mg HSPRN PRN ORAL Insomnia 12/14/18 21:00 12/20/18 20:59 Donte Trevizo MD Dec 17, 2018 13:14
--- NOTE | 2018-12-17 13:40 | NUR ---
NURSE NOTES: Dr. Berkowitz at bedside.
--- NOTE | 2018-12-17 14:40 | NUR ---
NURSE NOTES: Dr. Thompson at bedside.
--- NOTE | 2018-12-17 14:42 | Cardiac Electrophysiology PN ---
Assessment/Plan Assessment/Plan 1. Atrial fibrillation with rapid ventricular response. On Cardizem 90 q6 and Digoxin 0.25 daily. Echo showed EF 65%. On Lovenox 1mg/kg sq bid. 2. Hypertension. Continue Cardizem and Lisinopril. 3. Right-sided abdominal pain likely secondary to infectious plus hemorrhagic right ovarian cyst. Follow up by GI and Surgery. Follow up with ID and PARENT TRAINER recommendation. S/P CT Guided aspiration of the abdominal abscess 4. Sepsis with white count of more than 20,000. On IV antibiotic per ID. EDWARD RN Subjective Subjective Remained in SR. S/P CT guided drainage of pelvic abscess yesterday. In ICU Objective Last 24 Hour Vital Signs Date Time Temp Pulse Resp B/P (MAP) Pulse Ox O2 Delivery O2 Flow Rate FiO2 12/17/18 14:00 86 20 143/74 (97) 100 12/17/18 13:00 90 20 149/75 (99) 99 12/17/18 13:00 90 20 149/75 (99) 99 12/17/18 12:47 85 141/75 12/17/18 12:00 84 12/17/18 12:00 99.1 85 28 141/75 (97) 100 12/17/18 12:00 Nasal Cannula 2.0 12/17/18 11:00 85 20 139/54 (82) 100 12/17/18 10:00 86 26 134/66 (88) 99 12/17/18 09:29 141/60 12/17/18 09:29 87 12/17/18 09:00 87 26 141/60 (87) 97 12/17/18 08:13 83 12/17/18 08:00 Nasal Cannula 2.0 12/17/18 08:00 84 24 130/76 (94) 100 12/17/18 07:00 82 21 139/66 (90) 99 12/17/18 06:23 82 129/66 12/17/18 06:00 82 23 129/66 (87) 99 12/17/18 05:00 85 24 132/70 (90) 98 12/17/18 04:00 84 12/17/18 04:00 Nasal Cannula 2.0 12/17/18 04:00 98.8 85 27 136/74 (94) 99 12/17/18 03:00 85 24 132/67 (88) 100 9/28/19 02:00 85 29 129/72 (91) 100 12/17/18 01:00 85 24 137/68 (91) 98 12/17/18 00:00 88 12/17/18 00:00 Nasal Cannula 2.0 12/17/18 00:00 98.9 88 26 141/66 (91) 99 12/16/18 23:48 84 140/73 12/16/18 23:00 87 23 140/73 (95) 100 12/16/18 22:00 88 24 137/69 (91) 98 12/16/18 21:37 144/65 12/16/18 21:00 93 30 144/65 (91) 98 12/16/18 20:00 99 Nasal Cannula 2.0 12/16/18 20:00 92 12/16/18 20:00 99.7 92 27 146/67 (93) 97 12/16/18 20:00 Nasal Cannula 2.0 12/16/18 19:00 91 25 135/66 (89) 98 12/16/18 18:24 99.8 12/16/18 18:00 92 19 133/75 (94) 98 12/16/18 17:55 93 133/74 12/16/18 17:00 99.8 93 19 133/75 (94) 98 12/16/18 16:05 81 19 138/80 (99) 98 12/16/18 16:00 85 20 146/78 (100) 99 12/16/18 16:00 Nasal Cannula 2.0 12/16/18 16:00 71 12/16/18 15:55 83 19 152/77 (102) 100 12/16/18 15:50 85 20 142/70 (94) 99 12/16/18 15:45 82 20 137/72 (93) 100 12/16/18 15:40 89 22 140/68 (92) 100 12/16/18 15:35 88 20 139/74 (95) 98 12/16/18 15:30 80 20 140/76 (97) 100 12/16/18 15:25 82 18 138/71 (93) 99 12/16/18 15:25 85 18 4.0 12/16/18 15:20 85 18 140/72 (94) 98 12/16/18 15:15 81 18 135/77 (96) 100 12/16/18 15:00 89 26 136/79 (98) 100 Intake and Output 12/16/18 12/17/18 18:59 06:59 Intake Total 1410.0 ml 2060.0 ml Output Total 50 ml 1000 ml Balance 1360.0 ml 1060.0 ml Intake Oral 140 ml 1050 ml IV Total 1270.0 ml 1010.0 ml Output Urine Total 1000 ml Other 50 ml # Voids 3 4 # Bowel Movements 5 3 Laboratory Tests Test 12/17/18 05:00 White Blood Count 20.2 K/UL (4.8-10.8) H Red Blood Count 5.15 M/UL (4.20-5.40) Hemoglobin 13.5 G/DL (12.0-16.0) Hematocrit 43.3 % (37.0-47.0) Mean Corpuscular Volume 84 FL (80-99) Mean Corpuscular Hemoglobin 26.3 PG (27.0-31.0) L Mean Corpuscular Hemoglobin Concent 31.2 G/DL (32.0-36.0) L Red Cell Distribution Width 13.9 % (11.6-14.8) Platelet Count 275 K/UL (150-450) Mean Platelet Volume 6.4 FL (6.5-10.1) L Neutrophils (%) (Auto) % (45.0-75.0) Lymphocytes (%) (Auto) % (20.0-45.0) Monocytes (%) (Auto) % (1.0-10.0) Eosinophils (%) (Auto) % (0.0-3.0) Basophils (%) (Auto) % (0.0-2.0) Differential Total Cells Counted 100 Neutrophils % (Manual) 88 % (45-75) H Lymphocytes % (Manual) 5 % (20-45) L Monocytes % (Manual) 6 % (1-10) Eosinophils % (Manual) 1 % (0-3) Basophils % (Manual) 0 % (0-2) Band Neutrophils 0 % (0-8) Platelet Estimate Adequate Platelet Morphology Normal Red Blood Cell Morphology Normal Sodium Level 140 MMOL/L (136-145) Potassium Level 3.6 MMOL/L (3.5-5.1) Chloride Level 106 MMOL/L (98-107) Carbon Dioxide Level 24 MMOL/L (21-32) Anion Gap 10 mmol/L (5-15) Blood Urea Nitrogen 15 mg/dL (7-18) Creatinine 0.6 MG/DL (0.55-1.30) Estimat Glomerular Filtration Rate > 60 mL/min (>60) Glucose Level 123 MG/DL (74-106) H Calcium Level 7.9 MG/DL (8.5-10.1) L Total Bilirubin 2.0 MG/DL (0.2-1.0) H Direct Bilirubin 1.3 MG/DL (0.0-0.3) H Aspartate Amino Transf (AST/SGOT) 19 U/L (15-37) Alanine Aminotransferase (ALT/SGPT) 13 U/L (12-78) Alkaline Phosphatase 187 U/L (46-116) H Total Protein 5.4 G/DL (6.4-8.2) L Albumin 1.5 G/DL (3.4-5.0) L Globulin 3.9 g/dL Albumin/Globulin Ratio 0.4 (1.0-2.7) L Microbiology Date/Time Source Procedure Growth Status 12/16/18 14:00 Body Fluid Abdominal Anaerobic Culture - Preliminary Resulted 12/16/18 14:00 Abdominal Fluid Gram Stain - Final Resulted 12/16/18 14:00 Abdominal Fluid Body Fluid Culture - Preliminary Resulted Objective HEAD AND NECK: No JVD. HEART: Regular S1 and S2 with no gallop, murmur. LUNGS: CTA ABDOMEN: Obese.Has a drain now EXTREMITIES: No pitting edema. Ha Thompson MD Dec 17, 2018 14:42
[2018-12-17] MEDS ORDERED: Tubing Blood Filter IV ONE (16:07)
[2018-12-17] MEDS ORDERED: Tubing IV Secondary IV ONE (16:07)
--- NOTE | 2018-12-17 18:00 | NUR ---
NURSE NOTES: Patient's friends at bedside. Patient able to socialize well.
--- NOTE | 2018-12-17 18:50 | NUR ---
NURSE NOTES: Dr. Berkowitz made aware regarding D-dimer result of 7.11. said to let Dr. Baer know about it.
--- NOTE | 2018-12-17 18:53 | NUR ---
NURSE NOTES: Informed Dr. Baer via telephone regarding D-dimer result. He said that Dr. Toussaint is covering, will call Dr. Toussaint.
--- NOTE | 2018-12-17 18:55 | NUR ---
NURSE NOTES: Called Dr. Toussaint, she said that she can't cover.
--- NOTE | 2018-12-17 19:10 | NUR ---
NURSE NOTES: Dr. Baer called back, he said that he can't cover. Will inform Dr. Berkowitz.
--- NOTE | 2018-12-17 19:19 | NUR ---
NURSE NOTES: Inform Dr. Berkowitz that Dr. Baer can't cover. And Dr. Baer said to have Dr. Howard. Will inform incoming nurse to follow up.
--- NOTE | 2018-12-17 19:20 | NUR ---
HAND-OFF: Report given to HENOK Flores.
--- NOTE | 2018-12-17 19:21 | NUR ---
NURSE NOTES: Endorsement received HENOK Salcedo. Opens eyes spontaneously, obeys commands, alert and oriented x4. Denies pain at this time. On 2 LPM nasal cannula, as per her she does not have shortness of breath at this time but it goes "on and off". With left forearm G20, on NS + KCl 20meq at 75ml/hr. Right lower abdomen pigtail, kept on negative pressure. Noted with scant amount of serosanguinous fluid, dressing dry and intact. SCDs in place. Head of bed elevated. Bed locked an in low position. Bed alarm on. Call light within reach. Reminded patient to use call light, verbalized understanding.
--- NOTE | 2018-12-17 19:22 | NUR ---
NURSE NOTES: D Dimer 7.11, as per Dr. Baer he can not accept consult, as per him jason call Dr. Howard. Dr. Berkowitz was informed by morning shift nurse, as per him to consult Dr. Howard. Called Dr. Howard, received new order of CT angio with contrast stat and as per him it's up to Dr. Berkowitz if he wants to transfer the patient to [facility] or keep in ICU. Called Dr. Berkowitz and informed him, awaiting for return call.
[2018-12-17] MEDS ORDERED: Omnipaue 350mg/ml 100ml vial INJ PRN (20:15)
--- NOTE | 2018-12-17 20:53 | NUR ---
NURSE NOTES: Received a return message from Dr. Berkowitz, as per him ok to transfer to [facility] after CT angio.
--- NOTE | 2018-12-17 21:15 | NUR ---
NURSE NOTES: Patient transferred to Radiology Department for CT angio with contrast, accomapnied by 2 RNs and 1 Radiology Staff. Patient on continuous cardiac monitoring while on transport.
--- NOTE | 2018-12-17 22:00 | NUR ---
NURSE NOTES: Patient came back from Radiology department, patient tolerated activity.
--- NOTE | 2018-12-17 22:00 | Progress Note ---
DATE: 12/17/2018 SUBJECTIVE: This is a 53-year-old female who is OBJECTIVE: VITAL SIGNS: Blood pressure is 120/70, pulse 74, respirations 18. SKIN: Good skin turgor. HEENT: NAD. CHEST: Bilateral clear. CARDIOVASCULAR: Regular rhythm. ABDOMEN: Soft. EXTREMITIES: CCE. NEUROLOGICAL: The patient has no focal deficits. GENITOURINARY: Generalized weakness. Mild tachypnea. ASSESSMENT: 1. Ruptured ovarian cyst. 2. Possible diverticulitis. 3. Hypertension. 4. Obesity. PLAN: 1. We will continue current treatment. 2. Continue bronchodilator treatment. 3. Continue oxygen and consider Pulmonary consult. 4. Currently continue antibiotics Fabiano Berkowitz M.D. DR: Noa JOB#: [id number] CC:
--- NOTE | 2018-12-17 22:33 | Diagnostic Imaging Report ---
EXAM: CT Angiography Chest With Intravenous Contrast CLINICAL HISTORY: SOB TECHNIQUE: Axial computed tomographic angiography images of the chest with intravenous contrast. CTDI is 39.9 mGy and DLP is 1642.5 mGy-cm. One or more of the following dose reduction techniques were used: automated exposure control, adjustment of the mA and or kV according to patient size, use of iterative reconstruction technique. MIP reconstructed images were created and reviewed. COMPARISON: None FINDINGS: Lung parenchyma: Dependent atelectasis bilaterally. Component of pneumonia on the right is not excluded. Scattered ground-glass opacities in the left upper lobe may represent atelectasis versus an infectious inflammatory process. Elevation of the right hemidiaphragm. Pleural space: Trace bilateral pleural effusions. Mediastinum christy: Normal. No mass or lymphadenopathy. Heart: Mild cardiomegaly. No pericardial effusion. Vasculature: No central or large pulmonary embolus identified. Suboptimal contrast bolus timing for PE evaluation in the pulmonary arterial branches. Aorta: Normal. No aneurysm or dissection. Airways: Patent. Bones: Degenerative changes of the spine. No bony lesion or acute fracture. Muscles: No mass. Subcutaneous tissues: Normal. Upper abdomen: Cholelithiasis. Nonspecific 2.0 cm right adrenal nodule. IMPRESSION: 1. No central or large pulmonary embolus identified. Suboptimal contrast bolus timing for PE evaluation in the pulmonary arterial branches. 2. No aortic aneurysm or dissection. 3. Trace bilateral pleural effusions. Dependent atelectasis bilaterally. Component of pneumonia on the right is not excluded. Scattered ground- glass opacities in the left upper lobe may represent atelectasis versus an infectious inflammatory process. 4. Cholelithiasis. 5. Nonspecific 2.0 cm right adrenal nodule.
--- NOTE | 2018-12-17 23:30 | NUR ---
NURSE NOTES: Received CT angio results, relayed to Dr. Howard
[2018-12-18] VITALS (7 sets, daily range): BP systolic 132–153; BP diastolic 45–94
--- NOTE | 2018-12-18 00:30 | NUR ---
TRANSFER TO FLOOR: Patient transferred to [facility] room 235 bed 2 per hospital bed in stable condition, connected to Tele box during transport. Report given to HENOK Damon. Belongings kept at bedside, counterchecked with RN. Belongings also counter checked with patient prior to transfer. Medications given to receiving RN.
--- NOTE | 2018-12-18 00:31 | NUR ---
NURSE NOTES: received pt from Sandra WHITING., pt is resting and awake in the bed. drain intact right lower ABD. pt is on 2 L of NC and stable. Right wrist 22GIV is intact, Left 20
[2018-12-18] MEDS: dilTIAZem HCl 90mg tab ORAL SCH ×4 (00:41→17:34)
[2018-12-18] MEDS ORDERED: LORazepam 1mg tab ORAL PRN (01:00)
[2018-12-18] MEDS ORDERED: Mylanta II UD 30ml ORAL PRN (01:19)
[2018-12-18] MEDS ORDERED: Omnipaue 350mg/ml 100ml vial INJ PRN (01:29)
[2018-12-18] MEDS ORDERED: HydrALAZINE 10mg Tab ORAL PRN (01:45)
[2018-12-18] MEDS ORDERED: Morphine Sulfate 2mg/ml Inj(IV/IM USE ONLY) IVP PRN (02:00)
[2018-12-18] MEDS ORDERED: HYDROcodone/Acetamin 5/325 tab ORAL PRN (02:00)
[2018-12-18] MEDS: NS w/KCl 20mEq 1000ml 1,000 ML IV SCH ×2 (02:20→15:04)
[2018-12-18] MEDS: Piperacillin/Tazobactam 3.375 GM in NS 110 ML IVPB SCH ×3 (02:59→17:34)
--- NOTE | 2018-12-18 07:49 | General Progress Note ---
Assessment/Plan Problem List: (1) Ovarian cyst ICD Codes: N83.209 - Unspecified ovarian cyst, unspecified side SNOMED: 80587315 (2) Hepatomegaly ICD Codes: R16.0 - Hepatomegaly, not elsewhere classified SNOMED: 15115731 (3) Cholelithiasis ICD Codes: K80.20 - Calculus of gallbladder without cholecystitis without obstruction SNOMED: 734996841 (4) Elevated LFTs ICD Codes: R94.5 - Abnormal results of liver function studies SNOMED: 680224527, 707858969 (5) A-fib ICD Codes: I48.91 - Unspecified atrial fibrillation SNOMED: 75812441 (6) RI (7) Hypoalbuminemia ICD Codes: E88.09 - Other disorders of plasma-protein metabolism, not elsewhere classified SNOMED: 959946782 (8) Adrenal mass ICD Codes: E27.8 - Other specified disorders of adrenal gland SNOMED: 751250194 (9) Abdominal pain ICD Codes: R10.9 - Unspecified abdominal pain SNOMED: 56283785 Qualifiers: Qualified Codes: R10.31 - Right lower quadrant pain (10) Uterine fibroid ICD Codes: D25.9 - Leiomyoma of uterus, unspecified SNOMED: 38235868 (11) Cocaine abuse ICD Codes: F14.10 - Cocaine abuse, uncomplicated SNOMED: 00864257 Status: unchanged Assessment/Plan: HIDA scan>> neg ABx per ID fu cardiology repeat labs drug screen>>. 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 Subjective ROS Limited/Unobtainable: Yes Allergies: Coded Allergies: No Known Allergies (Unverified , 07/24/17) Subjective abd pain Objective Last 24 Hour Vital Signs Date Time Temp Pulse Resp B/P (MAP) Pulse Ox O2 Delivery O2 Flow Rate FiO2 12/18/18 05:31 81 134/72 12/18/18 04:00 Nasal Cannula 2.0 12/18/18 04:00 98.6 81 20 134/72 (92) 97 12/18/18 03:35 81 12/18/18 02:00 98.4 81 24 132/45 (74) 99 12/18/18 00:41 82 153/83 12/18/18 00:00 88 12/18/18 00:00 99.2 82 24 153/83 (106) 98 12/18/18 00:00 Nasal Cannula 2.0 12/17/18 23:00 86 28 147/69 (95) 96 12/17/18 22:00 81 25 165/63 (97) 97 12/17/18 21:06 92 Nasal Cannula 2.0 28 12/17/18 21:00 86 27 139/66 (90) 98 12/17/18 20:49 137/88 12/17/18 20:00 99.0 87 28 137/88 (104) 99 12/17/18 20:00 89 12/17/18 20:00 Nasal Cannula 2.0 12/17/18 19:00 90 32 131/50 (77) 100 12/17/18 18:00 86 20 141/60 (87) 96 12/17/18 17:33 85 139/64 12/17/18 17:20 88 20 139/64 (89) 94 12/17/18 17:00 85 30 99 12/17/18 16:00 Nasal Cannula 2.0 12/17/18 16:00 86 12/17/18 16:00 99.2 87 28 126/64 (84) 99 12/17/18 15:00 85 29 134/61 (85) 99 12/17/18 14:00 86 20 143/74 (97) 100 12/17/18 13:00 90 20 149/75 (99) 99 12/17/18 13:00 90 20 149/75 (99) 99 12/17/18 12:47 85 141/75 12/17/18 12:00 84 12/17/18 12:00 99.1 85 28 141/75 (97) 100 12/17/18 12:00 Nasal Cannula 2.0 12/17/18 11:00 85 20 139/54 (82) 100 12/17/18 10:00 86 26 134/66 (88) 99 12/17/18 09:29 141/60 12/17/18 09:29 87 12/17/18 09:00 87 26 141/60 (87) 97 12/17/18 08:13 83 12/17/18 08:00 Nasal Cannula 2.0 12/17/18 08:00 84 24 130/76 (94) 100 Intake and Output 12/17/18 12/18/18 19:00 07:00 Intake Total 1307.5 ml 637.5 ml Output Total 502 ml Balance 805.5 ml 637.5 ml Intake Oral 720 ml 0 ml IV Total 587.5 ml 637.5 ml Output Urine Total 500 ml Other 2 ml # Voids 3 1 # Bowel Movements 7 2 Laboratory Tests 12/17/18 15:30: D-Dimer 7.11H 12/18/18 04:00: Digoxin Level 0.6L Height (Feet): 5 Height (Inches): 4.00 Weight (Pounds): 237 General Appearance: alert EENT: normal ENT inspection Neck: supple Cardiovascular: normal rate Respiratory/Chest: decreased breath sounds Abdomen: normal bowel sounds, non tender, soft Extremities: non-tender Alan Aguero MD Dec 18, 2018 07:49
--- NOTE | 2018-12-18 07:56 | NUR ---
HAND-OFF: Report given to Kristen WHITING. pt is awake and resting on the bed. BRIGIDA sinha works well with negative pressure. no other active bleeding noted. Addendum: 12/18/18 at 0757 by SANDIE RAMIREZ RN wrong pt.
--- NOTE | 2018-12-18 07:57 | NUR ---
HAND-OFF: Report given to Kristen WHITING. pt is awake and resting on the bed. pt's yael calhoun is working with well, and pt is stable.
--- NOTE | 2018-12-18 08:11 | NUR ---
NURSE NOTES: Late Entry (Correct time 0757): Pt received from Yamilex Del Toro RN in stable condition w/ no cardiopulmonary distress noted. Pt is asleep in bed on 2L O2 via NC. Pt is SR on secured entrance monitor.Purewick noted draining yellow urine. Accordion drain noted in RLQ draining serosanguineous fluid. Pt has a RW22g IV and LFA 20g IV. SCDs on bilat lower extremities. Bed in lowest position, alarm on, side rails up x 3, call light within reach. Will continue to monitor.
[2018-12-18] MEDS: Doxycycline Monohydrate 100mg ORAL SCH ×2 (08:39→20:48)
[2018-12-18] MEDS: Lisinopril 10mg tab ORAL SCH ×2 (08:40→21:02)
[2018-12-18] MEDS: Enoxaparin 80mg Inj SUBQ SCH ×2 (08:41→20:57)
[2018-12-18] MEDS: Enoxaparin 30mg Inj SUBQ SCH ×2 (08:43→20:57)
--- NOTE | 2018-12-18 08:56 | Infectious Diseases Prog Note ---
Assessment/Plan Assessment/Plan A; 1. Klebsiella urinary tract infection. 2. Tubo-ovarian abscess. s/p CT guided drainage 3. Hypertension. 4. Sepsis 5. Atrial fibrillation 6. Hepato-splenomegaly P: 1. Continue Zosyn & Doxycycline 2. will f/u culture Subjective ROS Limited/Unobtainable: Yes Cardiovascular: Reports: no symptoms Gastrointestinal/Abdominal: Reports: no symptoms Musculoskeletal: Reports: other - abdominal wall pain at site of Levonox injection Allergies: Coded Allergies: No Known Allergies (Unverified , 07/24/17) Objective Vital Signs Last 24 Hour Vital Signs Date Time Temp Pulse Resp B/P (MAP) Pulse Ox O2 Delivery O2 Flow Rate FiO2 12/18/18 08:40 153/76 12/18/18 08:40 88 12/18/18 08:00 98.8 88 28 153/76 (101) 98 12/18/18 05:31 81 134/72 12/18/18 04:00 Nasal Cannula 2.0 12/18/18 04:00 98.6 81 20 134/72 (92) 97 12/18/18 03:35 81 12/18/18 02:00 98.4 81 24 132/45 (74) 99 12/18/18 00:41 82 153/83 12/18/18 00:00 88 12/18/18 00:00 99.2 82 24 153/83 (106) 98 12/18/18 00:00 Nasal Cannula 2.0 12/17/18 23:00 86 28 147/69 (95) 96 12/17/18 22:00 81 25 165/63 (97) 97 12/17/18 21:06 92 Nasal Cannula 2.0 28 12/17/18 21:00 86 27 139/66 (90) 98 12/17/18 20:49 137/88 12/17/18 20:00 99.0 87 28 137/88 (104) 99 12/17/18 20:00 89 12/17/18 20:00 Nasal Cannula 2.0 12/17/18 19:00 90 32 131/50 (77) 100 12/17/18 18:00 86 20 141/60 (87) 96 12/17/18 17:33 85 139/64 12/17/18 17:20 88 20 139/64 (89) 94 12/17/18 17:00 85 30 99 12/17/18 16:00 Nasal Cannula 2.0 12/17/18 16:00 86 12/17/18 16:00 99.2 87 28 126/64 (84) 99 12/17/18 15:00 85 29 134/61 (85) 99 12/17/18 14:00 86 20 143/74 (97) 100 12/17/18 13:00 90 20 149/75 (99) 99 12/17/18 13:00 90 20 149/75 (99) 99 12/17/18 12:47 85 141/75 12/17/18 12:00 84 12/17/18 12:00 99.1 85 28 141/75 (97) 100 12/17/18 12:00 Nasal Cannula 2.0 12/17/18 11:00 85 20 139/54 (82) 100 12/17/18 10:00 86 26 134/66 (88) 99 12/17/18 09:29 141/60 12/17/18 09:29 87 12/17/18 09:00 87 26 141/60 (87) 97 Height (Feet): 5 Height (Inches): 4.00 Weight (Pounds): 237 General Appearance: no acute distress, other - obese Respiratory/Chest: lungs clear Cardiovascular: normal rate Abdomen: soft, non tender, other - R:Q drain Extremities: no edema Neurologic/Psychiatric: alert, oriented x 3, responsive Microbiology Date/Time Source Procedure Growth Status 12/16/18 14:00 Body Fluid Abdominal Anaerobic Culture - Preliminary NO GROWTH AFTER 24 HOURS Resulted 12/16/18 14:00 Abdominal Fluid Gram Stain - Final Resulted 12/16/18 14:00 Body Fluid Culture - Preliminary Gram Positive Cocci Resulted Laboratory Tests Test 12/17/18 15:30 12/18/18 04:00 D-Dimer 7.11 mg/L FEU (0.00-0.49) H Digoxin Level 0.6 NG/ML (0.9-2.0) L Current Medications Medications (Trade) Dose Ordered Sig/Alfredo Route PRN Reason Start Time Stop Time Status Last Admin Dose Admin Acetaminophen (Tylenol) 650 mg Q6H PRN ORAL Mild Pain/Temp > 100.5 12/18/18 01:16 01/11/19 01:15 Acetaminophen/ Hydrocodone Bitart ([place] 5/325) 1 tab Q6H PRN ORAL Moderate Pain (Pain Scale 4-6) 12/18/18 02:00 12/19/18 13:59 Al Hydroxide/Mg Hydroxide (Mylanta II) 30 ml Q6H PRN ORAL dyspepsia 12/18/18 01:19 01/11/19 01:18 Dextrose (Dextrose 50%) 25 ml Q30M PRN IV Hypoglycemia 12/18/18 01:00 01/11/19 13:59 Dextrose (Dextrose 50%) 50 ml Q30M PRN IV Hypoglycemia 12/18/18 01:00 01/11/19 13:59 Digoxin (Lanoxin) 0.25 mg DAILY ORAL 12/18/18 09:00 01/14/19 09:59 12/18/18 08:40 Diltiazem HCl (Cardizem) 90 mg EVERY 6 HOURS ORAL 12/18/18 06:00 01/14/19 11:59 12/18/18 05:31 Diphenhydramine HCl (Benadryl) 25 mg Q6H PRN ORAL Itching/Pruritis 12/18/18 05:00 01/17/19 04:59 Doxycycline Monohydrate (Doxycycline Monohydrate) 100 mg EVERY 12 HOURS ORAL 12/18/18 09:00 12/22/18 09:29 12/18/18 08:39 Enoxaparin Sodium (Lovenox) 30 mg Q12HR SUBQ 12/18/18 09:00 01/14/19 10:59 12/18/18 08:43 Enoxaparin Sodium (Lovenox) 80 mg Q12HR SUBQ 12/18/18 09:00 01/14/19 10:59 12/18/18 08:41 Famotidine (Pepcid) 20 mg Q12HR ORAL 12/18/18 09:00 01/16/19 20:59 12/18/18 08:40 Hydralazine HCl (Apresoline) 10 mg Q2H PRN ORAL HYPERTENSION 12/18/18 01:45 01/14/19 09:44 Iohexol (Omnipaque) 100 mg NOW PRN INJ Radiology Procedure 12/18/18 01:29 12/20/18 01:28 Lisinopril (Zestril) 10 mg Q12HR ORAL 12/18/18 09:00 01/14/19 20:59 12/18/18 08:40 Lorazepam (Ativan) 1 mg Q4H PRN ORAL For Anxiety 12/18/18 01:00 12/19/18 20:59 Morphine Sulfate (Morphine Sulfate) 1 mg Q4H PRN IVP Severe Pain (Pain Scale 7-10) 12/18/18 02:00 12/19/18 13:59 Ondansetron HCl (Zofran) 4 mg Q6H PRN IVP Nausea & Vomiting 12/18/18 02:00 01/11/19 13:59 Piperacillin Sod/ Tazobactam Sod 3.375 gm/Sodium Chloride 110 ml @ 27.5 mls/hr Q8H IVPB 12/18/18 02:00 12/22/18 09:59 12/18/18 02:59 Potassium Chloride/Sodium Chloride 1,000 ml @ 75 mls/hr [id number] IV 12/18/18 01:30 01/11/19 01:29 12/18/18 02:20 Temazepam (Restoril) 15 mg HSPRN PRN ORAL Insomnia 12/18/18 01:22 12/20/18 01:21 Donte Trevizo MD Dec 18, 2018 08:56
[2018-12-18] MEDS ORDERED: Ipratropium 0.02% Inh Soln 2.5ml UD HHN PRN (12:00)
--- NOTE | 2018-12-18 12:07 | Consultation ---
Consult Note Assessment/Plan dict # [id number] Brian Howard MD Dec 18, 2018 12:07
[2018-12-18] MEDS: Ipratropium 0.02% Inh Soln 2.5ml UD HHN SCH ×3 (12:26→23:45)
--- NOTE | 2018-12-18 14:50 | Cardiology Report ---
APPROVED REPORT EKG Measurement Heart [id number] Atrial fibrillation with rapid ventricular response Nonspecific ST and T wave abnormality Abnormal ECG
--- NOTE | 2018-12-18 15:19 | NUR ---
NURSE NOTES: Dr. Mancuso came in to see pt. Per Dr. Mancuso, do not change dressing for abd-accordion drain in RLQ.
--- NOTE | 2018-12-18 15:37 | Surgery Progress Note ---
Surgery Progress Note Subjective Additional Comments Downgraded from ICU. Hemodynamically stable. States she feels a little bit better. Pain improved. Tolerating diet slowly. No nausea vomiting fever chills. Objective Last 24 Hour Vital Signs Date Time Temp Pulse Resp B/P (MAP) Pulse Ox O2 Delivery O2 Flow Rate FiO2 12/18/18 12:36 90 22 99 Nasal Cannula 2.0 28 87 23 97 12/18/18 12:03 79 150/69 12/18/18 12:00 Nasal Cannula 2.0 12/18/18 12:00 80 12/18/18 12:00 98.8 79 24 150/69 (96) 99 12/18/18 09:00 Nasal Cannula 2.0 12/18/18 08:40 153/76 12/18/18 08:40 88 12/18/18 08:00 85 12/18/18 08:00 97 Nasal Cannula 2.0 28 12/18/18 08:00 98.8 88 28 153/76 (101) 98 12/18/18 05:31 81 134/72 12/18/18 04:00 Nasal Cannula 2.0 12/18/18 04:00 98.6 81 20 134/72 (92) 97 12/18/18 03:35 81 12/18/18 02:00 98.4 81 24 132/45 (74) 99 12/18/18 00:41 82 153/83 12/18/18 00:00 88 12/18/18 00:00 99.2 82 24 153/83 (106) 98 12/18/18 00:00 Nasal Cannula 2.0 12/17/18 23:00 86 28 147/69 (95) 96 12/17/18 22:00 81 25 165/63 (97) 97 12/17/18 21:06 92 Nasal Cannula 2.0 28 12/17/18 21:00 86 27 139/66 (90) 98 12/17/18 20:49 137/88 12/17/18 20:00 99.0 87 28 137/88 (104) 99 12/17/18 20:00 89 12/17/18 20:00 Nasal Cannula 2.0 12/17/18 19:00 90 32 131/50 (77) 100 12/17/18 18:00 86 20 141/60 (87) 96 12/17/18 17:33 85 139/64 12/17/18 17:20 88 20 139/64 (89) 94 12/17/18 17:00 85 30 99 12/17/18 16:00 Nasal Cannula 2.0 12/17/18 16:00 86 12/17/18 16:00 99.2 87 28 126/64 (84) 99 I&O Intake and Output 12/17/18 12/18/18 19:00 07:00 Intake Total 1307.5 ml 1232.5 ml Output Total 502 ml 920 ml Balance 805.5 ml 312.5 ml Intake Oral 720 ml 460 ml IV Total 587.5 ml 772.5 ml Output Urine Total 500 ml 900 ml Other 2 ml 20 ml # Voids 3 2 # Bowel Movements 7 2 Cardiovascular: RSR Respiratory: clear Abdomen: soft, distended, tenderness - Improved, present bowel sounds Extremities: no edema, no tenderness, no cyanosis Laboratory Tests Test 12/18/18 04:00 Digoxin Level 0.6 NG/ML (0.9-2.0) L Plan Problems: (1) Abdominal pain Assessment & Plan: 53-year-old female with abdominal pain for the past 2 days worsening started his right flank now on her right mid abdomen and lower quadrant. Afebrile, hemodynamically stable, leukocytosis 20,000. Labs otherwise normal. Right-sided abdominal tenderness on examination with voluntary guarding but no rebound CT reviewed with radiologist and as noted in his dictation. Possible tubo-ovarian site abscess, hemorrhagic ovarian cyst, mesenteric infarct, enteritis. At this time needs further work-up and management. A.m. labs. Infectious disease input GI input noted in ICU for a fib. cardiology input noted appreciate SAFETY TEACHER input discussed with large engine assembler - possible OR Status post IR drainage pending microbiology cont abx okay for diet Abx UTI will follow Thank you for this consultation we will follow with recommendations and serial exams. Ganga Mancuso Dec 18, 2018 15:37
[2018-12-18] MEDS ORDERED: NS 275ml ONE (15:50)
--- NOTE | 2018-12-18 17:15 | Consultation ---
DATE OF CONSULTATION: 12/18/2018 PULMONARY CONSULTATION REFERRING PHYSICIAN: Fabiano Berkowitz M.D. REASON FOR CONSULTATION: Dyspnea. HISTORY OF PRESENT ILLNESS: The patient is an obese 53-year-old female with history of asthma, hypertension, tobacco use, G11, P-5-0-6-5, who presented with abdominal pain and fevers. She had opiates and cocaine on her urine toxicology. She was noted to have a tubo-ovarian abscess, now status post drainage, CT-guided complicated by atrial fibrillation with RVR, now back in sinus rhythm on a diltiazem drip. Also, with dyspnea and elevated D-dimer. CT angio negative for PE, but with the infiltrate and atelectasis of the right greater than left base. The patient notes cough, shortness of breath, and wheezing. No congestion. No fever or chills. She does have abdominal pain. No nausea, vomiting, diarrhea, or constipation. PAST MEDICAL HISTORY: 1. Depression. 2. Anxiety. 3. Hypertension. 4. Asthma. PAST SURGICAL HISTORY: in the past and drainage of TOA. ALLERGIES: No known drug allergies. MEDICATIONS: Prior to admission medications reviewed. Current medications reviewed. SOCIAL HISTORY: She lives with . She smokes cigarettes daily. History of cocaine and opiate use. Denies significant alcohol. FAMILY HISTORY: Noncontributory. REVIEW OF SYSTEMS: Negative. PHYSICAL EXAMINATION: VITAL SIGNS: Temperature 98.8 degrees, pulse 80, blood pressure 152/76, respiratory 28, and saturating 98% on two liters. GENERAL: She is an obese female, in mild respiratory distress. Awake, alert, and oriented x3. HEENT: Normocephalic and atraumatic. Oropharynx is clear with moist mucous membranes. NECK: Supple without lymphadenopathy or JVD. CHEST: Scattered coarse breath sounds. Some faint end-expiratory wheezing. Rhonchi at the right base. HEART: Regular rate and rhythm. ABDOMEN: Soft and nondistended. Mild diffuse tenderness. ANCILLARY DATA: White count 20, hemoglobin 13.5, hematocrit 43, and platelet count 275,000. ABG 7.41/31/83/20/96. INR 1.1. D-dimer 7.11. Sodium 140, potassium 3.6, chloride 106, bicarb 24, BUN 10, creatinine 0.6, glucose 123, and calcium 7.9. Total bilirubin 2 and direct 1.3. AST 19, ALT 13, and alkaline phosphatase 187. BNP 1262. Total protein 5.4. Albumin 1.5, globulin 3.9, and free T4 1.56. Urinalysis, positive nitrates and moderate bacteria. Toxicology screen positive for opiates and cocaine. Gonorrhea serology negative. Urine culture from 12/12/2018 with Klebsiella. Fluid culture with gram-positive cocci. Imaging, 12/12/2018, CT abdomen and pelvis shows central to right lower quadrant mesenteric and retroperitoneal soft tissue stranding likely due to inflammation of blood, etiology is not certain, but suspected associated with 5 cm right ovarian cyst, possible hemorrhagic cyst or infection i.e. tubo-ovarian abscess. Differential diagnoses includes omental infarct, duodenitis, and peptic ulcer disease. The appendix is normal. Diverticulosis of the sigmoid colon. No definitive diverticulitis. Gallstone, low-density right adrenal mass 2.4 cm, probably adenoma, 2 cm left ovarian cyst, and moderate uterine fibroids. Transvaginal ultrasound 12/12/2018 was an incomplete exam. Abdominal ultrasound 12/12/2018 showed hepatosplenomegaly and cholelithiasis. On 12/14/2018, echo shows normal LVEF 60% to 65%, mild LVH, left atrial size upper limits of normal, right cardiac chamber size within normal limits. Focal aortic valve sclerosis and adequate cuff excursion. Thickened mitral valve leaflets with normal excursion. Mitral valve anulus and aortic root calcification, pulmonic valve not well visualized. Normal tricuspid valve structure. The IVC of normal size with physiologic collapse. Trace MR with velocities nondiagnostic due to atrial fibrillation. Trace TR. TR velocities and PA pressure of 26. Trace TR noted. On 12/15/2018, HIDA scan was normal. On 12/15/2018, transvaginal ultrasound normal, nonvisualization of the ovaries, and mild free fluid. On 12/17/2018, CT angio of the chest reviewed by myself shows no central or large PE. Suboptimal contrast PE evaluation and pulmonary arterial branches. No aortic or aneurysmal dissection. Trace bilateral pleural effusions. Dependent atelectasis bilaterally. Component of pneumonia on the right is not excluded. Scattered ground-glass opacities left upper lobe representing atelectasis versus infectious disease process, cholelithiasis, and nonspecific 2 cm right adrenal nodule. ASSESSMENT: The patient is a 53-year-old female smoker with a history of cocaine use, hypertension, admitted with tubo-ovarian abscess complicated by paroxysmal atrial fibrillation with rapid ventricular response, now back in sinus rhythm, but with tachypnea secondary to a combination of atelectasis and pneumonia at the right base. PROBLEM LIST: 1. Hospital-associated pneumonia, infiltrate at the right base. 2. Atelectasis. 3. Obesity with likely underlying obstructive sleep apnea. 4. Tubo-ovarian abscess status post CT-guided drainage. 5. Klebsiella urinary tract infection. 6. Paroxysmal atrial fibrillation, now back in sinus rhythm. 7. Hypertension. 8. Tobacco use. 9. Cocaine use. 10. Leukocytosis. 11. Cholelithiasis. 12. Adrenal nodule. 13. Asthma without evidence of exacerbation. 14. Depression. TREATMENT PLAN: 1. Optimize pulmonary hygiene/mobilize as tolerated. 2. P.r.n. O2. 3. Jegfb-ysc-bbxcz and p.r.n. Atrovent only, nebulizers. 4. Antibiotics per Infectious Diseases. 5. Monitor volumes and renal function. 6. Digoxin. 7. Rate and rhythm control per Dr. Thompson. 8. Follow up OB and GI recommendations. 9. DVT prophylaxis. The patient is on Lovenox. 10. Monitor volumes and renal function. 11. Continue to encourage abstinence from tobacco use. 12. Encourage abstinence from drug use. 13. The patient should have a sleep study and PFTs as an outpatient. Brian Howard M.D. DR: Manav JOB#: [id number] CC:
--- NOTE | 2018-12-18 19:45 | NUR ---
HAND-OFF: Report given to So HENOK Del Toro. Pt in stable condition.
--- NOTE | 2018-12-18 19:46 | NUR ---
NURSE NOTES: pt is awake and alert x 4. pt likes to move around a lot. pt's friend is at the bedside. pt is on NC 2L, O2sat is at 97%. bed at the lowest position, locked and alarmed. side rails are up x2. right Lower ABD drainage is intact. surgical site is intact.call light within reach, will continue to monitor with plan of care.
--- NOTE | 2018-12-18 21:30 | Progress Note ---
DATE: 12/18/2018 SUBJECTIVE: This is a 53-year-old female who currently came for abdominal pain, nausea, vomiting, weight loss, was found to have elevated white count and probably septic. On further workup, it was found that the patient has ruptured ovarian cysts and probably infected, has a drainage done. , but is still complaining of pain. SEO MARKETING SPECIALIST and GI consult was obtained. PHYSICAL EXAMINATION: VITAL SIGNS: Blood pressure is stable. CHEST: Bilaterally clear. CARDIOVASCULAR: Regular rhythm. No gallop. No murmur. ABDOMEN: Soft. EXTREMITIES: No CCE. NEUROLOGICAL: The patient has generalized weakness and is still complaining of pain. LABORATORY AND DIAGNOSTIC DATA: Her white count is slightly high. The patient is currently on antibiotics. GI, SEO MARKETING SPECIALIST, ID is on consult. Fabiano Berkowitz M.D. DR: Noa JOB#: [id number] CC:
[2018-12-19] VITALS (7 sets, daily range): BP systolic 142–164; BP diastolic 70–100
[2018-12-19] MEDS: dilTIAZem HCl 90mg tab ORAL SCH ×4 (01:05→17:14)
[2018-12-19] MEDS: Piperacillin/Tazobactam 3.375 GM in NS 110 ML IVPB SCH ×2 (01:45→10:57)
[2018-12-19] MEDS: NS w/KCl 20mEq 1000ml 1,000 ML IV SCH ×3 (04:30→20:39)
[2018-12-19] MEDS: Ipratropium 0.02% Inh Soln 2.5ml UD HHN SCH ×3 (07:44→19:27)
--- NOTE | 2018-12-19 07:52 | NUR ---
HAND-OFF: Report given to Chen WHITING., pt dressing is intact, drainage intact. enodorsed to monitor. pt stable.
--- NOTE | 2018-12-19 08:00 | NUR ---
NURSE NOTES: received pt in the bed, awake, alert, oriented, vital signs stable, no co pain, no SOB, pt has drainage on RT abdomen, skin warm and dry to touch, intact, use bedside commode, respiration regular, O2 2L, bed in low position, call light within reach.
[2018-12-19] MEDS: Lisinopril 10mg tab ORAL SCH ×2 (08:38→20:39)
[2018-12-19] MEDS: Doxycycline Monohydrate 100mg ORAL SCH (08:38)
[2018-12-19] MEDS: Enoxaparin 30mg Inj SUBQ SCH ×2 (08:40→21:50)
[2018-12-19] MEDS: Enoxaparin 80mg Inj SUBQ SCH ×2 (08:41→21:50)
[2018-12-19 09:11] LABS: HEMOGLOBIN 12.9 G/DL (12.0-16.0); MEAN CORPUSCULAR VOLUME 84 FL (80-99); PLATELET COUNT 301 K/UL (150-450); RED BLOOD COUNT 4.91 M/UL (4.20-5.40); RED CELL DISTRIBUTION WIDTH 13.8 % (11.6-14.8); WHITE BLOOD COUNT 15.4 K/UL (4.8-10.8)
[2018-12-19 09:31] LABS: ALANINE AMINOTRANSFERASE 28 U/L (12-78); ALBUMIN 1.7 G/DL (3.4-5.0); ALBUMIN/GLOBULIN RATIO 0.4 (1.0-2.7); ALKALINE PHOSPHATASE 242 U/L (46-116); ASPARTATE AMINO TRANSFERASE 34 U/L (15-37); BLOOD UREA NITROGEN 6 mg/dL (7-18); CALCIUM 8.3 MG/DL (8.5-10.1); CARBON DIOXIDE 29 MMOL/L (21-32); CREATININE 0.5 MG/DL (0.55-1.30)
[2018-12-19 09:38] LABS: CHLORIDE 106 MMOL/L (98-107); POTASSIUM 3.8 MMOL/L (3.5-5.1); SODIUM 140 MMOL/L (136-145)
--- NOTE | 2018-12-19 10:37 | NUR ---
HAND-OFF: Report given to GILBERTO RN, no distress at this time.
--- NOTE | 2018-12-19 10:38 | NUR ---
NURSE NOTES: Pt received from Chen Kat RN in stable condition w/ no cardiopulmonary distress noted. Pt is asleep in bed on 2L O2 via NC. SR on site monitor.Bedside commode noted near bed. Pt instructed to use call light before getting up to use commode- pt verbalized understanding. Accordion drain noted in RLQ draining serosanguineous fluid. Pt has a RW22g IV and LFA 20g IV. SCDs on bilat lower extremities. Bed in lowest position, alarm on, side rails up x 3, call light within reach. Will continue to monitor.
--- NOTE | 2018-12-19 11:13 | GI Progress Note ---
Assessment/Plan Problems: (1) Cocaine abuse ICD Codes: F14.10 - Cocaine abuse, uncomplicated SNOMED: 93083057 (2) Elevated LFTs ICD Codes: R94.5 - Abnormal results of liver function studies SNOMED: 318368011, 893215228 (3) Cholelithiasis ICD Codes: K80.20 - Calculus of gallbladder without cholecystitis without obstruction SNOMED: 571768897 (4) Ovarian cyst ICD Codes: N83.209 - Unspecified ovarian cyst, unspecified side SNOMED: 70664777 (5) Abdominal pain ICD Codes: R10.9 - Unspecified abdominal pain SNOMED: 40712025 Qualifiers: Qualified Codes: R10.31 - Right lower quadrant pain (6) Uterine fibroid ICD Codes: D25.9 - Leiomyoma of uterus, unspecified SNOMED: 78288738 Status: unchanged Status Narrative Discussed with Dr. Aguero. Assessment/Plan This is a 53-year-old female patient who presented with right-sided abdominal pain most likely secondary to infectious versus hemorrhagic right ovarian cyst. HIDA scan>> neg ABx per ID fu cardiology repeat labs drug screen>>. 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 I agree with the above findings, impression and plan. (Patient seen earlier today. Signature stamp does not reflect patient encounter time.). - Alan Aguero MD Subjective Gastrointestinal/Abdominal: Reports: abdominal pain Objective Last 24 Hour Vital Signs Date Time Temp Pulse Resp B/P (MAP) Pulse Ox O2 Delivery O2 Flow Rate FiO2 12/19/18 11:11 82 164/92 12/19/18 09:00 78 12/19/18 08:38 154/82 12/19/18 08:38 81 12/19/18 08:00 Nasal Cannula 2.0 12/19/18 08:00 98.1 81 20 154/82 (106) 98 12/19/18 07:40 84 20 99 Nasal Cannula 2.0 28 84 20 98 12/19/18 07:40 98 Nasal Cannula 2.0 28 12/19/18 06:46 80 159/68 12/19/18 04:00 Nasal Cannula 2.0 12/19/18 04:00 98.7 86 20 156/94 (114) 100 12/19/18 03:28 86 12/19/18 01:05 88 159/81 12/19/18 00:00 Nasal Cannula 2.0 12/19/18 00:00 98.7 79 20 159/81 (107) 100 12/18/18 23:45 88 20 98 Nasal Cannula 2.0 28 78 22 95 12/18/18 23:21 76 12/18/18 21:02 152/86 12/18/18 20:05 92 20 99 Nasal Cannula 2.0 28 85 20 96 12/18/18 20:05 98 Nasal Cannula 2.0 28 12/18/18 20:00 99.4 85 23 152/86 (108) 96 12/18/18 20:00 Nasal Cannula 2.0 12/18/18 20:00 86 12/18/18 17:34 84 153/94 12/18/18 16:00 99.2 84 28 153/94 (113) 96 12/18/18 16:00 Nasal Cannula 2.0 12/18/18 16:00 82 12/18/18 12:36 90 22 99 Nasal Cannula 2.0 28 87 23 97 12/18/18 12:03 79 150/69 12/18/18 12:00 Nasal Cannula 2.0 12/18/18 12:00 80 12/18/18 12:00 98.8 79 24 150/69 (96) 99 Intake and Output 12/18/18 12/19/18 19:00 07:00 Intake Total 1382.5 ml 1519.375 ml Output Total 260 ml 660 ml Balance 1122.5 ml 859.375 ml Intake Oral 420 ml 400 ml IV Total 962.5 ml 1119.375 ml Output Urine Total 250 ml 650 ml Other 10 ml 10 ml # Voids 3 7 # Bowel Movements 5 2 Laboratory Tests Test 12/19/18 08:25 White Blood Count 15.4 K/UL (4.8-10.8) H Red Blood Count 4.91 M/UL (4.20-5.40) Hemoglobin 12.9 G/DL (12.0-16.0) Hematocrit 41.0 % (37.0-47.0) Mean Corpuscular Volume 84 FL (80-99) Mean Corpuscular Hemoglobin 26.4 PG (27.0-31.0) L Mean Corpuscular Hemoglobin Concent 31.5 G/DL (32.0-36.0) L Red Cell Distribution Width 13.8 % (11.6-14.8) Platelet Count 301 K/UL (150-450) Mean Platelet Volume 6.4 FL (6.5-10.1) L Neutrophils (%) (Auto) % (45.0-75.0) Lymphocytes (%) (Auto) % (20.0-45.0) Monocytes (%) (Auto) % (1.0-10.0) Eosinophils (%) (Auto) % (0.0-3.0) Basophils (%) (Auto) % (0.0-2.0) Differential Total Cells Counted 100 Neutrophils % (Manual) 83 % (45-75) H Lymphocytes % (Manual) 8 % (20-45) L Monocytes % (Manual) 5 % (1-10) Eosinophils % (Manual) 1 % (0-3) Basophils % (Manual) 0 % (0-2) Band Neutrophils 3 % (0-8) Reactive Lymphocytes 1+ Platelet Estimate Adequate Platelet Morphology Normal Sodium Level 140 MMOL/L (136-145) Potassium Level 3.8 MMOL/L (3.5-5.1) Chloride Level 106 MMOL/L (98-107) Carbon Dioxide Level 29 MMOL/L (21-32) Blood Urea Nitrogen 6 mg/dL (7-18) L Creatinine 0.5 MG/DL (0.55-1.30) L Estimat Glomerular Filtration Rate > 60 mL/min (>60) Glucose Level 138 MG/DL (74-106) H Calcium Level 8.3 MG/DL (8.5-10.1) L Total Bilirubin 1.0 MG/DL (0.2-1.0) Aspartate Amino Transf (AST/SGOT) 34 U/L (15-37) Alanine Aminotransferase (ALT/SGPT) 28 U/L (12-78) Alkaline Phosphatase 242 U/L (46-116) H Total Protein 6.3 G/DL (6.4-8.2) L Albumin 1.7 G/DL (3.4-5.0) L Globulin 4.6 g/dL Albumin/Globulin Ratio 0.4 (1.0-2.7) L Height (Feet): 5 Height (Inches): 4.00 Weight (Pounds): 246 General Appearance: WD/WN, no apparent distress, alert Cardiovascular: normal rate Respiratory/Chest: normal breath sounds, no respiratory distress Abdominal Exam: normal bowel sounds, non tender, soft Extremities: normal range of motion, non-tender Ana Alas NP Dec 19, 2018 11:13
--- NOTE | 2018-12-19 11:29 | Infectious Diseases Prog Note ---
Assessment/Plan Assessment/Plan antibiotics : zosyn, doxycycline A 1. tubo ovarian abscess with group A streptococcus s/p ct guided drainage 2. leucocytosis improving 3. klebsiella UTI 4. atrial fibrillation P 1. d/c zosyn, doxycycline 2. start ceftriaxone 3. will follow up cultures Subjective Constitutional: Denies: fever Respiratory: Denies: shortness of breath, dry cough Gastrointestinal/Abdominal: Reports: diarrhea; Denies: nausea, vomiting Musculoskeletal: Reports: pain - decreased abdominal Allergies: Coded Allergies: No Known Allergies (Unverified , 07/24/17) Objective Vital Signs Last 24 Hour Vital Signs Date Time Temp Pulse Resp B/P (MAP) Pulse Ox O2 Delivery O2 Flow Rate FiO2 12/19/18 11:11 82 164/92 12/19/18 09:00 78 12/19/18 08:38 154/82 12/19/18 08:38 81 12/19/18 08:00 Nasal Cannula 2.0 12/19/18 08:00 98.1 81 20 154/82 (106) 98 12/19/18 07:40 84 20 99 Nasal Cannula 2.0 84 20 98 12/19/18 07:40 98 Nasal Cannula 2.0 28 12/19/18 06:46 80 159/68 12/19/18 04:00 Nasal Cannula 2.0 12/19/18 04:00 98.7 86 20 156/94 (114) 100 12/19/18 03:28 86 12/19/18 01:05 88 159/81 12/19/18 00:00 Nasal Cannula 2.0 12/19/18 00:00 98.7 79 20 159/81 (107) 100 12/18/18 23:45 88 20 98 Nasal Cannula 2.0 78 22 95 12/18/18 23:21 76 12/18/18 21:02 152/86 12/18/18 20:05 92 20 99 Nasal Cannula 2.0 28 85 20 96 12/18/18 20:05 98 Nasal Cannula 2.0 28 12/18/18 20:00 99.4 85 23 152/86 (108) 96 12/18/18 20:00 Nasal Cannula 2.0 12/18/18 20:00 86 12/18/18 17:34 84 153/94 12/18/18 16:00 99.2 84 28 153/94 (113) 96 12/18/18 16:00 Nasal Cannula 2.0 12/18/18 16:00 82 12/18/18 12:36 90 22 99 Nasal Cannula 2.0 28 87 23 97 12/18/18 12:03 79 150/69 12/18/18 12:00 Nasal Cannula 2.0 12/18/18 12:00 80 12/18/18 12:00 98.8 79 24 150/69 (96) 99 Height (Feet): 5 Height (Inches): 4.00 Weight (Pounds): 246 Respiratory/Chest: lungs clear Cardiovascular: normal rate, regular rhythm, no gallop/murmur Abdomen: soft, non tender, other - right side drain Extremities: no edema Microbiology Date/Time Source Procedure Growth Status 12/16/18 14:00 Body Fluid Abdominal Anaerobic Culture - Preliminary NO GROWTH AFTER 48 HOURS Resulted 12/16/18 14:00 Abdominal Fluid Gram Stain - Final Complete 12/16/18 14:00 Body Fluid Culture - Final Streptococcus Group A Complete Laboratory Tests Test 12/19/18 08:25 White Blood Count 15.4 K/UL (4.8-10.8) H Red Blood Count 4.91 M/UL (4.20-5.40) Hemoglobin 12.9 G/DL (12.0-16.0) Hematocrit 41.0 % (37.0-47.0) Mean Corpuscular Volume 84 FL (80-99) Mean Corpuscular Hemoglobin 26.4 PG (27.0-31.0) L Mean Corpuscular Hemoglobin Concent 31.5 G/DL (32.0-36.0) L Red Cell Distribution Width 13.8 % (11.6-14.8) Platelet Count 301 K/UL (150-450) Mean Platelet Volume 6.4 FL (6.5-10.1) L Neutrophils (%) (Auto) % (45.0-75.0) Lymphocytes (%) (Auto) % (20.0-45.0) Monocytes (%) (Auto) % (1.0-10.0) Eosinophils (%) (Auto) % (0.0-3.0) Basophils (%) (Auto) % (0.0-2.0) Differential Total Cells Counted 100 Neutrophils % (Manual) 83 % (45-75) H Lymphocytes % (Manual) 8 % (20-45) L Monocytes % (Manual) 5 % (1-10) Eosinophils % (Manual) 1 % (0-3) Basophils % (Manual) 0 % (0-2) Band Neutrophils 3 % (0-8) Reactive Lymphocytes 1+ Platelet Estimate Adequate Platelet Morphology Normal Sodium Level 140 MMOL/L (136-145) Potassium Level 3.8 MMOL/L (3.5-5.1) Chloride Level 106 MMOL/L (98-107) Carbon Dioxide Level 29 MMOL/L (21-32) Blood Urea Nitrogen 6 mg/dL (7-18) L Creatinine 0.5 MG/DL (0.55-1.30) L Estimat Glomerular Filtration Rate > 60 mL/min (>60) Glucose Level 138 MG/DL (74-106) H Calcium Level 8.3 MG/DL (8.5-10.1) L Total Bilirubin 1.0 MG/DL (0.2-1.0) Aspartate Amino Transf (AST/SGOT) 34 U/L (15-37) Alanine Aminotransferase (ALT/SGPT) 28 U/L (12-78) Alkaline Phosphatase 242 U/L (46-116) H Total Protein 6.3 G/DL (6.4-8.2) L Albumin 1.7 G/DL (3.4-5.0) L Globulin 4.6 g/dL Albumin/Globulin Ratio 0.4 (1.0-2.7) L Current Medications Medications (Trade) Dose Ordered Sig/Alfredo Route PRN Reason Start Time Stop Time Status Last Admin Dose Admin Acetaminophen (Tylenol) 650 mg Q6H PRN ORAL Mild Pain/Temp > 100.5 12/18/18 01:16 01/11/19 01:15 12/18/18 20:51 Acetaminophen/ Hydrocodone Bitart ([place] 5/325) 1 tab Q6H PRN ORAL Moderate Pain (Pain Scale 4-6) 12/18/18 02:00 12/19/18 13:59 12/19/18 11:05 Al Hydroxide/Mg Hydroxide (Mylanta II) 30 ml Q6H PRN ORAL dyspepsia 12/18/18 01:19 01/11/19 01:18 Dextrose (Dextrose 50%) 25 ml Q30M PRN IV Hypoglycemia 12/18/18 01:00 01/11/19 13:59 Dextrose (Dextrose 50%) 50 ml Q30M PRN IV Hypoglycemia 12/18/18 01:00 01/11/19 13:59 Digoxin (Lanoxin) 0.25 mg DAILY ORAL 12/18/18 09:00 01/14/19 09:59 12/19/18 08:38 Diltiazem HCl (Cardizem) 90 mg EVERY 6 HOURS ORAL 12/18/18 06:00 01/14/19 11:59 12/19/18 11:11 Diphenhydramine HCl (Benadryl) 25 mg Q6H PRN ORAL Itching/Pruritis 12/18/18 05:00 01/17/19 04:59 Doxycycline Monohydrate (Doxycycline Monohydrate) 100 mg EVERY 12 HOURS ORAL 12/18/18 09:00 12/22/18 09:29 12/19/18 08:38 Enoxaparin Sodium (Lovenox) 30 mg Q12HR SUBQ 12/18/18 09:00 01/14/19 10:59 12/19/18 08:40 Enoxaparin Sodium (Lovenox) 80 mg Q12HR SUBQ 12/18/18 09:00 01/14/19 10:59 12/19/18 08:41 Famotidine (Pepcid) 20 mg Q12HR ORAL 12/18/18 09:00 01/16/19 20:59 12/19/18 08:37 Hydralazine HCl (Apresoline) 10 mg Q2H PRN ORAL HYPERTENSION 12/18/18 01:45 01/14/19 09:44 Iohexol (Omnipaque) 100 mg NOW PRN INJ Radiology Procedure 12/18/18 01:29 12/20/18 01:28 Ipratropium [place] (Atrovent) 500 mcg Q4H PRN HHN Shortness of Breath 12/18/18 12:00 12/23/18 11:59 Ipratropium [place] (Atrovent) 500 mcg Q6HRT HHN 12/18/18 13:00 12/23/18 12:59 12/19/18 07:44 Lisinopril (Zestril) 10 mg Q12HR ORAL 12/18/18 09:00 01/14/19 20:59 12/19/18 08:38 Lorazepam (Ativan) 1 mg Q4H PRN ORAL For Anxiety 12/18/18 01:00 12/19/18 20:59 Morphine Sulfate (Morphine Sulfate) 1 mg Q4H PRN IVP Severe Pain (Pain Scale 7-10) 12/18/18 02:00 12/19/18 13:59 Ondansetron HCl (Zofran) 4 mg Q6H PRN IVP Nausea & Vomiting 12/18/18 02:00 01/11/19 13:59 Piperacillin Sod/ Tazobactam Sod 3.375 gm/Sodium Chloride 110 ml @ 27.5 mls/hr Q8H IVPB 12/18/18 02:00 12/22/18 09:59 12/19/18 10:57 Potassium Chloride/Sodium Chloride 1,000 ml @ 75 mls/hr [id number] IV 12/18/18 01:30 01/11/19 01:29 12/19/18 04:30 Temazepam (Restoril) 15 mg HSPRN PRN ORAL Insomnia 12/18/18 01:22 12/20/18 01:21 Davin Rowland MD Dec 19, 2018 11:29
--- NOTE | 2018-12-19 12:49 | General Progress Note ---
Progress Note Progress Note GYNECOLOGY PROGRESS NOTE S: Patient reports that her pain has significantly improved from previous. Discussed etiology of her TOA at length, patient understands that pelvic infection likely caused by STI. Vitals: Tlast 98.3, BP 164/92, P 82, RR 24, O2 99% RA I/O: Drain putting out 10-20cc/shift Exam: Gen: NAD, more alert than previous Abd: Soft, obese, appropriately tender around drain with some bruising, non distended Ext: No calf TTP Labs: Test 12/17/18 05:00 12/17/18 15:30 12/18/18 04:00 12/19/18 08:25 White Blood Count 20.2 K/UL (4.8-10.8) 15.4 K/UL (4.8-10.8) Red Blood Count 5.15 M/UL (4.20-5.40) 4.91 M/UL (4.20-5.40) Hemoglobin 13.5 G/DL (12.0-16.0) 12.9 G/DL (12.0-16.0) Hematocrit 43.3 % (37.0-47.0) 41.0 % (37.0-47.0) Mean Corpuscular Volume 84 FL (80-99) 84 FL (80-99) Mean Corpuscular Hemoglobin 26.3 PG (27.0-31.0) 26.4 PG (27.0-31.0) Mean Corpuscular Hemoglobin Concent 31.2 G/DL (32.0-36.0) 31.5 G/DL (32.0-36.0) Red Cell Distribution Width 13.9 % (11.6-14.8) 13.8 % (11.6-14.8) Platelet Count 275 K/UL (150-450) 301 K/UL (150-450) Mean Platelet Volume 6.4 FL (6.5-10.1) 6.4 FL (6.5-10.1) Neutrophils (%) (Auto) % (45.0-75.0) % (45.0-75.0) Lymphocytes (%) (Auto) % (20.0-45.0) % (20.0-45.0) Monocytes (%) (Auto) % (1.0-10.0) % (1.0-10.0) Eosinophils (%) (Auto) % (0.0-3.0) % (0.0-3.0) Basophils (%) (Auto) % (0.0-2.0) % (0.0-2.0) Differential Total Cells Counted 100 100 Neutrophils % (Manual) 88 % (45-75) 83 % (45-75) Lymphocytes % (Manual) 5 % (20-45) 8 % (20-45) Monocytes % (Manual) 6 % (1-10) 5 % (1-10) Eosinophils % (Manual) 1 % (0-3) 1 % (0-3) Basophils % (Manual) 0 % (0-2) 0 % (0-2) Band Neutrophils 0 % (0-8) 3 % (0-8) Platelet Estimate Adequate Adequate Platelet Morphology Normal Normal Red Blood Cell Morphology Normal Sodium Level 140 MMOL/L (136-145) 140 MMOL/L (136-145) Potassium Level 3.6 MMOL/L (3.5-5.1) 3.8 MMOL/L (3.5-5.1) Chloride Level 106 MMOL/L (98-107) 106 MMOL/L (98-107) Carbon Dioxide Level 24 MMOL/L (21-32) 29 MMOL/L (21-32) Anion Gap 10 mmol/L (5-15) Blood Urea Nitrogen 15 mg/dL (7-18) 6 mg/dL (7-18) Creatinine 0.6 MG/DL (0.55-1.30) 0.5 MG/DL (0.55-1.30) Estimat Glomerular Filtration Rate > 60 mL/min (>60) > 60 mL/min (>60) Glucose Level 123 MG/DL (74-106) 138 MG/DL (74-106) Calcium Level 7.9 MG/DL (8.5-10.1) 8.3 MG/DL (8.5-10.1) Total Bilirubin 2.0 MG/DL (0.2-1.0) 1.0 MG/DL (0.2-1.0) Direct Bilirubin 1.3 MG/DL (0.0-0.3) Aspartate Amino Transf (AST/SGOT) 19 U/L (15-37) 34 U/L (15-37) Alanine Aminotransferase (ALT/SGPT) 13 U/L (12-78) 28 U/L (12-78) Alkaline Phosphatase 187 U/L (46-116) 242 U/L (46-116) Total Protein 5.4 G/DL (6.4-8.2) 6.3 G/DL (6.4-8.2) Albumin 1.5 G/DL (3.4-5.0) 1.7 G/DL (3.4-5.0) Globulin 3.9 g/dL 4.6 g/dL Albumin/Globulin Ratio 0.4 (1.0-2.7) 0.4 (1.0-2.7) D-Dimer 7.11 mg/L FEU (0.00-0.49) Digoxin Level 0.6 NG/ML (0.9-2.0) Reactive Lymphocytes 1+ Assessment/Plan: 53yo admitted with abdominal pain, fever, clinical picture concerning for TOA, now s/p CT-guided drainage with 50cc purulent output at the time of the procedure. - Leukocytosis resolving and pain improved greatly from previous - Patient has been afebrile - Drain putting out serosanguinous drainage, minimal - Will likely remove drain soon - Patient was ordered to be on Cefoxitin/Doxycyline/Flagyl given that she has a tuboovarian abscess, however she has been on Zosyn for several days which was ordered by her Primary team - Recommend patient continue on PO Doxycyline 100mg BID and Flagyl 500mg BID for total 14day treatment course - Discussed drain with Surgery, will remove when appropriate - Consider repeat CT if clinical condition fails to improve Signed: MD Maritza Valero Carla M.D. Dec 19, 2018 12:48
--- NOTE | 2018-12-19 12:55 | NUR ---
CASE MANAGEMENT: REVIEW 12/19/2018 SI:TUBO- OVARIAN ABSCESS. T 98.3 HR 82 RR 24 B/P 164/92 SATS 99% ON 2L/NC WBC 15.4 BUN 6 CR 0.5 GLU 138 CA 8.3 ALP 242 IS: KCL @ 75 mL/HR CARDIZEM PO Q6H LANOXIN PO QD LISINOPRIL PO Q12H CEFTRIAXONE IV Q24H SDU PLAN OF CARE: MONITOR DRAIN OUTPUT
[2018-12-19] MEDS ORDERED: cefTRIAXone 1 GM in D5W 55 ML IVPB SCH (14:00)
--- NOTE | 2018-12-19 14:54 | Cardiac Electrophysiology PN ---
Assessment/Plan Assessment/Plan 1. Atrial fibrillation with rapid ventricular response. On Cardizem 90 q6 and Digoxin 0.25 daily. Echo EF 65%. On Lovenox 1mg/kg sq bid. 2. Hypertension. Continue Cardizem and Lisinopril. 3. Right-sided abdominal pain likely secondary to infectious plus hemorrhagic right ovarian cyst. Follow up by GI and Surgery. Follow up with ID and [facility] recommendation. S/P CT Guided aspiration of the abdominal abscess 4. Sepsis with white count of more than 20,000. On IV antibiotic per ID. 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 OB at the bedside. S/P CT guided drainage of pelvic abscess. Transferred out of ICU Objective Last 24 Hour Vital Signs Date Time Temp Pulse Resp B/P (MAP) Pulse Ox O2 Delivery O2 Flow Rate FiO2 12/19/18 13:15 84 20 99 Nasal Cannula 2.0 28 82 20 98 12/19/18 12:00 Nasal Cannula 2.0 12/19/18 12:00 98.3 82 24 164/92 (116) 99 12/19/18 12:00 81 12/19/18 11:11 82 164/92 12/19/18 09:00 78 12/19/18 08:38 154/82 12/19/18 08:38 81 12/19/18 08:00 Nasal Cannula 2.0 12/19/18 08:00 98.1 81 20 154/82 (106) 98 12/19/18 07:40 84 20 99 Nasal Cannula 2.0 28 84 20 98 12/19/18 07:40 98 Nasal Cannula 2.0 12/19/18 06:46 80 159/68 12/19/18 04:00 Nasal Cannula 2.0 12/19/18 04:00 98.7 86 20 156/94 (114) 100 12/19/18 03:28 86 12/19/18 01:05 88 159/81 12/19/18 00:00 Nasal Cannula 2.0 12/19/18 00:00 98.7 79 20 159/81 (107) 100 12/18/18 23:45 88 20 98 Nasal Cannula 2.0 28 78 22 95 12/18/18 23:21 76 12/18/18 21:02 152/86 12/18/18 20:05 92 20 99 Nasal Cannula 2.0 28 85 20 96 12/18/18 20:05 98 Nasal Cannula 2.0 28 12/18/18 20:00 99.4 85 23 152/86 (108) 96 12/18/18 20:00 Nasal Cannula 2.0 12/18/18 20:00 86 12/18/18 17:34 84 153/94 12/18/18 16:00 99.2 84 28 153/94 (113) 96 12/18/18 16:00 Nasal Cannula 2.0 12/18/18 16:00 82 Intake and Output 12/18/18 12/19/18 19:00 07:00 Intake Total 1382.5 ml 1519.375 ml Output Total 260 ml 660 ml Balance 1122.5 ml 859.375 ml Intake Oral 420 ml 400 ml IV Total 962.5 ml 1119.375 ml Output Urine Total 250 ml 650 ml Other 10 ml 10 ml # Voids 3 7 # Bowel Movements 5 2 Laboratory Tests Test 12/19/18 08:25 White Blood Count 15.4 K/UL (4.8-10.8) H Red Blood Count 4.91 M/UL (4.20-5.40) Hemoglobin 12.9 G/DL (12.0-16.0) Hematocrit 41.0 % (37.0-47.0) Mean Corpuscular Volume 84 FL (80-99) Mean Corpuscular Hemoglobin 26.4 PG (27.0-31.0) L Mean Corpuscular Hemoglobin Concent 31.5 G/DL (32.0-36.0) L Red Cell Distribution Width 13.8 % (11.6-14.8) Platelet Count 301 K/UL (150-450) Mean Platelet Volume 6.4 FL (6.5-10.1) L Neutrophils (%) (Auto) % (45.0-75.0) Lymphocytes (%) (Auto) % (20.0-45.0) Monocytes (%) (Auto) % (1.0-10.0) Eosinophils (%) (Auto) % (0.0-3.0) Basophils (%) (Auto) % (0.0-2.0) Differential Total Cells Counted 100 Neutrophils % (Manual) 83 % (45-75) H Lymphocytes % (Manual) 8 % (20-45) L Monocytes % (Manual) 5 % (1-10) Eosinophils % (Manual) 1 % (0-3) Basophils % (Manual) 0 % (0-2) Band Neutrophils 3 % (0-8) Reactive Lymphocytes 1+ Platelet Estimate Adequate Platelet Morphology Normal Sodium Level 140 MMOL/L (136-145) Potassium Level 3.8 MMOL/L (3.5-5.1) Chloride Level 106 MMOL/L (98-107) Carbon Dioxide Level 29 MMOL/L (21-32) Blood Urea Nitrogen 6 mg/dL (7-18) L Creatinine 0.5 MG/DL (0.55-1.30) L Estimat Glomerular Filtration Rate > 60 mL/min (>60) Glucose Level 138 MG/DL (74-106) H Calcium Level 8.3 MG/DL (8.5-10.1) L Total Bilirubin 1.0 MG/DL (0.2-1.0) Aspartate Amino Transf (AST/SGOT) 34 U/L (15-37) Alanine Aminotransferase (ALT/SGPT) 28 U/L (12-78) Alkaline Phosphatase 242 U/L (46-116) H Total Protein 6.3 G/DL (6.4-8.2) L Albumin 1.7 G/DL (3.4-5.0) L Globulin 4.6 g/dL Albumin/Globulin Ratio 0.4 (1.0-2.7) L Objective HEAD AND NECK: No JVD. HEART: Regular S1 and S2 with no gallop, murmur. LUNGS: CTA ABDOMEN: Obese.Has a drain EXTREMITIES: No pitting edema. Ha Thompson MD Dec 19, 2018 14:54
--- NOTE | 2018-12-19 15:56 | Surgery Progress Note ---
Surgery Progress Note Subjective Additional Comments Patient seen and examined bedside. No acute events. Leukocytosis improved. States that she feeling better. Pain improved. Tolerating diet. Passing flatus. Drain output minimal. Discussed case with CANDY CUTTER MACHINE. Objective Last 24 Hour Vital Signs Date Time Temp Pulse Resp B/P (MAP) Pulse Ox O2 Delivery O2 Flow Rate FiO2 12/19/18 13:15 84 20 99 Nasal Cannula 2.0 28 82 20 98 12/19/18 12:00 Nasal Cannula 2.0 12/19/18 12:00 98.3 82 24 164/92 (116) 99 12/19/18 12:00 81 12/19/18 11:11 82 164/92 12/19/18 09:00 78 12/19/18 08:38 154/82 12/19/18 08:38 81 12/19/18 08:00 Nasal Cannula 2.0 12/19/18 08:00 98.1 81 20 154/82 (106) 98 12/19/18 07:40 84 20 99 Nasal Cannula 2.0 84 20 98 12/19/18 07:40 98 Nasal Cannula 2.0 12/19/18 06:46 80 159/68 12/19/18 04:00 Nasal Cannula 2.0 12/19/18 04:00 98.7 86 20 156/94 (114) 100 12/19/18 03:28 86 12/19/18 01:05 88 159/81 12/19/18 00:00 Nasal Cannula 2.0 12/19/18 00:00 98.7 79 20 159/81 (107) 100 12/18/18 23:45 88 20 98 Nasal Cannula 2.0 78 22 95 12/18/18 23:21 76 12/18/18 21:02 152/86 12/18/18 20:05 92 20 99 Nasal Cannula 2.0 85 20 96 12/18/18 20:05 98 Nasal Cannula 2.0 28 12/18/18 20:00 99.4 85 23 152/86 (108) 96 12/18/18 20:00 Nasal Cannula 2.0 12/18/18 20:00 86 12/18/18 17:34 84 153/94 12/18/18 16:00 99.2 84 28 153/94 (113) 96 12/18/18 16:00 Nasal Cannula 2.0 12/18/18 16:00 82 I&O Intake and Output 12/18/18 12/19/18 19:00 07:00 Intake Total 1382.5 ml 1519.375 ml Output Total 260 ml 660 ml Balance 1122.5 ml 859.375 ml Intake Oral 420 ml 400 ml IV Total 962.5 ml 1119.375 ml Output Urine Total 250 ml 650 ml Other 10 ml 10 ml # Voids 3 7 # Bowel Movements 5 2 Dressing: dry Wound: clean Drains: other Cardiovascular: RSR Respiratory: clear Abdomen: soft, flat, non-tender, present bowel sounds, non-distended Extremities: no edema, no tenderness, no cyanosis Laboratory Tests Test 12/19/18 08:25 White Blood Count 15.4 K/UL (4.8-10.8) H Red Blood Count 4.91 M/UL (4.20-5.40) Hemoglobin 12.9 G/DL (12.0-16.0) Hematocrit 41.0 % (37.0-47.0) Mean Corpuscular Volume 84 FL (80-99) Mean Corpuscular Hemoglobin 26.4 PG (27.0-31.0) L Mean Corpuscular Hemoglobin Concent 31.5 G/DL (32.0-36.0) L Red Cell Distribution Width 13.8 % (11.6-14.8) Platelet Count 301 K/UL (150-450) Mean Platelet Volume 6.4 FL (6.5-10.1) L Neutrophils (%) (Auto) % (45.0-75.0) Lymphocytes (%) (Auto) % (20.0-45.0) Monocytes (%) (Auto) % (1.0-10.0) Eosinophils (%) (Auto) % (0.0-3.0) Basophils (%) (Auto) % (0.0-2.0) Differential Total Cells Counted 100 Neutrophils % (Manual) 83 % (45-75) H Lymphocytes % (Manual) 8 % (20-45) L Monocytes % (Manual) 5 % (1-10) Eosinophils % (Manual) 1 % (0-3) Basophils % (Manual) 0 % (0-2) Band Neutrophils 3 % (0-8) Reactive Lymphocytes 1+ Platelet Estimate Adequate Platelet Morphology Normal Sodium Level 140 MMOL/L (136-145) Potassium Level 3.8 MMOL/L (3.5-5.1) Chloride Level 106 MMOL/L (98-107) Carbon Dioxide Level 29 MMOL/L (21-32) Blood Urea Nitrogen 6 mg/dL (7-18) L Creatinine 0.5 MG/DL (0.55-1.30) L Estimat Glomerular Filtration Rate > 60 mL/min (>60) Glucose Level 138 MG/DL (74-106) H Calcium Level 8.3 MG/DL (8.5-10.1) L Total Bilirubin 1.0 MG/DL (0.2-1.0) Aspartate Amino Transf (AST/SGOT) 34 U/L (15-37) Alanine Aminotransferase (ALT/SGPT) 28 U/L (12-78) Alkaline Phosphatase 242 U/L (46-116) H Total Protein 6.3 G/DL (6.4-8.2) L Albumin 1.7 G/DL (3.4-5.0) L Globulin 4.6 g/dL Albumin/Globulin Ratio 0.4 (1.0-2.7) L Plan Problems: (1) Abdominal pain Assessment & Plan: 53-year-old female with abdominal pain for the past 2 days worsening started his right flank now on her right mid abdomen and lower quadrant. Afebrile, hemodynamically stable, leukocytosis 20,000. Labs otherwise normal. Right-sided abdominal tenderness on examination with voluntary guarding but no rebound CT reviewed with radiologist and as noted in his dictation. Possible tubo-ovarian site abscess, hemorrhagic ovarian cyst, mesenteric infarct, enteritis. At this time needs further work-up and management. A.m. labs. Infectious disease input GI input noted in ICU for a fib. cardiology input noted appreciate [employer] input discussed with gmat tutor - possible OR Status post IR drainage pending microbiology cont abx okay for diet Continue with current care plan. Trend leukocytosis If continues to improve we will consider removal of drain and discharge on oral antibiotics. will follow Thank you for this consultation we will follow with recommendations and serial exams. Ganga Mancuso Dec 19, 2018 15:56
--- NOTE | 2018-12-19 16:55 | Pulmonology Progress Note ---
Assessment/Plan Problems: (1) D-dimer, elevated (2) Cocaine abuse (3) Elevated LFTs (4) RI (5) A-fib (6) Ovarian cyst (7) Hypoalbuminemia (8) Cholelithiasis (9) Hepatomegaly (10) Adrenal mass (11) Abdominal pain (12) Uterine fibroid (13) Sepsis (14) Syncope and collapse (15) Diverticulitis Assessment/Plan ASSESSMENT: The patient is a 53-year-old female smoker with a history of cocaine use, hypertension, admitted with tubo-ovarian abscess complicated by paroxysmal atrial fibrillation with rapid ventricular response, now back in sinus rhythm, but with tachypnea secondary to a combination of atelectasis and pneumonia at the right base. PROBLEM LIST: 1. Hospital-associated pneumonia, infiltrate at the right base. 2. Atelectasis. 3. Obesity with likely underlying obstructive sleep apnea. 4. Tubo-ovarian abscess status post CT-guided drainage. 5. Klebsiella urinary tract infection. 6. Paroxysmal atrial fibrillation, now back in sinus rhythm. 7. Hypertension. 8. Tobacco use. 9. Cocaine use. 10. Leukocytosis. 11. Cholelithiasis. 12. Adrenal nodule. 13. Asthma without evidence of exacerbation. 14. Depression. TREATMENT PLAN: 1. Optimize pulmonary hygiene/mobilize as tolerated. 2. P.r.n. O2. 3. Wbkqb-[id number]-rsigo and p.r.n. Atrovent only, nebulizers. 4. Antibiotics per Infectious Diseases. 5. Monitor volumes and renal function. 6. Digoxin. 7. Rate and rhythm control per Dr. Thompson. 8. Follow up OB and GI recommendations. 9. DVT prophylaxis. The patient is on Lovenox. 10. Monitor volumes and renal function. 11. Continue to encourage abstinence from tobacco use. 12. Encourage abstinence from drug use. 13. The patient should have a sleep study and PFTs as an outpatient. Subjective Allergies: Coded Allergies: No Known Allergies (Unverified , 07/24/17) Subjective AFVSS on RA - 2L oxygenation stable No cough No SOB no FC no CP Abd pain less Objective Last 24 Hour Vital Signs Date Time Temp Pulse Resp B/P (MAP) Pulse Ox O2 Delivery O2 Flow Rate FiO2 12/19/18 16:00 Nasal Cannula 2.0 12/19/18 16:00 77 12/19/18 13:15 84 20 99 Nasal Cannula 2.0 28 82 20 98 12/19/18 12:00 Nasal Cannula 2.0 12/19/18 12:00 98.3 82 24 164/92 (116) 99 12/19/18 12:00 81 12/19/18 11:11 82 164/92 12/19/18 09:00 78 12/19/18 08:38 154/82 12/19/18 08:38 81 12/19/18 08:00 Nasal Cannula 2.0 12/19/18 08:00 98.1 81 20 154/82 (106) 98 12/19/18 07:40 84 20 99 Nasal Cannula 2.0 28 84 20 98 12/19/18 07:40 98 Nasal Cannula 2.0 28 12/19/18 06:46 80 159/68 12/19/18 04:00 Nasal Cannula 2.0 12/19/18 04:00 98.7 86 20 156/94 (114) 100 12/19/18 03:28 86 12/19/18 01:05 88 159/81 12/19/18 00:00 Nasal Cannula 2.0 12/19/18 00:00 98.7 79 20 159/81 (107) 100 12/18/18 23:45 88 20 98 Nasal Cannula 2.0 28 78 22 95 12/18/18 23:21 76 12/18/18 21:02 152/86 12/18/18 20:05 92 20 99 Nasal Cannula 2.0 28 85 20 96 12/18/18 20:05 98 Nasal Cannula 2.0 28 12/18/18 20:00 99.4 85 23 152/86 (108) 96 12/18/18 20:00 Nasal Cannula 2.0 12/18/18 20:00 86 12/18/18 17:34 84 153/94 Intake and Output 12/18/18 12/19/18 19:00 07:00 Intake Total 1382.5 ml 1519.375 ml Output Total 260 ml 660 ml Balance 1122.5 ml 859.375 ml Intake Oral 420 ml 400 ml IV Total 962.5 ml 1119.375 ml Output Urine Total 250 ml 650 ml Other 10 ml 10 ml # Voids 3 7 # Bowel Movements 5 2 General Appearance: no acute distress, other - obe F HEENT: normocephalic, atraumatic, anicteric, mucous membranes moist Respiratory/Chest: chest wall non-tender, lungs clear, normal breath sounds, no respiratory distress, no accessory muscle use Cardiovascular: normal peripheral pulses, normal rate, regular rhythm Abdomen: normal bowel sounds, soft, non tender, no organomegaly, non distended , no mass Extremities: no cyanosis, no clubbing, no edema Laboratory Tests 12/19/18 08:25: White Blood Count 15.4H, Red Blood Count 4.91, Hemoglobin 12.9, Hematocrit 41.0 , Mean Corpuscular Volume 84, Mean Corpuscular Hemoglobin 26.4L, Mean Corpuscular Hemoglobin Concent 31.5L, Red Cell Distribution Width 13.8, Platelet Count 301, Mean Platelet Volume 6.4L, Neutrophils (%) (Auto) , Lymphocytes (%) (Auto) , Monocytes (%) (Auto) , Eosinophils (%) (Auto) , Basophils (%) (Auto) , Differential Total Cells Counted 100, Neutrophils % ( Manual) 83H, Lymphocytes % (Manual) 8L, Monocytes % (Manual) 5, Eosinophils % ( Manual) 1, Basophils % (Manual) 0, Band Neutrophils 3, Reactive Lymphocytes 1+, Platelet Estimate Adequate, Platelet Morphology Normal, Sodium Level 140, Potassium Level 3.8, Chloride Level 106, Carbon Dioxide Level 29, Blood Urea Nitrogen 6L, Creatinine 0.5L, Estimat Glomerular Filtration Rate > 60, Glucose Level 138H, Calcium Level 8.3L, Total Bilirubin 1.0, Aspartate Amino Transf (AST /SGOT) 34, Alanine Aminotransferase (ALT/SGPT) 28, Alkaline Phosphatase 242H, Total Protein 6.3L, Albumin 1.7L, Globulin 4.6, Albumin/Globulin Ratio 0.4L Current Medications Medications (Trade) Dose Ordered Sig/Alfredo Route PRN Reason Start Time Stop Time Status Last Admin Dose Admin Acetaminophen (Tylenol) 650 mg Q6H PRN ORAL Mild Pain/Temp > 100.5 12/18/18 01:16 01/11/19 01:15 12/18/18 20:51 Al Hydroxide/Mg Hydroxide (Mylanta II) 30 ml Q6H PRN ORAL dyspepsia 12/18/18 01:19 01/11/19 01:18 Ceftriaxone Sodium 1 gm/ Dextrose 55 ml @ 110 mls/hr Q24H IVPB 12/19/18 14:00 12/26/18 13:59 12/19/18 13:30 Dextrose (Dextrose 50%) 25 ml Q30M PRN IV Hypoglycemia 12/18/18 01:00 01/11/19 13:59 Dextrose (Dextrose 50%) 50 ml Q30M PRN IV Hypoglycemia 12/18/18 01:00 01/11/19 13:59 Digoxin (Lanoxin) 0.25 mg DAILY ORAL 12/18/18 09:00 01/14/19 09:59 12/19/18 08:38 Diltiazem HCl (Cardizem) 90 mg EVERY 6 HOURS ORAL 12/18/18 06:00 01/14/19 11:59 12/19/18 11:11 Diphenhydramine HCl (Benadryl) 25 mg Q6H PRN ORAL Itching/Pruritis 12/18/18 05:00 01/17/19 04:59 Enoxaparin Sodium (Lovenox) 30 mg Q12HR SUBQ 12/18/18 09:00 01/14/19 10:59 12/19/18 08:40 Enoxaparin Sodium (Lovenox) 80 mg Q12HR SUBQ 12/18/18 09:00 01/14/19 10:59 12/19/18 08:41 Famotidine (Pepcid) 20 mg Q12HR ORAL 12/18/18 09:00 01/16/19 20:59 12/19/18 08:37 Hydralazine HCl (Apresoline) 10 mg Q2H PRN ORAL HYPERTENSION 12/18/18 01:45 01/14/19 09:44 Iohexol (Omnipaque) 100 mg NOW PRN INJ Radiology Procedure 12/18/18 01:29 12/20/18 01:28 Ipratropium [place] (Atrovent) 500 mcg Q4H PRN HHN Shortness of Breath 12/18/18 12:00 12/23/18 11:59 Ipratropium [place] (Atrovent) 500 mcg Q6HRT HHN 12/18/18 13:00 12/23/18 12:59 12/19/18 13:07 Lisinopril (Zestril) 10 mg Q12HR ORAL 12/18/18 09:00 01/14/19 20:59 12/19/18 08:38 Lorazepam (Ativan) 1 mg Q4H PRN ORAL For Anxiety 12/18/18 01:00 12/19/18 20:59 Ondansetron HCl (Zofran) 4 mg Q6H PRN IVP Nausea & Vomiting 12/18/18 02:00 01/11/19 13:59 Potassium Chloride/Sodium Chloride 1,000 ml @ 75 mls/hr [id number] IV 12/18/18 01:30 01/11/19 01:29 12/19/18 04:30 Temazepam (Restoril) 15 mg HSPRN PRN ORAL Insomnia 12/18/18 01:22 12/20/18 01:21 Brian Howard MD Dec 19, 2018 16:55
--- NOTE | 2018-12-19 19:30 | NUR ---
NURSE NOTES: Received Pt is resting on the bed and no sign of acute distress noted. On O2 2L via nasal cannula and no sign of respiratory distress noted. On Tele monitor with SR. Pt has Pigtail and Sero-sanguineous drain drainage. Denied pain at this time. Placed fall precaution. Will continue to care plan. Pt will transfer to [facility] and awaiting room.
--- NOTE | 2018-12-19 19:34 | NUR ---
HAND-OFF: Report given to Carlos Abel RN. Pt in stable condition.
[2018-12-19] MEDS ORDERED: LORazepam 1mg tab ORAL PRN (21:00)
[2018-12-19] MEDS ORDERED: HydrALAZINE 10mg Tab ORAL PRN (21:00)
[2018-12-19] MEDS ORDERED: Ipratropium 0.02% Inh Soln 2.5ml UD HHN PRN (21:00)
--- NOTE | 2018-12-19 21:25 | NUR ---
TRANSFER TO FLOOR: Patient transferred to [facility] 309-1. Report given to HENOK Gonzalez. Pt is resting on the bed and no sign of acute distress noted. Belongings and medications given to HENOK Gonzalez. Removed Tele monitor .
[2018-12-19] MEDS: HYDROcodone/Acetamin 5/325 tab ORAL PRN (22:49)
[2018-12-20] VITALS (7 sets, daily range): BP systolic 130–168; BP diastolic 73–92
[2018-12-20] MEDS: Ipratropium 0.02% Inh Soln 2.5ml UD HHN SCH ×4 (00:07→19:36)
[2018-12-20] MEDS: dilTIAZem HCl 90mg tab ORAL SCH ×4 (00:37→17:46)
[2018-12-20] MEDS ORDERED: Omnipaue 350mg/ml 100ml vial INJ PRN (01:30)
--- NOTE | 2018-12-20 03:00 | Progress Note ---
DATE: 12/19/2018 SUBJECTIVE: This is an elderly male, currently in the bed, slightly better. Pain is controlling as her drainage done. PHYSICAL EXAMINATION: VITAL SIGNS: Stable. CHEST: Bilaterally clear. CARDIOVASCULAR: Regular rhythm. ABDOMEN: Soft. EXTREMITIES: No CCE. ASSESSMENT: 1. Infected ovarian cyst. 2. Chronic pain. 3. Diverticulitis. PLAN: Diet, she is on a regular diet. Continue antibiotics. GI as well as CONTACT CENTER CONSULTANT is on the case. Fabiano Berkowitz M.D. DR: Noa JOB#: [id number] CC:
--- NOTE | 2018-12-20 03:22 | NUR ---
TRANSFER NOTE: Pt arrived to [facility] at 2114. Report was given from Carlos. Pt is A/Ox4 with stable VS. Pt expressed frustration over not receiving dinner or pain meds and not being able to change her bank pin number on her cellphone. The charge nurse obtained a sandwich and pudding for the patient and Dr. Berkowitz was contacted at [phone] for a pain medicine order. Patient has been resting comfortably in bed. Will continue to monitor.
--- NOTE | 2018-12-20 03:29 | NUR ---
NURSE NOTE: Orders reviewed and physical assessment completed. Pt refused to wear SCD's. Patient oriented to call spencer usage but yells for assistance when in need. Will continue to monitor.
[2018-12-20 05:34] LABS: BASOPHILS % (AUTO) 0.7 % (0.0-2.0); EOSINOPHILS % (AUTO) 1.4 % (0.0-3.0); HEMOGLOBIN 13.1 G/DL (12.0-16.0); LYMPHOCYTES % (AUTO) 9.8 % (20.0-45.0); MEAN CORPUSCULAR VOLUME 83 FL (80-99); MONOCYTES % (AUTO) 5.3 % (1.0-10.0); NEUTROPHILS % (AUTO) 82.8 % (45.0-75.0); PLATELET COUNT 340 K/UL (150-450); RED BLOOD COUNT 4.92 M/UL (4.20-5.40); RED CELL DISTRIBUTION WIDTH 13.8 % (11.6-14.8); WHITE BLOOD COUNT 13.9 K/UL (4.8-10.8)
[2018-12-20 05:35] LABS: ANION GAP 5 mmol/L (5-15); BLOOD UREA NITROGEN 5 mg/dL (7-18); CALCIUM 8.2 MG/DL (8.5-10.1); CARBON DIOXIDE 29 MMOL/L (21-32); CHLORIDE 106 MMOL/L (98-107); CREATININE 0.6 MG/DL (0.55-1.30); POTASSIUM 4.1 MMOL/L (3.5-5.1); SODIUM 140 MMOL/L (136-145)
[2018-12-20] MEDS: NS w/KCl 20mEq 1000ml 1,000 ML IV SCH (07:12)
--- NOTE | 2018-12-20 07:35 | General Progress Note ---
Assessment/Plan Problem List: (1) Ovarian cyst ICD Codes: N83.209 - Unspecified ovarian cyst, unspecified side SNOMED: 68181317 (2) Hepatomegaly ICD Codes: R16.0 - Hepatomegaly, not elsewhere classified SNOMED: 91442002 (3) Cholelithiasis ICD Codes: K80.20 - Calculus of gallbladder without cholecystitis without obstruction SNOMED: 532309800 (4) Elevated LFTs ICD Codes: R94.5 - Abnormal results of liver function studies SNOMED: 102802675, 735915041 (5) A-fib ICD Codes: I48.91 - Unspecified atrial fibrillation SNOMED: 80213716 (6) RI (7) Hypoalbuminemia ICD Codes: E88.09 - Other disorders of plasma-protein metabolism, not elsewhere classified SNOMED: 562999663 (8) Adrenal mass ICD Codes: E27.8 - Other specified disorders of adrenal gland SNOMED: 707817792 (9) Abdominal pain ICD Codes: R10.9 - Unspecified abdominal pain SNOMED: 86071503 Qualifiers: Qualified Codes: R10.31 - Right lower quadrant pain (10) Uterine fibroid ICD Codes: D25.9 - Leiomyoma of uterus, unspecified SNOMED: 96488845 (11) Cocaine abuse ICD Codes: F14.10 - Cocaine abuse, uncomplicated SNOMED: 27435985 Status: unchanged Assessment/Plan: HIDA scan>> neg ABx per ID fu cardiology repeat labs drug screen>>. positive for cocaine fu DIRECTOR OF REHABILITATIVE SERVICES hold GI procedures for now Subjective ROS Limited/Unobtainable: Yes Allergies: Coded Allergies: No Known Allergies (Unverified , 07/24/17) Subjective abd pain Objective Last 24 Hour Vital Signs Date Time Temp Pulse Resp B/P (MAP) Pulse Ox O2 Delivery O2 Flow Rate FiO2 12/20/18 05:28 82 159/92 12/20/18 04:30 98.0 82 22 159/92 (114) 99 12/20/18 03:20 Nasal Cannula 2.0 12/20/18 00:37 86 146/83 12/20/18 00:08 90 20 99 Nasal Cannula 2.0 28 89 20 96 12/20/18 00:00 97.9 86 20 146/83 (104) 99 12/20/18 00:00 Nasal Cannula 2.0 12/19/18 21:30 99.1 80 22 154/100 (118) 95 12/19/18 21:00 Nasal Cannula 2.0 12/19/18 20:39 148/70 12/19/18 20:00 83 12/19/18 20:00 98.2 82 26 148/70 (96) 96 12/19/18 19:27 82 20 98 Nasal Cannula 2.0 28 81 20 96 12/19/18 19:27 96 Nasal Cannula 2.0 28 12/19/18 17:14 77 142/80 12/19/18 16:00 98.9 75 26 142/80 (100) 96 12/19/18 16:00 Nasal Cannula 2.0 12/19/18 16:00 77 12/19/18 13:15 84 20 99 Nasal Cannula 2.0 28 82 20 98 12/19/18 12:00 Nasal Cannula 2.0 12/19/18 12:00 98.3 82 24 164/92 (116) 99 12/19/18 12:00 81 12/19/18 11:11 82 164/92 12/19/18 09:00 78 12/19/18 08:38 154/82 12/19/18 08:38 81 12/19/18 08:00 Nasal Cannula 2.0 12/19/18 08:00 98.1 81 20 154/82 (106) 98 12/19/18 07:40 84 20 99 Nasal Cannula 2.0 28 84 20 98 12/19/18 07:40 98 Nasal Cannula 2.0 28 Intake and Output 12/19/18 12/20/18 18:59 06:59 Intake Total 1586.75 ml 751 ml Output Total 20 ml 805 ml Balance 1566.75 ml -54 ml Intake Oral 600 ml 500 ml IV Total 986.75 ml 251 ml Output Urine Total 800 ml Drainage Total 5 ml Other 20 ml # Voids 4 3 # Bowel Movements 3 Laboratory Tests 12/19/18 08:25: White Blood Count 15.4H, Red Blood Count 4.91, Hemoglobin 12.9, Hematocrit 41.0 , Mean Corpuscular Volume 84, Mean Corpuscular Hemoglobin 26.4L, Mean Corpuscular Hemoglobin Concent 31.5L, Red Cell Distribution Width 13.8, Platelet Count 301, Mean Platelet Volume 6.4L, Neutrophils (%) (Auto) , Lymphocytes (%) (Auto) , Monocytes (%) (Auto) , Eosinophils (%) (Auto) , Basophils (%) (Auto) , Differential Total Cells Counted 100, Neutrophils % ( Manual) 83H, Lymphocytes % (Manual) 8L, Monocytes % (Manual) 5, Eosinophils % ( Manual) 1, Basophils % (Manual) 0, Band Neutrophils 3, Reactive Lymphocytes 1+, Platelet Estimate Adequate, Platelet Morphology Normal, Sodium Level 140, Potassium Level 3.8, Chloride Level 106, Carbon Dioxide Level 29, Blood Urea Nitrogen 6L, Creatinine 0.5L, Estimat Glomerular Filtration Rate > 60, Glucose Level 138H, Calcium Level 8.3L, Total Bilirubin 1.0, Aspartate Amino Transf (AST /SGOT) 34, Alanine Aminotransferase (ALT/SGPT) 28, Alkaline Phosphatase 242H, Total Protein 6.3L, Albumin 1.7L, Globulin 4.6, Albumin/Globulin Ratio 0.4L 12/20/18 04:55: White Blood Count 13.9H, Red Blood Count 4.92, Hemoglobin 13.1, Hematocrit 41.0 , Mean Corpuscular Volume 83, Mean Corpuscular Hemoglobin 26.6L, Mean Corpuscular Hemoglobin Concent 32.0, Red Cell Distribution Width 13.8, Platelet Count 340, Mean Platelet Volume 6.1L, Neutrophils (%) (Auto) 82.8H, Lymphocytes (%) (Auto) 9.8L, Monocytes (%) (Auto) 5.3, Eosinophils (%) (Auto) 1.4, Basophils (%) (Auto) 0.7, Sodium Level 140, Potassium Level 4.1, Chloride Level 106, Carbon Dioxide Level 29, Blood Urea Nitrogen 5L, Creatinine 0.6, Estimat Glomerular Filtration Rate > 60, Glucose Level 117H, Calcium Level 8.2L, Anion Gap 5 Height (Feet): 5 Height (Inches): 4.00 Weight (Pounds): 246 General Appearance: alert EENT: normal ENT inspection Neck: supple Cardiovascular: normal rate Respiratory/Chest: decreased breath sounds Abdomen: normal bowel sounds, non tender, soft Extremities: non-tender Alan Aguero MD Dec 20, 2018 07:35
--- NOTE | 2018-12-20 07:38 | NUR ---
HAND-OFF: Report given to Sima
--- NOTE | 2018-12-20 07:40 | NUR ---
NURSE NOTES: WALKING ROUNDS DONE WITH OUTGOING RN. PATIENT AWAKE IN BED. RLQ PIGTAIL APPLIANCE ASSESSED. SEROSANGUINEOUS DRAINAGE. SECURED TO BEDSIDE TO GRAVITY. INSERTION SECURED AND C/D/I. QUESTIONS ANSWERED, NEEDS MET AT THIS TIME. DISCUSSED PLAN OF CARE FOR THE DAY. VERBALIZED UNDERSTANDING. BED IN LOW AND LOCKED POSITION. CALL LIGHT WITHIN REACH.
[2018-12-20] MEDS: Enoxaparin 30mg Inj SUBQ SCH ×2 (09:03→21:00)
[2018-12-20] MEDS: Lisinopril 10mg tab ORAL SCH ×2 (09:03→20:53)
[2018-12-20] MEDS: Enoxaparin 80mg Inj SUBQ SCH ×2 (09:04→21:00)
--- NOTE | 2018-12-20 10:50 | Surgery Progress Note ---
Surgery Progress Note Subjective Additional Comments afebrile, HD Stable, leukocytosis cont to improved drain malfunction today and removed by myself no n/v/f/c pain improved tolerating diet Objective Last 24 Hour Vital Signs Date Time Temp Pulse Resp B/P (MAP) Pulse Ox O2 Delivery O2 Flow Rate FiO2 12/20/18 09:03 133/77 12/20/18 09:02 84 12/20/18 09:00 Nasal Cannula 2.0 Nasal Cannula 2.0 12/20/18 08:00 98.3 84 21 133/77 (95) 96 12/20/18 07:53 84 20 99 Nasal Cannula 2.0 28 85 20 96 12/20/18 07:52 96 Nasal Cannula 2.0 28 12/20/18 05:28 82 159/92 12/20/18 04:30 98.0 82 22 159/92 (114) 99 12/20/18 03:20 Nasal Cannula 2.0 12/20/18 00:37 86 146/83 12/20/18 00:08 90 20 99 Nasal Cannula 2.0 28 89 20 96 12/20/18 00:00 97.9 86 20 146/83 (104) 99 12/20/18 00:00 Nasal Cannula 2.0 12/19/18 21:30 99.1 80 22 154/100 (118) 95 12/19/18 21:00 Nasal Cannula 2.0 12/19/18 20:39 148/70 12/19/18 20:00 83 12/19/18 20:00 98.2 82 26 148/70 (96) 96 12/19/18 19:27 82 20 98 Nasal Cannula 2.0 28 81 20 96 12/19/18 19:27 96 Nasal Cannula 2.0 28 12/19/18 17:14 77 142/80 12/19/18 16:00 98.9 75 26 142/80 (100) 96 12/19/18 16:00 Nasal Cannula 2.0 12/19/18 16:00 77 12/19/18 13:15 84 20 99 Nasal Cannula 2.0 28 82 20 98 12/19/18 12:00 Nasal Cannula 2.0 12/19/18 12:00 98.3 82 24 164/92 (116) 99 12/19/18 12:00 81 12/19/18 11:11 82 164/92 I&O Intake and Output 12/19/18 12/20/18 19:00 07:00 Intake Total 1511.75 ml 751 ml Output Total 20 ml 805 ml Balance 1491.75 ml -54 ml Intake Oral 600 ml 500 ml IV Total 911.75 ml 251 ml Output Urine Total 800 ml Drainage Total 5 ml Other 20 ml # Voids 4 3 # Bowel Movements 3 Dressing: dry Wound: clean Drains: other Cardiovascular: RSR Respiratory: clear Abdomen: soft, non-tender, present bowel sounds, non-distended Extremities: no edema, no tenderness, no cyanosis Laboratory Tests Test 12/20/18 04:55 White Blood Count 13.9 K/UL (4.8-10.8) H Red Blood Count 4.92 M/UL (4.20-5.40) Hemoglobin 13.1 G/DL (12.0-16.0) Hematocrit 41.0 % (37.0-47.0) Mean Corpuscular Volume 83 FL (80-99) Mean Corpuscular Hemoglobin 26.6 PG (27.0-31.0) L Mean Corpuscular Hemoglobin Concent 32.0 G/DL (32.0-36.0) Red Cell Distribution Width 13.8 % (11.6-14.8) Platelet Count 340 K/UL (150-450) Mean Platelet Volume 6.1 FL (6.5-10.1) L Neutrophils (%) (Auto) 82.8 % (45.0-75.0) H Lymphocytes (%) (Auto) 9.8 % (20.0-45.0) L Monocytes (%) (Auto) 5.3 % (1.0-10.0) Eosinophils (%) (Auto) 1.4 % (0.0-3.0) Basophils (%) (Auto) 0.7 % (0.0-2.0) Sodium Level 140 MMOL/L (136-145) Potassium Level 4.1 MMOL/L (3.5-5.1) Chloride Level 106 MMOL/L (98-107) Carbon Dioxide Level 29 MMOL/L (21-32) Anion Gap 5 mmol/L (5-15) Blood Urea Nitrogen 5 mg/dL (7-18) L Creatinine 0.6 MG/DL (0.55-1.30) Estimat Glomerular Filtration Rate > 60 mL/min (>60) Glucose Level 117 MG/DL (74-106) H Calcium Level 8.2 MG/DL (8.5-10.1) L Plan Problems: (1) Abdominal pain Assessment & Plan: 53-year-old female with abdominal pain for the past 2 days worsening started his right flank now on her right mid abdomen and lower quadrant. Afebrile, hemodynamically stable, leukocytosis 20,000. Labs otherwise normal. Right-sided abdominal tenderness on examination with voluntary guarding but no rebound CT reviewed with radiologist and as noted in his dictation. Possible tubo-ovarian site abscess, hemorrhagic ovarian cyst, mesenteric infarct, enteritis. At this time needs further work-up and management. A.m. labs. Infectious disease input GI input noted in ICU for a fib. 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 Trend leukocytosis drain removed as it was not functioning properly will follow Thank you for this consultation we will follow with recommendations and serial exams. Ganga Mancuso Dec 20, 2018 10:50
--- NOTE | 2018-12-20 11:40 | Cardiac Electrophysiology PN ---
Assessment/Plan Assessment/Plan 1. Atrial fibrillation with rapid ventricular response. On Cardizem 90 q6 and Digoxin 0.25 daily. Echo EF 65%. On Lovenox 1mg/kg sq bid. 2. Hypertension. Continue Cardizem and Lisinopril. 3. Right-sided abdominal pain likely secondary to infectious plus hemorrhagic right ovarian cyst. Follow up by GI and Surgery. Follow up with ID and [employer] FORMER SUPERVISOR recommendation. S/P CT Guided aspiration of the abdominal abscess Drain removed todat 4. Sepsis with white count of more than 20,000. On IV antibiotic per ID. DW RN Subjective Subjective Remained in SR while on tele. Now on [facility]. The abdominal drain was removed today by Dr Mancuso as had no drainage per RN and was partially out anyways Objective Last 24 Hour Vital Signs Date Time Temp Pulse Resp B/P (MAP) Pulse Ox O2 Delivery O2 Flow Rate FiO2 12/20/18 09:03 133/77 12/20/18 09:02 84 12/20/18 09:00 Nasal Cannula 2.0 Nasal Cannula 2.0 12/20/18 08:00 98.3 84 21 133/77 (95) 96 12/20/18 07:53 84 20 99 Nasal Cannula 2.0 28 85 20 96 12/20/18 07:52 96 Nasal Cannula 2.0 28 12/20/18 05:28 82 159/92 12/20/18 04:30 98.0 82 22 159/92 (114) 99 12/20/18 03:20 Nasal Cannula 2.0 12/20/18 00:37 86 146/83 12/20/18 00:08 90 20 99 Nasal Cannula 2.0 28 89 20 96 12/20/18 00:00 97.9 86 20 146/83 (104) 99 12/20/18 00:00 Nasal Cannula 2.0 12/19/18 21:30 99.1 80 22 154/100 (118) 95 12/19/18 21:00 Nasal Cannula 2.0 12/19/18 20:39 148/70 12/19/18 20:00 83 12/19/18 20:00 98.2 82 26 148/70 (96) 96 12/19/18 19:27 82 20 98 Nasal Cannula 2.0 28 81 20 96 12/19/18 19:27 96 Nasal Cannula 2.0 28 12/19/18 17:14 77 142/80 12/19/18 16:00 98.9 75 26 142/80 (100) 96 12/19/18 16:00 Nasal Cannula 2.0 12/19/18 16:00 77 12/19/18 13:15 84 20 99 Nasal Cannula 2.0 28 82 20 98 12/19/18 12:00 Nasal Cannula 2.0 12/19/18 12:00 98.3 82 24 164/92 (116) 99 12/19/18 12:00 81 Intake and Output 12/19/18 12/20/18 19:00 07:00 Intake Total 1511.75 ml 751 ml Output Total 20 ml 805 ml Balance 1491.75 ml -54 ml Intake Oral 600 ml 500 ml IV Total 911.75 ml 251 ml Output Urine Total 800 ml Drainage Total 5 ml Other 20 ml # Voids 4 3 # Bowel Movements 3 Laboratory Tests Test 12/20/18 04:55 White Blood Count 13.9 K/UL (4.8-10.8) H Red Blood Count 4.92 M/UL (4.20-5.40) Hemoglobin 13.1 G/DL (12.0-16.0) Hematocrit 41.0 % (37.0-47.0) Mean Corpuscular Volume 83 FL (80-99) Mean Corpuscular Hemoglobin 26.6 PG (27.0-31.0) L Mean Corpuscular Hemoglobin Concent 32.0 G/DL (32.0-36.0) Red Cell Distribution Width 13.8 % (11.6-14.8) Platelet Count 340 K/UL (150-450) Mean Platelet Volume 6.1 FL (6.5-10.1) L Neutrophils (%) (Auto) 82.8 % (45.0-75.0) H Lymphocytes (%) (Auto) 9.8 % (20.0-45.0) L Monocytes (%) (Auto) 5.3 % (1.0-10.0) Eosinophils (%) (Auto) 1.4 % (0.0-3.0) Basophils (%) (Auto) 0.7 % (0.0-2.0) Sodium Level 140 MMOL/L (136-145) Potassium Level 4.1 MMOL/L (3.5-5.1) Chloride Level 106 MMOL/L (98-107) Carbon Dioxide Level 29 MMOL/L (21-32) Anion Gap 5 mmol/L (5-15) Blood Urea Nitrogen 5 mg/dL (7-18) L Creatinine 0.6 MG/DL (0.55-1.30) Estimat Glomerular Filtration Rate > 60 mL/min (>60) Glucose Level 117 MG/DL (74-106) H Calcium Level 8.2 MG/DL (8.5-10.1) L Objective HEAD AND NECK: No JVD. HEART: Regular S1 and S2 with no gallop, murmur. LUNGS: CTA ABDOMEN: Obese. EXTREMITIES: No pitting edema. Ha Thompson MD Dec 20, 2018 11:40
--- NOTE | 2018-12-20 12:03 | NUR ---
CLINICIAN ONCOLOGY NOTES INQUIRY FAXED TO [facility]. WILL FOLLOW UP.CHART REVIEWED AND NOTED.
[2018-12-20] MEDS: HYDROcodone/Acetamin 5/325 tab ORAL PRN ×2 (12:51→17:51)
[2018-12-20] MEDS ORDERED: cefTRIAXone 1 GM in D5W 55 ML IVPB SCH (14:00)
--- NOTE | 2018-12-20 14:41 | Pulmonology Progress Note ---
Assessment/Plan Problems: (1) D-dimer, elevated (2) Cocaine abuse (3) Elevated LFTs (4) RI (5) A-fib (6) Ovarian cyst (7) Hypoalbuminemia (8) Cholelithiasis (9) Hepatomegaly (10) Adrenal mass (11) Abdominal pain (12) Uterine fibroid (13) Sepsis (14) Syncope and collapse (15) Diverticulitis Assessment/Plan ASSESSMENT: The patient is a 53-year-old female smoker with a history of cocaine use, hypertension, admitted with tubo-ovarian abscess complicated by paroxysmal atrial fibrillation with rapid ventricular response, now back in sinus rhythm, but with tachypnea secondary to a combination of atelectasis and pneumonia at the right base. PROBLEM LIST: 1. Hospital-associated pneumonia, infiltrate at the right base. 2. Atelectasis. 3. Obesity with likely underlying obstructive sleep apnea. 4. Tubo-ovarian abscess status post CT-guided drainage. 5. Klebsiella urinary tract infection. 6. Paroxysmal atrial fibrillation, now back in sinus rhythm. 7. Hypertension. 8. Tobacco use. 9. Cocaine use. 10. Leukocytosis. 11. Cholelithiasis. 12. Adrenal nodule. 13. Asthma without evidence of exacerbation. 14. Depression. TREATMENT PLAN: 1. Optimize pulmonary hygiene/mobilize as tolerated. 2. P.r.n. O2. 3. Lylzl-fbq-ahgyo and p.r.n. Atrovent only, nebulizers. 4. Antibiotics per Infectious Diseases. 5. Monitor volumes and renal function. 6. Digoxin. 7. Rate and rhythm control per Dr. Thompson. 8. Follow up OB and GI recommendations. 9. DVT prophylaxis. The patient is on Lovenox. 10. Monitor volumes and renal function. 11. Continue to encourage abstinence from tobacco use. 12. Encourage abstinence from drug use. 13. The patient should have a sleep study and PFTs as an outpatient. Subjective Allergies: Coded Allergies: No Known Allergies (Unverified , 07/24/17) Subjective TTF AFVSS on 2-3L oxygenation stable No cough No SOB no FC no CP Abd pain better Objective Last 24 Hour Vital Signs Date Time Temp Pulse Resp B/P (MAP) Pulse Ox O2 Delivery O2 Flow Rate FiO2 12/20/18 13:21 98.0 12/20/18 13:05 84 20 99 Nasal Cannula 2.0 28 83 20 97 10/1/19 12:27 84 168/73 12/20/18 11:50 98.0 84 22 168/73 (104) 98 12/20/18 09:03 133/77 12/20/18 09:02 84 12/20/18 09:00 Nasal Cannula 2.0 Nasal Cannula 2.0 12/20/18 08:00 98.3 84 21 133/77 (95) 96 12/20/18 07:53 84 20 99 Nasal Cannula 2.0 28 85 20 96 12/20/18 07:52 96 Nasal Cannula 2.0 28 12/20/18 05:28 82 159/92 12/20/18 04:30 98.0 82 22 159/92 (114) 99 12/20/18 03:20 Nasal Cannula 2.0 12/20/18 00:37 86 146/83 12/20/18 00:08 90 20 99 Nasal Cannula 2.0 28 89 20 96 12/20/18 00:00 97.9 86 20 146/83 (104) 99 12/20/18 00:00 Nasal Cannula 2.0 12/19/18 21:30 99.1 80 22 154/100 (118) 95 12/19/18 21:00 Nasal Cannula 2.0 12/19/18 20:39 148/70 12/19/18 20:00 83 12/19/18 20:00 98.2 82 26 148/70 (96) 96 12/19/18 19:27 82 20 98 Nasal Cannula 2.0 28 81 20 96 12/19/18 19:27 96 Nasal Cannula 2.0 28 12/19/18 17:14 77 142/80 12/19/18 16:00 98.9 75 26 142/80 (100) 96 12/19/18 16:00 Nasal Cannula 2.0 12/19/18 16:00 77 Intake and Output 12/19/18 12/20/18 19:00 07:00 Intake Total 1511.75 ml 751 ml Output Total 20 ml 805 ml Balance 1491.75 ml -54 ml Intake Oral 600 ml 500 ml IV Total 911.75 ml 251 ml Output Urine Total 800 ml Drainage Total 5 ml Other 20 ml # Voids 4 3 # Bowel Movements 3 General Appearance: WD/WN, no acute distress HEENT: normocephalic, atraumatic, anicteric, mucous membranes moist Respiratory/Chest: chest wall non-tender, lungs clear, normal breath sounds, no respiratory distress, no accessory muscle use Cardiovascular: normal peripheral pulses, normal rate, regular rhythm Abdomen: normal bowel sounds, soft, non tender, no organomegaly, non distended , no mass Extremities: no cyanosis, no clubbing, no edema Laboratory Tests 12/20/18 04:55: White Blood Count 13.9H, Red Blood Count 4.92, Hemoglobin 13.1, Hematocrit 41.0 , Mean Corpuscular Volume 83, Mean Corpuscular Hemoglobin 26.6L, Mean Corpuscular Hemoglobin Concent 32.0, Red Cell Distribution Width 13.8, Platelet Count 340, Mean Platelet Volume 6.1L, Neutrophils (%) (Auto) 82.8H, Lymphocytes (%) (Auto) 9.8L, Monocytes (%) (Auto) 5.3, Eosinophils (%) (Auto) 1.4, Basophils (%) (Auto) 0.7, Sodium Level 140, Potassium Level 4.1, Chloride Level 106, Carbon Dioxide Level 29, Anion Gap 5, Blood Urea Nitrogen 5L, Creatinine 0.6, Estimat Glomerular Filtration Rate > 60, Glucose Level 117H, Calcium Level 8.2L Current Medications Medications (Trade) Dose Ordered Sig/Alfredo Route PRN Reason Start Time Stop Time Status Last Admin Dose Admin Acetaminophen (Tylenol) 650 mg Q6H PRN ORAL Mild Pain/Temp > 100.5 12/20/18 21:00 01/11/19 20:59 Acetaminophen/ Hydrocodone Bitart ([place] 5/325) 1 tab Q4H PRN ORAL Severe Pain (Pain Scale 7-10) 12/19/18 22:30 12/26/18 22:29 12/20/18 12:51 Al Hydroxide/Mg Hydroxide (Mylanta II) 30 ml Q6H PRN ORAL dyspepsia 12/20/18 21:00 01/11/19 20:59 Ceftriaxone Sodium 1 gm/ Dextrose 55 ml @ 110 mls/hr Q24H IVPB 12/20/18 14:00 12/26/18 13:59 12/20/18 13:34 Dextrose (Dextrose 50%) 25 ml Q30M PRN IV Hypoglycemia 12/19/18 20:30 01/11/19 13:59 Dextrose (Dextrose 50%) 50 ml Q30M PRN IV Hypoglycemia 12/19/18 20:30 01/11/19 13:59 Digoxin (Lanoxin) 0.25 mg DAILY ORAL 12/20/18 09:00 01/14/19 09:59 12/20/18 09:02 Diltiazem HCl (Cardizem) 90 mg EVERY 6 HOURS ORAL 12/20/18 00:00 01/14/19 11:59 12/20/18 12:27 Diphenhydramine HCl (Benadryl) 25 mg Q6H PRN ORAL Itching/Pruritis 12/19/18 21:00 01/18/19 20:59 Enoxaparin Sodium (Lovenox) 30 mg Q12HR SUBQ 12/19/18 22:00 01/14/19 21:59 12/20/18 09:03 Enoxaparin Sodium (Lovenox) 80 mg Q12HR SUBQ 12/19/18 22:00 01/14/19 21:59 12/20/18 09:04 Famotidine (Pepcid) 20 mg Q12HR ORAL 12/19/18 21:00 01/16/19 20:59 12/20/18 09:02 Hydralazine HCl (Apresoline) 10 mg Q2H PRN ORAL HYPERTENSION 12/19/18 21:00 01/14/19 20:59 Iohexol (Omnipaque) 100 mg NOW PRN INJ Radiology Procedure 12/20/18 01:30 12/21/18 23:59 Ipratropium [place] (Atrovent) 500 mcg Q4H PRN HHN Shortness of Breath 12/19/18 21:00 12/24/18 20:59 Ipratropium [place] (Atrovent) 500 mcg Q6HRT HHN 12/20/18 01:00 12/23/18 12:59 12/20/18 13:08 Lisinopril (Zestril) 10 mg Q12HR ORAL 12/19/18 21:00 01/14/19 20:59 12/20/18 09:03 Lorazepam (Ativan) 1 mg Q4H PRN ORAL For Anxiety 12/19/18 21:00 12/26/18 20:59 Ondansetron HCl (Zofran) 4 mg Q6H PRN IVP Nausea & Vomiting 12/19/18 21:00 01/18/19 20:59 Potassium Chloride/Sodium Chloride 1,000 ml @ 75 mls/hr Q46S28P IV 12/19/18 20:30 01/11/19 01:29 12/20/18 07:12 Temazepam (Restoril) 15 mg HSPRN PRN ORAL Insomnia 12/20/18 21:00 12/26/18 20:59 Brian Howard MD Dec 20, 2018 14:41
--- NOTE | 2018-12-20 14:58 | NUR ---
*-* DISCHARGE PLANNING *-* PATIENT HAS BEEN REFERRED TO: [facility] P: [phone] F: [phone]
--- NOTE | 2018-12-20 15:30 | NUR ---
NURSE NOTES: PATIENT REMAINS STABLE. UP TO CHAIR FOR MEALS. TOLERATED WELL. PIGTAIL DRAIN REMOVED BY DR. GAMBINO THIS A.M. RLQ AREA HAS SOME BRUISING FROM INSERTION SITE. NO EVIDENCE OF DRAINAGE. 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
--- NOTE | 2018-12-20 16:44 | NUR ---
DISCHARGE PLANNING DISCHARGE ORDER NOTED Patient has been accepted to; [facility] [id number] [place] [address] Bed:208-B Skilled [phone] for Nurse to Nurse report [facility] ETA for transportation: 18:30
--- NOTE | 2018-12-20 18:00 | NUR ---
NURSE NOTES: DISCHARGE ORDER RECEIVED FOR PATIENT TO BE TRANSFERRED TO [facility] PER DR. SUMMERS. PLACED CALL TO ANSWERING SERVICE FOR MED RECON TO BE COMPLETED; NO PROMPT RETURN CALL. PLACED CALL TO CELL PHONE. NEW ORDERS RECEIVED. PATIENT INFORMED.
--- NOTE | 2018-12-20 18:30 | NUR ---
NURSE NOTES: REPORT GIVEN TO ESTEFANIA HARTMANN AT [facility]. PATIENT AMBULANCE PLACED ON WILL CALL DUE TO DELAY IN RETURN CALL FROM DR. SUMMERS TO GET DC ORDERS. PATIENT AND CHARGE NURSE AWARE.
--- NOTE | 2018-12-20 19:57 | NUR ---
HAND-OFF: Report given to SALBADOR PRATT RN.
--- NOTE | 2018-12-20 20:07 | NUR ---
NURSE NOTES: Received report from HENOK Gao. Patient is resting in bed. No c/o pain or SOB with 2L nasal cannula. Fluids running. Bed in low and locked position. Call light within reach. Patient states they are "ready to leave" and they "want to go to [place]". RN explained they will be going to another location as soon as the ambulance is available for transfer. Patient expressed understanding.
[2018-12-20] MEDS ORDERED: Mylanta II UD 30ml ORAL PRN (21:00)
[2018-12-20] MEDS ORDERED: NS 500ML ONE (22:49)
[2018-12-20] MEDS ORDERED: Tubing IV Secondary IV ONE (22:49)
--- NOTE | 2018-12-21 | Discharge Summary ---
DATE OF ADMISSION: 12/12/2018 DATE OF DISCHARGE: 12/20/2018 HOSPITAL COURSE: This is an elderly 53-year-old female who was admitted initially on medical floor for severe abdominal pain. The patient's hospital course was complicated for having acute cardiac arrhythmia. The patient was transferred in ICU. Also became septic. Further workup found out that the patient has ovarian abscess, which was drained by Radiology and Surgery. The patient also had a drain placed and drained about 50 to 100 mL of fluid. The patient is currently feeling better, tolerating diet, also has probably secondary to septic. She was given IV antibiotics. ID consult was obtained. The patient is clinically slightly better now. She is tolerating diet. Pain is controlled. Draining has minimized. 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 The patient is tolerating diet. Activity, the patient needs little assistance because she has been bedridden for 7 days. The patient was also admitted in ICU for cardiac arrhythmia and needed Cardizem drip currently. Dr. Thompson was consulted. DISCHARGE DIAGNOSES: 1. Ovarian abscess. 2. SVTs. 3. Obesity. 4. Nausea, vomiting. 5. Sepsis. DIET: She is on regular 2 g sodium diet. ACTIVITY: The patient needs assistance in walking. MEDICATIONS: The patient is going to be on p.o. antibiotics, physical therapy. Continue current treatment and follow up as outpatient. Fabiano Berkowitz M.D. DR: TARA JOB#: [id number] CC:
--- NOTE | 2018-12-21 10:25 | Diagnostic Imaging Report ---
Indication: Right Tubo-ovarian Abscess. Abdominal pain. Leukocytosis Technique: All preceding relevant cross sectional images were reviewed prior to the procedure. Continuous helical transaxial imaging of the region of interest was then obtained. No IV contrast given. Coronal 2-D reformats were also obtained. Study obtained in a Siemens sensation [address] Total Dose length Product (DLP): 3284.[address] Dose Index Volume (CTDIvol): 220.2 mGy Comparison: None Procedure: After review of the relevant cross-sectional images, the most feasible and safest percutaneous trajectory and approach was chosen. The skin was then sterilely prepped and draped. 1% lidocaine was administered for local anesthesia. Dermatotomy was made. AccuStick needle was then advanced in the direction of the collection. Adjustments were made until CT confirmed good positioning of the needle tip within the collection. Aspiration performed. A 0.018 wire was advanced after the stylette was removed. Needle removed and exchanged for a catheter. Aspiration performed. Exchange was then made for 0.035 wire, over which a multipurpose pigtail drainage catheter was advanced. Wire removed. More aspiration performed. Pigtail formed. CT images show good positioning of the catheter within the cavity. Findings: The targeted lesion was a right adnexal fluid collection well-circumscribed measuring approximately 5 to 6 cm in transverse diameter. Final images show good positioning of the pigtail catheter drain within the collection. Aspiration of contents showed tannish purulent appearing fluid. Impression: Successful aspiration and drainage of a right adnexal tubo-ovarian abscess. The CT scanner at [facility] is accredited by the [employer] and the scans are performed using dose optimization techniques as appropriate to a performed exam including Automatic Exposure control.
--- NOTE | 2018-12-29 22:05 | Coder Physician Query ---
Clarification is required for compliance, coding accuracy, and to reflect severity of illness for this patient. Dear Dr. GÓMEZ Date: 12/29/18 A posssible diagnois of_PNEUMONIA was made in the medical record on . ASSESSMENT: The patient is a 53-year-old female smoker with a history of cocaine use, hypertension, admitted with tubo-ovarian abscess complicated by paroxysmal atrial fibrillation with rapid ventricular response, now back in sinus rhythm, but with tachypnea secondary to a combination of atelectasis and pneumonia at the right base. CT SCAN 12/17/18 : IMPRESSION: 1. No central or large pulmonary embolus identified. Suboptimal contrast bolus timing for PE evaluation in the pulmonary arterial branches. 2. No aortic aneurysm or dissection. 3. Trace bilateral pleural effusions. Dependent atelectasis bilaterally. Component of pneumonia on the right is not excluded. Scattered ground- glass opacities in the left upper lobe may represent atelectasis versus an infectious inflammatory process. Upon review, it is difficult to determine whether this diagnosis OF PNEUMINA has been ruled in, ruled out,or is still being worked up. Please indicate below the status of the aforementioned diagnosis. [] Treated and resolve [] Presumed and treated [] Currently under treatment [] Still being worked-up [] Ruled out Present on Admission: [] Yes [] No [] Clinically Undetermined NICHOLAS GÓMEZ M.D. Date & TIME Please also document in your Progress Notes and/or Discharge Summary and indicate if the condition was present on admission. SHIVAD
== END 2018-12-20 22:50 | DRG 872 ==
LOC: EMR 12:45 → 3E 14:00 → EDBEDREQ 14:49 → 3E 12-13 18:15 → 2E 12-13 20:00 → ICU 12-14 12:14 → 2W 12-18 00:56 → 3E 12-19 20:15
PROC: 0U903ZZ Drainage of Right Ovary, Percutaneous Approach (ICD-10-PCS; principal; 2018-12-16)
DX: A41.9 Sepsis, unspecified organism (principal); N39.0 Urinary tract infection, site not specified; I47.1 Supraventricular tachycardia; K57.92 Diverticulitis of intestine, part unspecified, without perforation or abscess without bleeding; J98.11 Atelectasis; N70.93 Salpingitis and oophoritis, unspecified; N83.201 Unspecified ovarian cyst, right side; Y95 Nosocomial condition; B96.1 Klebsiella pneumoniae [K. pneumoniae] as the cause of diseases classified elsewhere; I10 Essential (primary) hypertension; E66.9 Obesity, unspecified; R11.2 Nausea with vomiting, unspecified; D25.9 Leiomyoma of uterus, unspecified; I48.91 Unspecified atrial fibrillation; F17.200 Nicotine dependence, unspecified, uncomplicated; F14.11 Cocaine abuse, in remission; I48.0 Paroxysmal atrial fibrillation; G47.33 Obstructive sleep apnea (adult) (pediatric); K80.20 Calculus of gallbladder without cholecystitis without obstruction; E27.8 Other specified disorders of adrenal gland; J45.909 Unspecified asthma, uncomplicated; F32.9 Major depressive disorder, single episode, unspecified; E88.09 Other disorders of plasma-protein metabolism, not elsewhere classified; R16.0 Hepatomegaly, not elsewhere classified; B95.0 Streptococcus, group A, as the cause of diseases classified elsewhere
CPT/HCPCS: 36415; 36600; 71275; 74177; 75989; 76700; 76830; 76856; 78266; 80048; 80053; 80061; 80162; 80307; 81003; 82248; 82803; 83036; 83605; 83690; 83735; 83880; 84100; 84439; 84443; 84484; 85007; 85025; 85379; 85610; 85651; 85730; 86140; 86850; 86900; 86901; 87070; 87075; 87086; 87181; 87205; 87590; 93005; 93306; 94640; 96361; 96365; 96375; 99291; J3490; J8499